=== PATIENT | female | born 1950 | race African-American/Black ===

== ENCOUNTER 2021-03-30 17:44 | Inpatient (IN) | payer MEDICARE, BC, SELFPAY ==
[2021-03-30] VITALS (7 sets, daily range): BP systolic 156–169; BP diastolic 84–106; PULSE 95–102; RESP 21–25; TEMP 36.1; O2SAT 88–98
--- NOTE | ~2021-03-30 | XR_ITS ---
XR chest 1V portable DATE: 04/06/2021 08:23 INDICATION: Pneumonia TECHNIQUE: Portable AP chest on 04/06/2021 at 0811 hours COMPARISON: 04/02/2021 portable AP chest at 0754 hours 03/30/2021 CTA chest FINDINGS: There is bilateral hyperinflation and relative flattening of the diaphragm. There is sparse lung markings in the upper lung zones. The findings are consistent with bullous emphysema. Middle lobe atelectasis is again noted. Bilateral foramen of Bochdalek hernias. Normal heart size. No hilar or mediastinal enlargement. Aortic calcification and mild unfolding. Diffuse osteopenia IMPRESSION: Persistent middle lobe atelectasis Bullous emphysema Reviewed, dictated and finalized at location A. GRADING MACHINE OPERATOR
--- NOTE | ~2021-03-30 | XR_ITS ---
EXAMINATION: XR abdomen/kub 1V EXAM DATE: 04/03/2021 10:36 INDICATION: Abdominal pain, nausea. TECHNIQUE: Frontal projection(s) of the abdomen for interpretation. Comparison is made to prior exami nation from 02/20/2016. FINDINGS: There is mild lumbar levoscoliosis. Mild to moderate bilateral hip osteoarthritis. Nonobst ructive bowel gas pattern, expected amount of colonic stool and gas. Several metallic densities proje cting over right mid abdomen. Bibasilar nodular density probably infectious or postinfectious, region was recently scanned by CT. IMPRESSION: Unremarkable bowel gas pattern. Reviewed, dictated and finalized at location B. AND DIE MAKER/DESIGNER
--- NOTE | ~2021-03-30 | CT_ITS ---
EXAMINATION: CTA chest PE protocol DATE: 03/30/2021 20:03 INDICATION: Possible right lung mass on chest radiograph TECHNIQUE: Computed tomography angiography (CTA) of the chest was performed with 100 mL Omnipaque-350 intravenous contrast timed to evaluate the pulmonary arteries. Coronal maximum intensity projection 3D-reconstructions were created by the technologist. The dose-length product (DLP) was 227.44 mGy-cm. Automated exposure control and iterative reconstruction technique were employed. COMPARISON: 02/24/2016 and chest radiograph from today FINDINGS: The pulmonary arteries are well-opacified. No pulmonary embolism is identified. There is se dameon emphysema. There is near complete atelectasis of the right middle lobe which accounts for the ch est radiographic finding in question. There is soft tissue density of the right hilum exerting mass e ffect on the right middle lobe bronchus. The heart size is normal. There is mild thoracic spondylosis . IMPRESSION: 1. Near complete atelectasis of the right middle lobe accounting for the chest radiographic finding i n question. Soft tissue density at the right hilum exerting mass effect on the right middle lobe bron chus may reflect lymphadenopathy versus malignancy. Follow-up with bronchoscopy is recommended. 2. Severe emphysema. Reviewed, dictated and finalized at location F. UNTING MANAGER ASSISTANT CONTROLLER IMPRESSION: 1. Near complete atelectasis of the right middle lobe accounting for the chest radiographic finding in question. Soft tissue density at the right hilum exerti ng mass effect on the right middle lobe bronchus may reflect lymphadenopathy ve rsus malignancy. Follow-up with bronchoscopy is recommended. 2. Severe emphysema.
--- NOTE | ~2021-03-30 | XR_ITS ---
EXAMINATION: XR chest 1V portable EXAM DATE: 04/02/2021 08:00 INDICATION: COPD, lung mass . Right middle lobe postobstructive atelectasis from hilar scarring, mass or lymphadenopathy. TECHNIQUE: Portable AP frontal chest x-ray was obtained. Comparison is made to prior examination from 03/30/2021. FINDINGS: The lungs are hyperinflated which can be seen with chronic obstructive pulmonary disease (a clinical diagnosis of functional impairment), but is not diagnostic of it. The main, central pulmona ry arteries are dilated which can indicate elevated pulmonary arterial pressure, pulmonary arterial h ypertension. There may be interval improvement in the right middle lobe post obstructive atelectasis. Some other r egions of linear scarring seen bilaterally. Narrow cardiac silhouette from hyperinflated lungs. No pn eumothorax or pleural effusion. There are bony degenerative changes. Mild lower thoracic levoscoliosi s. IMPRESSION: 1. Right middle lobe obstructive atelectasis, possibly with mild improvement. 2. Hyperinflation. Reviewed, dictated and finalized at location G. STANT PROFESSOR OF DRAMA
--- NOTE | ~2021-03-30 | XR_ITS ---
EXAMINATION: XR chest 1V portable INDICATION: Shortness of breath TECHNIQUE: Portable AP chest at 1835 hours COMPARISON: 02/29/2016 FINDINGS: There is severe emphysema. There is an ill-defined opacity of the right lung base. No pleur al effusion or pneumothorax is identified. The heart size is normal. Calcified pulmonary nodules and calcified mediastinal there is moderate osteoarthritis of the shoulders. lymph nodes are consistent w ith old granulomatous disease. IMPRESSION: 1. Ill-defined opacity of the right lung base which could reflect infection/inflammation or possible mass. Follow-up with CT of the chest is recommended. 2. Severe emphysema. Reviewed, dictated and finalized at location F. F HOSPITAL ADMINISTRATOR IMPRESSION: 1. Ill-defined opacity of the right lung base which could reflect infection/inf lammation or possible mass. Follow-up with CT of the chest is recommended. 2. Severe emphysema.
--- NOTE | 2021-03-30 17:52 | ECG_ITS ---
Measurements Intervals [place] Rate: 94 P: 94 DC: 141 QRS: 71 QRSD: 79 T: 62 QT: 278 QTc: 349 Interpretive Statements SINUS RHYTHM DELAYED PRECORDIAL R/S TRANSITION BORDERLINE ST-T WAVE ABNORMALITY- INF/LAT LEADS BASELINE ARTIFACT- I, II, III, AVR, AVL, AVF, V1-V6 BORDERLINE ECG Electronically Signed On 03-30-2021 20:24:15 TAKE DOWN SORTER by Amadeo Decker D.O.
[2021-03-30 18:47] LABS: Basophils Percent Auto 0.3 % (0.2-1.2); Eosinophils Percent Auto 0.1 % (0-4.4); Hematocrit 35.8 % (37.0-47.0); Hemoglobin 11.7 g/dL (12.0-15.0); Immature Granulocyte Absolute 0.04 K/mm3 (0.00-0.031); Immature Granulocyte Percent A 0.3 % (0-0.5); Lymphocytes Absolute Auto 1.35 K/mm3 (0.9-3.2); Lymphocytes Percent Auto 11.6 % (18.3-44.2); Mean Corpuscular HGB Conc 32.7 g/dl (32-36); Mean Corpuscular Hemoglobin 31.3 pg (26-34); Mean Corpuscular Volume 95.7 fl (80-100); Mean Platelet Volume 9.8 fl (7.4-10.4); Monocytes Absolute Auto 0.6 K/mm3 (0.1-0.6); Neutrophils Absolute Auto 9.7 K/mm3 (1.3-6.7); Neutrophils Percent Auto 82.7 % (45.5-73.1); Platelet Count Result 262 k/mm3 (150-375); Red Blood Count 3.74 M/mm3 (4.2-5.4); Red Cell Distribution Width 13.2 % (11.5-14.5); White Blood Count 11.7 K/mm3 (4.5-10.0)
[2021-03-30 19:10] LABS: Alanine Aminotransferase 18 U/L (4-35); Albumin Level 4.6 g/dL (3.5-5.1); Alkaline Phosphatase 98 U/L (38-126); Anion Gap 8 mmol/L (8-16); Aspartate Amino Transferase 35 U/L (14-36); Bilirubin,Total 0.5 mg/dL (0.2-1.3); Blood Urea Nitrogen 13 mg/dL (7-17); Calcium 9.6 mg/dL (8.4-10.2); Carbon Dioxide 38 mmol/L (22-30); Chloride 85 mmol/L (98-107); Estimated CRCL calculation 58 ml/min; Estimated Glomerular Filt Rate > 60; Glucose 139 mg/dL (65-110); Potassium 3.3 mmol/L (3.4-5.0); Sodium 131 mmol/L (137-145)
[2021-03-30 19:12] LABS: INR 0.9; Prothrombin Time 12.2 Seconds (11.1-14.7)
[2021-03-30 19:13] LABS: Partial Thromboplastin Time 27.6 SECONDS (22.3-36.8)
[2021-03-30 19:21] LABS: NT Pro B Type Natriuretic Pept 156 pg/mL (5-100); Troponin I < 0.012 ng/mL (0.000-0.034)
[2021-03-30] MEDS: ALBUTEROL SULFATE NEB 2.5 MG/0.5 ML INH 5 MG INHALATION (20:07)
[2021-03-30] MEDS: IPRATROPIUM BR 0.02% INH SOLN 0.5 MG/2.5 ML VIAL INHALATION (20:07)
--- NOTE | 2021-03-30 20:07 | ED.GENADULT ---
HPI - General Adult General Chief complaint: Shortness of Breath/Dyspnea Stated complaint: shortness of breath Time Seen by Provider: 03/30/21 19:11 History of Present Illness HPI narrative: Patient is 70-year-old female presents the emergency department chief complaint of shortness of breath. Patient reports that she has history of COPD is on 2 L of nasal cannula oxygen but reports that she has had a burning sensation in her lungs and reports that she had a little bit of a cough has been nonproductive. Patient reports that she is required additional oxygen needs up to 3 L right now. The patient denies fever states that this feels different than her usual exacerbation. Related Data Home Medications Medication Instructions Recorded Confirmed Saccharomyces boulardii [Daily PO 03/06/21 03/06/21 Probiotic (S. boulardii)] albuterol sulfate 90 mcg/actuation 1 puff INHALATION Q6H PRN g 03/06/21 03/06/21 aerosol inhaler aspirin 81 mg tablet,delayed 81 mg PO DAILY 03/06/21 03/06/21 release calcium carbonate [Tums] PO PRN 03/06/21 03/06/21 diltiazem HCl 30 mg tablet 30 mg PO TID 03/06/21 03/06/21 docusate sodium 100 mg capsule 100 mg PO BID PRN 03/06/21 03/06/21 fluticasone fur. 100 mcg-umeclid 1 inh INHALATION Q24H 03/06/21 03/06/21 62.5 mcg-vilant 25 mcg inhalat.powder fluticasone propionate 50 2 spray INTRANASAL DAILY 03/06/21 03/06/21 mcg/actuation nasal spray,suspension ipratropium 0.5 mg-albuterol 3 mg 3 ml INHALATION Q8H PRN ml 03/06/21 03/06/21 (2.5 mg base)/3 mL nebulization soln losartan 100 1 tablet PO DAILY 03/06/21 03/06/21 mg-hydrochlorothiazide 25 mg tablet montelukast 10 mg tablet 10 mg PO DAILY 03/06/21 03/06/21 multivitamin PO 03/06/21 03/06/21 omega-3 fatty acids 1,000 mg 1,000 mg PO DAILY 03/06/21 03/06/21 capsule omeprazole 40 mg capsule,delayed 40 mg PO DAILY 03/06/21 03/06/21 release Allergies Allergy/AdvReac Type Severity Reaction Status Date / Time shellfish derived Allergy Unknown Unknown Verified 03/06/21 09:34 strawberry Allergy Unknown Unknown Verified 03/06/21 09:34 Review of Systems Review of Systems: A 10 system review of systems was completed on the patient and is negative except for what is stated in the HPI. Nursing and ancillary documentation was reviewed. [facility] Past Medical History Medical History Anxiety Asthma Constipation Dry skin End stage chronic obstructive pulmonary disease GERD (gastroesophageal reflux disease) Heart disease HTN (hypertension) Hx of intestinal obstruction Insomnia Mixed hyperlipidemia Oxygen dependent Seasonal allergic rhinitis Vitamin D deficiency Weakness Surgical History Surgical History H/O: hysterectomy (~2016) History of appendectomy History of cholecystectomy (~2019) Family History Family History Mother Lymphoma Hypertension Heart disease Sibling Lung cancer Diabetes mellitus Hypertension Other Spinal cord cancer Social History Social History Smoking status: Former smoker Alcohol intake: never Substance use: never Substance use type: does not use Exam Narrative: GENERAL: Well-appearing, well-nourished, and in no acute distress. HEAD: Normocephalic, atraumatic. EYES: PERRLA and EOMI. ENT: Nares clear, no rhinorrhea or epistaxis. Mucous membranes moist. NECK: Supple. CHEST: Clear to auscultation. No respiratory distress. HEART: Regular rate and rhythm. No murmur heard. Normal peripheral pulses. ABDOMEN: Soft, nontender, nondistended, normal active bowel sounds. EXTREMITIES: Normal range of motion. No edema. SKIN: Warm, dry, no rash. NEURO: No focal deficits. Alert and oriented x3. PSYCH: Normal mood and affect. Cou
[2021-03-30] MEDS: methylPREDNISolone SOD SUCC 125 MG VIAL IV PUSH (20:48)
[2021-03-30 21:40] LABS: SARS-CoV-2 RNA PCR Negative
[2021-03-31] VITALS (25 sets, daily range): BP systolic 134–164; BP diastolic 61–83; PULSE 84–109; RESP 17–36; TEMP 35.7–36.4; O2SAT 92–99; BMI 15.3
--- NOTE | 2021-03-31 00:37 | ADMGEN ---
This patient, Kyle Love, was admitted to 2 Medical Room 259-01 @ . Patient/family oriented to hospital policies and general routines including ID bracelet, bed and alarms, visiting hours, pain management, procedures, bathroom and other care routines, personal items, smoking policy, room service/diet, and visiting hours. Information on how to activate the Rapid Response Team has been discussed. Patient/Family are encouraged to report perceived risks to care and to ask questions if they do not understand what they are told or what they should do. [id number]
[2021-03-31] MEDS: SODIUM CHLORIDE 0.9% IV 1,000 ML 100 ML IV CONT (00:57)
[2021-03-31] MEDS: ACETAMINOPHEN 325 MG TABLET 650 MG PO ×2 (05:14→09:20)
[2021-03-31] MEDS: methylPREDNISolone SOD SUCC 125 MG VIAL 60 MG IV PUSH (06:04)
[2021-03-31] MEDS: ALBUTEROL SULFATE NEB 2.5 MG/0.5 ML INH 5 MG INHALATION ×2 (06:29→08:43)
[2021-03-31] MEDS: IPRATROPIUM BR 0.02% INH SOLN 0.5 MG/2.5 ML VIAL INHALATION ×5 (06:29→20:23)
--- NOTE | 2021-03-31 09:11 | PM.IMHP ---
H&P: HPI History of Present Illness Date/Time: 03/31/21 09:11 Chief Complaint: Shortness of breath Narrative: 70 years old female with history of COPD, hypertension and oxygen dependent was admitted through the emergency room with complaints of having shortness of breath and cough going on for the last few days. Patient was requiring more oxygen. Patient also has generalized weakness. Patient denies any fever chills. No abdominal pain, no nausea, no vomiting. Mood stable. Review of Systems Review of Systems: All systems reviewed & are unremarkable except as noted in HPI and below (the history and physical examination.) [facility] Past Medical History Medical History Anxiety Asthma Constipation Dry skin End stage chronic obstructive pulmonary disease GERD (gastroesophageal reflux disease) Heart disease HTN (hypertension) Hx of intestinal obstruction Insomnia Mixed hyperlipidemia Oxygen dependent Seasonal allergic rhinitis Vitamin D deficiency Weakness Surgical History Surgical History H/O: hysterectomy (~2015) History of appendectomy History of cholecystectomy (~2019) Family History Family History Mother Lymphoma Hypertension Heart disease Sibling Lung cancer Diabetes mellitus Hypertension Other Spinal cord cancer Social History Social History Smoking status: Former smoker Additional smoking assessment comments: 10 years stopped smoking Alcohol intake: never Substance use: never Substance use type: does not use Spiritual care concerns: No Meds Home Medications and Allergies Home Medications Medication Instructions Recorded Confirmed Type Saccharomyces boulardii [Daily 1 cap PO DAILY 03/06/21 03/31/21 History Probiotic (S. boulardii)] albuterol sulfate 90 mcg/actuation 1 puff INHALATION Q6H PRN g 03/06/21 03/31/21 History aerosol inhaler aspirin 81 mg tablet,delayed 81 mg PO DAILY 03/06/21 03/31/21 History release cholecalciferol (vitamin D3) 1,250 1,250 mcg PO .[id number] #6 cap 03/06/21 03/31/21 Rx mcg (50,000 unit) capsule codeine 10 mg-guaifenesin 100 mg/5 5 ml PO Q6H PRN #473 ml 03/06/21 03/31/21 Rx mL oral liquid diltiazem HCl 30 mg tablet 30 mg PO TID 03/06/21 03/31/21 History docusate sodium 100 mg capsule 100 mg PO BID PRN 03/06/21 03/31/21 History fluticasone fur. 100 mcg-umeclid 1 inh INHALATION Q24H 03/06/21 03/31/21 History 62.5 mcg-vilant 25 mcg inhalat.powder fluticasone propionate 50 2 spray INTRANASAL DAILY 03/06/21 03/31/21 History mcg/actuation nasal spray,suspension ipratropium 0.5 mg-albuterol 3 mg 3 ml INHALATION Q8H PRN ml 03/06/21 03/31/21 History (2.5 mg base)/3 mL nebulization soln losartan 100 1 tablet PO DAILY 03/06/21 03/31/21 History mg-hydrochlorothiazide 25 mg tablet montelukast 10 mg tablet 10 mg PO DAILY 03/06/21 03/31/21 History omega-3 fatty acids 1,000 mg 1,000 mg PO DAILY 03/06/21 03/31/21 History capsule omeprazole 40 mg capsule,delayed 40 mg PO DAILY 03/06/21 03/31/21 History release morphine concentrate 100 mg/5 mL 10 mg PO Q4H PRN #90 ml 03/26/21 03/31/21 Rx (20 mg/mL) oral solution pravastatin 20 mg tablet 20 mg PO DAILY #90 tablet 03/26/21 03/31/21 Rx famotidine 20 mg tablet 20 mg PO DAILY #30 tablet 03/27/21 03/31/21 Rx sertraline 50 mg tablet 50 mg PO Q24H #30 tablet 03/27/21 03/31/21 Rx Allergies Allergy/AdvReac Type Severity Reaction Status Date / Time shellfish derived Allergy Unknown Unknown Verified 03/31/21 00:38 strawberry Allergy Unknown Unknown Verified 03/31/21 00:38 Vital Signs Vital Signs - 24 hr 03/30/21 17:48 03/30/21 18:28 03/30/21 18:29 Temperature 36.1 C L Pulse Rate 99 95 Respiratory Rate 22 H 25 H Blood Pressure 169/106 H 156/84 H
[2021-03-31] MEDS: SODIUM CHLORIDE 0.9% IV 1,000 ML 75 ML IV CONT ×2 (09:16→23:46)
--- NOTE | 2021-03-31 10:15 | PC.NURSE ---
AWAITING PHARMACY TO SEND ALL MORNING MEDS
[2021-03-31] MEDS: SACCHAROMYCES BOULARDII 250 MG CAPSULE PO (11:18)
[2021-03-31] MEDS: SERTRALINE HCL 50 MG TABLET PO (11:18)
[2021-03-31] MEDS: LOSARTAN POTASSIUM 100 MG TABLET PO (11:19)
[2021-03-31] MEDS: hydroCHLOROthiazide 25 MG TABLET PO (11:19)
[2021-03-31] MEDS: ASPIRIN 81 MG ENTERIC TABLET PO (11:19)
[2021-03-31] MEDS: ERGOCALCIFEROL 50,000 UNIT CAPSULE 50000 UNITS PO (11:19)
--- NOTE | 2021-03-31 12:10 | PM.PNPUL ---
Subjective Date/time seen: 03/31/21 12:10 Interval history: 03/31/2021: This is a new pulmonary consult for COPD exacerbation with right hilar mass. 70-year-old woman with a history of COPD, hypertension, hyperlipidemia, GERD and pneumonia in January of 2021. Regarding her COPD she is on 2 L nasal cannula 24-7. after her pneumonia in January of 2021 she recovered and went to rehabilitation. Over the last 3 days she has developed new cough, increasing shortness of breath, increasing oxygen demands without any fever, chills, rigors or aspiration events. The patient notes 10-12 lb weight loss in the last 6 weeks. Patient presented to the emergency room with a white blood cell count of 11.7, creatinine is 0.5, BNP of 156, negative troponin and her CT angiogram of the chest showed no PE, severe emphysema and a right hilar mass with compression of the right middle lobe bronchi and atelectasis of the right middle lobe. patient was started on ceftriaxone and azithromycin for postobstructive pneumonia. Patient was started on albuterol, ipratropium nebulizers and Solu-Medrol for COPD exacerbation. Objective Data Vital Signs Vital Signs: Vital Signs - 24 hr 03/30/21 17:48 03/30/21 18:28 03/30/21 18:29 Temperature 36.1 C L Pulse Rate 99 95 Respiratory Rate 22 H 25 H Blood Pressure 169/106 H 156/84 H Pulse Oximetry 97 88 L 98 03/30/21 20:08 03/30/21 20:09 03/30/21 20:14 Temperature Pulse Rate 100 100 102 H Respiratory Rate 21 H 21 H 21 H Blood Pressure Pulse Oximetry 03/30/21 21:03 03/31/21 00:16 03/31/21 00:50 Temperature 36.1 C L Pulse Rate 98 94 96 Respiratory Rate 23 H 17 22 H Blood Pressure 156/87 H 134/68 155/74 H Pulse Oximetry 97 97 96 03/31/21 04:14 03/31/21 06:30 03/31/21 06:37 Temperature 35.7 C L Pulse Rate 96 87 92 Respiratory Rate 18 19 21 H Blood Pressure 141/66 H Pulse Oximetry 95 03/31/21 08:45 03/31/21 08:52 03/31/21 09:20 Temperature Pulse Rate 86 91 Respiratory Rate 24 H 20 Blood Pressure Pulse Oximetry 93 95 03/31/21 11:22 Temperature Pulse Rate 94 Respiratory Rate 20 Blood Pressure 148/69 H Pulse Oximetry 99 Intake/Output Intake/Output: Intake & Output 03/28/21 03/29/21 03/30/21 03/31/21 23:59 23:59 23:59 23:59 Intake Total 250 1300 Balance 250 1300 Meds/Results Medications: Active Medications Generic Name Dose Route Start Last Admin Trade Name Freq PRN Reason Stop Dose Admin Acetaminophen 650 mg 03/30/21 21:03 03/31/21 09:20 Acetaminophen 325 Mg Tablet PO 650 mg Q4H PRN Administration Mild Pain (1-3) or Fever Albuterol 5 mg 03/31/21 02:00 03/31/21 08:43 Albuterol Sulfate Neb 2.5 Mg/0.5 Ml Inh INHALATION 5 mg Q6HRT KIERRA Administration Albuterol 2.5 mg 03/31/21 09:33 Albuterol Sulfate Neb 2.5 Mg/0.5 Ml Inh INHALATION Q8H PRN shortness of breath or wheezin Albuterol 1 puff 03/31/21 09:08 Albuterol Sulfate (*Sp) Aerosol 1 Puff INHALATION Q6H PRN shortness of breath or wheezing Aspirin 81 mg 03/31/21 09:00 03/31/21 11:19 Aspirin 81 Mg Enteric Tablet PO 81 mg DAILY KIERRA Administration Diltiazem HCl 30 mg 03/31/21 13:00 Diltiazem Hcl 30 Mg Tablet PO TID KIERRA Docusate Sodium 100 mg 03/31/21 09:08 Docusate Sodium 100 Mg Capsule PO BID PRN Constipation Ergocalciferol 50,000 unit 03/31/21 09:00 03/31/21 11:19 Ergocalciferol 50,000 Unit Capsule PO 50,000 unit Q14D KIERRA Administration Fluticasone Propionate 2 spray 04/01/21 09:00 Fluticasone Propionate 0.05% Na Spr 16 Gm Btl (*Bkc) NASAL DAILY KIERRA Fluticasone/Umeclidinium/Vilanterol 1 puff 03/31/21 09:00 Fluticasone/Umeclidin/Vilanter 100-62.5-25 Mcg Ellipta INHALATION Q24H [facility] Guaifenesin/Codeine Phosphate 5 ml 03/31/21 09:08 Guaifenesin/Codeine (*Crx) 200/20 Mg 10 Ml Syrup PO Q6H PRN cough Heparin Sodium (Porcine) 5,000
--- NOTE | 2021-03-31 12:22 | PM.CNPUL ---
Assessment and Plan Assessment and plan (1) COPD exacerbation: Code(s): J44.1 - Chronic obstructive pulmonary disease with (acute) exacerbation Status: Acute Assessment and Plan: Patient with COPD with hypoxemic respiratory failure requiring 2 L nasal cannula oxygen 24/7 and maintained on trelegy inhaler. I have no PFTs. Patient does have severe emphysema on her CT on 03/30/2021. Patient has baseline dyspnea on exertion is 15 ft. Currently the patient has increased cough, shortness of breath, change in phlegm production with a CT scan demonstrating a right hilar mass with atelectasis of the right middle lobe. I will treat her for COPD exacerbation and postobstructive pneumonia. Her COVID RT PCR study is negative. I will send influenza swab. I will check an arterial blood gas now to assess for hypercarbic respiratory failure. For the COPD exacerbation I will change her methylprednisolone to 20 mg IV q.6, I will change her albuterol nebulizers to 2.5 mg q.4 hours, I will change her ipratropium to 0.5 mg nebulized q.4 hours. Since this represents maximal beta agonist and muscarinic antagonist dose I will discontinue her trelegy. She is already using a Cornet valve to help her expectorate. Regarding the postobstructive pneumonia I will change her antibiotics from ceftriaxone and azithromycin to vancomycin, Zosyn and Levaquin to treat her aggressively With broad-spectrum antibiotics for community-acquired pneumonia as well as the possibility of resistant organisms such as MRSA and Pseudomonas. Blood cultures are negative and I have ordered a sputum culture. (2) Lung mass: Code(s): R91.8 - Other nonspecific abnormal finding of lung field Status: Acute Assessment and Plan: Patient with a right hilar mass with compression of the right middle lobe bronchus and atelectasis of the right middle lobe. In addition she has a 10-12 lb weight loss over the last 6 weeks and she may have cancer. At this time She is in mild respiratory distress with increased oxygen requirements and I will aggressively treat COPD exacerbation and postobstructive pneumonia prior to additional workup of this mass. History of Present Illness History of Present Illness Consult date: 03/31/21 Requesting physician: Dayron Loja MD Reason for consult: COPD and lung mass Chief complaint: copd exacerbation, lung mass, pneumonia Narrative: 03/31/2021: This is a new pulmonary consult for COPD exacerbation with right hilar mass. 70-year-old woman with a history of COPD With hypoxemic respiratory failure requiring 2 L nasal cannula oxygen 247 and maintained on trelegy inhaler, hypertension, hyperlipidemia, GERD and pneumonia in January of 2021. Regarding her COPD she is on 2 L nasal cannula 24-7. after her pneumonia in January of 2021 she recovered and went to rehabilitation. Over the last 3 days she has developed new cough, increasing shortness of breath, increasing oxygen demands without any fever, chills, rigors or aspiration events. The patient notes 10-12 lb weight loss in the last 6 weeks. Patient presented to the emergency room with a white blood cell count of 11.7, serum bicarb 38, creatinine is 0.5, BNP of 156, negative troponin and her CT angiogram of the chest showed no PE, severe emphysema and a right hilar mass with compression of the right middle lobe bronchi and atelectasis of the right middle lobe. patient was started on ceftriaxone and azithromycin for postobstructive pneumonia. Patient was started on albuterol, ipratropium nebulizers and Solu-Medrol for COPD exacerbation. patient smoked 1/2 a pack a cigarettes from [id number] 428 pack year history. Both parents smoked. She is not exposed to any secondhand smoke at this time. Patient denies vaping, illicit drug use, sandblasting, welding, asbestos were, professional painting or steel grain mill worker. patient has received 2 COVID vaccinations and tells me david
[2021-03-31] MEDS: dilTIAZem HCL 30 MG TABLET PO ×2 (12:27→17:36)
[2021-03-31] MEDS: MAG HYDROX/AL HYDROX/SIMETH 30 ML UDC PO (14:35)
[2021-03-31] MEDS: ALBUTEROL SULFATE NEB 2.5 MG/0.5 ML INH INHALATION ×3 (14:48→20:23)
[2021-03-31 14:54] LABS: Alveolar/Arterial O2 Gradient 75.6 mmHg; Base Excess ABG 6.7 mEq/l (+/-2.0); Fractional Inspired Oxygen 30 %; HCO3 ABG 34.7 mEq/l (22.0-26.0); Oxygen Content ABG 15.5 %vol (16.0-22.0); Oxygen Saturation ABG 88.4 % (95.0-100.0); PO2 ABG 59.8 mmHg (80.0-100.0); PO2 FiO2 Ratio Arterial Blood 1.99 %; Total Hemoglobin 12.5 g/dL (12.0-18.0); pH ABG 7.333 (7.350-7.450)
[2021-03-31 14:58] LABS: PCO2 ABG 66.8 mmHg (35.0-45.0)
[2021-03-31 15:00] LABS: Device NASAL CANNULA; Liters per Minute 2.5 LPM; Modified Allen's Test Pass; Oxyhemoglobin 87.9 % THb (90.0-100.0); Site Drawn RIGHT RADIAL
[2021-03-31] MEDS: PANTOPRAZOLE 40 MG TABLET PO (17:36)
[2021-03-31] MEDS: methylPREDNISolone SOD SUCC 40 MG VIAL 20 MG IV PUSH ×2 (17:37→23:45)
[2021-03-31 18:09] LABS: Influenza Control Positive
[2021-03-31] MEDS: ALPRAZolam (*CRX) 0.5 MG TABLET PO (18:56)
[2021-03-31] MEDS: HEPARIN SODIUM 5,000 UNITS/ML VIAL 5000 UNITS SUB-Q (21:18)
[2021-04-01] VITALS (13 sets, daily range): BP systolic 140–164; BP diastolic 74–89; PULSE 68–106; RESP 18–24; TEMP 35.6–36.7; O2SAT 94–100
[2021-04-01] MEDS: IPRATROPIUM BR 0.02% INH SOLN 0.5 MG/2.5 ML VIAL INHALATION ×4 (01:00→19:58)
[2021-04-01] MEDS: ALBUTEROL SULFATE NEB 2.5 MG/0.5 ML INH INHALATION ×4 (01:00→19:57)
[2021-04-01] MEDS: ALPRAZolam (*CRX) 0.25 MG TABLET PO ×2 (02:48→17:31)
[2021-04-01 05:28] LABS: Hematocrit 33.1 % (37.0-47.0); Hemoglobin 10.9 g/dL (12.0-15.0); Mean Corpuscular HGB Conc 32.9 g/dl (32-36); Mean Corpuscular Hemoglobin 31.1 pg (26-34); Mean Corpuscular Volume 94.6 fl (80-100); Mean Platelet Volume 10.1 fl (7.4-10.4); Platelet Count Result 262 k/mm3 (150-375); White Blood Count 10.8 K/mm3 (4.5-10.0)
[2021-04-01] MEDS: methylPREDNISolone SOD SUCC 40 MG VIAL 20 MG IV PUSH ×4 (05:28→23:12)
[2021-04-01 05:44] LABS: Alanine Aminotransferase 22 U/L (4-35); Albumin Level 4.3 g/dL (3.5-5.1); Alkaline Phosphatase 78 U/L (38-126); Anion Gap 8 mmol/L (8-16); Aspartate Amino Transferase 41 U/L (14-36); Bilirubin,Total 0.4 mg/dL (0.2-1.3); Blood Urea Nitrogen 15 mg/dL (7-17); Calcium 8.6 mg/dL (8.4-10.2); Carbon Dioxide 37 mmol/L (22-30); Chloride 81 mmol/L (98-107); Estimated CRCL calculation 63 ml/min; Estimated Glomerular Filt Rate > 60; Glucose 128 mg/dL (65-110); Potassium 3.7 mmol/L (3.4-5.0); Sodium 126 mmol/L (137-145)
[2021-04-01 06:11] LABS: Alveolar/Arterial O2 Gradient 98.2 mmHg; Base Excess ABG 9.7 mEq/l (+/-2.0); Fractional Inspired Oxygen 35 %; HCO3 ABG 35.6 mEq/l (22.0-26.0); Oxygen Content ABG 15.2 %vol (16.0-22.0); Oxygen Saturation ABG 96.8 % (95.0-100.0); Oxyhemoglobin 95.8 % THb (90.0-100.0); PCO2 ABG 54.6 mmHg (35.0-45.0); PO2 ABG 87.9 mmHg (80.0-100.0); PO2 FiO2 Ratio Arterial Blood 2.51 %; Total Hemoglobin 11.2 g/dL (12.0-18.0); pH ABG 7.432 (7.350-7.450)
[2021-04-01 06:25] LABS: Modified Allen's Test Pass; Site Drawn RIGHT RADIAL
[2021-04-01] MEDS: HEPARIN SODIUM 5,000 UNITS/ML VIAL 5000 UNITS SUB-Q ×2 (09:30→20:37)
[2021-04-01] MEDS: ASPIRIN 81 MG ENTERIC TABLET PO (09:31)
[2021-04-01] MEDS: hydroCHLOROthiazide 25 MG TABLET PO (09:31)
[2021-04-01] MEDS: PRAVASTATIN SODIUM 20 MG TABLET PO (09:31)
[2021-04-01] MEDS: FLUTICASONE PROPIONATE 0.05% NA SPR 16 GM BTL (*BKC) 2 SPRAY NASAL (09:31)
[2021-04-01] MEDS: LOSARTAN POTASSIUM 100 MG TABLET PO (09:31)
[2021-04-01] MEDS: MONTELUKAST SODIUM 10 MG TABLET PO (09:31)
[2021-04-01] MEDS: SERTRALINE HCL 50 MG TABLET PO (09:31)
[2021-04-01] MEDS: SACCHAROMYCES BOULARDII 250 MG CAPSULE PO (09:31)
[2021-04-01] MEDS: PANTOPRAZOLE 40 MG TABLET PO ×2 (09:31→17:31)
[2021-04-01] MEDS: ACETAMINOPHEN 325 MG TABLET 650 MG PO (09:33)
--- NOTE | 2021-04-01 12:29 | PM.IMPN ---
Progress Note: A&P Assessment and Plan (1) COPD exacerbation: Code(s): J44.1 - Chronic obstructive pulmonary disease with (acute) exacerbation Status: Acute Assessment and Plan: Will continue with IV steroids and nebulizer treatment Q4. Continue with oxygen. Change from BIPAP to NC in day BIPAP at night Pulmonology rounding (2) Pneumonia: Qualifiers: Laterality: unspecified laterality Lung location: unspecified part of lung Pneumonia type: due to unspecified organism Qualified Code(s): J18.9 - Pneumonia, unspecified organism Code(s): J18.9 - Pneumonia, unspecified organism Status: Acute Assessment and Plan: Follow BC, continue IV Levaquin, vancomycin and Zosyn (3) Lung mass: Code(s): R91.8 - Other nonspecific abnormal finding of lung field Status: Acute Assessment and Plan: Consult Pulmonary for possible bronchoscopy (4) Anxiety: Code(s): F41.9 - Anxiety disorder, unspecified Status: Acute Assessment and Plan: Stable current medication. (5) GERD (gastroesophageal reflux disease): Code(s): K21.9 - Gastro-esophageal reflux disease without esophagitis Status: Acute Assessment and Plan: Stable on current meds. (6) Mixed hyperlipidemia: Code(s): E78.2 - Mixed hyperlipidemia Status: Acute Assessment and Plan: Stable on current meds. (7) Essential hypertension: Code(s): I10 - Essential (primary) hypertension Status: Acute Assessment and Plan: Stable on meds. Subjective Date/time seen: 04/01/21 12:29 Interval history: 70 years old female with history of COPD, hypertension and oxygen dependent was admitted through the emergency room with complaints of having shortness of breath and cough going on for the last few days. Pt treated for COPD and pneumonia. Pt found to have a Lung mass. Pt is found to be COVID negative in the hospital. Pulmology rounding on the patient. CTA shows - 1. Near complete atelectasis of the right middle lobe accounting for the chest radiographic finding in question. Soft tissue density at the right hilum exerting mass effect on the right middle lobe bronchus may reflect lymphadenopathy versus malignancy. Follow-up with bronchoscopy is recommended. 2. Severe emphysema. Review of Systems Review of Systems: All systems reviewed & are unremarkable except as noted in HPI and below (the history and physical examination.) Exam Narrative: GENERAL: Pt is on BIPAP Thin frail appearing lady ENT: Nares clear, no rhinorrhea or epistaxis. Mucous membranes moist. NECK: Supple. CHEST: BL wheezy lungs HEART: Regular rate and rhythm. No murmur heard. Normal peripheral pulses. ABDOMEN: Soft, nontender, nondistended, normal active bowel sounds. EXTREMITIES: Normal range of motion. No edema. SKIN: Warm, dry, no rash. NEURO: No focal deficits. Alert and oriented x3. PSYCH: Normal mood and affect. Objective Data Vital Signs Vital Signs: Vital Signs - 24 hr 03/31/21 12:32 03/31/21 14:00 03/31/21 14:49 Temperature 36.4 C Pulse Rate 96 86 Respiratory Rate 20 36 H Blood Pressure 160/70 H 164/83 H Pulse Oximetry 98 03/31/21 15:00 03/31/21 16:29 03/31/21 16:35 Temperature Pulse Rate 95 109 H 109 H Respiratory Rate 36 H 28 H 24 H Blood Pressure Pulse Oximetry 98 03/31/21 17:09 03/31/21 18:22 03/31/21 20:00 Temperature Pulse Rate 101 H Respiratory Rate 24 H 26 H Blood Pressure Pulse Oximetry 98 92 94 03/31/21 20:23 03/31/21 20:24 03/31/21 20:33 Temperature Pulse Rate 90 99 97 Respiratory Rate 21 H 24 H 21 H Blood Pressure Pulse Oximetry 98 03/31/21 22:00 03/31/21 23:43 03/31/21 23:44 Temperature 36.2 C L Pulse Rate 86 84 86 Respiratory Rate 18 19 20 Blood Pressure 135/61 Pulse Oximetry 97 97 03/31/21 23:51 04/01/21 06:00 04/01/21 06:57 Temperature 36.7 C Pulse Rate 86 88 Respir
--- NOTE | 2021-04-01 12:37 | PM.PNPUL ---
Progress Note: A&P Assessment and Plan (1) COPD exacerbation: Code(s): J44.1 - Chronic obstructive pulmonary disease with (acute) exacerbation Status: Acute Assessment and Plan: 03/31 Patient with COPD with hypoxemic respiratory failure requiring 2 L nasal cannula oxygen 24/7 and maintained on trelegy inhaler. I have no PFTs. Patient does have severe emphysema on her CT on 03/30/2021. Patient has baseline dyspnea on exertion is 15 ft. Currently the patient has increased cough, shortness of breath, change in phlegm production with a CT scan demonstrating a right hilar mass with atelectasis of the right middle lobe. I will treat her for COPD exacerbation and postobstructive pneumonia. Her COVID RT PCR study is negative. I will send influenza swab. I will check an arterial blood gas now to assess for hypercarbic respiratory failure. For the COPD exacerbation I will change her methylprednisolone to 20 mg IV q.6, I will change her albuterol nebulizers to 2.5 mg q.4 hours, I will change her ipratropium to 0.5 mg nebulized q.4 hours. Since this represents maximal beta agonist and muscarinic antagonist dose I will discontinue her trelegy. She is already using a Cornet valve to help her expectorate. Regarding the postobstructive pneumonia I will change her antibiotics from ceftriaxone and azithromycin to vancomycin, Zosyn and Levaquin to treat her aggressively With broad-spectrum antibiotics for community-acquired pneumonia as well as the possibility of resistant organisms such as MRSA and Pseudomonas. Blood cultures are negative and I have ordered a sputum culture. ABG later in the day on tube of 2.5 L nasal cannula 7.33/69/60. Patient has hypercarbic respiratory failure and I initiated BiPAP later in the day But she did not tolerate BiPAP and I placed her on a noninvasive ventilation with AVAPS mode with a rate of 16, tidal volume 400, EPAP 5, minimal inspiratory pressure 6, maximal inspiratory pressure 25 and 35% FiO2. Patient wore this overnight.. 04/01 Patient wore the noninvasive ventilator with the a VATS mode overnight and said that she was able to sleep. She says it does help her breathe. Currently the patient is on 3 L nasal cannula saturations 94%. She has decreased breath sounds but no wheezes. Overall she says that she is a little bit better. Patient had a blood gas prior to removal of the noninvasive ventilator with the AVAPS mode of 7.43/55/88. Patient had an overnight oximetry on 35% FiO2 with an average saturation of 94% and time with saturation less than or equal to 88% was 10 minutes. Patient is a little bit better and at this time I will continue Solu-Medrol 20 mg IV q.6, albuterol and ipratropium nebulizers Q 4 standing, vancomycin, Zosyn and Levaquin for postobstructive pneumonia. Her blood gas on the above noninvasive ventilator settings are adequate. I will increase her FiO2 to 40% tonight. (2) Lung mass: Code(s): R91.8 - Other nonspecific abnormal finding of lung field Status: Acute Assessment and Plan: 03/31 Patient with severe COPD a right hilar mass with compression of the right middle lobe bronchus and atelectasis of the right middle lobe. In addition she has a 10-12 lb weight loss over the last 6 weeks and she may have cancer. At this time She is in mild respiratory distress with increased oxygen requirements and I will aggressively treat COPD exacerbation and postobstructive pneumonia prior to additional workup of this mass. 04/01 Patient with severe COPD and chronic hypoxemic and hypercarbic respiratory failure and now with a right hilar mass. Continue aggressive treatment for COPD exacerbation and postobstructive pneumonia prior to additional workup. Will obtain a portable chest x-ray in the morning. Will follow with you. Subjective Date/time seen: 04/01/21 12:37 Interval history: 03/31/2021: This is a new pulmonary consult for COPD
[2021-04-01] MEDS: SODIUM CHLORIDE 0.9% IV 1,000 ML 75 ML IV CONT (20:37)
[2021-04-02] VITALS (16 sets, daily range): BP systolic 153–184; BP diastolic 76–91; PULSE 80–113; RESP 16–28; TEMP 35.7–36.2; O2SAT 95–99; BMI 15.3
[2021-04-02] MEDS: ALBUTEROL SULFATE NEB 2.5 MG/0.5 ML INH INHALATION ×5 (00:05→19:56)
[2021-04-02] MEDS: IPRATROPIUM BR 0.02% INH SOLN 0.5 MG/2.5 ML VIAL INHALATION ×5 (00:05→19:56)
[2021-04-02] MEDS: ALPRAZolam (*CRX) 0.25 MG TABLET PO ×3 (03:20→22:23)
[2021-04-02] MEDS: methylPREDNISolone SOD SUCC 40 MG VIAL 20 MG IV PUSH ×3 (05:15→17:05)
[2021-04-02 07:49] LABS: Alanine Aminotransferase 22 U/L (4-35); Albumin Level 3.9 g/dL (3.5-5.1); Alkaline Phosphatase 62 U/L (38-126); Anion Gap 6 mmol/L (8-16); Aspartate Amino Transferase 38 U/L (14-36); Bilirubin,Total 0.5 mg/dL (0.2-1.3); Blood Urea Nitrogen 11 mg/dL (7-17); Calcium 8.4 mg/dL (8.4-10.2); Carbon Dioxide 39 mmol/L (22-30); Chloride 82 mmol/L (98-107); Estimated CRCL calculation 54 ml/min; Estimated Glomerular Filt Rate > 60; Glucose 102 mg/dL (65-110); Potassium 2.8 mmol/L (3.4-5.0); Sodium 127 mmol/L (137-145)
[2021-04-02] MEDS: ASPIRIN 81 MG ENTERIC TABLET PO (08:05)
[2021-04-02] MEDS: LOSARTAN POTASSIUM 100 MG TABLET PO (08:05)
[2021-04-02] MEDS: FLUTICASONE PROPIONATE 0.05% NA SPR 16 GM BTL (*BKC) 2 SPRAY NASAL (08:05)
[2021-04-02] MEDS: PRAVASTATIN SODIUM 20 MG TABLET PO (08:05)
[2021-04-02] MEDS: SACCHAROMYCES BOULARDII 250 MG CAPSULE PO (08:06)
[2021-04-02] MEDS: HEPARIN SODIUM 5,000 UNITS/ML VIAL 5000 UNITS SUB-Q ×2 (08:06→21:14)
[2021-04-02] MEDS: SERTRALINE HCL 50 MG TABLET PO (08:06)
[2021-04-02] MEDS: PANTOPRAZOLE 40 MG TABLET PO ×2 (08:08→17:05)
[2021-04-02] MEDS: POTASSIUM CHLORIDE 20 MEQ TABLET 40 MEQ PO (09:01)
[2021-04-02] MEDS: POTASSIUM CHLORIDE INJ 40 MEQ in SODIUM CHLORIDE 0.9% IV 500 ML 130 MEQ IVPB (09:03)
[2021-04-02 09:57] LABS: Device NON-INVASIVE VENT
[2021-04-02] MEDS: hydroCHLOROthiazide 25 MG TABLET PO (10:35)
[2021-04-02] MEDS: SODIUM CHLORIDE 0.9% IV 1,000 ML 75 ML IV CONT (11:58)
--- NOTE | 2021-04-02 14:29 | P.PNPL_ITS ---
Progress Note: A&P Assessment and Plan (1) COPD exacerbation: Code(s): J44.1 - Chronic obstructive pulmonary disease with (acute) exacerbation Status: Acute Assessment and Plan: 03/31 Patient with COPD with hypoxemic respiratory failure requiring 2 L nasal cannula oxygen 24/7 and maintained on Trelegy inhaler. I have no PFTs. Patient does have severe emphysema on her CT on 03/30/2021. Patient has baseline dyspnea on exertion with walking 15 ft. She was admitted with increased cough, shortness of breath, change in phlegm production with a CT scan demonstrating a right hilar mass with atelectasis of the right middle lobe. We will continue to treat her for COPD exacerbation and postobstructive pneumonia. Her COVID RT PCR study is negative, as well as the influenza swab from 03/31. Her ABG has improved; Mar 31 - 7.33 / 66.8 / 59.8 /34.7 on 35% Apr 01 - 7.43/ 54.6 / 87.9 / 35.6 on 2.5 L/min O2 She remains on methylprednisolone to 20 mg IV q.6 for COPD exacerbation, and albuterol nebulized 2.5 mg q.4 hours, and ipratropium 0.5 mg nebulized q.4 hours. Trelegy was stopped as she is on maximal beta agonist and muscarinic antagonist dose. She continues to use a Cornet valve to help her expectorate. Regarding the postobstructive pneumonia I will change her antibiotics from ceftriaxone and azithromycin to vancomycin, Zosyn and Levaquin to treat her ag gressively With broad-spectrum antibiotics for community-acquired pneumonia as well as the possibility of resistant organisms such as MRSA and Pseudomonas. Blood cultures are negative and I have ordered a sputum culture. ABG later in the day on tube of 2.5 L nasal cannula 7.33/69/60. Patient has hypercarbic respiratory failure and I initiated BiPAP later in the day But she did not tolerate BiPAP and I placed her on a noninvasive ventilation with AVAPS mode with a rate of 16, tidal volume 400, EPAP 5, minimal inspiratory pressure 6, maximal inspiratory pressure 25 and 35% FiO2. Patient wore this overnight.. 04/01 Patient wore the noninvasive ventilator with the AVAPS mode overnight and said that she was able to sleep. She says it does help her breathe. Currently the patient is on 3 L nasal cannula saturations 94%. She has decreased breath sounds but no wheezes. Overall she says that she is a little bit better. Patient had a blood gas prior to removal of the noninvasive ventilator with the AVAPS mode of 7.43/55/88. Patient had an overnight oximetry on 35% FiO2 with an average saturation of 94% and time with saturation less than or equal to 88% was 10 minutes. Patient is a little bit better and at this time I will continue Solu-Medrol 20 mg IV q.6, albuterol and ipratropium nebulizers Q 4 standing, vancomycin, Zosyn and Levaquin for postobstructive pneumonia. Her blood gas on the above noninvasive ventilator settings are adequate. Overnight she was on 40% 04/01. 04/02 She will need NPPV at discharge, and we will arrange this for her. (2) Lung mass: Onset Date: ~03/30/21 Code(s): R91.8 - Other nonspecific abnormal finding of lung field Status: Acute Assessment and Plan: 03/31 Patient with severe COPD a right hilar mass with compression of the right middle lobe bronchus and atelectasis of the right middle lobe. In addition she has a 10-12 lb weight loss over the last 6 weeks and she may have cancer. At this time She is in mild respiratory distress with increased oxygen requirements and I will aggressively treat COPD exacerbation and postobstructive pneumonia prior to additional workup of this mass. 04/01 P
--- NOTE | 2021-04-02 16:32 | PM.IMPN ---
Progress Note: A&P Assessment and Plan (1) COPD exacerbation: Code(s): J44.1 - Chronic obstructive pulmonary disease with (acute) exacerbation Status: Acute Assessment and Plan: Will continue with IV steroids and nebulizer treatment Q4. Continue with oxygen. Change from BIPAP to NC in day BIPAP at night Pulmonology rounding (2) Pneumonia: Qualifiers: Laterality: unspecified laterality Lung location: unspecified part of lung Pneumonia type: due to unspecified organism Qualified Code(s): J18.9 - Pneumonia, unspecified organism Code(s): J18.9 - Pneumonia, unspecified organism Status: Acute Assessment and Plan: Follow BC, continue IV Levaquin, vancomycin and Zosyn (3) Lung mass: Onset Date: ~03/30/21 Code(s): R91.8 - Other nonspecific abnormal finding of lung field Status: Acute Assessment and Plan: Consult Pulmonary for possible bronchoscopy (4) Anxiety: Code(s): F41.9 - Anxiety disorder, unspecified Status: Acute Assessment and Plan: Stable current medication. (5) GERD (gastroesophageal reflux disease): Code(s): K21.9 - Gastro-esophageal reflux disease without esophagitis Status: Acute Assessment and Plan: Stable on current meds. (6) Mixed hyperlipidemia: Code(s): E78.2 - Mixed hyperlipidemia Status: Acute Assessment and Plan: Stable on current meds. (7) Essential hypertension: Code(s): I10 - Essential (primary) hypertension Status: Acute Assessment and Plan: Stable on meds. Additional Plan Patient is full code. Patient will stay for more than 2 days in the hospital. Will the evaluation treatment the patient will be done according to the lab data available and recommendation by the specialist. 04/02/21 pt working hard to breath advanced COPD knows about mass states it was biopsied 7yrs ago pulm following, recs appreciated cont current care RT called for STAT breathing treatment Subjective Date/time seen: 04/02/21 16:32 pt is doing ok but with increased work of breathing RT called for breathing tx may need to go back on BiPAP knows about mass states it was biopsied 7yrs ago Exam Narrative: GENERAL: Pt is on BIPAP Thin frail appearing lady ENT: Nares clear, no rhinorrhea or epistaxis. Mucous membranes moist. NECK: Supple. CHEST: BL wheezy lungs HEART: Regular rate and rhythm. No murmur heard. Normal peripheral pulses. ABDOMEN: Soft, nontender, nondistended, normal active bowel sounds. EXTREMITIES: Normal range of motion. No edema. SKIN: Warm, dry, no rash. NEURO: No focal deficits. Alert and oriented x3. PSYCH: Normal mood and affect. Objective Data Vital Signs Vital Signs: Vital Signs - 24 hr 04/01/21 19:58 04/01/21 20:00 04/01/21 20:08 Temperature Pulse Rate 80 80 Respiratory Rate 18 18 Blood Pressure Pulse Oximetry 96 04/01/21 21:23 04/02/21 00:01 04/02/21 00:05 Temperature 96.1 F L Pulse Rate 106 H 80 Respiratory Rate 18 18 16 Blood Pressure 160/74 H Pulse Oximetry 96 95 04/02/21 00:11 04/02/21 03:07 04/02/21 03:17 Temperature Pulse Rate 80 82 82 Respiratory Rate 18 20 20 Blood Pressure Pulse Oximetry 95 04/02/21 04:19 04/02/21 08:00 04/02/21 10:05 Temperature 96.9 F L Pulse Rate 112 H 90 Respiratory Rate 18 26 H Blood Pressure 180/76 H Pulse Oximetry 96 96 04/02/21 10:22 04/02/21 14:10 Temperature 97.2 F L Pulse Rate 92 94 Respiratory Rate 22 H 18 Blood Pressure 153/91 H Pulse Oximetry 99 Intake/Output Intake/Output: Intake & Output 03/30/21 03/31/21 04/01/21 04/02/21 23:59 23:59 23:59 23:59 Intake Total 250 3050 2620 2510 Output Total 0 100 Balance 250 3050 2520 2510 Meds/Results Medications: Active Medications Generic Name Dose Route Start Last Admin Trade Name Freq PRN Reason Stop Dose Admin Acetaminophen 650 mg 03/30/21 21:03 03/17
[2021-04-02] MEDS: PIPERACILLIN/TAZOBACTAM SOD 4.5 GM in SODIUM CHLORIDE 0.9% IV 100 ML IVPB (17:05)
[2021-04-02 18:48] LABS: Vancomycin Trough 5.5 ug/mL (10.0-20.0)
[2021-04-02] MEDS: MONTELUKAST SODIUM 10 MG TABLET PO (21:15)
[2021-04-03] VITALS (17 sets, daily range): BP systolic 154–180; BP diastolic 69–92; PULSE 98–114; RESP 20–24; TEMP 36.2–36.3; O2SAT 92–97
[2021-04-03] MEDS: methylPREDNISolone SOD SUCC 40 MG VIAL 20 MG IV PUSH ×4 (00:14→17:18)
[2021-04-03] MEDS: PIPERACILLIN/TAZOBACTAM SOD 4.5 GM in SODIUM CHLORIDE 0.9% IV 100 ML IVPB ×4 (00:17→17:17)
[2021-04-03] MEDS: IPRATROPIUM BR 0.02% INH SOLN 0.5 MG/2.5 ML VIAL INHALATION ×6 (00:52→20:57)
[2021-04-03] MEDS: ALBUTEROL SULFATE NEB 2.5 MG/0.5 ML INH INHALATION ×6 (00:52→20:57)
[2021-04-03 05:41] LABS: Basophils Percent Auto 0.1 % (0.2-1.2); Hematocrit 36.8 % (37.0-47.0); Hemoglobin 12.4 g/dL (12.0-15.0); Immature Granulocyte Absolute 0.05 K/mm3 (0.00-0.031); Immature Granulocyte Percent A 0.3 % (0-0.5); Lymphocytes Absolute Auto 0.82 K/mm3 (0.9-3.2); Lymphocytes Percent Auto 5.7 % (18.3-44.2); Mean Corpuscular HGB Conc 33.7 g/dl (32-36); Mean Corpuscular Hemoglobin 31.5 pg (26-34); Mean Corpuscular Volume 93.4 fl (80-100); Mean Platelet Volume 9.4 fl (7.4-10.4); Monocytes Absolute Auto 0.7 K/mm3 (0.1-0.6); Monocytes Percent Auto 4.8 % (2.6-8.5); Neutrophils Absolute Auto 12.9 K/mm3 (1.3-6.7); Neutrophils Percent Auto 89.1 % (45.5-73.1); Platelet Count Result 261 k/mm3 (150-375); Red Blood Count 3.94 M/mm3 (4.2-5.4); Red Cell Distribution Width 12.7 % (11.5-14.5); White Blood Count 14.5 K/mm3 (4.5-10.0)
[2021-04-03 06:10] LABS: Magnesium 1.8 mg/dL (1.6-2.3)
[2021-04-03 06:14] LABS: Anion Gap 6 mmol/L (8-16); Blood Urea Nitrogen 9 mg/dL (7-17); Calcium 8.3 mg/dL (8.4-10.2); Carbon Dioxide 36 mmol/L (22-30); Chloride 82 mmol/L (98-107); Estimated CRCL calculation 77 ml/min; Estimated Glomerular Filt Rate > 60; Glucose 107 mg/dL (65-110); Potassium 3.8 mmol/L (3.4-5.0); Sodium 124 mmol/L (137-145)
[2021-04-03] MEDS: SODIUM CHLORIDE 0.9% IV 1,000 ML 75 ML IV CONT (06:17)
[2021-04-03] MEDS: HEPARIN SODIUM 5,000 UNITS/ML VIAL 5000 UNITS SUB-Q ×2 (07:43→21:55)
[2021-04-03] MEDS: ASPIRIN 81 MG ENTERIC TABLET PO (07:43)
[2021-04-03] MEDS: hydroCHLOROthiazide 25 MG TABLET PO (07:44)
[2021-04-03] MEDS: PRAVASTATIN SODIUM 20 MG TABLET PO (07:44)
[2021-04-03] MEDS: LOSARTAN POTASSIUM 100 MG TABLET PO (07:44)
[2021-04-03] MEDS: SERTRALINE HCL 50 MG TABLET PO (07:44)
[2021-04-03] MEDS: PANTOPRAZOLE 40 MG TABLET PO ×2 (07:44→17:18)
[2021-04-03] MEDS: SACCHAROMYCES BOULARDII 250 MG CAPSULE PO (07:44)
[2021-04-03] MEDS: ALPRAZolam (*CRX) 0.25 MG TABLET PO ×2 (07:47→21:54)
[2021-04-03] MEDS: MAG HYDROX/AL HYDROX/SIMETH 30 ML UDC PO ×3 (07:47→21:54)
[2021-04-03] MEDS: ACETAMINOPHEN 325 MG TABLET 650 MG PO ×2 (07:48→13:47)
--- NOTE | 2021-04-03 08:01 | PC.NURSE ---
Pt c/o abd pain and has has loose stools through the night. Bp elevated at 180/83. Dr Garcia notified
--- NOTE | 2021-04-03 11:42 | PM.IMPN ---
Progress Note: A&P Assessment and Plan (1) COPD exacerbation: Code(s): J44.1 - Chronic obstructive pulmonary disease with (acute) exacerbation Status: Acute Assessment and Plan: Currently being managed for acute COPD exacerbation; we will continue with IV steroids and nebulizer treatment Q4. Continue with oxygen.Change from BIPAP to NC in day BIPAP at night Pulmonology rounding (2) Pneumonia: Qualifiers: Laterality: unspecified laterality Lung location: unspecified part of lung Pneumonia type: due to unspecified organism Qualified Code(s): J18.9 - Pneumonia, unspecified organism Code(s): J18.9 - Pneumonia, unspecified organism Status: Acute Assessment and Plan: Blood culture remained negative at the time of this dictation. Continue IV Levaquin, vancomycin and Zosyn (3) Lung mass: Onset Date: ~03/30/21 Code(s): R91.8 - Other nonspecific abnormal finding of lung field Status: Acute Assessment and Plan: Consult Pulmonary for possible bronchoscopy (4) Anxiety: Code(s): F41.9 - Anxiety disorder, unspecified Status: Acute Assessment and Plan: Continue home medication. (5) GERD (gastroesophageal reflux disease): Code(s): K21.9 - Gastro-esophageal reflux disease without esophagitis Status: Acute Assessment and Plan: Acute exacerbation of epigastric pain, despite being on pantoprazole b.i.d.. Patient improved with GI cocktail p.r.n.. If this persists we may consult GI. (6) Mixed hyperlipidemia: Code(s): E78.2 - Mixed hyperlipidemia Status: Acute Assessment and Plan: Stable on current meds. (7) Essential hypertension: Code(s): I10 - Essential (primary) hypertension Status: Acute Assessment and Plan: [place]controlled [place] [address] [place]. The patient was in pain at the time of the encounter. Recheck blood pressure when pain is controlled. Additional Plan Patient is full code. Patient will stay for more than 2 days in the hospital. Will the evaluation treatment the patient will be done according to the lab data available and recommendation by the specialist. 04/02/21 pt working hard to breath advanced COPD knows about mass states it was biopsied 7yrs ago pulm following, recs appreciated cont current care RT called for STAT breathing treatment 04/02/21 Patient's breathing is improving. advanced COPD knows about mass states it was biopsied 7yrs ago pulm following, recs appreciated cont current care Patient given GI cocktail for severe epigastric pain and improving. 04/03/21 Patient breathing is continue to improve. advanced COPD knows about mass states it was biopsied 7yrs ago pulm following, recs appreciated cont current care Again she presents severe epigastric pain, despite pantoprazole. GI cocktail prescribed. She also all Mylanta p.r.n.. Subjective Date/time seen: 04/03/21 11:42 S: Patient was seen and examined at the bedside today. She is complaining of epigastric pain. Review of Systems Review of Systems: All systems reviewed & are unremarkable except as noted in HPI and below (the history and physical examination.) Exam Narrative: GENERAL: Pt is in mild distress due to epigastric pain. Thin frail appearing lady ENT: Nares clear, no rhinorrhea or epistaxis. Mucous membranes moist. NECK: Supple. CHEST: BL wheezy lungs HEART: Regular rate and rhythm. No murmur heard. Normal peripheral pulses. ABDOMEN: Soft, nontender, nondistended, normal active bowel sounds. EXTREMITIES: Normal range of motion. No edema. SKIN: Warm, dry, no rash. NEURO: No focal deficits. Alert and oriented x3. PSYCH: Normal mood and affect. Objective Data Vital Signs Vital Signs: Vital Signs - 24 hr 04/02/21 14:10 04/02/21 16:44 04/02/21 16:58 Temperature 97.2 F L Pulse Rate 94 98 92 Respiratory Rate 18 28 H 24 H Blood Pressure 153/91
--- NOTE | 2021-04-03 12:23 | PCRCNOTE ---
[facility]
[2021-04-03] MEDS: BELLADONNA ALK/PHENOB ELIX 10 ML, MAG HYDROX/ALUMINUM HYD/SIMETH 30 ML, LIDOCAINE HCL 2... PO (16:16)
--- NOTE | 2021-04-03 16:56 | PC.NURSE ---
On 04/03/21, the student Jeannine Gotti provided care and completed [employer] documentation on the patient. I have reviewed the student's documentation and agree with the findings.
--- NOTE | 2021-04-03 20:37 | PM.PNPUL ---
Progress Note: A&P Assessment and Plan (1) COPD exacerbation: Code(s): J44.1 - Chronic obstructive pulmonary disease with (acute) exacerbation Status: Acute Assessment and Plan: 03/31 Patient with COPD with hypoxemic respiratory failure requiring 2 L nasal cannula oxygen 24/7 and maintained on Trelegy inhaler. I have no PFTs. Patient does have severe emphysema on her CT on 03/30/2021. Patient has baseline dyspnea on exertion with walking 15 ft. She was admitted with increased cough, shortness of breath, change in phlegm production with a CT scan demonstrating a right hilar mass with atelectasis of the right middle lobe. We will continue to treat her for COPD exacerbation and postobstructive pneumonia. Her COVID RT PCR study is negative, as well as the influenza swab from 03/31. Her ABG has improved; Mar 31 - 7.33 / 66.8 / 59.8 /34.7 on 35% Apr 01 - 7.43/ 54.6 / 87.9 / 35.6 on 2.5 L/min O2 She remains on methylprednisolone to 20 mg IV q.6 for COPD exacerbation, and albuterol nebulized 2.5 mg q.4 hours, and ipratropium 0.5 mg nebulized q.4 hours. Trelegy was stopped as she is on maximal beta agonist and muscarinic antagonist dose. She continues to use a Cornet valve to help her expectorate. Regarding the postobstructive pneumonia I will change her antibiotics from ceftriaxone and azithromycin to vancomycin, Zosyn and Levaquin to treat her aggressively With broad-spectrum antibiotics for community-acquired pneumonia as well as the possibility of resistant organisms such as MRSA and Pseudomonas. Blood cultures are negative and I have ordered a sputum culture. ABG later in the day on tube of 2.5 L nasal cannula 7.33/69/60. Patient has hypercarbic respiratory failure and I initiated BiPAP later in the day But she did not tolerate BiPAP and I placed her on a noninvasive ventilation with AVAPS mode with a rate of 16, tidal volume 400, EPAP 5, minimal inspiratory pressure 6, maximal inspiratory pressure 25 and 35% FiO2. Patient wore this overnight.. 04/01 Patient wore the noninvasive ventilator with the AVAPS mode overnight and said that she was able to sleep. She says it does help her breathe. Currently the patient is on 3 L nasal cannula saturations 94%. She has decreased breath sounds but no wheezes. Overall she says that she is a little bit better. Patient had a blood gas prior to removal of the noninvasive ventilator with the AVAPS mode of 7.43/55/88. Patient had an overnight oximetry on 35% FiO2 with an average saturation of 94% and time with saturation less than or equal to 88% was 10 minutes. Patient is a little bit better and at this time I will continue Solu-Medrol 20 mg IV q.6, albuterol and ipratropium nebulizers Q 4 standing, vancomycin, Zosyn and Levaquin for postobstructive pneumonia. Her blood gas on the above noninvasive ventilator settings are adequate. Overnight she was on 40% 04/01. 04/02 She will need NPPV at discharge, and we will arrange this for her. 04/03 [facility] forms completed. (2) Lung mass: Onset Date: ~03/30/21 Code(s): R91.8 - Other nonspecific abnormal finding of lung field Status: Acute Assessment and Plan: 03/31 Patient with severe COPD a right hilar mass with compression of the right middle lobe bronchus and atelectasis of the right middle lobe. In addition she has a 10-12 lb weight loss over the last 6 weeks and she may have cancer. At this time She is in mild respiratory distress with increased oxygen requirements and I will aggressively treat COPD exacerbation and postobstructive pneumonia prior to additional workup of this mass. 04/01 Patient with severe COPD and chronic hypoxemic and hypercarbic respiratory failure and now with a right hilar mass. Continue aggressive treatment for COPD exacerbation and postobstructive pneumonia prior to addit
[2021-04-03] MEDS: MONTELUKAST SODIUM 10 MG TABLET PO (21:55)
[2021-04-04] VITALS (20 sets, daily range): BP systolic 154–180; BP diastolic 76–83; PULSE 89–108; RESP 16–27; TEMP 36.1–36.4; O2SAT 94–100
[2021-04-04] MEDS: methylPREDNISolone SOD SUCC 40 MG VIAL 20 MG IV PUSH ×4 (00:05→17:17)
[2021-04-04] MEDS: PIPERACILLIN/TAZOBACTAM SOD 4.5 GM in SODIUM CHLORIDE 0.9% IV 100 ML IVPB ×4 (00:07→17:15)
[2021-04-04] MEDS: ALBUTEROL SULFATE NEB 2.5 MG/0.5 ML INH INHALATION ×6 (00:25→20:30)
[2021-04-04] MEDS: IPRATROPIUM BR 0.02% INH SOLN 0.5 MG/2.5 ML VIAL INHALATION ×6 (00:25→20:30)
[2021-04-04] MEDS: SODIUM CHLORIDE 0.9% IV 1,000 ML 75 ML IV CONT (05:08)
[2021-04-04 07:59] LABS: Vancomycin Trough 10.3 ug/mL (10.0-20.0)
[2021-04-04] MEDS: MAG HYDROX/AL HYDROX/SIMETH 30 ML UDC PO (08:38)
[2021-04-04] MEDS: PANTOPRAZOLE 40 MG TABLET PO ×2 (08:40→16:50)
[2021-04-04] MEDS: HEPARIN SODIUM 5,000 UNITS/ML VIAL 5000 UNITS SUB-Q ×2 (08:40→20:58)
[2021-04-04] MEDS: ASPIRIN 81 MG ENTERIC TABLET PO (08:40)
[2021-04-04] MEDS: SERTRALINE HCL 50 MG TABLET PO (08:40)
[2021-04-04] MEDS: SACCHAROMYCES BOULARDII 250 MG CAPSULE PO (08:40)
[2021-04-04] MEDS: LOSARTAN POTASSIUM 100 MG TABLET PO (08:40)
[2021-04-04] MEDS: FLUTICASONE PROPIONATE 0.05% NA SPR 16 GM BTL (*BKC) 2 SPRAY NASAL (08:40)
[2021-04-04] MEDS: PRAVASTATIN SODIUM 20 MG TABLET PO (08:40)
[2021-04-04] MEDS: hydroCHLOROthiazide 25 MG TABLET PO (08:40)
--- NOTE | 2021-04-04 09:06 | PM.IMPN ---
Progress Note: A&P Assessment and Plan (1) COPD exacerbation: Code(s): J44.1 - Chronic obstructive pulmonary disease with (acute) exacerbation Status: Acute Assessment and Plan: Currently being managed for acute COPD exacerbation; we will continue with IV steroids and nebulizer treatment Q4. Continue with oxygen.Change from BIPAP to NC in day BIPAP at night Pulmonology rounding (2) Pneumonia: Qualifiers: Laterality: unspecified laterality Lung location: unspecified part of lung Pneumonia type: due to unspecified organism Qualified Code(s): J18.9 - Pneumonia, unspecified organism Code(s): J18.9 - Pneumonia, unspecified organism Status: Acute Assessment and Plan: Blood culture remained negative at the time of this dictation. Continue IV Levaquin, vancomycin and Zosyn (3) Lung mass: Onset Date: ~03/30/21 Code(s): R91.8 - Other nonspecific abnormal finding of lung field Status: Acute Assessment and Plan: Consult Pulmonary for possible bronchoscopy (4) Anxiety: Code(s): F41.9 - Anxiety disorder, unspecified Status: Acute Assessment and Plan: Continue home medication. (5) GERD (gastroesophageal reflux disease): Code(s): K21.9 - Gastro-esophageal reflux disease without esophagitis Status: Acute Assessment and Plan: Acute exacerbation of epigastric pain, despite being on pantoprazole b.i.d.. Patient improved with GI cocktail p.r.n.. If this persists we may consult GI. (6) Mixed hyperlipidemia: Code(s): E78.2 - Mixed hyperlipidemia Status: Acute Assessment and Plan: Stable on current meds. (7) Essential hypertension: Code(s): I10 - Essential (primary) hypertension Status: Acute Assessment and Plan: [place]controlled [place] [address] range. The patient was in pain at the time of the encounter. Recheck blood pressure when pain is controlled. Additional Plan Patient is full code. Patient will stay for more than 2 days in the hospital. Will the evaluation treatment the patient will be done according to the lab data available and recommendation by the specialist. 04/02/21 pt working hard to breath advanced COPD knows about mass states it was biopsied 7yrs ago pulm following, recs appreciated cont current care RT called for STAT breathing treatment 04/02/21 Patient's breathing is improving. advanced COPD knows about mass states it was biopsied 7yrs ago pulm following, recs appreciated cont current care Patient given GI cocktail for severe epigastric pain and improving. 04/03/21 Patient breathing is continue to improve. advanced COPD knows about mass states it was biopsied 7yrs ago pulm following, recs appreciated cont current care Again she presents severe epigastric pain, despite pantoprazole. GI cocktail prescribed. She also all Mylanta p.r.n.. Subjective Date/time seen: 04/04/21 08:50 S: Patient was seen examined at the bedside. She is in severe distress due to epigastric pain. Breathing is improving. Review of Systems Review of Systems: All systems reviewed & are unremarkable except as noted in HPI and below (the history and physical examination.) Exam Narrative: GENERAL: Pt is in mild distress due to epigastric pain. Thin frail appearing lady ENT: Nares clear, no rhinorrhea or epistaxis. Mucous membranes moist. NECK: Supple. CHEST: BL wheezy lungs HEART: Regular rate and rhythm. No murmur heard. Normal peripheral pulses. ABDOMEN: Soft, nontender, nondistended, normal active bowel sounds. EXTREMITIES: Normal range of motion. No edema. SKIN: Warm, dry, no rash. NEURO: No focal deficits. Alert and oriented x3. PSYCH: Normal mood and affect. Objective Data Vital Signs Vital Signs: Vital Signs - 24 hr 04/03/21 11:14 04/03/21 13:10 04/03/21 14:38 Temperature 97.3 F L Pulse Rate 110 H 110 H Respiratory Rate 20 2
[2021-04-04] MEDS: ALPRAZolam (*CRX) 0.25 MG TABLET PO ×2 (10:13→16:50)
[2021-04-04] MEDS: BELLADONNA ALK/PHENOB ELIX 10 ML, MAG HYDROX/ALUMINUM HYD/SIMETH 30 ML, LIDOCAINE HCL 2... PO (10:28)
--- NOTE | 2021-04-04 15:18 | P.PNPL_ITS ---
Progress Note: A&P Assessment and Plan (1) COPD exacerbation: Code(s): J44.1 - Chronic obstructive pulmonary disease with (acute) exacerbation Status: Acute Assessment and Plan: 03/31 Patient with COPD with hypoxemic respiratory failure requiring 2 L nasal cannula oxygen 24/7 and maintained on Trelegy inhaler. I have no PFTs. Patient does have severe emphysema on her CT on 03/30/2021. Patient has baseline dyspnea on exertion with walking 15 ft. She was admitted with increased cough, shortness of breath, change in phlegm production with a CT scan demonstrating a right hilar mass with atelectasis of the right middle lobe. We will continue to treat her for COPD exacerbation and postobstructive pneumonia. Her COVID RT PCR study is negative, as well as the influenza swab from 03/31. Her ABG has improved; Mar 31 - 7.33 / 66.8 / 59.8 /34.7 on 35% Apr 01 - 7.43/ 54.6 / 87.9 / 35.6 on 2.5 L/min O2 She remains on methylprednisolone to 20 mg IV q.6 for COPD exacerbation, and albuterol nebulized 2.5 mg q.4 hours, and ipratropium 0.5 mg nebulized q.4 hours. Trelegy was stopped as she is on maximal beta agonist and muscarinic antagonist dose. She continues to use a Cornet valve to help her expectorate. Regarding the postobstructive pneumonia I will change her antibiotics from ceftriaxone and azithromycin to vancomycin, Zosyn and Levaquin to treat her ag gressively With broad-spectrum antibiotics for community-acquired pneumonia as well as the possibility of resistant organisms such as MRSA and Pseudomonas. Blood cultures are negative and I have ordered a sputum culture. ABG later in the day on tube of 2.5 L nasal cannula 7.33/69/60. Patient has hypercarbic respiratory failure and I initiated BiPAP later in the day But she did not tolerate BiPAP and I placed her on a noninvasive ventilation with AVAPS mode with a rate of 16, tidal volume 400, EPAP 5, minimal inspiratory pressure 6, maximal inspiratory pressure 25 and 35% FiO2. Patient wore this overnight.. 04/01 Patient wore the noninvasive ventilator with the AVAPS mode overnight and said that she was able to sleep. She says it does help her breathe. Currently the patient is on 3 L nasal cannula saturations 94%. She has decreased breath sounds but no wheezes. Overall she says that she is a little bit better. Patient had a blood gas prior to removal of the noninvasive ventilator with the AVAPS mode of 7.43/55/88. Patient had an overnight oximetry on 35% FiO2 with an average saturation of 94% and time with saturation less than or equal to 88% was 10 minutes. Patient is a little bit better and at this time I will continue Solu-Medrol 20 mg IV q.6, albuterol and ipratropium nebulizers Q 4 standing, vancomycin, Zosyn and Levaquin for postobstructive pneumonia. Her blood gas on the above noninvasive ventilator settings are adequate. Overnight she was on 40% 04/01. 04/02 She will need NPPV at discharge, and we will arrange this for her. 04/03 Trilogy forms completed. 04/04 Trilogy arrived and she will use this while she is here, take it hoime with her. (2) Lung mass: Onset Date: ~03/30/21 Code(s): R91.8 - Other nonspecific abnormal finding of lung field Status: Acute Assessment and Plan: 03/31 Patient with severe COPD a right hilar mass with compression of the right middle lobe bronchus and atelectasis of the right middle lobe. In addition she has a 10-12 lb weight loss over the last 6 weeks and she may have cancer. At this time She is in mild respiratory distress with increased oxygen requirements and I w
[2021-04-04] MEDS: MONTELUKAST SODIUM 10 MG TABLET PO (20:56)
[2021-04-05] VITALS (14 sets, daily range): BP systolic 150–180; BP diastolic 66–82; PULSE 95–109; RESP 20–22; TEMP 36.2–36.7; O2SAT 95–100
[2021-04-05] MEDS: PIPERACILLIN/TAZOBACTAM SOD 4.5 GM in SODIUM CHLORIDE 0.9% IV 100 ML IVPB ×4 (00:35→17:10)
[2021-04-05] MEDS: methylPREDNISolone SOD SUCC 40 MG VIAL 20 MG IV PUSH ×4 (00:38→17:03)
[2021-04-05] MEDS: SODIUM CHLORIDE 0.9% IV 1,000 ML 75 ML IV CONT (01:28)
[2021-04-05] MEDS: ALBUTEROL SULFATE NEB 2.5 MG/0.5 ML INH INHALATION ×5 (05:56→20:13)
[2021-04-05] MEDS: IPRATROPIUM BR 0.02% INH SOLN 0.5 MG/2.5 ML VIAL INHALATION ×5 (05:56→20:13)
[2021-04-05 06:53] LABS: Estimated CRCL calculation 63 ml/min; Estimated Glomerular Filt Rate > 60
[2021-04-05] MEDS: FLUTICASONE PROPIONATE 0.05% NA SPR 16 GM BTL (*BKC) 2 SPRAY NASAL (08:27)
[2021-04-05] MEDS: SACCHAROMYCES BOULARDII 250 MG CAPSULE PO (08:28)
[2021-04-05] MEDS: hydroCHLOROthiazide 25 MG TABLET PO (08:28)
[2021-04-05] MEDS: LOSARTAN POTASSIUM 100 MG TABLET PO (08:28)
[2021-04-05] MEDS: HEPARIN SODIUM 5,000 UNITS/ML VIAL 5000 UNITS SUB-Q ×2 (08:28→22:11)
[2021-04-05] MEDS: ASPIRIN 81 MG ENTERIC TABLET PO (08:28)
[2021-04-05] MEDS: PRAVASTATIN SODIUM 20 MG TABLET PO (08:28)
[2021-04-05] MEDS: PANTOPRAZOLE 40 MG TABLET PO ×2 (08:28→17:03)
[2021-04-05] MEDS: SERTRALINE HCL 50 MG TABLET PO (08:29)
[2021-04-05] MEDS: ALPRAZolam (*CRX) 0.25 MG TABLET PO (11:02)
--- NOTE | 2021-04-05 15:53 | PC.NURSE ---
On 04/05/21, the student, [Ramirez Mirza], provided care and completed [facility] documentation on this patient. I have reviewed the student's documentation and agree with the findings.
--- NOTE | 2021-04-05 16:46 | PCRCNOTE ---
Pt is on their home trilogy unit at their home settings: Vt 400, Max 30. E min/max 5/12, PS min/max 6/25, I time 1.5, Rate 14, Rise time 2, Avaps speed5.
--- NOTE | 2021-04-05 19:20 | PM.IMPN ---
Progress Note: A&P Assessment and Plan (1) COPD exacerbation: Code(s): J44.1 - Chronic obstructive pulmonary disease with (acute) exacerbation Status: Acute Assessment and Plan: Currently being managed for acute COPD exacerbation; we will continue with IV steroids and nebulizer treatment Q4. Continue with oxygen.Change from BIPAP to NC in day BIPAP at night . Pulmonary was consulted. Appreciate recommendations. Patient will be discharged home on trilogy. (2) Pneumonia: Qualifiers: Laterality: unspecified laterality Lung location: unspecified part of lung Pneumonia type: due to unspecified organism Qualified Code(s): J18.9 - Pneumonia, unspecified organism Code(s): J18.9 - Pneumonia, unspecified organism Status: Acute Assessment and Plan: Blood culture remained negative at the time of this dictation. Continue IV Levaquin, vancomycin and Zosyn Per Pulmonary recommendation. Blood culture unrevealing at the time of this dictation. Follow up CO2 cultures. Follow-up Mycoplasma, Streptococcus and Legionella urine antigens. Follow-up mycoplasma antibody. (3) Lung mass: Onset Date: ~03/30/21 Code(s): R91.8 - Other nonspecific abnormal finding of lung field Status: Acute Assessment and Plan: Consult Pulmonary for possible bronchoscopy . Further evaluation will be pursued (4) Anxiety: Code(s): F41.9 - Anxiety disorder, unspecified Status: Acute Assessment and Plan: Continue home medication. (5) GERD (gastroesophageal reflux disease): Code(s): K21.9 - Gastro-esophageal reflux disease without esophagitis Status: Acute Assessment and Plan: Acute exacerbation of epigastric pain, despite being on pantoprazole b.i.d.. Patient improved with GI cocktail p.r.n.. Patient carries a diagnosis of hiatal hernia. She is on pantoprazole b.i.d.. (6) Mixed hyperlipidemia: Code(s): E78.2 - Mixed hyperlipidemia Status: Acute Assessment and Plan: Stable on current meds. (7) Essential hypertension: Code(s): I10 - Essential (primary) hypertension Status: Acute Assessment and Plan: Uncontrolled blood pressure with systolic in the 150/82-164/66 range. Continue hydrochlorothiazide 25 mg p.o. daily and losartan 100 mg p.o. daily. Stop IV fluids. Monitor blood pressure closely. Additional Plan Patient is full code. 04/02/21 pt working hard to breath advanced COPD knows about mass states it was biopsied 7yrs ago pulm following, recs appreciated cont current care RT called for STAT breathing treatment 04/02/21 Patient's breathing is improving. advanced COPD knows about mass states it was biopsied 7yrs ago pulm following, recs appreciated cont current care Patient given GI cocktail for severe epigastric pain and improving. 04/03/21 Patient breathing is continue to improve. advanced COPD knows about mass states it was biopsied 7yrs ago pulm following, recs appreciated cont current care Again she presents severe epigastric pain, despite pantoprazole. GI cocktail prescribed. She also all Mylanta p.r.n.. Subjective Date/time seen: 04/05/21 19:20 S: patient was seen and examined at the bedside; she has a purse lips respiration. Stomach pain as improved. Review of Systems Review of Systems: All systems reviewed & are unremarkable except as noted in HPI and below (the history and physical examination.) Constitutional: Constitutional: Reports as per HPI and Reports no additional constitutional complaints Eyes: Eyes: Reports as per HPI, Reports no additional eye complaints and Denies blurry vision ENT: Reports system reviewed and no additional complaints, except as documented, Reports as per HPI and Denies epistaxis Cardiovascular: Cardiovascular: Reports as per HPI, Reports no additional cardiovascular complaints and Denies chest pain Respiratory: Respiratory: Reports as per H
[2021-04-05 20:43] LABS: Potassium 2.6 mmol/L (3.4-5.0)
[2021-04-05] MEDS: POTASSIUM CHLORIDE INJ 40 MEQ in SODIUM CHLORIDE 0.9% IV 500 ML 125 MEQ IVPB (21:34)
[2021-04-05] MEDS: MONTELUKAST SODIUM 10 MG TABLET PO (22:11)
[2021-04-06] VITALS (18 sets, daily range): BP systolic 150–163; BP diastolic 73–90; PULSE 86–125; RESP 18–34; TEMP 36.4–37; O2SAT 96–100
[2021-04-06] MEDS: methylPREDNISolone SOD SUCC 40 MG VIAL 20 MG IV PUSH ×4 (00:29→17:56)
[2021-04-06] MEDS: PIPERACILLIN/TAZOBACTAM SOD 4.5 GM in SODIUM CHLORIDE 0.9% IV 100 ML IVPB ×4 (00:29→17:56)
[2021-04-06] MEDS: IPRATROPIUM BR 0.02% INH SOLN 0.5 MG/2.5 ML VIAL INHALATION ×6 (00:30→21:10)
[2021-04-06] MEDS: ALBUTEROL SULFATE NEB 2.5 MG/0.5 ML INH INHALATION ×6 (00:30→21:10)
[2021-04-06 05:29] LABS: Hematocrit 33.7 % (37.0-47.0); Hemoglobin 11.1 g/dL (12.0-15.0); Mean Corpuscular HGB Conc 32.9 g/dl (32-36); Mean Corpuscular Volume 94.1 fl (80-100); Mean Platelet Volume 9.2 fl (7.4-10.4); Platelet Count Result 231 k/mm3 (150-375); Red Blood Count 3.58 M/mm3 (4.2-5.4); White Blood Count 9.1 K/mm3 (4.5-10.0)
[2021-04-06 06:04] LABS: Blood Urea Nitrogen 4 mg/dL (7-17); Calcium 8.6 mg/dL (8.4-10.2); Carbon Dioxide > 40 mmol/L (22-30); Chloride 85 mmol/L (98-107); Estimated CRCL calculation 63 ml/min; Estimated Glomerular Filt Rate > 60; Glucose 105 mg/dL (65-110); Potassium 2.8 mmol/L (3.4-5.0); Sodium 130 mmol/L (137-145)
--- NOTE | 2021-04-06 08:01 | PCOTNOTE ---
Pt. treatment on 04/04/2021 is to be considered further assessment for initial evaluation (04/03/2021) to develop plan of care, as pt. unable to participate in full initial evaluation due to development of increasing, intolerable pain. Pt. will still be seen for frequency of 2-3x per week, without including 04/04/2021 treatment in that count.
[2021-04-06] MEDS: POTASSIUM CHLORIDE INJ 40 MEQ in SODIUM CHLORIDE 0.9% IV 500 ML 130 MEQ IVPB (08:30)
[2021-04-06] MEDS: FLUTICASONE PROPIONATE 0.05% NA SPR 16 GM BTL (*BKC) 2 SPRAY NASAL (08:32)
[2021-04-06] MEDS: ASPIRIN 81 MG ENTERIC TABLET PO (08:32)
[2021-04-06] MEDS: HEPARIN SODIUM 5,000 UNITS/ML VIAL 5000 UNITS SUB-Q ×2 (08:33→20:56)
[2021-04-06] MEDS: hydroCHLOROthiazide 25 MG TABLET PO (08:33)
[2021-04-06] MEDS: SERTRALINE HCL 50 MG TABLET PO (08:34)
[2021-04-06] MEDS: PRAVASTATIN SODIUM 20 MG TABLET PO (08:34)
[2021-04-06] MEDS: SACCHAROMYCES BOULARDII 250 MG CAPSULE PO (08:34)
[2021-04-06] MEDS: LOSARTAN POTASSIUM 100 MG TABLET PO (08:34)
[2021-04-06] MEDS: PANTOPRAZOLE 40 MG TABLET PO ×2 (08:34→17:56)
--- NOTE | 2021-04-06 09:02 | PCPTNOTE ---
Patient refused treatment this session due to being short of breath and doing a breathing treatment. She requested therapy to come back later. Will attempt therapy session again.
--- NOTE | 2021-04-06 11:00 | PM.IMPN ---
Progress Note: A&P Assessment and Plan (1) COPD exacerbation: Code(s): J44.1 - Chronic obstructive pulmonary disease with (acute) exacerbation Status: Acute Assessment and Plan: Acute respiratory distress. Patient just received a nebulization treatment. Obtain stat ABG, chest x-ray and follow-up pulmonary recommendations. Currently being managed for acute COPD exacerbation; we will continue with IV steroids and nebulizer treatment Q4. Continue with oxygen.Change from BIPAP to NC in day BIPAP at night . P (2) Pneumonia: Qualifiers: Laterality: unspecified laterality Lung location: unspecified part of lung Pneumonia type: due to unspecified organism Qualified Code(s): J18.9 - Pneumonia, unspecified organism Code(s): J18.9 - Pneumonia, unspecified organism Status: Acute Assessment and Plan: Blood culture remained negative at the time of this dictation. Continue IV Levaquin, vancomycin and Zosyn Per Pulmonary recommendation. Blood culture unrevealing at the time of this dictation. Follow up CO2 cultures. Follow-up Mycoplasma, Streptococcus and Legionella urine antigens. Follow-up mycoplasma antibody. (3) Lung mass: Onset Date: ~03/30/21 Code(s): R91.8 - Other nonspecific abnormal finding of lung field Status: Acute Assessment and Plan: Consult Pulmonary for possible bronchoscopy . Further evaluation will be pursued (4) Anxiety: Code(s): F41.9 - Anxiety disorder, unspecified Status: Acute Assessment and Plan: Continue home medication. (5) GERD (gastroesophageal reflux disease): Code(s): K21.9 - Gastro-esophageal reflux disease without esophagitis Status: Acute Assessment and Plan: Acute exacerbation of epigastric pain, despite being on pantoprazole b.i.d.. Patient improved with GI cocktail p.r.n.. Patient carries a diagnosis of hiatal hernia. She is on pantoprazole b.i.d.. (6) Mixed hyperlipidemia: Code(s): E78.2 - Mixed hyperlipidemia Status: Acute Assessment and Plan: Stable on current meds. (7) Essential hypertension: Code(s): I10 - Essential (primary) hypertension Status: Acute Assessment and Plan: Uncontrolled blood pressure with systolic in the 150/82-164/66 range. Continue hydrochlorothiazide 25 mg p.o. daily and losartan 100 mg p.o. daily. Stop IV fluids. Monitor blood pressure closely. Additional Plan Patient is full code. 04/02/21 pt working hard to breath advanced COPD knows about mass states it was biopsied 7yrs ago pulm following, recs appreciated cont current care RT called for STAT breathing treatment 04/02/21 Patient's breathing is improving. advanced COPD knows about mass states it was biopsied 7yrs ago pulm following, recs appreciated cont current care Patient given GI cocktail for severe epigastric pain and improving. 04/03/21 Patient breathing is continue to improve. advanced COPD knows about mass states it was biopsied 7yrs ago pulm following, recs appreciated cont current care Again she presents severe epigastric pain, despite pantoprazole. GI cocktail prescribed. She also all Mylanta p.r.n.. Subjective Date/time seen: 04/06/21 11:00 S:Patient was seen examined at the bedside. There is increased work of breathing. Patient was complaining of cough. Interval history: 70 years old female with history of COPD, hypertension and oxygen dependent was admitted through the emergency room with complaints of having shortness of breath and cough going on for the last few days. Pt treated for COPD and pneumonia. Pt found to have a Lung mass. Pt is found to be COVID negative in the hospital. Pulmology rounding on the patient. CTA shows - 1. Near complete atelectasis of the right middle lobe accounting for the chest radiographic finding in question. Soft tissue density at the right hilum exerting mass effect on the right middle lobe bronch
--- NOTE | 2021-04-06 11:26 | PCNFU ---
Nutrition Follow-Up Complete: Increased energy needs related to COPD as evidenced by BMI of 15.4. Goal: Pt. to meet estimated nutritional needs. We will continue current goal. Pt current nutrition is Clear liquids with ensure clear TID. Last recorded weight is 47.2 kg, stable Bowel Motility:+BM reported 04/06 Labs Reviewed:Cr 0.5,BUN 4, Na 130 Meds Noted:Zoloft, Albuterol, Mylanta, Protonix, Florastor, Atrovent, Cozaar, Solu Medrol. Skin: WNL Additional Notes: Patient currently on clear liquid diet. Oral Intake has been 50-80% of meals. She has been drinking diet supplements of Ensure Clear TID providing an additional 240 kcals and 8 gms protein. Bipap at night, 4 LO2 NC today. If able to tolerating recommend: advancing diet to full liquids and ensure Enlive TID. Monitor pt. labs, medications, weight and oral intake every 5 days.
[2021-04-06 15:32] LABS: Alveolar/Arterial O2 Gradient 90.7 mmHg; Fractional Inspired Oxygen 35 %; HCO3 ABG 39.7 mEq/l (22.0-26.0); Oxygen Content ABG 15.4 %vol (16.0-22.0); Oxygen Saturation ABG 94.9 % (95.0-100.0); Oxyhemoglobin 93.9 % THb (90.0-100.0); PO2 ABG 78.8 mmHg (80.0-100.0); PO2 FiO2 Ratio Arterial Blood 2.25 %; Total Hemoglobin 11.6 g/dL (12.0-18.0); pH ABG 7.378 (7.350-7.450)
[2021-04-06 15:34] LABS: PCO2 ABG 68.9 mmHg (35.0-45.0)
[2021-04-06 15:35] LABS: Device NASAL CANNULA; Modified Allen's Test Pass; Site Drawn RIGHT RADIAL
[2021-04-06 19:25] LABS: Potassium 3.2 mmol/L (3.4-5.0)
[2021-04-06] MEDS: MONTELUKAST SODIUM 10 MG TABLET PO (20:56)
[2021-04-06 23:00] LABS: Glucose Point of Care 139 mg/dl (65-105)
[2021-04-07] VITALS (15 sets, daily range): BP systolic 125–165; BP diastolic 65–81; PULSE 90–108; RESP 14–28; TEMP 36.3–37.2; O2SAT 98–100
[2021-04-07] MEDS: IPRATROPIUM BR 0.02% INH SOLN 0.5 MG/2.5 ML VIAL INHALATION ×6 (00:29→20:20)
[2021-04-07] MEDS: ALBUTEROL SULFATE NEB 2.5 MG/0.5 ML INH INHALATION ×6 (00:29→20:20)
[2021-04-07] MEDS: PIPERACILLIN/TAZOBACTAM SOD 4.5 GM in SODIUM CHLORIDE 0.9% IV 100 ML IVPB ×5 (00:31→23:36)
[2021-04-07] MEDS: methylPREDNISolone SOD SUCC 40 MG VIAL 20 MG IV PUSH ×5 (00:31→23:36)
[2021-04-07 07:49] LABS: Hematocrit 32.4 % (37.0-47.0); Hemoglobin 10.8 g/dL (12.0-15.0); Mean Corpuscular HGB Conc 33.3 g/dl (32-36); Mean Corpuscular Hemoglobin 31.8 pg (26-34); Mean Corpuscular Volume 95.3 fl (80-100); Mean Platelet Volume 9.7 fl (7.4-10.4); Platelet Count Result 230 k/mm3 (150-375); Red Cell Distribution Width 13.2 % (11.5-14.5); White Blood Count 9.8 K/mm3 (4.5-10.0)
[2021-04-07 07:59] LABS: Anion Gap 8 mmol/L (8-16); Blood Urea Nitrogen 5 mg/dL (7-17); Calcium 8.8 mg/dL (8.4-10.2); Carbon Dioxide 38 mmol/L (22-30); Chloride 82 mmol/L (98-107); Estimated CRCL calculation 63 ml/min; Estimated Glomerular Filt Rate > 60; Glucose 108 mg/dL (65-110); Sodium 128 mmol/L (137-145)
[2021-04-07 08:25] LABS: Vancomycin Trough 12.2 ug/mL (10.0-20.0)
[2021-04-07] MEDS: ASPIRIN 81 MG ENTERIC TABLET PO (08:39)
[2021-04-07] MEDS: SACCHAROMYCES BOULARDII 250 MG CAPSULE PO (08:39)
[2021-04-07] MEDS: hydroCHLOROthiazide 25 MG TABLET PO (08:39)
[2021-04-07] MEDS: SERTRALINE HCL 50 MG TABLET PO (08:39)
[2021-04-07] MEDS: PRAVASTATIN SODIUM 20 MG TABLET PO (08:39)
[2021-04-07] MEDS: PANTOPRAZOLE 40 MG TABLET PO ×2 (08:39→17:02)
[2021-04-07] MEDS: HEPARIN SODIUM 5,000 UNITS/ML VIAL 5000 UNITS SUB-Q ×2 (08:39→20:46)
[2021-04-07] MEDS: LOSARTAN POTASSIUM 100 MG TABLET PO (08:39)
--- NOTE | 2021-04-07 10:07 | PCPTNOTE ---
patient refused to participate in physical therapy treatment this morning. Will attempt again later.
[2021-04-07 10:19] LABS: Magnesium 1.6 mg/dL (1.6-2.3)
[2021-04-07] MEDS: POTASSIUM CHLORIDE INJ 40 MEQ in SODIUM CHLORIDE 0.9% IV 500 ML 125 MEQ IVPB (11:08)
[2021-04-07] MEDS: POTASSIUM CHLORIDE 20 MEQ PACKET (FOR LIQUID) 40 MEQ PO (11:11)
--- NOTE | 2021-04-07 11:15 | PM.IMPN ---
Progress Note: A&P Assessment and Plan (1) COPD exacerbation: Code(s): J44.1 - Chronic obstructive pulmonary disease with (acute) exacerbation Status: Acute Assessment and Plan: Acute COPD exacerbation, improving slowly. Patient tolerated trilogy overnight. Obtain stat ABG, chest x-ray and follow-up pulmonary recommendations. Currently being managed for acute COPD exacerbation; we will continue with IV steroids and nebulizer treatment Q4. Continue with oxygen.Change from BIPAP to NC in day BIPAP at night . P (2) Pneumonia: Qualifiers: Laterality: unspecified laterality Lung location: unspecified part of lung Pneumonia type: due to unspecified organism Qualified Code(s): J18.9 - Pneumonia, unspecified organism Code(s): J18.9 - Pneumonia, unspecified organism Status: Acute Assessment and Plan: Blood culture remained negative at the time of this dictation. Continue IV Levaquin, and Zosyn. Stop vancomycin. Per Pulmonary recommendation. Blood culture unrevealing at the time of this dictation. Follow up CO2 cultures. Follow-up Streptococcus and Legionella urine antigens. Mycoplasma serology was negative. (3) Lung mass: Onset Date: ~03/30/21 Code(s): R91.8 - Other nonspecific abnormal finding of lung field Status: Acute Assessment and Plan: Pulmonary as been consulted for possible bronchoscopy. Appreciate recommendations. Further evaluation will be pursued (4) Anxiety: Code(s): F41.9 - Anxiety disorder, unspecified Status: Acute Assessment and Plan: Continue home medication. (5) GERD (gastroesophageal reflux disease): Code(s): K21.9 - Gastro-esophageal reflux disease without esophagitis Status: Acute Assessment and Plan: Acute exacerbation of epigastric pain, despite being on pantoprazole b.i.d.. Patient improved with GI cocktail p.r.n.. Patient carries a diagnosis of hiatal hernia. She is on pantoprazole b.i.d.. (6) Mixed hyperlipidemia: Code(s): E78.2 - Mixed hyperlipidemia Status: Acute Assessment and Plan: Stable on current meds. (7) Essential hypertension: Code(s): I10 - Essential (primary) hypertension Status: Acute Assessment and Plan: Improving blood pressure measurement. BP today 165/81. Additional Plan Patient is full code. 04/02/21 pt working hard to breath advanced COPD knows about mass states it was biopsied 7yrs ago pulm following, recs appreciated cont current care RT called for STAT breathing treatment 04/02/21 Patient's breathing is improving. advanced COPD knows about mass states it was biopsied 7yrs ago pulm following, recs appreciated cont current care Patient given GI cocktail for severe epigastric pain and improving. 04/03/21 Patient breathing is continue to improve. advanced COPD knows about mass states it was biopsied 7yrs ago pulm following, recs appreciated cont current care Again she presents severe epigastric pain, despite pantoprazole. GI cocktail prescribed. She also all Mylanta p.r.n.. Subjective Date/time seen: 04/07/21 11:15 S: Patient was seen examined at the bedside. She is tolerating trilogy. She is asking for solid food. Review of Systems Review of Systems: All systems reviewed & are unremarkable except as noted in HPI and below (the history and physical examination.) Constitutional: Constitutional: Reports as per HPI and Reports no additional constitutional complaints Eyes: Eyes: Reports as per HPI, Reports no additional eye complaints and Denies blurry vision ENT: Reports system reviewed and no additional complaints, except as documented, Reports as per HPI and Denies epistaxis Cardiovascular: Cardiovascular: Reports as per HPI, Reports no additional cardiovascular complaints, Denies chest pain and Reports dyspnea Respiratory: Respiratory: Reports as per HPI, Denies cough, Reports dyspnea and Report
--- NOTE | 2021-04-07 12:07 | PCOTNOTE ---
The patient treatment was not able to be completed a this time d/t patient's lunch tray arriving. LAUGHLIN assisted patient in adjusting bedside table and meeting needs, requiring approx. 10 minutes before LAUGHLIN's exit. Will plan to continue treatment per plan of care and trial second attempt later.
[2021-04-07] MEDS: MONTELUKAST SODIUM 10 MG TABLET PO (20:47)
[2021-04-07] MEDS: ALPRAZolam (*CRX) 0.25 MG TABLET PO (21:15)
[2021-04-08] VITALS (18 sets, daily range): BP systolic 128–167; BP diastolic 57–80; PULSE 88–111; RESP 16–28; TEMP 35.8–36.7; O2SAT 96–100
[2021-04-08] MEDS: IPRATROPIUM BR 0.02% INH SOLN 0.5 MG/2.5 ML VIAL INHALATION ×6 (00:10→20:22)
[2021-04-08] MEDS: ALBUTEROL SULFATE NEB 2.5 MG/0.5 ML INH INHALATION ×6 (00:10→20:22)
[2021-04-08] MEDS: PIPERACILLIN/TAZOBACTAM SOD 4.5 GM in SODIUM CHLORIDE 0.9% IV 100 ML IVPB ×4 (05:22→23:26)
[2021-04-08] MEDS: methylPREDNISolone SOD SUCC 40 MG VIAL 20 MG IV PUSH ×4 (05:23→23:26)
[2021-04-08 06:14] LABS: Hematocrit 30.3 % (37.0-47.0); Hemoglobin 9.9 g/dL (12.0-15.0); Mean Corpuscular HGB Conc 32.7 g/dl (32-36); Mean Corpuscular Hemoglobin 30.6 pg (26-34); Mean Corpuscular Volume 93.5 fl (80-100); Mean Platelet Volume 9.7 fl (7.4-10.4); Platelet Count Result 223 k/mm3 (150-375); Red Blood Count 3.24 M/mm3 (4.2-5.4); Red Cell Distribution Width 13.2 % (11.5-14.5); White Blood Count 9.1 K/mm3 (4.5-10.0)
[2021-04-08 06:26] LABS: Blood Urea Nitrogen 7 mg/dL (7-17); Calcium 8.9 mg/dL (8.4-10.2); Carbon Dioxide > 40 mmol/L (22-30); Chloride 84 mmol/L (98-107); Estimated CRCL calculation 63 ml/min; Estimated Glomerular Filt Rate > 60; Glucose 109 mg/dL (65-110); Potassium 3.4 mmol/L (3.4-5.0); Sodium 127 mmol/L (137-145)
[2021-04-08] MEDS: PANTOPRAZOLE 40 MG TABLET PO ×2 (09:14→16:37)
[2021-04-08] MEDS: SACCHAROMYCES BOULARDII 250 MG CAPSULE PO (09:14)
[2021-04-08] MEDS: HEPARIN SODIUM 5,000 UNITS/ML VIAL 5000 UNITS SUB-Q ×2 (09:15→20:17)
[2021-04-08] MEDS: ASPIRIN 81 MG ENTERIC TABLET PO (09:15)
[2021-04-08] MEDS: SERTRALINE HCL 50 MG TABLET PO (09:15)
[2021-04-08] MEDS: LOSARTAN POTASSIUM 100 MG TABLET PO (09:15)
[2021-04-08] MEDS: PRAVASTATIN SODIUM 20 MG TABLET PO (09:15)
[2021-04-08] MEDS: hydroCHLOROthiazide 25 MG TABLET PO (09:15)
[2021-04-08] MEDS: POTASSIUM CHLORIDE 20 MEQ PACKET (FOR LIQUID) 40 MEQ PO (09:19)
--- NOTE | 2021-04-08 09:29 | PM.IMPN ---
Progress Note: A&P Assessment and Plan (1) COPD exacerbation: Code(s): J44.1 - Chronic obstructive pulmonary disease with (acute) exacerbation Status: Acute Assessment and Plan: Acute COPD exacerbation, improving slowly. Patient tolerated trilogy overnight. Patient has experienced intermittent episodes of acute respiratory distress. Pulmonary was consulted. We appreciate Pulmonary recommendations. Currently being managed for acute COPD exacerbation; we will continue with IV steroids and nebulizer treatment Q4. Continue with oxygen.Change from BIPAP to NC in day BIPAP at night and PRN with naps. (2) Pneumonia: Qualifiers: Laterality: unspecified laterality Lung location: unspecified part of lung Pneumonia type: due to unspecified organism Qualified Code(s): J18.9 - Pneumonia, unspecified organism Code(s): J18.9 - Pneumonia, unspecified organism Status: Acute Assessment and Plan: Blood culture remained negative at the time of this dictation. Continue IV Levaquin, and Zosyn. Stop vancomycin. Per Pulmonary recommendation. Blood culture unrevealing at the time of this dictation. Follow up CO2 cultures. Follow-up Streptococcus and Legionella urine antigens. Mycoplasma serology was negative. (3) Lung mass: Onset Date: ~03/30/21 Code(s): R91.8 - Other nonspecific abnormal finding of lung field Status: Acute Assessment and Plan: Pulmonary as been consulted for possible bronchoscopy. Appreciate recommendations. Further evaluation will be pursued likely as an outpatient. (4) Anxiety: Code(s): F41.9 - Anxiety disorder, unspecified Status: Acute Assessment and Plan: Continue home medication. (5) GERD (gastroesophageal reflux disease): Code(s): K21.9 - Gastro-esophageal reflux disease without esophagitis Status: Acute Assessment and Plan: Acute exacerbation of epigastric pain, despite being on pantoprazole b.i.d.. Patient improved with GI cocktail p.r.n.. Patient carries a diagnosis of hiatal hernia. She is on pantoprazole b.i.d.. (6) Mixed hyperlipidemia: Code(s): E78.2 - Mixed hyperlipidemia Status: Acute Assessment and Plan: Stable on current meds. (7) Essential hypertension: Code(s): I10 - Essential (primary) hypertension Status: Acute Assessment and Plan: Pulmonary recommendations. Additional Plan Patient is full code. 04/02/21 pt working hard to breath advanced COPD knows about mass states it was biopsied 7yrs ago pulm following, recs appreciated cont current care RT called for STAT breathing treatment 04/02/21 Patient's breathing is improving. advanced COPD knows about mass states it was biopsied 7yrs ago pulm following, recs appreciated cont current care Patient given GI cocktail for severe epigastric pain and improving. 04/03/21 Patient breathing is continue to improve. advanced COPD knows about mass states it was biopsied 7yrs ago pulm following, recs appreciated cont current care Again she presents severe epigastric pain, despite pantoprazole. GI cocktail prescribed. She also all Mylanta p.r.n.. Subjective Date/time seen: 04/08/21 09:29 S: Patient was seen examined at the bedside. She presents conscious today. Improved work of breathing. She is eating solid food; apart diet is poor but is improving slowly. We will engage the patient physical therapy today. Review of Systems Review of Systems: All systems reviewed & are unremarkable except as noted in HPI and below (the history and physical examination.) Constitutional: Constitutional: Reports as per HPI and Reports no additional constitutional complaints Eyes: Eyes: Reports as per HPI, Reports no additional eye complaints and Denies blurry vision ENT: Reports system reviewed and no additional complaints, except as documented, Reports as per HPI and Denies epistaxis Cardiovascular: Car
--- NOTE | 2021-04-08 09:57 | PCPTNOTE ---
PT evaluation was ordered this morning; however, she is already in care of physical therapy and was evaluated on 04/04/21. There is no apparent status change; therefore, we will continue with current treatment plan.
[2021-04-08] MEDS: MONTELUKAST SODIUM 10 MG TABLET PO (20:16)
[2021-04-09] VITALS (10 sets, daily range): BP systolic 139–150; BP diastolic 67–77; PULSE 87–113; RESP 18–28; TEMP 36.2–36.8; O2SAT 97–100
[2021-04-09] MEDS: ALBUTEROL SULFATE NEB 2.5 MG/0.5 ML INH INHALATION ×3 (00:15→11:14)
[2021-04-09] MEDS: IPRATROPIUM BR 0.02% INH SOLN 0.5 MG/2.5 ML VIAL INHALATION ×3 (00:15→11:14)
[2021-04-09] MEDS: PIPERACILLIN/TAZOBACTAM SOD 4.5 GM in SODIUM CHLORIDE 0.9% IV 100 ML IVPB ×2 (05:29→11:46)
[2021-04-09] MEDS: methylPREDNISolone SOD SUCC 40 MG VIAL 20 MG IV PUSH ×2 (05:29→11:47)
[2021-04-09 06:20] LABS: Hematocrit 30.8 % (37.0-47.0); Hemoglobin 10.2 g/dL (12.0-15.0); Mean Corpuscular HGB Conc 33.1 g/dl (32-36); Mean Corpuscular Hemoglobin 31.6 pg (26-34); Mean Corpuscular Volume 95.4 fl (80-100); Mean Platelet Volume 9.1 fl (7.4-10.4); Platelet Count Result 233 k/mm3 (150-375); Red Blood Count 3.23 M/mm3 (4.2-5.4); Red Cell Distribution Width 13.4 % (11.5-14.5)
[2021-04-09 06:48] LABS: Blood Urea Nitrogen 9 mg/dL (7-17); Carbon Dioxide > 40 mmol/L (22-30); Chloride 83 mmol/L (98-107); Estimated CRCL calculation 54 ml/min; Estimated Glomerular Filt Rate > 60; Glucose 115 mg/dL (65-110); Potassium 3.5 mmol/L (3.4-5.0); Sodium 127 mmol/L (137-145)
[2021-04-09] MEDS: FLUTICASONE PROPIONATE 0.05% NA SPR 16 GM BTL (*BKC) 2 SPRAY NASAL (08:28)
[2021-04-09] MEDS: ASPIRIN 81 MG ENTERIC TABLET PO (08:28)
[2021-04-09] MEDS: SERTRALINE HCL 50 MG TABLET PO (08:29)
[2021-04-09] MEDS: PANTOPRAZOLE 40 MG TABLET PO (08:29)
[2021-04-09] MEDS: LOSARTAN POTASSIUM 100 MG TABLET PO (08:29)
[2021-04-09] MEDS: hydroCHLOROthiazide 25 MG TABLET PO (08:29)
[2021-04-09] MEDS: HEPARIN SODIUM 5,000 UNITS/ML VIAL 5000 UNITS SUB-Q (08:30)
[2021-04-09] MEDS: SACCHAROMYCES BOULARDII 250 MG CAPSULE PO (08:30)
[2021-04-09] MEDS: PRAVASTATIN SODIUM 20 MG TABLET PO (08:31)
--- NOTE | 2021-04-09 10:52 | PM.DS ---
DS: Admitting Diagnosis Discharge Date 04/09/2021 Admitting Diagnosis Shortness of breath DS: Discharge Diagnosis Discharge Diagnosis (1) COPD exacerbation: Code(s): J44.1 - Chronic obstructive pulmonary disease with (acute) exacerbation Status: Acute Assessment and Plan: Acute COPD exacerbation, improving slowly. Patient tolerated trilogy overnight. Patient has experienced intermittent episodes of acute respiratory distress. Pulmonary was consulted. We appreciate Pulmonary recommendations. Currently being managed for acute COPD exacerbation; we will continue with IV steroids and nebulizer treatment Q4. Continue with oxygen.Change from BIPAP to NC in day BIPAP at night and PRN with naps. (2) Pneumonia: Qualifiers: Laterality: unspecified laterality Lung location: unspecified part of lung Pneumonia type: due to unspecified organism Qualified Code(s): J18.9 - Pneumonia, unspecified organism Code(s): J18.9 - Pneumonia, unspecified organism Status: Acute Assessment and Plan: Blood culture remained negative at the time of this dictation. Continue IV Levaquin, and Zosyn. Stop vancomycin. Per Pulmonary recommendation. Blood culture unrevealing at the time of this dictation. Follow up CO2 cultures. Follow-up Streptococcus and Legionella urine antigens. Mycoplasma serology was negative. (3) Lung mass: Onset Date: ~03/30/21 Code(s): R91.8 - Other nonspecific abnormal finding of lung field Status: Acute Assessment and Plan: Pulmonary as been consulted for possible bronchoscopy. Appreciate recommendations. Further evaluation will be pursued likely as an outpatient. (4) Anxiety: Code(s): F41.9 - Anxiety disorder, unspecified Status: Acute Assessment and Plan: Continue home medication. (5) GERD (gastroesophageal reflux disease): Code(s): K21.9 - Gastro-esophageal reflux disease without esophagitis Status: Acute Assessment and Plan: Acute exacerbation of epigastric pain, despite being on pantoprazole b.i.d.. Patient improved with GI cocktail p.r.n.. Patient carries a diagnosis of hiatal hernia. She is on pantoprazole b.i.d.. (6) Mixed hyperlipidemia: Code(s): E78.2 - Mixed hyperlipidemia Status: Acute Assessment and Plan: Stable on current meds. (7) Essential hypertension: Code(s): I10 - Essential (primary) hypertension Status: Acute Assessment and Plan: Pulmonary recommendations. DS: Summary Hospital Course Reason for hospitalization: Shortness of breath Hospital Course: Please refer to admission H&P. Briefly, this is a 70 years old female with history of COPD, hypertension and oxygen dependent was admitted through the emergency room with complaints of having shortness of breath and cough going on for the last few days. Patient was requiring more oxygen. Patient also has generalized weakness. Patient denies any fever chills. No abdominal pain, no nausea, no vomiting. Mood stable. (1) COPD exacerbation: 03/31 Patient with COPD with hypoxemic respiratory failure requiring 2 L nasal cannula oxygen / and maintained on Trelegy inhaler. I have no PFTs. Patient does have severe emphysema on her CT on 03/30/2021. Patient has baseline dyspnea on exertion with walking 15 ft. She was admitted with increased cough, shortness of breath, change in phlegm production with a CT scan demonstrating a right hilar mass with atelectasis of the right middle lobe. We will continue to treat her for COPD exacerbation and postobstructive pneumonia. Her COVID RT PCR study is negative, as well as the influenza swab from 03/31. Her ABG has improved; Mar 31 - 7.33 / 66.8 / 59.8 /34.7 on 35%. Apr 01 - 7.43/ 54.6 / 87.9 / 35.6 on 2.5 L/min O2. She was treated with methylprednisolone to 20 mg IV q.6 for COPD exacerbation, and albuterol nebulized 2.5 mg q.4 hours, and ipratropium 0.5 mg nebulized q.4 hour
--- NOTE | 2021-04-09 13:43 | PCRCNOTE ---
Pt planned for discharge home today. Welfare Visitor has expressed concerns about safety of patient with home d/c due to recent progression in debility. Pt has been in bed without any ambulation for the last few days using bedpan for the bathroom and receiving bed baths. Pt has told therapy services she is too sob to sit at edge of bed. Welfare Visitor has noticed that pt becomes very sob with increased work of breathing with any activity at this point. Welfare Visitor has spoken with physician, med care manager, RN and PT about concerns for home discharge and they are aware. Pt currently planning to d/c home with her niece as caregiver.
--- NOTE | 2021-04-09 13:57 | PM.PNPUL ---
Progress Note: A&P Assessment and Plan (1) COPD exacerbation: Code(s): J44.1 - Chronic obstructive pulmonary disease with (acute) exacerbation Status: Acute Assessment and Plan: 03/31 Patient with COPD with hypoxemic respiratory failure requiring 2 L nasal cannula oxygen 24/7 and maintained on Trelegy inhaler. I have no PFTs. Patient does have severe emphysema on her CT on 03/30/2021. Patient has baseline dyspnea on exertion with walking 15 ft. She was admitted with increased cough, shortness of breath, change in phlegm production with a CT scan demonstrating a right hilar mass with atelectasis of the right middle lobe. We will continue to treat her for COPD exacerbation and postobstructive pneumonia. Her COVID RT PCR study is negative, as well as the influenza swab from 03/31. Her ABG has improved; Mar 31 - 7.33 / 66.8 / 59.8 /34.7 on 35% Apr 01 - 7.43/ 54.6 / 87.9 / 35.6 on 2.5 L/min O2 She remains on methylprednisolone to 20 mg IV q.6 for COPD exacerbation, and albuterol nebulized 2.5 mg q.4 hours, and ipratropium 0.5 mg nebulized q.4 hours. Trelegy was stopped as she is on maximal beta agonist and muscarinic antagonist dose. She continues to use a Cornet valve to help her expectorate. Regarding the postobstructive pneumonia I will change her antibiotics from ceftriaxone and azithromycin to vancomycin, Zosyn and Levaquin to treat her aggressively With broad-spectrum antibiotics for community-acquired pneumonia as well as the possibility of resistant organisms such as MRSA and Pseudomonas. Blood cultures are negative and I have ordered a sputum culture. ABG later in the day on tube of 2.5 L nasal cannula 7.33/69/60. Patient has hypercarbic respiratory failure and I initiated BiPAP later in the day But she did not tolerate BiPAP and I placed her on a noninvasive ventilation with AVAPS mode with a rate of 16, tidal volume 400, EPAP 5, minimal inspiratory pressure 6, maximal inspiratory pressure 25 and 35% FiO2. Patient wore this overnight.. 04/01 Patient wore the noninvasive ventilator with the AVAPS mode overnight and said that she was able to sleep. She says it does help her breathe. Currently the patient is on 3 L nasal cannula saturations 94%. She has decreased breath sounds but no wheezes. Overall she says that she is a little bit better. Patient had a blood gas prior to removal of the noninvasive ventilator with the AVAPS mode of 7.43/55/88. Patient had an overnight oximetry on 35% FiO2 with an average saturation of 94% and time with saturation less than or equal to 88% was 10 minutes. Patient is a little bit better and at this time I will continue Solu-Medrol 20 mg IV q.6, albuterol and ipratropium nebulizers Q 4 standing, vancomycin, Zosyn and Levaquin for postobstructive pneumonia. Her blood gas on the above noninvasive ventilator settings are adequate. Overnight she was on 40% 04/01. 04/02 She will need NPPV at discharge, and we will arrange this for her. 04/03 Trilogy forms completed. 04/04 Trilogy arrived and she will use this while she is here, take it home with her. 04/09 She is on 2 L, tolerating Trilogy, last ABG was compensated; she can switch from IV solumedrol to oral taper which I discussed with Dr Garcia. She can follow up with us in 1-2 weeks, and the office was notified. Needs f/u of the Right hilar mass and RML atelectasis. May benefit from PET scan. Has a history of lung mass worked up at [facility]. She has a Cornet valve and should continue to use at home for the RML atelectasis. (2) Lung mass: Onset Date: ~03/30/21 Code(s): R91.8 - Other nonspecific abnormal finding of lung field Status: Acute Assessment and Plan: 03/31 Patient with severe COPD a right hilar mass with compression of the right middle lobe bronchus and atelectasis of the right middle lobe.
[2021-04-11 15:04] LABS: Legionella pneumophila Ag Ur Not Detected (Not Detected)
== END 2021-04-09 16:35 | disposition home health service (06) | DRG 194 ==
LOC: ANHED 21:07 → ANH2MED 23:30
PROVIDERS: Emergency Medicine; Family Medicine; Hospitalist; Internal Medicine; Internal Medicine Pulmonary Disease; Admitting Provider Internal Medicine; Emergency Provider Emergency Medicine; PCP Nurse Practitioner Family; Visit Provider Internal Medicine
DX: J18.9 Pneumonia, unspecified organism (principal); Z68.1 Body mass index [BMI] 19.9 or less, adult; J96.12 Chronic respiratory failure with hypercapnia; J96.11 Chronic respiratory failure with hypoxia; R91.8 Other nonspecific abnormal finding of lung field; Z99.81 Dependence on supplemental oxygen; F41.9 Anxiety disorder, unspecified; K21.9 Gastro-esophageal reflux disease without esophagitis; I51.9 Heart disease, unspecified; I10 Essential (primary) hypertension; G47.00 Insomnia, unspecified; E78.2 Mixed hyperlipidemia; E55.9 Vitamin D deficiency, unspecified; Z87.891 Personal history of nicotine dependence; Z20.822 Contact with and (suspected) exposure to COVID-19; K44.9 Diaphragmatic hernia without obstruction or gangrene; J43.9 Emphysema, unspecified; R63.4 Abnormal weight loss
CPT/HCPCS: 36415; 36600; 71045; 71275; 74018; 80048; 80053; 80202; 82565; 82805; 82948; 83735; 83880; 84132; 84484; 85025; 85027; 85610; 85730; 86738; 87040; 87449; 87804; 93005; 94002; 94640; 94762; 96365; 96366; 96367; 96375; 96376; 97110; 97161; 97166; 97530; 97535; 99285; A9270; C9803; G0378; J0456; J0696; J1644; J1956; J2543; J2920; J2930; J3370; J3480; J7030; J7040; Q9967; U0003; U0005

== ENCOUNTER 2021-06-09 14:56 | Inpatient (IN) | payer MEDICARE, BC, SELFPAY ==
[2021-06-09] VITALS (13 sets, daily range): BP systolic 126–184; BP diastolic 67–82; PULSE 89–112; RESP 16–28; TEMP 36.2; O2SAT 90–99; BMI 17.5
--- NOTE | ~2021-06-09 | XR_ITS ---
EXAMINATION: XR chest 1V portable DATE: 06/12/2021 05:56 INDICATION: Congestion TECHNIQUE: frontal view of the chest was obtained. COMPARISON: Chest radiograph dated 06/09/2021 FINDINGS: Hyperexpansion lungs with increased lucency and architectural distortion in the upper lung zones cons istent with emphysema. A few small scattered calcified pulmonary nodules and calcified mediastinal ly mph nodes consistent with old granulomatous disease. Unchanged streaky and linear opacities in bilate ral mid and lower lung zones most likely atelectasis/scarring. No pleural effusion or pneumothorax. N ipple shadows projects over the lateral lower lung zones. The cardiomediastinal silhouette is normal. IMPRESSION: 1. Severe emphysema. 2. Streaky and linear opacities in the bilateral mid and lower lung zones and favor atelectasis/scarr ing over pneumonia. Reviewed, dictated and finalized at location A. IMPRESSION: 1. Severe emphysema. 2. Streaky and linear opacities in the bilateral mid and lower lung zones and f avor atelectasis/scarring over pneumonia.
--- NOTE | ~2021-06-09 | XR_ITS ---
EXAMINATION: XR chest 2V EXAM DATE: 06/09/2021 15:41 INDICATION: SOB Today Hx Asthma, Heart Disease,COPD,HTN. TECHNIQUE: Frontal and lateral projections of the chest obtained and reviewed. Comparison is made to prior examination from 04/06/2021. FINDINGS: The lungs are hyperinflated which can be seen with chronic obstructive pulmonary disease ( a clinical diagnosis of functional impairment), but is not diagnostic of it. Probably severe upper lo be predominant emphysema. There is narrow cardiac silhouette from hyperinflated lungs. Scattered [place] ons of post infectious residua. There are bony degenerative changes. Accounting for differences in te chn[place], there is no significant interval change. IMPRESSION: 1. Chronic hyperinflation. 2. Scattered postinfectious residua unchanged. Reviewed, dictated and finalized at location G.
--- NOTE | 2021-06-09 15:11 | ECG_ITS ---
Measurements Intervals [place] Rate: 94 P: 80 [place]: 158 QRS: 74 QRSD: 82 T: 64 QT: 288 QTc: 361 Interpretive Statements SINUS RHYTHM POOR R-WAVE PROGRESSION COMPARED TO ECG 03/30/2021 17:55:55 NO SIGNIFICANT DIFFERENCE Electronically Signed On 06-10-2021 8:31:41 CDT by Tejinder Vela M.D.
--- NOTE | 2021-06-09 15:31 | ED.GENADULT ---
HPI - General Adult General Chief complaint: Shortness of Breath/Dyspnea Stated complaint: ACUTE SOB Time Seen by Provider: 06/09/21 15:05 Source: patient History of Present Illness HPI narrative: 70-year-old female with history of COPD normally on 2 L of oxygen by nasal cannula presents to the emergency department for evaluation of worsening shortness of breath. Patient states that she woke up this morning feeling fine but over the course of the day and into the afternoon she began having worsening shortness of breath. Patient states she did check her pulse ox at home and it was found to be running low. When patient called EMS they stated that her pulse ox was not functioning correctly and patient was saturating 95% on her 2 L but did have significantly increased work of breathing. Patient did receive albuterol breathing treatment in route to the emergency department,she states this did help. Upon arrival to the ED patient is saturating at 96% on her 2 L but does have pursed lip breathing and tachypnea. Patient denies any associated chest pain. Patient denies any associated illness. States that she is vaccinated against COVID but has not yet received her booster. Related Data Home Medications Medication Instructions Recorded Confirmed Saccharomyces boulardii [Daily 1 cap PO DAILY 03/06/21 06/09/21 Probiotic (S. boulardii)] albuterol sulfate 90 mcg/actuation 1 puff INHALATION Q6H PRN g 03/06/21 06/09/21 aerosol inhaler docusate sodium 100 mg capsule 100 mg PO BID PRN 03/06/21 06/09/21 fluticasone fur. 100 mcg-umeclid 1 inh INHALATION Q24H 03/06/21 06/09/21 62.5 mcg-vilant 25 mcg inhalat.powder fluticasone propionate 50 2 spray INTRANASAL DAILY 03/06/21 06/09/21 mcg/actuation nasal spray,suspension losartan 100 1 tablet PO DAILY 03/06/21 06/09/21 mg-hydrochlorothiazide 25 mg tablet omega-3 fatty acids 1,000 mg 1,000 mg PO DAILY 03/06/21 06/09/21 capsule omeprazole 40 mg capsule,delayed 40 mg PO DAILY 03/06/21 06/09/21 release pravastatin 20 mg PO HS 06/09/21 06/09/21 sertraline 50 mg PO HS 06/09/21 06/09/21 Allergies Allergy/AdvReac Type Severity Reaction Status Date / Time shellfish derived Allergy Unknown Unknown Verified 06/09/21 15:40 strawberry Allergy Unknown Unknown Verified 06/09/21 15:40 Review of Systems Review of Systems: CONSTITUTIONAL: Denies fever, chills, or sweats. EYES: Denies visual changes, redness, or discharge. ENT: Denies rhinorrhea, congestion, sore throat, or otalgia. CARDIOVASCULAR: Denies chest pain, palpitations, or edema. RESPIRATORY: Increased shortness of breath today GASTROINTESTINAL: Denies abdominal pain, nausea, vomiting, or diarrhea. GENITOURINARY: Denies dysuria or hematuria. SKIN: Denies rash or itching. MUSCULOSKELETAL: Denies back pain, joint pain, or myalgia. NEUROLOGIC: Denies headache, numbness, or weakness. [facility] Past Medical History Medical History (Updated 06/09/21 @ 18:05 by Bowen Hair MD) Anxiety Asthma BMI less than 19,adult (~05/14/21) BMI 17.4 Constipation Dry skin End stage chronic obstructive pulmonary disease GERD (gastroesophageal reflux disease) Heart disease HTN (hypertension) Hx of intestinal obstruction Insomnia Mixed hyperlipidemia Oxygen dependent Seasonal allergic rhinitis Vitamin D deficiency Weakness Surgical History Surgical History H/O: hysterectomy (~2015) History of appendectomy History of cholecystectomy (~2018) Family History Family History Mother Lymphoma Hypertension Heart disease Sibling Lung cancer Diabetes mellitus Hypertension Other Spinal cord cancer Social History Social History (Updated 06/09/21 @ 17:34 by Celina Pinedo NP) Social History: retired [employer] service. 3 children. Smoking status: Former smoker Additional smoking assessment comments:
[2021-06-09 15:33] LABS: Basophils Absolute Auto 0.1 K/mm3 (0.0-0.1); Basophils Percent Auto 0.5 % (0.2-1.2); Eosinophils Absolute Auto 0.1 K/mm3 (0-0.3); Eosinophils Percent Auto 1.2 % (0-4.4); Hematocrit 37.7 % (37.0-47.0); Hemoglobin 11.9 g/dL (12.0-15.0); Immature Granulocyte Absolute 0.02 K/mm3 (0.00-0.031); Immature Granulocyte Percent A 0.2 % (0-0.5); Lymphocytes Absolute Auto 1.33 K/mm3 (0.9-3.2); Lymphocytes Percent Auto 13.9 % (18.3-44.2); Mean Corpuscular HGB Conc 31.6 g/dl (32-36); Mean Corpuscular Hemoglobin 30.6 pg (26-34); Mean Corpuscular Volume 96.9 fl (80-100); Mean Platelet Volume 9.8 fl (7.4-10.4); Monocytes Absolute Auto 0.9 K/mm3 (0.1-0.6); Monocytes Percent Auto 9.7 % (2.6-8.5); Neutrophils Absolute Auto 7.1 K/mm3 (1.3-6.7); Neutrophils Percent Auto 74.5 % (45.5-73.1); Platelet Count Result 266 k/mm3 (150-375); Red Blood Count 3.89 M/mm3 (4.2-5.4); Red Cell Distribution Width 12.8 % (11.5-14.5); White Blood Count 9.6 K/mm3 (4.5-10.0)
[2021-06-09] MEDS: ALBUTEROL SULFATE NEB 2.5 MG/0.5 ML INH 5 MG INHALATION ×2 (15:44→21:03)
[2021-06-09 15:45] LABS: Alanine Aminotransferase 16 U/L (4-35); Albumin Level 4.4 g/dL (3.5-5.1); Alkaline Phosphatase 105 U/L (38-126); Aspartate Amino Transferase 39 U/L (14-36); Bilirubin,Total 0.5 mg/dL (0.2-1.3); Blood Urea Nitrogen 13 mg/dL (7-17); Calcium 9.3 mg/dL (8.4-10.2); Carbon Dioxide > 40 mmol/L (22-30); Chloride 88 mmol/L (98-107); Estimated CRCL calculation 57 ml/min; Estimated Glomerular Filt Rate > 60; Glucose 130 mg/dL (65-110); Potassium 3.6 mmol/L (3.4-5.0); Sodium 136 mmol/L (137-145)
[2021-06-09] MEDS: methylPREDNISolone SOD SUCC 125 MG VIAL IV PUSH (15:48)
[2021-06-09 16:12] LABS: Influenza A QL RT-PCR Negative (Negative); Influenza B QL RT-PCR Negative (Negative); SARS-CoV-2 RNA PCR Negative
[2021-06-09 16:32] LABS: Alveolar/Arterial O2 Gradient 60.6 mmHg; Base Excess ABG 10.7 mEq/l (+/-2.0); Fractional Inspired Oxygen 28 %; Oxygen Content ABG 14.9 %vol (16.0-22.0); Oxygen Saturation ABG 90.8 % (95.0-100.0); Oxyhemoglobin 89.8 % THb (90.0-100.0); PO2 ABG 62.3 mmHg (80.0-100.0); PO2 FiO2 Ratio Arterial Blood 2.22 %; Total Hemoglobin 11.8 g/dL (12.0-18.0); pH ABG 7.385 (7.350-7.450)
[2021-06-09 16:35] LABS: Device NASAL CANNULA; Site Drawn LEFT BRACHIAL
--- NOTE | 2021-06-09 17:33 | PM.IMHP ---
H&P: HPI History of Present Illness Date/Time: 06/09/21 17:33 this is a 70 year old female patient has a history of COPD with chronic hypoxia on oxygen at 2 L per nasal cannula. The patient woke up and felt fine this morning but throughout the day she became increasingly more short of breath. The patient attempted to check her pulse ox at home but it was ranging anywhere from 30-60%. This caused the patient to be very anxious and was hyperventilating. The patient activated EMS and when they arrived her oxygen level was in the 90s with the 2 L per nasal cannula. However the patient was pursed breathing in the emergency room. The patient was given a nebulizer treatment on the way to the emergency room and she stated some relief. The patient has been vaccinated against COVID-19 but has not had her booster. She tested negative for COVID-19 today. She also tested negative for influenza. Patient's ABGs pH 7.3 a 5 CO2 is 65.0 PO2 62.3. Sodium 136. Carbon dioxide greater than 40. The patient was given a nebulizer treatment in the emergency room as well as Solu-Medrol. The patient was sitting up eating her dinner when I arrived. Patient is being admitted to observation status on the date of service of 06/09/2021. Chief Complaint: Shortness of breath Review of Systems Review of Systems: All systems reviewed & are unremarkable except as noted in HPI and below Constitutional: Constitutional: Reports as per HPI and Reports no additional constitutional complaints Eyes: Eyes: Reports as per HPI and Reports no additional eye complaints ENT: Reports system reviewed and no additional complaints, except as documented and Reports Normal hearing present Cardiovascular: Cardiovascular: Reports no additional cardiovascular complaints Respiratory: Respiratory: Reports no additional respiratory complaints and Reports no additional respiratory complaints Gastrointestinal: Gastrointestinal: Reports as per HPI and Reports no additional gastrointestinal complaints Musculoskeletal: Musculoskeletal: Reports no additional musculoskeletal complaints Integumentary/Breasts: Skin/Breast: Reports system reviewed and no additional complaints, except as docu and Reports as per HPI Neurologic: Reports system reviewed and no additional complaints, except as documented, Reports as per HPI and Reports Normal hearing present Psychiatric: Psychiatric: Reports no additional psychiatric complaints and Reports as per HPI Endocrine: Endocrine: Reports no additional endocrine complaints Hematologic/Lymphatic: Hematologic/Lymphatic: Reports no additional hematologic/lymphatic complaints Allergic/Immunologic: Allergic/Immunologic: Reports no additional allergic/immunologic complaints PMFSH Past Medical History Medical History Anxiety Asthma BMI less than 19,adult (~05/14/21) BMI 17.4 Constipation Dry skin End stage chronic obstructive pulmonary disease GERD (gastroesophageal reflux disease) Heart disease HTN (hypertension) Hx of intestinal obstruction Insomnia Mixed hyperlipidemia Oxygen dependent Seasonal allergic rhinitis Vitamin D deficiency Weakness Surgical History Surgical History H/O: hysterectomy (~2015) History of appendectomy History of cholecystectomy (~2019) Family History Family History Mother Lymphoma Hypertension Heart disease Sibling Lung cancer Diabetes mellitus Hypertension Other Spinal cord cancer Social History Social History (Updated 06/09/21 @ 18:21 by Celina Pinedo NP) Social History: She is retired from the postal service. She has 3 children. She is . She is a former smoker and quit many years ago. She denies any alcohol marijuana illicit drugs. She is . She does not have a durable power state attorney for healthcare. [place]
--- NOTE | 2021-06-09 18:01 | PC.NURSE ---
Report received by DAKOTAH Smith at 1333. All questions answered and plan of care reviewed. Patient to go to IMU room 201.
--- NOTE | 2021-06-09 18:20 | ADMGEN ---
This patient, Kyle Love, was admitted to IMU Room 201-01 at 1819. Patient/family oriented to hospital policies and general routines including ID bracelet, bed and alarms, visiting hours, pain management, procedures, bathroom and other care routines, personal items, smoking policy, room service/diet, and visiting hours. Information on how to activate the Rapid Response Team has been discussed. Patient/Family are encouraged to report perceived risks to care and to ask questions if they do not understand what they are told or what they should do.
[2021-06-09] MEDS: PRAVASTATIN SODIUM 20 MG TABLET PO (20:08)
[2021-06-09] MEDS: ERGOCALCIFEROL 50,000 UNIT CAPSULE 50000 UNITS PO (20:08)
[2021-06-09] MEDS: SERTRALINE HCL 50 MG TABLET PO (20:08)
[2021-06-09] MEDS: IPRATROPIUM BR 0.02% INH SOLN 0.5 MG/2.5 ML VIAL INHALATION (21:03)
[2021-06-10] VITALS (20 sets, daily range): BP systolic 128–167; BP diastolic 50–79; PULSE 70–107; RESP 16–19; TEMP 35.9–36.8; O2SAT 92–99
[2021-06-10] MEDS: TEMAZEPAM (*CRX) 15 MG CAPSULE PO ×2 (00:50→20:52)
[2021-06-10] MEDS: ACETAMINOPHEN 325 MG TABLET 650 MG PO ×3 (00:50→20:48)
[2021-06-10] MEDS: methylPREDNISolone SOD SUCC 125 MG VIAL 60 MG IV PUSH ×3 (00:51→11:09)
[2021-06-10] MEDS: IPRATROPIUM BR 0.02% INH SOLN 0.5 MG/2.5 ML VIAL INHALATION ×4 (01:25→20:20)
[2021-06-10] MEDS: ALBUTEROL SULFATE NEB 2.5 MG/0.5 ML INH 5 MG INHALATION ×4 (01:25→20:20)
--- NOTE | 2021-06-10 01:38 | PCRCNOTE ---
pt stated that she used her trelegy ellipta dpi at home at 1000; This does was omitted
[2021-06-10 05:13] LABS: Basophils Percent Auto 0.2 % (0.2-1.2); Hematocrit 33.8 % (37.0-47.0); Hemoglobin 10.8 g/dL (12.0-15.0); Immature Granulocyte Absolute 0.01 K/mm3 (0.00-0.031); Immature Granulocyte Percent A 0.2 % (0-0.5); Lymphocytes Absolute Auto 0.61 K/mm3 (0.9-3.2); Lymphocytes Percent Auto 9.6 % (18.3-44.2); Mean Corpuscular Hemoglobin 30.4 pg (26-34); Mean Corpuscular Volume 95.2 fl (80-100); Mean Platelet Volume 9.7 fl (7.4-10.4); Monocytes Absolute Auto 0.2 K/mm3 (0.1-0.6); Neutrophils Absolute Auto 5.6 K/mm3 (1.3-6.7); Platelet Count Result 251 k/mm3 (150-375); Red Blood Count 3.55 M/mm3 (4.2-5.4); Red Cell Distribution Width 12.5 % (11.5-14.5); White Blood Count 6.4 K/mm3 (4.5-10.0)
[2021-06-10 05:28] LABS: Lactic Acid Reflex 0.8 mmol/L (0.7-2.1)
[2021-06-10 05:30] LABS: Alanine Aminotransferase 15 U/L (4-35); Alkaline Phosphatase 95 U/L (38-126); Aspartate Amino Transferase 31 U/L (14-36); Bilirubin,Total 0.4 mg/dL (0.2-1.3); Blood Urea Nitrogen 16 mg/dL (7-17); Carbon Dioxide > 40 mmol/L (22-30); Chloride 88 mmol/L (98-107); Estimated CRCL calculation 62 ml/min; Estimated Glomerular Filt Rate > 60; Glucose 129 mg/dL (65-110); Magnesium 1.7 mg/dL (1.6-2.3); Potassium 3.3 mmol/L (3.4-5.0); Sodium 134 mmol/L (137-145)
[2021-06-10 06:22] LABS: Thyroid Stimulating Hormone Reflex 0.034 uIU/mL (0.465-4.68)
[2021-06-10 06:59] LABS: Free T4 Free Thyroxine Reflex 1.22 ng/dL (0.78-2.19)
[2021-06-10 08:07] LABS: Total Triiodothyronine (T3) 1.21 NG/ML (0.97-1.69)
[2021-06-10] MEDS: FLUTICASONE/UMECLIDIN/VILANTER 100-62.5-25 MCG ELLIPTA 1 PUFF INHALATION (08:18)
[2021-06-10] MEDS: LOSARTAN POTASSIUM 100 MG TABLET PO (08:51)
[2021-06-10] MEDS: OMEGA 3 POLYUNSAT FATTY ACIDS 1 GM CAP PO (08:51)
[2021-06-10] MEDS: PANTOPRAZOLE 40 MG TABLET PO ×2 (08:51→16:22)
[2021-06-10] MEDS: SACCHAROMYCES BOULARDII 250 MG CAPSULE PO (08:51)
[2021-06-10] MEDS: ENOXAPARIN 40 MG/0.4 ML SYRINGE SUB-Q (08:52)
[2021-06-10] MEDS: hydroCHLOROthiazide 25 MG TABLET PO (08:52)
[2021-06-10] MEDS: FLUTICASONE PROPIONATE 0.05% NA SPR 16 GM BTL (*BKC) 2 SPRAY NASAL (08:52)
--- NOTE | 2021-06-10 15:12 | PM.IMPN ---
Progress Note: A&P Assessment and Plan (1) COPD exacerbation: Code(s): J44.1 - Chronic obstructive pulmonary disease with (acute) exacerbation Status: Acute Assessment and Plan: Albuterol treatments every 6 hours with Atrovent. IV steroids Continue with Singulair. Continue the trilogy. Hopeful Dc tomorrow pt is doing better (2) Essential hypertension: Code(s): I10 - Essential (primary) hypertension Status: Acute Assessment and Plan: Continue with patient's home medication of losartan (3) Anxiety: Code(s): F41.9 - Anxiety disorder, unspecified Status: Acute Assessment and Plan: Anxiety continue with sertraline. (4) GERD (gastroesophageal reflux disease): Qualifiers: Esophagitis presence: without esophagitis Qualified Code(s): K21.9 - Gastro-esophageal reflux disease without esophagitis Code(s): K21.9 - Gastro-esophageal reflux disease without esophagitis Status: Acute Assessment and Plan: Continue with home medication. Omeprazole (5) Mixed hyperlipidemia: Code(s): E78.2 - Mixed hyperlipidemia Status: Acute Assessment and Plan: Continue with pravastatin and monitor liver functions. (6) Malnutrition: Code(s): E46 - Unspecified protein-calorie malnutrition Status: Acute Assessment and Plan: pt does not eat much encouraged to eat ensures ordered states she had part of her stomach removed and never has eaten much since. Subjective Date/time seen: 06/10/21 15:12 Review of Systems Review of Systems: All systems reviewed & are unremarkable except as noted in HPI and below Exam Const: General: cooperative and other (ill appearing ) Orientation/consciousness: oriented to person HENMT: Head: normal to inspection Resp: Auscultation: wheezes (scattered few wheezes ) Cardio: Rate: regular rate Rhythm: regular rhythm GI: Inspection: normal to inspection GI Palp: No abdominal tenderness, No Guarding due to palpation present (GI) and No Hepatomegaly present Auscultation: normal bowel sounds Neuro: General: oriented to person Objective Data Vital Signs Vital Signs: Vital Signs - 24 hr 06/09/21 15:35 06/09/21 15:37 06/09/21 15:44 Temperature Pulse Rate 102 H 92 Respiratory Rate 16 Blood Pressure Pulse Oximetry 95 06/09/21 16:06 06/09/21 17:00 06/09/21 18:02 Temperature Pulse Rate 90 112 H 102 H Respiratory Rate 16 28 H 24 H Blood Pressure 126/67 140/82 149/75 H Pulse Oximetry 99 90 94 06/09/21 18:26 06/09/21 20:00 06/09/21 21:06 Temperature 36.2 C L Pulse Rate 108 H 91 89 Respiratory Rate 20 16 Blood Pressure 159/78 H Pulse Oximetry 98 06/09/21 21:07 06/09/21 21:16 06/09/21 22:00 Temperature Pulse Rate 91 91 Respiratory Rate 16 Blood Pressure Pulse Oximetry 95 06/10/21 00:00 06/10/21 01:28 06/10/21 01:38 Temperature 35.9 C L Pulse Rate 104 H 96 97 Respiratory Rate 18 16 16 Blood Pressure 167/73 H Pulse Oximetry 97 06/10/21 02:00 06/10/21 04:00 06/10/21 06:00 Temperature 36.6 C Pulse Rate 90 85 80 Respiratory Rate 18 Blood Pressure 142/69 H Pulse Oximetry 97 06/10/21 08:00 06/10/21 08:14 06/10/21 08:18 Temperature 36.6 C Pulse Rate 82 89 Respiratory Rate 16 16 Blood Pressure 159/67 H Pulse Oximetry 92 92 06/10/21 08:24 06/10/21 10:00 06/10/21 12:00 Temperature 36.7 C Pulse Rate 95 107 H 92 Respiratory Rate 16 16 Blood Pressure 128/50 L Pulse Oximetry 97 06/10/21 14:00 06/10/21 14:19 06/10/21 14:26 Temperature Pulse Rate 96 98 94 Respiratory Rate 16 16 Blood Pressure Pulse Oximetry Intake/Output Intake/Output: Intake & Output 06/07/21 06/08/21 06/09/21 06/10/21 23:59 23:59 23:59 23:59 Intake Total 1045 Output Total 75 Balance 970 Meds/Results Medications: Active Medications Generic Name Dose Route Start Last Admin Tra
--- NOTE | 2021-06-10 15:40 | PC.NURSE ---
Report given to Sera RN with [facility] at 1535. All questions answered and plan of care reviewed. Patient to go to room 240.
[2021-06-10] MEDS: CALCIUM CARBONATE (TUMS) 500 MG (200 MG ELEMENTAL) PO (16:22)
[2021-06-10] MEDS: methylPREDNISolone SOD SUCC 40 MG VIAL IV PUSH (20:45)
[2021-06-10] MEDS: SERTRALINE HCL 50 MG TABLET PO (20:45)
[2021-06-10] MEDS: PRAVASTATIN SODIUM 20 MG TABLET PO (20:46)
[2021-06-10] MEDS: MONTELUKAST SODIUM 10 MG TABLET PO (20:46)
--- NOTE | 2021-06-10 22:19 | PCRCNOTE ---
Pt uses Trilogy at home but doesn't know settings. When pt was here in March, an overnight study was done on AVAPS to get her set up with her Trilogy. Dr. Booker's 04/09/21 note indicated that the study was done on AVAPS settings of rate 16, VT 400, PEEP 5, pressures 6-25, FiO2 0.35. Those settings were used for this admission.
[2021-06-11] VITALS (16 sets, daily range): BP systolic 148–162; BP diastolic 69–77; PULSE 82–105; RESP 16–19; TEMP 36.1–36.9; O2SAT 90–98
[2021-06-11] MEDS: ALBUTEROL SULFATE NEB 2.5 MG/0.5 ML INH 5 MG INHALATION ×4 (02:35→19:50)
[2021-06-11] MEDS: IPRATROPIUM BR 0.02% INH SOLN 0.5 MG/2.5 ML VIAL INHALATION ×4 (02:36→19:50)
[2021-06-11 07:41] LABS: Basophils Percent Auto 0.1 % (0.2-1.2); Hematocrit 33.7 % (37.0-47.0); Immature Granulocyte Absolute 0.03 K/mm3 (0.00-0.031); Immature Granulocyte Percent A 0.2 % (0-0.5); Lymphocytes Absolute Auto 1.16 K/mm3 (0.9-3.2); Mean Corpuscular HGB Conc 32.6 g/dl (32-36); Mean Corpuscular Hemoglobin 30.6 pg (26-34); Mean Corpuscular Volume 93.9 fl (80-100); Mean Platelet Volume 10.3 fl (7.4-10.4); Monocytes Absolute Auto 0.8 K/mm3 (0.1-0.6); Monocytes Percent Auto 6.2 % (2.6-8.5); Neutrophils Absolute Auto 10.9 K/mm3 (1.3-6.7); Neutrophils Percent Auto 84.5 % (45.5-73.1); Platelet Count Result 270 k/mm3 (150-375); Red Blood Count 3.59 M/mm3 (4.2-5.4); Red Cell Distribution Width 12.4 % (11.5-14.5); White Blood Count 12.9 K/mm3 (4.5-10.0)
[2021-06-11 07:54] LABS: Alanine Aminotransferase 17 U/L (4-35); Albumin Level 3.8 g/dL (3.5-5.1); Alkaline Phosphatase 67 U/L (38-126); Aspartate Amino Transferase 40 U/L (14-36); Bilirubin,Total 0.6 mg/dL (0.2-1.3); Blood Urea Nitrogen 18 mg/dL (7-17); Calcium 8.8 mg/dL (8.4-10.2); Carbon Dioxide > 40 mmol/L (22-30); Chloride 82 mmol/L (98-107); Estimated CRCL calculation 76 ml/min; Estimated Glomerular Filt Rate > 60; Glucose 99 mg/dL (65-110); Magnesium 1.9 mg/dL (1.6-2.3); Potassium 3.9 mmol/L (3.4-5.0); Sodium 127 mmol/L (137-145)
[2021-06-11] MEDS: MAGNESIUM SULF 2 GM/WATER 50ML 2 GM/50 ML BAG IVPB (08:03)
[2021-06-11] MEDS: guaiFENesin/CODEINE (*CRX) 200/20 MG 10 ML SYRUP 5 ML PO ×2 (08:09→14:18)
[2021-06-11] MEDS: FLUTICASONE/UMECLIDIN/VILANTER 100-62.5-25 MCG ELLIPTA 1 PUFF INHALATION (08:21)
[2021-06-11] MEDS: CALCIUM CARBONATE (TUMS) 500 MG (200 MG ELEMENTAL) PO (08:55)
[2021-06-11] MEDS: PANTOPRAZOLE 40 MG TABLET PO ×2 (08:55→16:01)
[2021-06-11] MEDS: OMEGA 3 POLYUNSAT FATTY ACIDS 1 GM CAP PO (08:55)
[2021-06-11] MEDS: hydroCHLOROthiazide 25 MG TABLET PO (08:55)
[2021-06-11] MEDS: LOSARTAN POTASSIUM 100 MG TABLET PO (08:55)
[2021-06-11] MEDS: predniSONE 20 MG TABLET 40 MG PO (08:56)
[2021-06-11] MEDS: ENOXAPARIN 40 MG/0.4 ML SYRINGE SUB-Q (08:56)
[2021-06-11] MEDS: FLUTICASONE PROPIONATE 0.05% NA SPR 16 GM BTL (*BKC) 2 SPRAY NASAL (08:56)
[2021-06-11] MEDS: SACCHAROMYCES BOULARDII 250 MG CAPSULE PO (08:57)
--- NOTE | 2021-06-11 09:54 | PCRCNOTE ---
PT. REQUESTED HER HOME O2 BE CHANGED TO [facility] (WHO PROVIDES HER TRILOGY). SPOKE WITH JOSEFA AND SHE SAID THAT THEY WOULD BE ABLE TO PROVIDE HER WITH THAT. STATES SHE JUST NEEDS A NEW ORDER. FAXED TO [facility].
--- NOTE | 2021-06-11 10:00 | PM.IMPN ---
Progress Note: A&P Assessment and Plan (1) COPD exacerbation: Code(s): J44.1 - Chronic obstructive pulmonary disease with (acute) exacerbation Status: Acute Assessment and Plan: Seems to be getting better She does report some wheezes and sputum changes Chest xray shows chronic hyperinflation Albuterol treatments every 6 hours with Atrovent. Steroids changed to PO 40mg Daily Continue home trilogmayra and Darnell Still has a severe work of breathing (2) Acute respiratory failure with hypercapnia: Code(s): J96.02 - Acute respiratory failure with hypercapnia Status: Acute Assessment and Plan: Short of breath upon admission with increase of oxygen needs ABG shows pH 7.385, CO2 65.0, O2 62.3 Chest xray shows hyperinflation Tripod positioning, unable to complete full sentences, tachypnea of respiration in the 20-30s, and really working to breath with accessory muscle use Continue with supplemental oxygen Get chest xray in the am (3) Essential hypertension: Code(s): I10 - Essential (primary) hypertension Status: Acute Assessment and Plan: Current BP is 148/77 Continue home medication of losartan and HCTZ Trend BP Adjust therapy as indicated (4) Anxiety: Code(s): F41.9 - Anxiety disorder, unspecified Status: Acute Assessment and Plan: Anxiety continue with sertraline and Temazepam (5) GERD (gastroesophageal reflux disease): Qualifiers: Esophagitis presence: without esophagitis Qualified Code(s): K21.9 - Gastro-esophageal reflux disease without esophagitis Code(s): K21.9 - Gastro-esophageal reflux disease without esophagitis Status: Acute Assessment and Plan: home medication of Omeprazole Change to Protonix for hospital stay No complaints at this time (6) Mixed hyperlipidemia: Code(s): E78.2 - Mixed hyperlipidemia Status: Acute Assessment and Plan: Continue with pravastatin and monitor liver functions (7) Malnutrition: Code(s): E46 - Unspecified protein-calorie malnutrition Status: Acute Assessment and Plan: Weight seems to be consistent Breathing probably makes this hard Could probably benefit from more frequent meals Encourage intake She does have an appetite (8) Leukocytosis: Code(s): D72.829 - Elevated white blood cell count, unspecified Status: Acute Assessment and Plan: WBC elevated at 12.9 Could be related to steroids No signs of infection right now Continue to trend WBCs Chest xray in the am (9) Hyponatremia: Code(s): E87.1 - Hypo-osmolality and hyponatremia Status: Acute Assessment and Plan: Na is 127 Will get urine studies Consider fluids Will get FENa score when urine studies come back Trend labs Time Spent With Patient Time with patient: Greater than 35 minutes Subjective Date/time seen: 06/11/21 1000 Interval history: Date/Time: 06/09/21 17:33 This is a 70 year old female patient has a history of COPD with chronic hypoxia on oxygen at 2 L per nasal cannula. The patient woke up and felt fine this morning but throughout the day she became increasingly more short of breath. The patient attempted to check her pulse ox at home but it was ranging anywhere from 30-60%. This caused the patient to be very anxious and was hyperventilating. The patient activated EMS and when they arrived her oxygen level was in the 90s with the 2 L per nasal cannula. However the patient was pursed breathing in the emergency room. The patient was given a nebulizer treatment on the way to the emergency room and she stated some relief. The patient has been vaccinated against COVID-19 but has not had her booster. She tested negative for COVID-19 today. She also tested negative for influenza. Patient's ABGs pH 7.3 a 5
--- NOTE | 2021-06-11 10:00 | P.PNIM_ITS ---
Progress Note: A&P Assessment and Plan (1) COPD exacerbation: Code(s): J44.1 - Chronic obstructive pulmonary disease with (acute) exacerbation Status: Acute Assessment and Plan: * Seems to be getting better * She does report some wheezes and sputum changes * Chest xray shows chronic hyperinflation * Albuterol treatments every 6 hours with Atrovent. * Steroids changed to PO 40mg Daily * Continue home trilogy and Singulair * Still has a severe work of breathing (2) Acute respiratory failure with hypercapnia: Code(s): J96.02 - Acute respiratory failure with hypercapnia Status: Acute Assessment and Plan: * Short of breath upon admission with increase of oxygen needs * ABG shows pH 7.385, CO2 65.0, O2 62.3 * Chest xray shows hyperinflation * Tripod positioning, unable to complete full sentences, tachypnea of respiration in the 20-30s, and really working to breath with accessory muscle use * Continue with supplemental oxygen * Get chest xray in the am (3) Essential hypertension: Code(s): I10 - Essential (primary) hypertension Status: Acute Assessment and Plan: * Current BP is 148/77 * Continue home medication of losartan and HCTZ * Trend BP * Adjust therapy as indicated (4) Anxiety: Code(s): F41.9 - Anxiety disorder, unspecified Status: Acute Assessment and Plan: * Anxiety continue with sertraline and Temazepam (5) GERD (gastroesophageal reflux disease): Qualifiers: Esophagitis presence: without esophagitis Qualified Code(s): K21.9 - Gastro-esophageal reflux disease without esophagitis Code(s): K21.9 - Gastro-esophageal reflux disease without esophagitis Status: Acute Assessment and Plan: * home medication of Omeprazole * Change to Protonix for hospital stay * No complaints at this time (6) Mixed hyperlipidemia: Code(s): E78.2 - Mixed hyperlipidemia Status: Acute Assessment and Plan: * Continue with pravastatin and monitor liver functions (7) Malnutrition: Code(s): E46 - Unspecified protein-calorie malnutrition Status: Acute Assessment and Plan: * Weight seems to be consistent * Breathing probably makes this hard * Could probably benefit from more frequent meals * Encourage intake * She does have an appetite (8) Leukocytosis: Code(s): D72.829 - Elevated white blood cell count, unspecified Status: Acute Assessment and Plan: * WBC elevated at 12.9 * Could be related to steroids * No signs of infection right now * Continue to trend WBCs * Chest xray in the am (9) Hyponatremia: Code(s): E87.1 - Hypo-osmolality and hyponatremia Status: Acute Assessment and Plan: * Na is 127 * Will get urine studies * Consider fluids * Will get FENa score when urine studies come back * Trend labs Time Spent With Patient Time with patient: Greater than 35 minutes Subjective Date/time seen: 06/11/21 1000 Interval history: Date/Time: 06/09/21 17:33 This is a 70 year old female patient has a history of COPD with chronic hypoxia on oxygen at 2 L per nasal cannula. The patient woke up and felt fine this morning but throughout the day she became increasingly more short of breath. The patient attempted to
--- NOTE | 2021-06-11 11:29 | PCDIET ---
Dietitian screen for BMI: 18.2. Spoke with CARMINA Odell today regarding patient. Weight has been stable since 2020. Heart Healthy diet, intake 25-100% of meals with Ensure Compact BID providing an additional 220 kcals and 9 gms protein. Agree with diet orders. No further nutritional needs at this time.
[2021-06-11 13:04] LABS: Creatinine Urine 18.2 mg/dL; Urea Random Urine 231 MG/DL
[2021-06-11 13:08] LABS: Sodium Urine Random 48 meq/L
[2021-06-11] MEDS: PRAVASTATIN SODIUM 20 MG TABLET PO (20:11)
[2021-06-11] MEDS: SERTRALINE HCL 50 MG TABLET PO (20:11)
[2021-06-11] MEDS: MONTELUKAST SODIUM 10 MG TABLET PO (20:12)
[2021-06-12] VITALS (12 sets, daily range): BP systolic 146–150; BP diastolic 66–75; PULSE 77–98; RESP 16–27; TEMP 36.2; O2SAT 92–95
[2021-06-12] MEDS: IPRATROPIUM BR 0.02% INH SOLN 0.5 MG/2.5 ML VIAL INHALATION ×2 (01:53→08:36)
[2021-06-12] MEDS: ALBUTEROL SULFATE NEB 2.5 MG/0.5 ML INH 5 MG INHALATION ×2 (01:53→08:35)
[2021-06-12] MEDS: guaiFENesin/CODEINE (*CRX) 200/20 MG 10 ML SYRUP 5 ML PO (05:52)
[2021-06-12 06:00] LABS: Basophils Percent Auto 0.2 % (0.2-1.2); Hematocrit 34.4 % (37.0-47.0); Immature Granulocyte Absolute 0.03 K/mm3 (0.00-0.031); Immature Granulocyte Percent A 0.3 % (0-0.5); Lymphocytes Absolute Auto 1.61 K/mm3 (0.9-3.2); Lymphocytes Percent Auto 14.9 % (18.3-44.2); Mean Corpuscular Hemoglobin 30.6 pg (26-34); Mean Corpuscular Volume 95.8 fl (80-100); Monocytes Absolute Auto 1.1 K/mm3 (0.1-0.6); Monocytes Percent Auto 10.2 % (2.6-8.5); Neutrophils Percent Auto 74.4 % (45.5-73.1); Platelet Count Result 273 k/mm3 (150-375); Red Blood Count 3.59 M/mm3 (4.2-5.4); Red Cell Distribution Width 12.7 % (11.5-14.5); White Blood Count 10.8 K/mm3 (4.5-10.0)
[2021-06-12 06:35] LABS: Alanine Aminotransferase 17 U/L (4-35); Albumin Level 3.9 g/dL (3.5-5.1); Alkaline Phosphatase 71 U/L (38-126); Aspartate Amino Transferase 32 U/L (14-36); Bilirubin,Total 0.4 mg/dL (0.2-1.3); Blood Urea Nitrogen 20 mg/dL (7-17); Calcium 8.6 mg/dL (8.4-10.2); Carbon Dioxide > 40 mmol/L (22-30); Chloride 84 mmol/L (98-107); Estimated CRCL calculation 45 ml/min; Estimated Glomerular Filt Rate > 60; Glucose 107 mg/dL (65-110); Magnesium 2.1 mg/dL (1.6-2.3); Potassium 3.2 mmol/L (3.4-5.0); Sodium 131 mmol/L (137-145)
[2021-06-12] MEDS: FLUTICASONE/UMECLIDIN/VILANTER 100-62.5-25 MCG ELLIPTA 1 PUFF INHALATION (08:35)
[2021-06-12] MEDS: PANTOPRAZOLE 40 MG TABLET PO (08:36)
[2021-06-12] MEDS: LOSARTAN POTASSIUM 100 MG TABLET PO (08:36)
[2021-06-12] MEDS: hydroCHLOROthiazide 25 MG TABLET PO (08:37)
[2021-06-12] MEDS: FLUTICASONE PROPIONATE 0.05% NA SPR 16 GM BTL (*BKC) 2 SPRAY NASAL (08:37)
[2021-06-12] MEDS: predniSONE 20 MG TABLET 40 MG PO (08:37)
[2021-06-12] MEDS: OMEGA 3 POLYUNSAT FATTY ACIDS 1 GM CAP PO (08:37)
[2021-06-12] MEDS: SACCHAROMYCES BOULARDII 250 MG CAPSULE PO (08:38)
[2021-06-12] MEDS: ENOXAPARIN 40 MG/0.4 ML SYRINGE SUB-Q (08:38)
[2021-06-12] MEDS: DOCUSATE SODIUM 100 MG CAPSULE PO (09:01)
--- NOTE | 2021-06-12 10:36 | P.DS_ITS ---
DS: Admitting Diagnosis Discharge Date 06/12/21 1030 Admitting Diagnosis COPD exacerbation/Acute respiratory failure DS: Discharge Diagnosis Discharge Diagnosis (1) COPD exacerbation: Code(s): J44.1 - Chronic obstructive pulmonary disease with (acute) exacerbation Status: Acute Assessment and Plan: * Seems to be getting better * She does report some wheezes and sputum changes * Chest xray shows chronic hyperinflation * Albuterol treatments every 6 hours with Atrovent. * Steroids changed to PO 40mg Daily * Continue home trilogy and Singulair * Still has a severe work of breathing (2) Acute respiratory failure with hypercapnia: Code(s): J96.02 - Acute respiratory failure with hypercapnia Status: Acute Assessment and Plan: * Short of breath upon admission with increase of oxygen needs * ABG shows pH 7.385, CO2 65.0, O2 62.3 * Chest xray shows hyperinflation * Tripod positioning, unable to complete full sentences, tachypnea of r espiration in the 20-30s, and really working to breath with accessory muscle use * Continue with supplemental oxygen * Get chest xray in the am (3) Essential hypertension: Code(s): I10 - Essential (primary) hypertension Status: Acute Assessment and Plan: * Current BP is 148/77 * Continue home medication of losartan and HCTZ * Trend BP * Adjust therapy as indicated (4) Anxiety: Code(s): F41.9 - Anxiety disorder, unspecified Status: Acute Assessment and Plan: * Anxiety continue with sertraline and Temazepam (5) GERD (gastroesophageal reflux disease): Qualifiers: Esophagitis presence: without esophagitis Qualified Code(s): K21.9 - Gastro-esophageal reflux disease without esophagitis Code(s): K21.9 - Gastro-esophageal reflux disease without esophagitis Status: Acute Assessment and Plan: * home medication of Omeprazole * Change to Protonix for hospital stay * No complaints at this time (6) Mixed hyperlipidemia: Code(s): E78.2 - Mixed hyperlipidemia Status: Acute Assessment and Plan: * Continue with pravastatin and monitor liver functions (7) Malnutrition: Code(s): E46 - Unspecified protein-calorie malnutrition Status: Acute Assessment and Plan: * Weight seems to be consistent * Breathing probably makes this hard * Could probably benefit from more frequent meals * Encourage intake * She does have an appetite (8) Leukocytosis: Code(s): D72.829 - Elevated white blood cell count, unspecified Status: Acute Assessment and Plan: * WBC elevated at 12.9 * Could be related to steroids * No signs of infection right now * Continue to trend WBCs * Chest xray in the am (9) Hyponatremia: Code(s): E87.1 - Hypo-osmolality and hyponatremia Status: Acute Assessment and Plan: * Na is 127 * Will get urine studies * Consider fluids * Will get FENa score when urine studies come back * Trend labs DS: Summary Hospital Course Hospital Course: Patient is a 70-year-old female with a past medical history of anxiety, COPD, asthma, GERD, hypertension, hyperlipidemia who presented to the ED with increased shortness of breath with increased oxygen demand. Upon arrival patient patient was
--- NOTE | 2021-06-12 10:36 | PM.DS ---
DS: Admitting Diagnosis Discharge Date 06/12/21 1030 Admitting Diagnosis COPD exacerbation/Acute respiratory failure DS: Discharge Diagnosis Discharge Diagnosis (1) COPD exacerbation: Code(s): J44.1 - Chronic obstructive pulmonary disease with (acute) exacerbation Status: Acute Assessment and Plan: Seems to be getting better She does report some wheezes and sputum changes Chest xray shows chronic hyperinflation Albuterol treatments every 6 hours with Atrovent. Steroids changed to PO 40mg Daily Continue home trilogy and Darnell Still has a severe work of breathing (2) Acute respiratory failure with hypercapnia: Code(s): J96.02 - Acute respiratory failure with hypercapnia Status: Acute Assessment and Plan: Short of breath upon admission with increase of oxygen needs ABG shows pH 7.385, CO2 65.0, O2 62.3 Chest xray shows hyperinflation Tripod positioning, unable to complete full sentences, tachypnea of respiration in the 20-30s, and really working to breath with accessory muscle use Continue with supplemental oxygen Get chest xray in the am (3) Essential hypertension: Code(s): I10 - Essential (primary) hypertension Status: Acute Assessment and Plan: Current BP is 148/77 Continue home medication of losartan and HCTZ Trend BP Adjust therapy as indicated (4) Anxiety: Code(s): F41.9 - Anxiety disorder, unspecified Status: Acute Assessment and Plan: Anxiety continue with sertraline and Temazepam (5) GERD (gastroesophageal reflux disease): Qualifiers: Esophagitis presence: without esophagitis Qualified Code(s): K21.9 - Gastro-esophageal reflux disease without esophagitis Code(s): K21.9 - Gastro-esophageal reflux disease without esophagitis Status: Acute Assessment and Plan: home medication of Omeprazole Change to Protonix for hospital stay No complaints at this time (6) Mixed hyperlipidemia: Code(s): E78.2 - Mixed hyperlipidemia Status: Acute Assessment and Plan: Continue with pravastatin and monitor liver functions (7) Malnutrition: Code(s): E46 - Unspecified protein-calorie malnutrition Status: Acute Assessment and Plan: Weight seems to be consistent Breathing probably makes this hard Could probably benefit from more frequent meals Encourage intake She does have an appetite (8) Leukocytosis: Code(s): D72.829 - Elevated white blood cell count, unspecified Status: Acute Assessment and Plan: WBC elevated at 12.9 Could be related to steroids No signs of infection right now Continue to trend WBCs Chest xray in the am (9) Hyponatremia: Code(s): E87.1 - Hypo-osmolality and hyponatremia Status: Acute Assessment and Plan: Na is 127 Will get urine studies Consider fluids Will get FENa score when urine studies come back Trend labs DS: Summary Hospital Course Hospital Course: Patient is a 70-year-old female with a past medical history of anxiety, COPD, asthma, GERD, hypertension, hyperlipidemia who presented to the ED with increased shortness of breath with increased oxygen demand. Upon arrival patient patient was noted to have a low pulse ox reading at home ranging anywhere from 30% to 60%. She became very anxious and hyperventilating. upon arrival to the ED patient was noted to have increased sputum with wheezing. ABG showed patient was in respiratory acidosis. Patient was exhibiting acute respiratory failure with inability to complete full sentences, tachypnea, increased work of breathing with accessory muscle use. Patient did receive a breathing treatment which seemed to help improve her a little bit. Steroids were also started. Patient's white blood cell count was noted to be a slightly elevated which co
[2021-06-12] MEDS: POTASSIUM CHLORIDE 20 MEQ TABLET 40 MEQ PO (11:09)
[2021-06-13 07:20] LABS: Osmolality, Urine 215 mOsm/kg (50-1200)
== END 2021-06-12 12:48 | disposition home or self-care (01) | DRG 190 ==
LOC: ANHED 15:09 → ANHIMU 17:35 → ANH2MED 06-10 15:38
PROVIDERS: Nurse Practitioner; Admitting Provider Internal Medicine; Emergency Provider Emergency Medicine; PCP Nurse Practitioner Family; Visit Provider Nurse Practitioner
DX: J44.1 Chronic obstructive pulmonary disease with (acute) exacerbation (principal); J96.02 Acute respiratory failure with hypercapnia; E46 Unspecified protein-calorie malnutrition; Z68.1 Body mass index [BMI] 19.9 or less, adult; E87.1 Hypo-osmolality and hyponatremia; Z20.822 Contact with and (suspected) exposure to COVID-19; F41.9 Anxiety disorder, unspecified; I10 Essential (primary) hypertension; K21.9 Gastro-esophageal reflux disease without esophagitis; E78.2 Mixed hyperlipidemia; D72.829 Elevated white blood cell count, unspecified; E55.9 Vitamin D deficiency, unspecified; Z99.81 Dependence on supplemental oxygen; Z90.49 Acquired absence of other specified parts of digestive tract; Z90.710 Acquired absence of both cervix and uterus; Z87.891 Personal history of nicotine dependence
CPT/HCPCS: 36415; 36600; 71045; 71046; 80053; 82570; 82728; 82805; 83605; 83735; 83935; 84300; 84439; 84443; 84480; 84540; 85025; 87070; 87077; 87186; 87205; 87502; 93005; 94002; 94640; 96365; 96372; 96374; 96375; 96376; 99285; A9270; C9803; G0378; J1650; J2920; J2930; J3475; J7512; U0003; U0005

== ENCOUNTER 2021-06-19 15:32 | Outpatient (CLI) | payer MEDICARE, BC, SELFPAY ==
--- NOTE | ~2021-06-19 | CT_ITS ---
EXAMINATION: CT diagnostic chest wo con EXAM DATE: 06/19/2021 15:45 INDICATION: J98.11 - Atelectasis. TECHNIQUE: Spiral CT of the chest without contrast. Axial, coronal and sagittal images of the chest were reviewed. Coronal maximum intensity pixel images of chest reviewed. The dose-length product (D LP) for this examination was 131.13 mGy-cm. The exposure was tailored according to patient size (aut o mA exposure control), and iterative reconstruction (ASIR) was used as additional dose reduction radha hnique. Comparison is made to prior examination from 03/30/2021. FINDINGS: Previous exam had nearly complete atelectasis of the right middle lobe. This has almost en tirely 3 aerated. There is severe emphysema no lung opacities suspicious for cancer. There are no pl eural or pericardial effusions. Tracheobronchial tree is patent. There is no mediastinal, hilar o r axillary lymphadenopathy. There is no pneumothorax. Hyperinflated lungs with narrow cardiac lias houette. There is mild coronary arterial calcification, arterial sclerosis. Upper abdomen is unrema rkable. There is thoracic spondylosis without osteoblastic or osteolytic lesions identified. IMPRESSION: 1. Small regions of atelectasis with nearly resolved right middle lobe collapse. 2. Severe emphysema, hyperinflation unchanged. Reviewed, dictated and finalized at location A. IMPRESSION: 1. Small regions of atelectasis with nearly resolved right middle lobe collaps e. 2. Severe emphysema, hyperinflation unchanged.
== END 2021-06-19 15:33 | disposition home or self-care (01) ==
LOC: ANHIMG 15:33
PROVIDERS: PCP Family Medicine; Visit Provider Internal Medicine Critical Care Medicine
DX: J98.11 Atelectasis (principal); J43.9 Emphysema, unspecified; R91.8 Other nonspecific abnormal finding of lung field
CPT/HCPCS: 71250

== ENCOUNTER 2021-06-29 20:02 | Inpatient (IN) | payer MEDICARE, BC, SELFPAY ==
[2021-06-29] VITALS (14 sets, daily range): BP systolic 108–188; BP diastolic 51–96; PULSE 100–118; RESP 22–45; TEMP 36.5–37.3; O2SAT 95–97; BMI 17.4
--- NOTE | ~2021-06-29 | XR_ITS ---
EXAMINATION: XR abdomen/kub 1V DATE: 07/09/2021 12:47 INDICATION: Constipation TECHNIQUE: A supine view of the abdomen was obtained. COMPARISON: 06/29/2021 FINDINGS: Again seen is prominent gaseous distention of the stomach. Additional moderate amount of gas and stoo l scattered throughout the colon. No dilated loops of gas-filled small bowel to suggest obstruction. Cholecystectomy clips in right upper quadrant. Linear discoid atelectasis/scarring in the right lower lung zone. Heart size is normal. A few tiny splenic calcific lesions consistent with old granulomato us disease. Thoracolumbar levoscoliosis with mild spondylosis. IMPRESSION: 1. Persistent prominent gaseous distention of the stomach. No dilated bowel to suggest obstruction. Reviewed, dictated and finalized at location B.
--- NOTE | ~2021-06-29 | XR_ITS ---
XR abdomen obstructive series DATE: 06/29/2021 21:48 INDICATION: Question of pneumoperitoneum raised on chest radiographic examination TECHNIQUE: Portable supine and upright AP views of the abdomen COMPARISON: portable AP chest 04/03/2021 KUB FINDINGS: There is very prominent gaseous distention of the stomach. No intraperitoneal free air is e vident. Surgical clips, right upper quadrant, likely due to cholecystectomy. Diffuse osteopenia. IMPRESSION: Prominent gaseous distention of the stomach; no evidence of intraperitoneal free air Focal atelectasis and/or consolidation, right lateral lower lung Bullous emphysema Reviewed, dictated and finalized at Location A. Reviewed, dictated and finalized at location A. IMPRESSION: Prominent gaseous distention of the stomach; no evidence of intrape ritoneal free air Focal atelectasis and/or consolidation, right lateral lower lung Bullous emphysema
--- NOTE | ~2021-06-29 | XR_ITS ---
EXAMINATION: XR chest 1V portable INDICATION: Shortness of breath TECHNIQUE: Portable AP chest at 1752 hours COMPARISON: 07/04/2021 FINDINGS: The lungs are hyperinflated. There are unchanged airspace opacities of the right lower lung zone. No pleural effusion or pneumothorax is identified. The cardiomediastinal silhouette is stable. There is advanced osteoarthritis of the shoulders. There appears to be a partially imaged catheter t erminating with its tip in the area of the left axilla. IMPRESSION: 1. Stable right basilar airspace opacities, consistent with pneumonia. 2. Severe emphysema. Reviewed, dictated and finalized at location F.
--- NOTE | ~2021-06-29 | XR_ITS ---
EXAMINATION: XR chest 1V portable DATE: 07/04/2021 12:34 INDICATION: Shortness of breath. TECHNIQUE: A single frontal view of the chest was obtained. COMPARISON: Chest single view 06/29/2021, chest CT 06/19/2021 FINDINGS: There are lucencies in the lungs, consistent with emphysema. There is mild atelectasis vers us scarring in left lower lung zone. There are airspace opacities in right lower lung zone. There is mild scarring in left midlung zone. A calcified left lung nodule and calcified mediastinal lymph node s are consistent with old granulomatous disease. No pleural effusion or pneumothorax. The heart size is normal. IMPRESSION: 1. Improved airspace opacities in right lower lung zone, consistent with pneumonia. 2. Severe emphysema. Reviewed, dictated and finalized at location B. IMPRESSION: 1. Improved airspace opacities in right lower lung zone, consistent with pneumo siva. 2. Severe emphysema.
--- NOTE | ~2021-06-29 | XR_ITS ---
XR chest 1V portable DATE: 06/29/2021 20:34 INDICATION: Shortness of breath today. Obesity. Former smoker. TECHNIQUE: Portable upright AP chest on June 29, 2021 at 2031 hours COMPARISON: June 19, 2021 CTA chest June 12, 2021 portable AP chest FINDINGS: Prominent bilateral hyperinflation and sparse lung markings consistent with bullous emphyse ma. There is some rounded atelectasis and/or consolidation in the lateral right lower lung, new since 06/19. Mild infiltrate or atelectasis at both lung bases. Normal heart size. Aortic calcification and mild tortuosity. No pneumothorax is evident. No pleural effusion or pulmonary vascular congestion is noted. Gaseous distention of the stomach. Questionable air beneath the left diaphragm but not the right diaphragm; pneumoperitoneum is not defi nitively excluded. Consider obstructive series including at least an upright AP view on possible left lateral decubitus view of possible. Diffuse osteopenia. Osteophytic change of the clinical joints and probable rotator cuff atrophy. IMPRESSION: New rounded consolidation in the right lower lung and mild bibasilar infiltrate or atelec tasis Bullous emphysema Aortic atherosclerosis Pneumoperitoneum is unlikely but not entirely excluded. Consider obstructive series as clinically reina ropriate Diffuse osteopenia Reviewed, dictated and finalized at location A. IMPRESSION: New rounded consolidation in the right lower lung and mild bibasila r infiltrate or atelectasis Bullous emphysema Aortic atherosclerosis Pneumoperitoneum is unlikely but not entirely excluded. Consider obstructive se misael as clinically appropriate Diffuse osteopenia
--- NOTE | ~2021-06-29 | XR_ITS ---
EXAMINATION: XR chest 1V portable DATE: 07/09/2021 09:31 INDICATION: Pneumonia. TECHNIQUE: A single frontal view of the chest was obtained. COMPARISON: Chest single view 07/05/2021, chest CT 06/19/2021 FINDINGS: The lungs are hyperexpanded with lucencies, consistent with emphysema. Calcified left lung nodules and calcified mediastinal lymph nodes are consistent with old granulomatous disease. There is mild atelectasis in the lower lung zones. No pleural effusion or pneumothorax. The heart size is nor mal. IMPRESSION: 1. Severe emphysema. 2. Mild atelectasis in the lower lung zones. Reviewed, dictated and finalized at location A.
--- NOTE | 2021-06-29 20:04 | ECG_ITS ---
Measurements Intervals [place] Rate: 115 P: 88 PA: 178 QRS: 74 QRSD: 82 T: -11 QT: 302 QTc: 419 Interpretive Statements SINUS TACHYCARDIA MODERATE T-WAVE ABNORMALITY, CONSIDER INFERIOR ISCHEMIA [-0.1+ mV T-WAVE IN II/aVF] ABNORMAL ECG Electronically Signed On 06-30-2021 11:44:56 CDT by Warner Patel M.D.
--- NOTE | 2021-06-29 20:10 | ED.SOB ---
HPI - SOB/Dyspnea General Chief Complaint: Shortness of Breath/Dyspnea Stated Complaint: sob x days - tight/diminished/prod white sputum Time Seen by Provider: 06/29/21 20:04 Source: patient, EMS and RN notes reviewed Mode of arrival: EMS Limitations: clinical condition History of Present Illness HPI Narrative: Patient is 70 years old -[place] female came from home by ambulance because of shortness of breath in the last few days. Patient lives with family. Patient is DNR. Patient received Solu-Medrol and DuoNeb prior to arrival to the emergency room. Patient unable to talk because of difficulty breathing. Related Data Home Medications Medication Instructions Recorded Confirmed Saccharomyces boulardii [Daily 1 cap PO DAILY 03/06/21 06/18/21 Probiotic (S. boulardii)] docusate sodium 100 mg capsule 100 mg PO BID PRN 03/06/21 06/18/21 fluticasone fur. 100 mcg-umeclid 1 inh INHALATION Q24H 03/06/21 06/18/21 62.5 mcg-vilant 25 mcg inhalat.powder fluticasone propionate 50 2 spray INTRANASAL DAILY 03/06/21 06/18/21 mcg/actuation nasal spray,suspension losartan 100 1 tablet PO DAILY 03/06/21 06/18/21 mg-hydrochlorothiazide 25 mg tablet omega-3 fatty acids 1,000 mg 1,000 mg PO DAILY 03/06/21 06/18/21 capsule omeprazole 40 mg capsule,delayed 40 mg PO DAILY 03/06/21 06/18/21 release pravastatin 20 mg PO HS 06/09/21 06/18/21 sertraline 50 mg PO HS 06/09/21 06/18/21 albuterol sulfate INHALATION 06/29/21 06/29/21 cholecalciferol (vitamin D3) 06/29/21 famotidine 06/29/21 ipratropium-albuterol ml INHALATION 06/29/21 losartan-hydrochlorothiazide tablet 06/29/21 montelukast mg 06/29/21 morphine 06/29/21 omeprazole 06/29/21 pravastatin 06/29/21 sertraline mg 06/29/21 temazepam mg 06/29/21 Allergies Allergy/AdvReac Type Severity Reaction Status Date / Time shellfish derived Allergy Severe Anaphylaxis Verified 06/29/21 20:12 strawberry Allergy Severe Unknown Verified 06/29/21 20:12 Penicillins Allergy Unknown Unknown Verified 06/29/21 20:12 Molds and Smuts Allergy Unknown Unknown Uncoded 06/18/21 11:58 Review of Systems Review of Systems: ROS unobtainable: Yes unobtainable due to medical condition [facility] Past Medical History Medical History Anxiety Asthma BMI less than 19,adult (~05/14/21) BMI 17.4 Chronic respiratory failure with hypoxia and hypercapnia Constipation Dry skin End stage chronic obstructive pulmonary disease GERD (gastroesophageal reflux disease) Heart disease HTN (hypertension) Hx of intestinal obstruction Insomnia Mixed hyperlipidemia Oxygen dependent Seasonal allergic rhinitis Vitamin D deficiency Weakness Surgical History Surgical History H/O: hysterectomy (~1992) History of appendectomy (~1990) had bowel obstruction a week later requiring surgery History of cholecystectomy (~1989) Family History Family History Mother Heart disease Lymphoma Hypertension Breast cancer Sibling Diabetes mellitus Lung cancer Hypertension She had a sister with hypertension, renal transplant A brother had lung cancer Other Spinal cord cancer Father Hypertension Social History Social History Social History: She is retired from the postal service. She has 3 children. She is . She is a former smoker and quit many years ago. She denies any alcohol marijuana illicit drugs. She is . She does not have a durable power regulatory attorney for healthcare. Code status full code. Smoking packs per day: 0.25 Smoking cigarettes per day: 5.0 Years smoked: 20 Smoking pack-years: 5.00 Smoking status: Former smoker Tobacco type: cigarettes Second hand tobacco smoke exposure: Yes (Childhood and adulthood.) Omar
[2021-06-29] MEDS: ALBUTEROL SULFATE NEB 2.5 MG/0.5 ML INH 5 MG INHALATION (20:27)
[2021-06-29] MEDS: IPRATROPIUM BR 0.02% INH SOLN 0.5 MG/2.5 ML VIAL INHALATION (20:27)
[2021-06-29 20:41] LABS: Alveolar/Arterial O2 Gradient 154.4 mmHg; Base Excess ABG 5.8 mEq/l (+/-2.0); Fractional Inspired Oxygen 50 %; HCO3 ABG 33.6 mEq/l (22.0-26.0); Oxygen Content ABG 17.1 %vol (16.0-22.0); Oxygen Saturation ABG 98.3 % (95.0-100.0); Oxyhemoglobin 96.7 % THb (90.0-100.0); PO2 FiO2 Ratio Arterial Blood 2.58 %; Total Hemoglobin 12.4 g/dL (12.0-18.0); pH ABG 7.331 (7.350-7.450)
[2021-06-29 20:42] LABS: Device NON-INVASIVE VENT; Modified Allen's Test Pass; Site Drawn RIGHT RADIAL
[2021-06-29 20:43] LABS: Non-Invasive Expiratory Pressure 6 CMH2O; Non-Invasive Inspiratory Pressure 12 CMH2O; Non-Invasive Vent Rate 12 /MIN
[2021-06-29 20:44] LABS: Hematocrit 38.3 % (37.0-47.0); Hemoglobin 11.8 g/dL (12.0-15.0); Mean Corpuscular HGB Conc 30.8 g/dl (32-36); Mean Corpuscular Volume 97.5 fl (80-100); Mean Platelet Volume 10.2 fl (7.4-10.4); Platelet Count Result 247 k/mm3 (150-375); Red Blood Count 3.93 M/mm3 (4.2-5.4); Red Cell Distribution Width 12.9 % (11.5-14.5); White Blood Count 25.4 K/mm3 (4.5-10.0)
[2021-06-29 21:03] LABS: Alanine Aminotransferase 23 U/L (4-35); Albumin Level 4.5 g/dL (3.5-5.1); Alkaline Phosphatase 113 U/L (38-126); Aspartate Amino Transferase 48 U/L (14-36); Bilirubin,Total 0.7 mg/dL (0.2-1.3); Blood Urea Nitrogen 20 mg/dL (7-17); Carbon Dioxide > 40 mmol/L (22-30); Chloride 82 mmol/L (98-107); Estimated CRCL calculation 64 ml/min; Estimated Glomerular Filt Rate > 60; Glucose 168 mg/dL (65-110); Potassium 3.4 mmol/L (3.4-5.0); Sodium 129 mmol/L (137-145)
[2021-06-29 21:05] LABS: Magnesium 3.5 mg/dL (1.6-2.3)
[2021-06-29 21:06] LABS: NT Pro B Type Natriuretic Pept 103 pg/mL (5-100)
[2021-06-29 21:11] LABS: Band Neutrophils Percent 13 % (0-6); Hypochromasia 1+ (NORMAL); Lymphocytes Absolute Manual 1.01 K/mm3 (1.1-4.5); Monocytes Absolute Manual 0.25 K/mm3 (0.1-0.90); Monocytes Percent Manual 1 % (3-9); Neutrophils Absolute Manual 24.13 K/mm3 (1.7-7.2); Neutrophils Percent Manual 82 % (46-73); Platelet Estimate Adequate (Adequate); Prothrombin Time 13.1 Seconds (11.1-14.7); Total Cells Counted 100
[2021-06-29 21:12] LABS: Partial Thromboplastin Time 24.7 SECONDS (22.3-36.8)
[2021-06-29 21:20] LABS: Influenza A QL RT-PCR Negative (Negative); Influenza B QL RT-PCR Negative (Negative); SARS-CoV-2 RNA PCR Negative
--- NOTE | 2021-06-29 21:43 | PM.IMHP ---
H&P: HPI History of Present Illness Date/Time: 06/29/21 21:43 Chief Complaint: Shortness of breath. 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 Patient comes today to the emergency room due to shortness of breath at the time of my visit patient is on BiPAP unable to provide any history. Most of the history was obtained upon reviewing medical records and from emergency room doctor. Preliminary workup was significant for chest x-ray with infiltrate on a white cell count of 25,000. An ABG showed a pCO2 of 65. Patient is being admitted for further evaluation management and treatment. Review of Systems Review of Systems: ROS unobtainable: Yes unobtainable due to medical condition (On BiPAP) PMFSH Past Medical History Medical History Anxiety Asthma BMI less than 19,adult (~05/14/21) BMI 17.4 Chronic respiratory failure with hypoxia and hypercapnia Constipation Dry skin End stage chronic obstructive pulmonary disease GERD (gastroesophageal reflux disease) Heart disease HTN (hypertension) Hx of intestinal obstruction Insomnia Mixed hyperlipidemia Oxygen dependent Seasonal allergic rhinitis Vitamin D deficiency Weakness Surgical History Surgical History H/O: hysterectomy (~1992) History of appendectomy (~1990) had bowel obstruction a week later requiring surgery History of cholecystectomy (~1989) Family History Family History Mother Heart disease Lymphoma Hypertension Breast cancer Sibling Diabetes mellitus Lung cancer Hypertension She had a sister with hypertension, renal transplant A brother had lung cancer Other Spinal cord cancer Father Hypertension Social History Social History Social History: She is retired from the postal service. She has 3 children. She is . She is a former smoker and quit many years ago. She denies any alcohol marijuana illicit drugs. She is . She does not have a durable power regulatory attorney for healthcare. Code status full code. Smoking packs per day: 0.3 Smoking cigarettes per day: 6.0 Years smoked: 25 Smoking pack-years: 7.50 Smoking status: Former smoker Tobacco type: cigarettes Second hand tobacco smoke exposure: No Additional smoking assessment comments: 10 years stopped smoking Alcohol intake: never Substance use: never Substance use type: does not use Spiritual care concerns: No Meds Home Medications and Allergies Home Medications Medication Instructions Recorded Confirmed Type Saccharomyces boulardii [Daily 1 cap PO DAILY 03/06/21 06/29/21 History Probiotic (S. boulardii)] cholecalciferol (vitamin D3) 1,250 1,250 mcg PO .[id number] #6 cap 03/06/21 06/29/21 Rx mcg (50,000 unit) capsule codeine 10 mg-guaifenesin 100 mg/5 5 ml PO Q6H PRN #473 ml 03/06/21 06/29/21 Rx mL oral liquid docusate sodium 100 mg capsule 100 mg PO BID PRN 03/06/21 06/29/21 History fluticasone propionate 50 2 spray INTRANASAL DAILY 03/06/21 06/29/21 History mcg/actuation nasal spray,suspension losartan 100 1 tablet PO DAILY 03/06/21 06/29/21 History mg-hydrochlorothiazide 25 mg tablet omega-3 fatty acids 1,000 mg 1,000 mg PO DAILY 03/06/21 06/29/21 History capsule omeprazole 40 mg capsule,delayed 40 mg PO DAILY 03/06/21 06/29/21 History release alum-mag hydroxide-simeth [Mag-Al 30 ml PO TID PRN #180 ml 04/09/21 06/29/21 Rx Plus] temazepam 15 mg capsule 15 mg PO QHS PRN #30 cap 05/14/21 06/29/21 Rx pravastatin 20 mg PO HS 06/09/21 06/29/21 History sertraline 50 mg PO HS 06/09/21 06/29/21 History albuterol sulfate 1 puff INHALATION Q6H PRN
--- NOTE | 2021-06-29 22:00 | PC.NURSE ---
vrbo erp dr hitchcock. change blood cultures to just one set. Unable to obtain 2nd set, erp ok'd to start antibiotics and d/c the 2nd set of blood cultures.
[2021-06-30] VITALS (27 sets, daily range): BP systolic 125–160; BP diastolic 53–77; PULSE 80–118; RESP 24–33; TEMP 36.1–37.1; O2SAT 95–100; BMI 17.4
[2021-06-30] MEDS: methylPREDNISolone SOD SUCC 40 MG VIAL IV PUSH ×4 (00:19→17:37)
--- NOTE | 2021-06-30 00:25 | PC.NURSE ---
This patient, Kyle Love, was admitted to IMU Room 207-01 on 06/29/21 at 2315. Patient/family oriented to hospital policies and general routines including ID bracelet, bed and alarms, visiting hours, pain management, procedures, bathroom and other care routines, personal items, smoking policy, room service/diet, and visiting hours. Information on how to activate the Rapid Response Team has been discussed. Patient/Family are encouraged to report perceived risks to care and to ask questions if they do not understand what they are told or what they should do.
[2021-06-30] MEDS: IPRATROPIUM BR 0.02% INH SOLN 0.5 MG/2.5 ML VIAL INHALATION ×5 (02:00→20:54)
[2021-06-30] MEDS: ALBUTEROL SULFATE NEB 2.5 MG/0.5 ML INH 5 MG INHALATION ×5 (02:00→20:54)
[2021-06-30] MEDS: TEMAZEPAM (*CRX) 15 MG CAPSULE PO (02:28)
[2021-06-30] MEDS: FLUTICASONE/UMECLIDIN/VILANTER 100-62.5-25 MCG ELLIPTA 1 PUFF INHALATION (08:33)
--- NOTE | 2021-06-30 09:37 | PM.IMPN ---
Progress Note: A&P Assessment and Plan (1) Acute on chronic respiratory failure with hypoxia and hypercapnia: Code(s): J96.21 - Acute and chronic respiratory failure with hypoxia; J96.22 - Acute and chronic respiratory failure with hypercapnia Status: Acute Assessment and Plan: 06/30: F/u ABG, resume bipap based on results, f/u in 4-5 hours and reconsider bipap settings; stop HCTZ due to metabolic alkalosis Continue steroids, antibx, bronchodilators (2) Acute exacerbation of chronic obstructive pulmonary disease: Code(s): J44.1 - Chronic obstructive pulmonary disease with (acute) exacerbation Status: Acute Assessment and Plan: As above Continue steroids, antibx, bronchodilators (3) Pneumonia: Qualifiers: Laterality: bilateral Lung location: lower lobe of lung Pneumonia type: due to unspecified organism Qualified Code(s): J18.9 - Pneumonia, unspecified organism Code(s): J18.9 - Pneumonia, unspecified organism Status: Acute Assessment and Plan: Levofloxacin day 2 (750 mg IV q 48 hr) (4) Atelectasis: Code(s): J98.11 - Atelectasis Status: Acute Assessment and Plan: Cornet Reposition as needed (5) Malnutrition: Qualifiers: Malnutrition type: protein-calorie malnutrition Protein-calorie malnutrition severity: moderate Qualified Code(s): E44.0 - Moderate protein-calorie malnutrition Code(s): E46 - Unspecified protein-calorie malnutrition Status: Acute Assessment and Plan: Encouraged PO intake (6) Essential hypertension: Code(s): I10 - Essential (primary) hypertension Status: Acute Assessment and Plan: BP reviewed and control adequate 06/30 (7) Oxygen dependent: Code(s): Z99.81 - Dependence on supplemental oxygen Status: Acute Assessment and Plan: Wean as tolerated Subjective Date/time seen: 06/30/21 09:37 Interval history: 06/30 visit: Bipap overnight. Uses Trilogy at home. Dyspneic at rest. Moderate KOCH with eating or conversio. Severe KOCH with any exertion. Denied pain. Extreme. CXR with RLL infiltrate. Sputum from previous admission grew Pseudomonas sensitive to all antibx tested. Baseline functional status: Able to dress and groom, but requires assistance with bathing. Unable to perform light housework. Review of Systems Review of Systems: All systems reviewed & are unremarkable except as noted in HPI and below Exam Narrative: Alert. Ox3. HEENT sclerae nonicteric Neck w/o JVD Chest increased APD, tachypneic with use of accessory muscles, BS diminished throughout Heart RR, no audible murmur Extr no CCE Abdomen soft, nontender, BS present Objective Data Vital Signs Vital Signs: Vital Signs - 24 hr 06/29/21 20:02 06/29/21 20:05 06/29/21 20:16 Temperature 97.7 F Pulse Rate 113 H 118 H Respiratory Rate 32 H 24 H Blood Pressure 188/96 H 178/71 H Pulse Oximetry 95 95 06/29/21 20:28 06/29/21 20:30 06/29/21 20:48 Temperature Pulse Rate 112 H 112 H 116 H Respiratory Rate 24 H 24 H 27 H Blood Pressure Pulse Oximetry 96 06/29/21 21:02 06/29/21 21:11 06/29/21 21:31 Temperature Pulse Rate 115 H 112 H Respiratory Rate 25 H 24 H 23 H Blood Pressure 133/62 111/69 Pulse Oximetry 97 06/29/21 22:06 06/29/21 22:49 06/29/21 23:17 Temperature Pulse Rate 100 104 H 106 H Respiratory Rate 23 H 24 H Blood Pressure 108/51 L 108/51 L Pulse Oximetry 96 06/29/21 23:36 06/29/21 23:57 06/30/21 02:00 Temperature 99.1 F Pulse Rate 104 H 107 H Respiratory Rate 26 H 45 H 31 H Blood Pressure 137/60 Pulse Oximetry 96 97 06/30/21 02:02 06/30/21 02:12 06/30/21 04:00 Temperature 97 F L Pulse Rate 104 H 106 H 92 Respiratory Rate 31 H 31 H 30 H Blood Pressure 125/57 L Pulse Oximetry 96 99 06/30/21 05:46 06/30/21 08:00 06/30/21 08:33 Temperature 97.1 F L Pulse Rate 89 89 88 Respirator
[2021-06-30] MEDS: PANTOPRAZOLE 40 MG TABLET PO (09:39)
[2021-06-30] MEDS: OMEGA 3 POLYUNSAT FATTY ACIDS 1 GM CAP PO (09:39)
[2021-06-30] MEDS: SACCHAROMYCES BOULARDII 250 MG CAPSULE PO (09:39)
[2021-06-30] MEDS: FLUTICASONE PROPIONATE 0.05% NA SPR 16 GM BTL (*BKC) 2 SPRAY NASAL (09:40)
[2021-06-30] MEDS: LOSARTAN POTASSIUM 100 MG TABLET PO (09:40)
[2021-06-30] MEDS: MONTELUKAST SODIUM 10 MG TABLET PO (09:40)
[2021-06-30] MEDS: ERGOCALCIFEROL 50,000 UNIT CAPSULE 50000 UNITS PO (09:41)
[2021-06-30] MEDS: ENOXAPARIN 40 MG/0.4 ML SYRINGE SUB-Q (09:41)
[2021-06-30 10:15] LABS: Alveolar/Arterial O2 Gradient 124.9 mmHg; Base Excess ABG 5.9 mEq/l (+/-2.0); Fractional Inspired Oxygen 40 %; HCO3 ABG 34.3 mEq/l (22.0-26.0); Oxygen Saturation ABG 93.6 % (95.0-100.0); PO2 ABG 77.6 mmHg (80.0-100.0); PO2 FiO2 Ratio Arterial Blood 1.94 %; Total Hemoglobin 11.4 g/dL (12.0-18.0)
[2021-06-30 10:16] LABS: pH ABG 7.297 (7.350-7.450)
[2021-06-30 10:17] LABS: Device BIPAP; Expiratory Pressure 6 cmH2O; Inspiratory Pressure 12 cmH2O; Modified Allen's Test Pass; PCO2 ABG 71.9 mmHg (35.0-45.0); Site Drawn LEFT RADIAL
--- NOTE | 2021-06-30 12:53 | PM.CNPUL ---
Assessment and Plan Assessment and plan (1) Acute on chronic respiratory failure with hypoxia and hypercapnia: Code(s): J96.21 - Acute and chronic respiratory failure with hypoxia; J96.22 - Acute and chronic respiratory failure with hypercapnia Status: Acute Assessment and Plan: PLAN: Change her settings from BiPAP to AVAPS; ABG in an hour after this change Obtain her Trilogy from home, review the settings, and decide what changes might be needed before she returns home. Urine antigens for pneumonia pathogens Antibiotics for the new RLL infiltrate with coverage for Pseudomonas as this is what she grew last admission June 10. She was in our office June 14, had an order to start Daliresp (roflumilast) as add-on therapy for COPD with multiple admission. She has not received this. This medication requires a prior authorization from the insurance company. Follow her WBC, Na, ABG, and response to treatment. (2) Pneumonia: Qualifiers: Laterality: bilateral Lung location: lower lobe of lung Pneumonia type: due to unspecified organism Qualified Code(s): J18.9 - Pneumonia, unspecified organism Code(s): J18.9 - Pneumonia, unspecified organism Status: Acute Assessment and Plan: She has a new round pneumonia in the right base, and the RML infiltrate that was there for 2 months is gone.Consider chest CT without contrast if she is not improving. She just had a chest CT 06/20, new infiltrate developed since then. Consider bronchoscopy if needed. (3) COPD (chronic obstructive pulmonary disease): Code(s): J44.9 - Chronic obstructive pulmonary disease, unspecified Status: Acute Assessment and Plan: She has severe emphysema on CT scan, no PFTs to review. She has bullous changes throughout her lungs, kiley the apices. Continue triple therapy and short acting bronchodilators, steroids, Cornet valve to help with secretions. History of Present Illness History of Present Illness Consult date: 06/30/21 Requesting physician: Jeremías Salazar MD Chief complaint: COPD exacerbation, pneumonia Narrative: NEW CONSULT: Kyle Love is a 70 year old patient seen in out practice who has COPD, chronic respiratory failure on oxygen, Trilogy at home for hypercapnia, and several hospital admissions in the last 6 months. She came to the ED with increased shortness of breath, cough, increased amounts of clear sputum with dark areas. Her CXR shows a round infiltrate in the right base, different from her recent RML atelectasis. She has not had fever, sore throat, head congestion, pleuritic chest pain, N/V/D, difficulty swallowing of choking after eating. She was started on Levaquin for the infiltrate, steroids for COPD, bronchodilators, WBC is high, 25.4K, Na+ 129. I saw her in the office on June 14. She had a persistent right middle lobe mass with or atelectasis on several imaging studies since Mar 30, 2021 CTA. Due to her multiple admissions in the hospital in May, April, March of this year and January 2021 in [place], I ordered Daliresp to be added to her COPD regimen. She has not received this yet; this requires a prior authorization. I ordered chest CT which she had 06/20; this showed resolution of the RML atelectasis that was present since Mar 30 CTA. Her last admission June 09, she had heavy growth of Pseudomonas aeruginosa which was owens-sensitive. Recent admissions: Tee Jun [id number] [facility] Apr, 2021 Tee Mar [id number]; COPD exacerbation, pneumonia, hypercapnic hypoxemic respiratory failure on NPPV, Trilogy set up January, [facility], [facility]; went to rehab after this admission December, [place] admission for respiratory problems DATA * * 06/21/19
[2021-06-30 16:32] LABS: Alveolar/Arterial O2 Gradient 100.5 mmHg; Base Excess ABG 8.6 mEq/l (+/-2.0); Device BIPAP; Fractional Inspired Oxygen 35 %; HCO3 ABG 36.6 mEq/l (22.0-26.0); Modified Allen's Test Pass; Oxygen Content ABG 14.9 %vol (16.0-22.0); Oxygen Saturation ABG 91.5 % (95.0-100.0); Oxyhemoglobin 91.6 % THb (90.0-100.0); PCO2 ABG 70.2 mmHg (35.0-45.0); PO2 ABG 67.4 mmHg (80.0-100.0); PO2 FiO2 Ratio Arterial Blood 1.93 %; Site Drawn LEFT RADIAL; Total Hemoglobin 11.5 g/dL (12.0-18.0); pH ABG 7.335 (7.350-7.450)
[2021-06-30 16:34] LABS: Expiratory Pressure 5 cmH2O
[2021-06-30] MEDS: FAMOTIDINE 20 MG TABLET PO (17:37)
[2021-06-30] MEDS: SERTRALINE HCL 50 MG TABLET PO (20:39)
[2021-06-30] MEDS: PRAVASTATIN SODIUM 20 MG TABLET PO (20:39)
[2021-06-30 21:24] LABS: Alveolar/Arterial O2 Gradient 82.9 mmHg; Base Excess ABG 13.8 mEq/l (+/-2.0); Fractional Inspired Oxygen 28 %; Oxygen Content ABG 7.4 %vol (16.0-22.0); PO2 FiO2 Ratio Arterial Blood 0.98 %; Total Hemoglobin 11.2 g/dL (12.0-18.0); pH ABG 7.363 (7.350-7.450)
[2021-06-30 21:30] LABS: Oxygen Saturation ABG 46.1 % (95.0-100.0); PCO2 ABG 75.6 mmHg (35.0-45.0); PO2 ABG 27.5 mmHg (80.0-100.0)
[2021-06-30 21:31] LABS: Device NON-INVASIVE VENT; Modified Allen's Test Pass; Non-Invasive Vent Rate 16 /MIN; Oxyhemoglobin 46.8 % THb (90.0-100.0); Site Drawn LEFT RADIAL
[2021-06-30 21:32] LABS: Non-Invasive Expiratory Pressure 5 CMH2O
[2021-07-01] VITALS (27 sets, daily range): BP systolic 90–186; BP diastolic 52–75; PULSE 82–115; RESP 20–32; TEMP 36.2–37.1; O2SAT 95–100
[2021-07-01] MEDS: methylPREDNISolone SOD SUCC 40 MG VIAL IV PUSH ×4 (00:10→23:53)
[2021-07-01] MEDS: TEMAZEPAM (*CRX) 15 MG CAPSULE PO (00:10)
[2021-07-01] MEDS: ALBUTEROL SULFATE NEB 2.5 MG/0.5 ML INH 5 MG INHALATION ×6 (00:20→20:00)
[2021-07-01] MEDS: IPRATROPIUM BR 0.02% INH SOLN 0.5 MG/2.5 ML VIAL INHALATION ×6 (00:20→20:00)
[2021-07-01 04:27] LABS: Hematocrit 30.6 % (37.0-47.0); Hemoglobin 10.2 g/dL (12.0-15.0); Mean Corpuscular HGB Conc 33.3 g/dl (32-36); Mean Corpuscular Hemoglobin 30.4 pg (26-34); Mean Corpuscular Volume 91.3 fl (80-100); Mean Platelet Volume 9.9 fl (7.4-10.4); Platelet Count Result 196 k/mm3 (150-375); Red Blood Count 3.35 M/mm3 (4.2-5.4); Red Cell Distribution Width 12.7 % (11.5-14.5); White Blood Count 22.2 K/mm3 (4.5-10.0)
[2021-07-01 05:01] LABS: Blood Urea Nitrogen 17 mg/dL (7-17); Calcium 8.9 mg/dL (8.4-10.2); Carbon Dioxide > 40 mmol/L (22-30); Chloride 81 mmol/L (98-107); Estimated CRCL calculation 55 ml/min; Estimated Glomerular Filt Rate > 60; Glucose 108 mg/dL (65-110); Potassium 3.8 mmol/L (3.4-5.0); Sodium 127 mmol/L (137-145)
[2021-07-01 05:03] LABS: Alveolar/Arterial O2 Gradient 105.2 mmHg; Base Excess ABG 13.8 mEq/l (+/-2.0); Fractional Inspired Oxygen 40 %; HCO3 ABG 41.7 mEq/l (22.0-26.0); Oxygen Content ABG 14.8 %vol (16.0-22.0); Oxygen Saturation ABG 96.7 % (95.0-100.0); Oxyhemoglobin 96.4 % THb (90.0-100.0); PO2 ABG 95.1 mmHg (80.0-100.0); PO2 FiO2 Ratio Arterial Blood 2.38 %; Total Hemoglobin 10.8 g/dL (12.0-18.0)
[2021-07-01 05:05] LABS: PCO2 ABG 73.8 mmHg (35.0-45.0)
[2021-07-01 05:06] LABS: Device NON-INVASIVE VENT; Site Drawn RIGHT BRACHIAL
[2021-07-01 05:07] LABS: Non-Invasive Expiratory Pressure 5 CMH2O; Non-Invasive Vent Rate 20 /MIN
--- NOTE | 2021-07-01 08:59 | PM.IMPN ---
Progress Note: A&P Assessment and Plan (1) Acute on chronic respiratory failure with hypoxia and hypercapnia: Code(s): J96.21 - Acute and chronic respiratory failure with hypoxia; J96.22 - Acute and chronic respiratory failure with hypercapnia Status: Acute Assessment and Plan: 06/30: Bipap switched to AVAP; stopped HCTZ due to metabolic alkalosis 07/01: Pulmonary decreased FIO2 to improve hypoxic ventilatory drive Continue steroids, antibx, bronchodilators (2) Acute exacerbation of chronic obstructive pulmonary disease: Code(s): J44.1 - Chronic obstructive pulmonary disease with (acute) exacerbation Status: Acute Assessment and Plan: As above Continue steroids, antibx, bronchodilators (3) Pneumonia: Qualifiers: Laterality: bilateral Lung location: lower lobe of lung Pneumonia type: due to unspecified organism Qualified Code(s): J18.9 - Pneumonia, unspecified organism Code(s): J18.9 - Pneumonia, unspecified organism Status: Acute Assessment and Plan: Levofloxacin day 3 (750 mg IV q 48 hr) (4) Atelectasis: Code(s): J98.11 - Atelectasis Status: Acute Assessment and Plan: Cornet Reposition as needed (5) Malnutrition: Qualifiers: Malnutrition type: protein-calorie malnutrition Protein-calorie malnutrition severity: moderate Qualified Code(s): E44.0 - Moderate protein-calorie malnutrition Code(s): E46 - Unspecified protein-calorie malnutrition Status: Acute Assessment and Plan: Encouraged PO intake (6) Essential hypertension: Code(s): I10 - Essential (primary) hypertension Status: Acute Assessment and Plan: BP reviewed and control adequate 07/01 (7) Oxygen dependent: Code(s): Z99.81 - Dependence on supplemental oxygen Status: Acute Assessment and Plan: Wean as tolerated Subjective Date/time seen: 07/01/21 08:59 Interval history: 07/01 visit: Bipap dependent. Uses Trilogy at home during nighttime only. Dyspneic at rest. Moderate KOCH with eating or conversation. Severe KOCH with any exertion. Denied pain. CXR with RLL infiltrate. Sputum from previous admission grew Pseudomonas sensitive to all antibx tested. Baseline functional status: Able to dress and groom, but requires assistance with bathing. Unable to perform light housework. Review of Systems Review of Systems: All systems reviewed & are unremarkable except as noted in HPI and below Exam Narrative: Alert. Ox3. HEENT sclerae nonicteric Neck w/o JVD Chest increased APD, tachypneic with use of accessory muscles, BS diminished throughout Heart RR, no audible murmur Extr no CCE Abdomen soft, nontender, BS present Objective Data Vital Signs Vital Signs: Vital Signs - 24 hr 06/30/21 09:51 06/30/21 10:00 06/30/21 11:36 Temperature Pulse Rate 103 H Respiratory Rate Blood Pressure Pulse Oximetry 99 100 06/30/21 12:00 06/30/21 12:48 06/30/21 12:57 Temperature 97.7 F Pulse Rate 100 104 H 106 H Respiratory Rate 25 H 26 H 26 H Blood Pressure 155/56 H Pulse Oximetry 100 06/30/21 14:00 06/30/21 15:23 06/30/21 16:00 Temperature 97.4 F L Pulse Rate 109 H 100 98 Respiratory Rate 30 H 24 H Blood Pressure 155/76 H Pulse Oximetry 99 98 06/30/21 16:24 06/30/21 16:25 06/30/21 17:09 Temperature Pulse Rate 98 98 98 Respiratory Rate 28 H 25 H 26 H Blood Pressure Pulse Oximetry 96 95 06/30/21 18:21 06/30/21 20:00 06/30/21 20:55 Temperature 98.8 F Pulse Rate 88 96 98 Respiratory Rate 32 H 28 H Blood Pressure 160/77 H Pulse Oximetry 95 99 06/30/21 21:12 06/30/21 22:00 06/30/21 23:49 Temperature 98.8 F Pulse Rate 97 118 H 104 H Respiratory Rate 30 H 33 H Blood Pressure 140/67 Pulse Oximetry 99 07/01/21 00:00 07/01/21 00:20 07/01/21 00:31 Temperature Pulse Rate 100 98 88 Respiratory Rate 21 H 20 Blood Pressur
[2021-07-01] MEDS: SACCHAROMYCES BOULARDII 250 MG CAPSULE PO (09:02)
[2021-07-01] MEDS: FLUTICASONE PROPIONATE 0.05% NA SPR 16 GM BTL (*BKC) 2 SPRAY NASAL (09:03)
[2021-07-01] MEDS: LOSARTAN POTASSIUM 100 MG TABLET PO (09:03)
[2021-07-01] MEDS: MONTELUKAST SODIUM 10 MG TABLET PO (09:03)
[2021-07-01] MEDS: OMEGA 3 POLYUNSAT FATTY ACIDS 1 GM CAP PO (09:03)
[2021-07-01] MEDS: ENOXAPARIN 40 MG/0.4 ML SYRINGE SUB-Q (09:03)
[2021-07-01] MEDS: PANTOPRAZOLE 40 MG TABLET PO (09:03)
[2021-07-01] MEDS: FLUTICASONE/UMECLIDIN/VILANTER 100-62.5-25 MCG ELLIPTA 1 PUFF INHALATION (09:49)
--- NOTE | 2021-07-01 13:48 | PM.PNPUL ---
Progress Note: A&P Assessment and Plan (1) Acute on chronic respiratory failure with hypoxia and hypercapnia: Code(s): J96.21 - Acute and chronic respiratory failure with hypoxia; J96.22 - Acute and chronic respiratory failure with hypercapnia Status: Acute Assessment and Plan: PLAN: Continue AVAPS with increased TV 550, Increased Max PS to 28, and lower FiO2 0.35. ABG in am. Obtain her Trilogy from home, review the settings, and decide what changes might be needed before she returns home. Antibiotics for the new RLL infiltrate with coverage for Pseudomonas as this is what she grew last admission June 10. Follow her WBC, Na, ABG, and response to treatment. (2) Pneumonia: Qualifiers: Laterality: bilateral Lung location: lower lobe of lung Pneumonia type: due to unspecified organism Qualified Code(s): J18.9 - Pneumonia, unspecified organism Code(s): J18.9 - Pneumonia, unspecified organism Status: Acute Assessment and Plan: She has a new round pneumonia in the right base, and the RML infiltrate that was there for 2 months is gone.Consider chest CT without contrast if she is not improving. She just had a chest CT 06/20, new infiltrate developed since then. Consider bronchoscopy if needed. (3) COPD (chronic obstructive pulmonary disease): Code(s): J44.9 - Chronic obstructive pulmonary disease, unspecified Status: Acute Assessment and Plan: She has severe emphysema on CT scan, no PFTs to review. She has bullous changes throughout her lungs, kiley the apices. Continue triple therapy and short acting bronchodilators, steroids, Cornet valve to help with secretions. Subjective Date/time seen: 07/01/21 13:48 Hospital follow up visit : Kyle Love is a 70 year old patient seen in follow up for new RLL infiltrate with severe COPD, acute on chronic respiratory failure on oxygen. She has a Trilogy at home for hypercapnia. Her niece has not brought it on to the hospital. I left a message for her yesterday. Her minute ventilation is around 11 L/min. I adjusted the AVAPS settings with RT Mallika with an increase in the Max PS to 28 from 25 mmHg. This increased the TV to 12.5, and the target TV is 550. This should improve ventilation. We are also keeping her FiO2 at 35% to avoid over-oxygenation and loss of hypoxic respiratory drive. The patient says that this feels better, and we will get an ABG tomorrow am 5:00. WBC 22.2, Na+ 127 AB.27/73/95 on AVAPS and 40%; after this ABG, FiO2 decreased to 35%, TV increased to 550 06/30 : Changed BIPAP to AVAPS with her home settings on her Trilogy. She continued to have hypercapnia. 06/29 : presented to ED with increased shortness of breath, cough, increased amounts of clear sputum with dark areas. Her CXR shows a round infiltrate in the right base, different from her recent RML atelectasis. No fever, sore throat, head congestion, pleuritic chest pain, N/V/D, difficulty swallowing of choking after eating. Started on Levaquin, steroids for COPD, bronchodilators, WBC is high, 25.4K, Na+ 129. 06/14/2021: office visit; persistent right middle lobe mass with or atelectasis on several imaging studies since Mar 30, 2021 CTA. Due to her multiple admissions in the hospital in May, April, March of this year and January 2021 in [place], I ordered Daliresp to be added to her COPD regimen. She has not received this yet; this requires a prior authorization. I ordered chest CT which she had 06/20; this showed resolution of the RML atelectasis that was present since Mar 30 CTA. Her last admission June 09, she had heavy growth of Pseudomonas aeruginosa which was owens-sensitive. Recent admissions: Tee Jun [id number] [place] Apr, 2021 Tee Mar 30
--- NOTE | 2021-07-01 14:21 | PCRCNOTE ---
Window of time for administration has passed. See next scheduled administration.
--- NOTE | 2021-07-01 15:00 | PC.NURSE ---
2 RNs attempted to get IV access on patient, but unsuccessful. patient verbally consented to receiving a midline.
[2021-07-01 16:13] LABS: Creatinine Urine 63.5 mg/dL
[2021-07-01 16:19] LABS: Sodium Urine Random < 5 meq/L
[2021-07-01 16:26] LABS: Urea Random Urine 579 MG/DL
[2021-07-01] MEDS: LIDOCAINE HCL 1% LOCAL INJ 2 ML AMPUL 5 ML INFILTRATE (16:31)
[2021-07-01] MEDS: FAMOTIDINE 20 MG TABLET PO (17:43)
[2021-07-01] MEDS: SALINE LOCK FLUSH 10 ML IV PUSH (20:06)
[2021-07-01] MEDS: SERTRALINE HCL 50 MG TABLET PO (20:40)
[2021-07-01] MEDS: PRAVASTATIN SODIUM 20 MG TABLET PO (20:40)
[2021-07-01] MEDS: MAG HYDROX/AL HYDROX/SIMETH 30 ML UDC PO (22:21)
[2021-07-02] VITALS (36 sets, daily range): BP systolic 135–188; BP diastolic 60–89; PULSE 20–122; RESP 20–31; TEMP 36.3–37.2; O2SAT 91–100
[2021-07-02] MEDS: ALBUTEROL SULFATE NEB 2.5 MG/0.5 ML INH 5 MG INHALATION ×7 (00:05→23:50)
[2021-07-02] MEDS: IPRATROPIUM BR 0.02% INH SOLN 0.5 MG/2.5 ML VIAL INHALATION ×7 (00:06→23:50)
[2021-07-02] MEDS: hydrALAZINE HCL 20 MG/ML VIAL 10 MG IV PUSH ×3 (03:29→18:00)
[2021-07-02 05:00] LABS: Alveolar/Arterial O2 Gradient 91.8 mmHg; Base Excess ABG 11.3 mEq/l (+/-2.0); Fractional Inspired Oxygen 35 %; HCO3 ABG 37.8 mEq/l (22.0-26.0); Oxygen Content ABG 14.8 %vol (16.0-22.0); Oxygen Saturation ABG 96.6 % (95.0-100.0); Oxyhemoglobin 95.8 % THb (90.0-100.0); PO2 ABG 87.9 mmHg (80.0-100.0); PO2 FiO2 Ratio Arterial Blood 2.51 %; Total Hemoglobin 10.9 g/dL (12.0-18.0); pH ABG 7.416 (7.350-7.450)
[2021-07-02 05:06] LABS: Device NON-INVASIVE VENT; Modified Allen's Test Pass; PCO2 ABG 60.1 mmHg (35.0-45.0); Site Drawn RIGHT RADIAL
[2021-07-02 05:07] LABS: Non-Invasive Expiratory Pressure 5 CMH2O; Non-Invasive Vent Rate 22 /MIN
[2021-07-02] MEDS: methylPREDNISolone SOD SUCC 40 MG VIAL IV PUSH ×3 (05:58→18:00)
[2021-07-02] MEDS: SALINE LOCK FLUSH 10 ML IV PUSH ×3 (05:58→21:08)
[2021-07-02 06:12] LABS: Hemoglobin 9.9 g/dL (12.0-15.0); Mean Corpuscular Hemoglobin 30.3 pg (26-34); Mean Corpuscular Volume 91.7 fl (80-100); Mean Platelet Volume 9.7 fl (7.4-10.4); Platelet Count Result 188 k/mm3 (150-375); Red Blood Count 3.27 M/mm3 (4.2-5.4); Red Cell Distribution Width 12.7 % (11.5-14.5); White Blood Count 17.2 K/mm3 (4.5-10.0)
[2021-07-02 06:24] LABS: Blood Urea Nitrogen 21 mg/dL (7-17); Calcium 8.6 mg/dL (8.4-10.2); Carbon Dioxide > 40 mmol/L (22-30); Chloride 79 mmol/L (98-107); Estimated CRCL calculation 55 ml/min; Estimated Glomerular Filt Rate > 60; Glucose 177 mg/dL (65-110); Potassium 3.7 mmol/L (3.4-5.0); Sodium 124 mmol/L (137-145)
--- NOTE | 2021-07-02 08:25 | ECG_ITS ---
Measurements Intervals [place] Rate: 110 P: 84 TX: 143 QRS: 92 QRSD: 72 T: 57 QT: 291 QTc: 394 Interpretive Statements SINUS TACHYCARDIA BORDERLINE RIGHT AXIS DEVIATION [QRS AXIS > 90] NONSPECIFIC T-WAVE ABNORMALITY BASELINE ARTIFACT ABNORMAL ECG COMPARED TO ECG 06/29/2021 20:16:18 INFERIOR T-WAVE ABNORMALITIES LESS PROMINENT Electronically Signed On 07-02-2021 11:28:59 CDT by Manny Winters M.D.
[2021-07-02] MEDS: MORPHINE SULFATE (*CRX) 2 MG/ML INJ 1 MG IV PUSH ×2 (08:44→20:08)
[2021-07-02] MEDS: OMEGA 3 POLYUNSAT FATTY ACIDS 1 GM CAP PO (08:45)
[2021-07-02] MEDS: FLUTICASONE PROPIONATE 0.05% NA SPR 16 GM BTL (*BKC) 2 SPRAY NASAL (08:45)
[2021-07-02] MEDS: LOSARTAN POTASSIUM 100 MG TABLET PO (08:45)
[2021-07-02] MEDS: ENOXAPARIN 40 MG/0.4 ML SYRINGE SUB-Q (08:45)
[2021-07-02] MEDS: PANTOPRAZOLE 40 MG TABLET PO (08:45)
[2021-07-02] MEDS: MONTELUKAST SODIUM 10 MG TABLET PO (08:46)
[2021-07-02] MEDS: SACCHAROMYCES BOULARDII 250 MG CAPSULE PO (08:46)
--- NOTE | 2021-07-02 10:06 | PM.CNNEP ---
Assessment and Plan Additional Plan 1. Kyle has hyponatremia. The sodium level has gradually decreased while here. She has chronic hyponatremia going back for years. This is probably due to her COPD. She is also on sertraline, hydrochlorothiazide, and omeprazole all of which can reduce sodium levels as well. She also has acute worsening hyponatremia. For the 1st couple of hospital days she was getting some IV fluids and also was eating and drinking better. Now however he has not had much to drink because she is on a CPAP machine. Most likely her and sensible loss is going to be higher as well. At this point I would like to stop the sertraline and stop the pantoprazole. We can start famotidine which does not have that effect on the sodium level. We can watch the sodium closely. Consider salt tablets and Lasix or saline and Lasix if the sodium continues to drop. However since she is not drinking much I suspect that the sodium may stabilize and maybe even improve on its own. There other causes of hyponatremia as well. 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 No sign of a brain tumor or large stroke. Her chest x-ray and CT scans all show just the COPD. There is no history of cancer. Medicines were discussed above. The patient is on Solu-Medrol which rules out cortisol deficiency as a cause. I will check a TSH. 2. Patient has respiratory acidosis due to her COPD. She also has a superimposed metabolic alkalosis due to the hydrochlorothiazide. Her urine sodium is low which also suggests that pre renal azotemia may be at play. Will give Diamox to bring the serum bicarb down. The hydrochlorothiazide is already discontinued. 3. The patient has COPD. She is getting supportive care for this. 4. Considering the bit of issues plus her COPD which is severe and her poorly nurse date, the overall prognosis for this patient is fairly poor. History of Present Illness Reason for Consult Consult date: 07/02/21 Chief Complaint Chief complaint: COPD exacerbation, pneumonia History of Present Illness Narrative: Kyle is a very pleasant 70-year-old female who has multiple medical problems including severe COPD, chronic respiratory acidosis, asthma, anxiety, low weight status, constipation, dry skin, GERD, heart disease, hypertension, hyperlipidemia, vitamin-D deficiency. The patient came into the hospital because of shortness of breath. Her COPD is severe and she is on home oxygen. She came into the hospital because of worsening shortness of breath. She went to the ER and was placed on a BiPAP. Her white count was high and her pCO2 was high as well. On admission she was given antibiotics bronchodilators and steroids. The chlorothiazide was discontinued. She was continued on her antihypertensives. Her sodium on admission was 129. It has been low since 2016 for every draw. And before that it was intermittently low going back to 2013. While here the sodium has gradually dropped to a current level of 124 so renal consultation was requested. She cannot give a history. She just received some morphine and she is on the BiPAP and is breathing comfortably. She did open her eyes a little bit for me but was unable to give any history. She was on hydrochlorothiazide on admission and was on a PPI as well as sertraline. Review of Systems Review of Systems: ROS unobtainable: Yes unobtainable due to medical condition PMFSH Past Medical History Medical History Anxiety Asthma BMI less than 19,adult (~05/14/21) BMI 17.4 Chronic respiratory failure with hypoxia and hypercapnia Constipation Dry skin End stage chronic obstructive pulmonary disease GERD (gastroesophageal reflux disease) Heart disease HTN (hypertension) Hx of intestinal obstruction Insomnia Mixed hyperlipidemia Oxygen dependent Seasonal allergic rhinitis Vitamin D deficiency Weakness Surgical History Surgical History (Reviewed
--- NOTE | 2021-07-02 10:59 | WPDCDIQUERY2 ---
CDI Query Clarification Request 06/29 ER Physician documented: Differential diagnosis: Likely acute exacerbation of chronic obstructive airways disease, congestive heart failure and community acquired pneumonia CXR 06/29 IMPRESSION: New rounded consolidation in the right lower lung and mild bibasilar infiltrate or atelectasis Bullous emphysema Aortic atherosclerosis Pneumoperitoneum is unlikely but not entirely excluded. Consider obstructive series as clinically appropriate Diffuse osteopenia Please clarify if CHF has been ruled in, ruled out or undetermined If ruled in please clarify if CHF is Acute, Chronic, Acute on Chronic, other or unable to determine Is CHF: Systolic, Diastolic, combined or unable to determine <Lissy Obrien - Last Filed: 07/02/21 11:06> Clarified Diagnosis (1) Chronic respiratory failure with hypoxia and hypercapnia: Code(s): J96.11 - Chronic respiratory failure with hypoxia; J96.12 - Chronic respiratory failure with hypercapnia <Lissy Obrien - Last Filed: 07/02/21 11:06> Status: Acute <Lissy Obrien - Last Filed: 07/02/21 11:06> Assessment and Plan: CHF ruled out <Nisa Johnston MD - Last Filed: 07/02/21 16:27>
[2021-07-02 13:03] LABS: Thyroid Stimulating Hormone Reflex 0.097 uIU/mL (0.465-4.68)
[2021-07-02 13:31] LABS: Free T4 Free Thyroxine Reflex 1.68 ng/dL (0.78-2.19)
[2021-07-02] MEDS: ACETAMINOPHEN 325 MG TABLET 650 MG PO ×2 (13:44→22:08)
[2021-07-02 14:30] LABS: Total Triiodothyronine (T3) 0.87 NG/ML (0.97-1.69)
--- NOTE | 2021-07-02 15:26 | PM.PNPUL ---
Progress Note: A&P Assessment and Plan (1) Acute on chronic respiratory failure with hypoxia and hypercapnia: Code(s): J96.21 - Acute and chronic respiratory failure with hypoxia; J96.22 - Acute and chronic respiratory failure with hypercapnia Status: Acute Assessment and Plan: PLAN: Continue AVAPS with increased TV 550, Increased Max PS to 28, and lower FiO2 0.35. ABG in am. Change her Trilogy settings to those she is now using from home, and have this ready before she returns home. Antibiotics for the RLL infiltrate with coverage for Pseudomonas as this is what she grew last admission June 10. Follow her WBC, Na, ABG, and response to treatment. (2) Pneumonia: Qualifiers: Laterality: bilateral Lung location: lower lobe of lung Pneumonia type: due to unspecified organism Qualified Code(s): J18.9 - Pneumonia, unspecified organism Code(s): J18.9 - Pneumonia, unspecified organism Status: Acute Assessment and Plan: She has a new round pneumonia in the right base, and the RML infiltrate that was there for 2 months is gone.Consider chest CT without contrast if she is not improving. She just had a chest CT 06/20, new infiltrate developed since then. Consider bronchoscopy if needed. (3) COPD (chronic obstructive pulmonary disease): Code(s): J44.9 - Chronic obstructive pulmonary disease, unspecified Status: Acute Assessment and Plan: She has severe emphysema on CT scan, no PFTs to review. She has bullous changes throughout her lungs, kiley the apices. Continue triple therapy and short acting bronchodilators, steroids, Cornet valve to help with secretions. Subjective Date/time seen: 07/02/21 15:26 Kyle Love is a 70 year old patient seen in follow up for RLL infiltrate with severe COPD, acute on chronic respiratory failure on oxygen. She has a Trilogy at home for hypercapnia. Her niece brought it to the hospital yesterday. Her ABG is better today after changes in AVAPS settings. However, she has a terrible headache, her BP and pulse have been high today. She had her Losartan earlier. Her saturation is 99% on 4 L/min nasal cannula, decreased to 2 L/min. 07/02: ABG better, 7.41/60.1/87.9/37.8 ->35%; WBC down, 17.2, Na+ 124. Headache, high BP & pulse. Lower O2; 4L->2 L/min 07/01 : AB.27/73/95 on AVAPS and 40%; after this ABG, FiO2 decreased to 35%, TV increased to 550 She continued to have hypercapnia.Max PS to 28 from 25 mmHg; Incr TV to 12.5, target TV is 550. FiO2 lower 35%. 06/30 : Changed BIPAP to AVAPS with her home settings on her Trilogy. 06/29 : presented to ED with increased shortness of breath, cough, increased amounts of clear sputum with dark areas. Her CXR shows a round infiltrate in the right base, different from her recent RML atelectasis. No fever, sore throat, head congestion, pleuritic chest pain, N/V/D, difficulty swallowing of choking after eating. Started on Levaquin, steroids for COPD, bronchodilators, WBC is high, 25.4K, Na+ 129. 06/14/2021: office visit; persistent right middle lobe mass with or atelectasis on several imaging studies since Mar 30, 2021 CTA. Due to her multiple admissions in the hospital in May, April, March of this year and January 2021 in [place], I ordered Daliresp to be added to her COPD regimen. She has not received this yet; this requires a prior authorization. I ordered chest CT which she had 06/20; this showed resolution of the RML atelectasis that was present since Mar 30 CTA. Her last admission June 09, she had heavy growth of Pseudomonas aeruginosa which was owens-sensitive. Recent admissions: Tee Jun [id number] [place] Apr, 2021 [place] Mar [id number]; COPD exacerbation, pneumonia, hypercapnic hypoxemic respiratory
--- NOTE | 2021-07-02 16:15 | PM.IMPN ---
Progress Note: A&P Assessment and Plan (1) Acute on chronic respiratory failure with hypoxia and hypercapnia: Code(s): J96.21 - Acute and chronic respiratory failure with hypoxia; J96.22 - Acute and chronic respiratory failure with hypercapnia Status: Acute (2) Pneumonia: Qualifiers: Laterality: bilateral Lung location: lower lobe of lung Pneumonia type: due to unspecified organism Qualified Code(s): J18.9 - Pneumonia, unspecified organism Code(s): J18.9 - Pneumonia, unspecified organism Status: Acute (3) Hyponatremia: Code(s): E87.1 - Hypo-osmolality and hyponatremia Status: Acute (4) Malnutrition: Qualifiers: Malnutrition type: protein-calorie malnutrition Protein-calorie malnutrition severity: moderate Qualified Code(s): E44.0 - Moderate protein-calorie malnutrition Code(s): E46 - Unspecified protein-calorie malnutrition Status: Acute Additional Plan 70-year-old female with past medical history significant for severe COPD/emphysema on supplemental oxygen at home, recent admission and discharge for COPD exacerbation (1) Acute on chronic respiratory failure with hypoxia and hypercapnia: Appreciate Pulmonary Help c/w BIPAP Continue steroids, antibx, bronchodilators Continue steroids, antibx, bronchodilators (2) Malnutirition Encouraged PO intake (3) Essential hypertension: c/w PRN hydralazine and [place] (4)Hyponatremia: Worsening Renal Consult (5)DVT ppx: lovenox (6)Code:DNR (7)Dispo:pending improvement Time Spent With Patient Time with patient: 15 - 25 minutes Subjective Date/time seen: 07/02/21 16:15 on BIPAP c/o chest pain, headache, BP elevated Review of Systems Constitutional: Constitutional: Reports fatigue and Reports weakness Eyes: Eyes: Reports no additional eye complaints ENT: Reports system reviewed and no additional complaints, except as documented Cardiovascular: Cardiovascular: Reports chest pain Respiratory: Respiratory: Reports dyspnea Gastrointestinal: Gastrointestinal: Reports no additional gastrointestinal complaints Neurologic: Reports headache(s) Exam Narrative: on BIPAP Eyes: Pupils: Equal, round and reactive pupils present Neck: Neck: supple Resp: Other: decreased breath sounds B/L GI: GI Palp: Yes Soft to palpation Auscultation: normal bowel sounds Skin: General skin exam: normal color Psych: Mental Status: mental status grossly normal Objective Data Vital Signs Vital Signs: Vital Signs - 24 hr 07/01/21 18:00 07/01/21 19:40 07/01/21 20:00 Temperature 97.1 F L Pulse Rate 115 H 114 H 105 H Respiratory Rate 20 Blood Pressure 186/74 H Pulse Oximetry 95 100 07/01/21 20:01 07/01/21 20:11 07/01/21 22:00 Temperature Pulse Rate 108 H 108 H 106 H Respiratory Rate 22 H 22 H Blood Pressure Pulse Oximetry 95 07/01/21 23:47 07/02/21 00:00 07/02/21 00:08 Temperature 98.7 F Pulse Rate 101 H 102 H 108 H Respiratory Rate 27 H 22 H Blood Pressure 153/74 H Pulse Oximetry 98 95 97 07/02/21 00:18 07/02/21 02:00 07/02/21 03:00 Temperature 98.9 F Pulse Rate 108 H 96 115 H Respiratory Rate 22 H 30 H Blood Pressure 188/89 H Pulse Oximetry 95 07/02/21 03:15 07/02/21 03:58 07/02/21 04:00 Temperature Pulse Rate 20 L 119 H Respiratory Rate 30 H Blood Pressure Pulse Oximetry 98 97 07/02/21 04:08 07/02/21 04:45 07/02/21 06:00 Temperature Pulse Rate 20 L 107 H 107 H Respiratory Rate 30 H 27 H Blood Pressure Pulse Oximetry 100 07/02/21 08:00 07/02/21 08:07 07/02/21 08:10 Temperature 97.6 F Pulse Rate 110 H 100 104 H Respiratory Rate 22 H 23 H 22 H Blood Pressure 135/68 Pulse Oximetry 98 98 07/02/21 09:00 07/02/21 10:00 07/02/21 11:30 Temperature Pulse Rate 113 H 97 Respiratory Rate 22 H Blood Pressure 160/77 H Pulse Oximetry 07/02/21 11:39 07/02/21 11:41 07/02/21
[2021-07-02] MEDS: FAMOTIDINE 20 MG TABLET PO (18:00)
--- NOTE | 2021-07-02 20:09 | PCRCNOTE ---
Per respiratory care communication: change home trilogy settings to hospital settings. RT is not able to change home unit to hospital settings as it is outside of our scope of practice.
[2021-07-02] MEDS: PRAVASTATIN SODIUM 20 MG TABLET PO (20:15)
[2021-07-02] MEDS: SERTRALINE HCL 25 MG TABLET PO (20:15)
[2021-07-03] VITALS (29 sets, daily range): BP systolic 160–192; BP diastolic 74–106; PULSE 100–126; RESP 20–30; TEMP 36.1–36.6; O2SAT 97–100; BMI 18.1
[2021-07-03] MEDS: methylPREDNISolone SOD SUCC 40 MG VIAL IV PUSH ×4 (00:17→16:31)
[2021-07-03] MEDS: hydrALAZINE HCL 20 MG/ML VIAL 10 MG IV PUSH (00:23)
[2021-07-03] MEDS: SALINE LOCK FLUSH 10 ML IV PUSH ×3 (05:14→22:36)
[2021-07-03 05:16] LABS: Hematocrit 31.5 % (37.0-47.0); Mean Corpuscular HGB Conc 31.7 g/dl (32-36); Mean Corpuscular Hemoglobin 30.2 pg (26-34); Mean Corpuscular Volume 95.2 fl (80-100); Mean Platelet Volume 9.7 fl (7.4-10.4); Platelet Count Result 216 k/mm3 (150-375); Red Blood Count 3.31 M/mm3 (4.2-5.4); Red Cell Distribution Width 13.2 % (11.5-14.5)
[2021-07-03 05:25] LABS: Albumin Level 4.2 g/dL (3.5-5.1); Blood Urea Nitrogen 26 mg/dL (7-17); Calcium 8.7 mg/dL (8.4-10.2); Carbon Dioxide > 40 mmol/L (22-30); Chloride 80 mmol/L (98-107); Estimated CRCL calculation 53 ml/min; Estimated Glomerular Filt Rate > 60; Glucose 124 mg/dL (65-110); Phosphorus 2.7 mg/dL (2.5-4.5); Potassium 3.6 mmol/L (3.4-5.0); Sodium 123 mmol/L (137-145)
[2021-07-03] MEDS: ALBUTEROL SULFATE NEB 2.5 MG/0.5 ML INH 5 MG INHALATION ×3 (07:51→20:36)
[2021-07-03] MEDS: IPRATROPIUM BR 0.02% INH SOLN 0.5 MG/2.5 ML VIAL INHALATION ×3 (07:53→20:35)
--- NOTE | 2021-07-03 08:09 | PM.PNNEP ---
Progress Note: A&P Additional Plan 1. Kyle has hyponatremia. The sodium level has gradually decreased while here. She has chronic hyponatremia going back for years. This is probably due to her COPD. She is also on sertraline, hydrochlorothiazide, and omeprazole all of which can reduce sodium levels as well. She also has acute worsening hyponatremia. urine sodium is low. Free T4 is normal. Cortisol level, protein electrophoresis, and osmolality is pending. Urine osmolality was not low. 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 dose of sertraline was reduced yesterday. Hydrochlorothiazide and PPI are discontinued. sodium level dropped to 123. Will give saline plus furosemide. Because of the low urine sodium she will need the fluid and the furosemide will keep her sodium from dropping more. Will do low-dose of both. 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 No sign of a brain tumor or large stroke. Her chest x-ray and CT scans all show just the COPD. There is no history of cancer. Medicines were discussed above. The patient is on Solu-Medrol which rules out cortisol deficiency as a cause. I will check a TSH. 2. Patient has respiratory acidosis due to her COPD. She also has a superimposed metabolic alkalosis due to the hydrochlorothiazide. Her urine sodium is low which also suggests that pre renal azotemia may be at play. Will see how the bicarbonate does with the fluid. Consider Diamox to bring the serum bicarb down. The hydrochlorothiazide is already discontinued. 3. The patient has COPD. She is getting supportive care for this. 4. Considering the bit of issues plus her COPD which is severe and her poorly nurse date, the overall prognosis for this patient is fairly poor. 5. hypertension. Patient was on losartan HCT on admission. This was discontinued because of low blood pressure at that time. Will restart the losartan alone. Subjective Date/time seen: 07/03/21 08:09 Interval history: The patient feels okay. She is on the BiPAP machine. She is breathing okay. No belly problems. Review of Systems Cardiovascular: Cardiovascular: Reports no additional cardiovascular complaints Respiratory: Respiratory: Reports no additional respiratory complaints Gastrointestinal: Gastrointestinal: Reports no additional gastrointestinal complaints Genitourinary: Genitourinary: Reports no additional female genitourinary complaints Exam Narrative: WDWN in NAD skin no rash head ncat lungs clear bilaterally cor reg no rub abd BS+ nontender and soft ext no edema or cyanosis. Objective Data Vital Signs Vital Signs: Vital Signs - 24 hr 07/02/21 08:10 07/02/21 09:00 07/02/21 10:00 Temperature Pulse Rate 104 H 113 H Respiratory Rate 22 H Blood Pressure 160/77 H Pulse Oximetry 07/02/21 11:30 07/02/21 11:39 07/02/21 11:41 Temperature Pulse Rate 97 101 H 102 H Respiratory Rate 22 H 22 H 22 H Blood Pressure Pulse Oximetry 97 07/02/21 12:00 07/02/21 14:00 07/02/21 16:00 Temperature 36.4 C 36.3 C L Pulse Rate 111 H 107 H 104 H Respiratory Rate 22 H 28 H Blood Pressure 146/79 H 188/79 H Pulse Oximetry 97 99 07/02/21 16:50 07/02/21 16:58 07/02/21 18:00 Temperature Pulse Rate 112 H 110 H 119 H Respiratory Rate 20 22 H Blood Pressure Pulse Oximetry 07/02/21 18:15 07/02/21 19:46 07/02/21 20:00 Temperature 36.7 C Pulse Rate 122 H 120 H Respiratory Rate 20 Blood Pressure 180/60 H Pulse Oximetry 95 93 07/02/21 20:03 07/02/21 20:06 07/02/21 20:08 Temperature Pulse Rate 122 H 122 H Respiratory Rate 31 H 25 H Blood Pressure Pulse Oximetry 91 94 07/02/21 20:12 07/02/21 22:00 07/02/21 23:50 Temperature 36.6 C Pulse Rate 115 H 112 H 117 H Respiratory Rate 25 H 22 H Blood Pressure 176/64 H Pulse Oximetry 95 07/02/21 23:51 07/02/21 23:5
[2021-07-03 08:50] LABS: Alveolar/Arterial O2 Gradient 92.2 mmHg; Base Excess ABG 14.3 mEq/l (+/-2.0); Fractional Inspired Oxygen 35 %; HCO3 ABG 40.3 mEq/l (22.0-26.0); Oxygen Content ABG 15.2 %vol (16.0-22.0); Oxygen Saturation ABG 97.1 % (95.0-100.0); Oxyhemoglobin 96.4 % THb (90.0-100.0); PCO2 ABG 57.9 mmHg (35.0-45.0); PO2 FiO2 Ratio Arterial Blood 2.57 %; Total Hemoglobin 11.1 g/dL (12.0-18.0); pH ABG 7.461 (7.350-7.450)
[2021-07-03 08:51] LABS: Device BIPAP; Expiratory Pressure 5 cmH2O; Modified Allen's Test Pass; Site Drawn RIGHT RADIAL
[2021-07-03] MEDS: SODIUM CHLORIDE 0.9% IV 1,000 ML 50 ML IV CONT ×2 (09:25→22:33)
[2021-07-03] MEDS: FUROSEMIDE 20 MG TABLET PO ×2 (09:26→16:31)
[2021-07-03] MEDS: ENOXAPARIN 40 MG/0.4 ML SYRINGE SUB-Q (09:26)
[2021-07-03] MEDS: FAMOTIDINE 20 MG TABLET PO (09:26)
[2021-07-03] MEDS: FLUTICASONE PROPIONATE 0.05% NA SPR 16 GM BTL (*BKC) 2 SPRAY NASAL (09:26)
[2021-07-03] MEDS: LOSARTAN POTASSIUM 50 MG TABLET PO (09:26)
[2021-07-03] MEDS: SACCHAROMYCES BOULARDII 250 MG CAPSULE PO (09:26)
[2021-07-03] MEDS: OMEGA 3 POLYUNSAT FATTY ACIDS 1 GM CAP PO (09:27)
[2021-07-03] MEDS: MONTELUKAST SODIUM 10 MG TABLET PO (09:27)
--- NOTE | 2021-07-03 10:45 | PM.IMPN ---
Progress Note: A&P Assessment and Plan (1) Acute on chronic respiratory failure with hypoxia and hypercapnia: Code(s): J96.21 - Acute and chronic respiratory failure with hypoxia; J96.22 - Acute and chronic respiratory failure with hypercapnia Status: Acute Assessment and Plan: PLAN: Continue AVAPS. Continue IV antibiotics and continued IV prednisone and also her other respiratory medications. Overall patient is requiring significant support currently. Guarded prognosis (2) Pneumonia: Qualifiers: Laterality: bilateral Lung location: lower lobe of lung Pneumonia type: due to unspecified organism Qualified Code(s): J18.9 - Pneumonia, unspecified organism Code(s): J18.9 - Pneumonia, unspecified organism Status: Acute Assessment and Plan: For continued IV antibiotics. (3) COPD (chronic obstructive pulmonary disease): Code(s): J44.9 - Chronic obstructive pulmonary disease, unspecified Status: Acute Assessment and Plan: Continue nebulizers and also her IV prednisone. Guarded prognosis. (4) Hyponatremia: Code(s): E87.1 - Hypo-osmolality and hyponatremia Status: Acute Assessment and Plan: Management per Nephrology. 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 IV fluids and Lasix have been ordered. Monitor electrolyte status. No neurologic changes currently. Subjective Date/time seen: 07/03/21 10:45 Patient appears to be significantly short of breath and is on noninvasive ventilation. Review of Systems Review of Systems: All systems reviewed & are unremarkable except as noted in HPI and below ROS unobtainable: Yes unobtainable due to medical condition (On BiPAP) Constitutional: Constitutional: Reports fatigue, Reports headache(s) and Reports weakness Eyes: Eyes: Reports no additional eye complaints ENT: Reports system reviewed and no additional complaints, except as documented and Reports headache(s) Cardiovascular: Cardiovascular: Reports chest pain and Reports dyspnea Respiratory: Respiratory: Reports dyspnea Gastrointestinal: Gastrointestinal: Reports no additional gastrointestinal complaints Neurologic: Reports headache(s) and Reports weakness Endocrine: Endocrine: Reports fatigue Exam Narrative: on BIPAP Const: General: comfortable, no acute distress, well developed, alert, awake, in distress moderate and ill appearing acutely Nutritional Appearance: thin Orientation/consciousness: patient oriented x3 HENMT: Head: normal to inspection, normocephalic and atraumatic Ears: hearing grossly normal bilaterally General nose exam: Normal external nose present Face and sinus: normal facial exam Mouth: Yes Normal oral and palatal mucosa present Eyes: General: appearance normal, both eyes and all related structures Alignment and Position: alignment normal Sclera: sclerae normal Pupils: Equal, round and reactive pupils present EOM: EOMs intact bilaterally Neck: Neck: normal visual inspection, full ROM, no lymphadenopathy, supple and no JVD Thyroid: thyroid normal Lymphatic: no lymphadenopathy noted Resp: Effort & Inspection: normal respiratory effort and able to speak in complete sentences Auscultation: clear to auscultation bilaterally, no crackles, no rales, no rhonchi, no wheezes and diminished lung sounds Other: decreased breath sounds B/L Cardio: Jugular venous distension: no JVD Rate: regular rate Rhythm: regular rhythm Heart sounds: S1 normal heart sound present and S2 normal heart sound present GI: Inspection: normal to inspection Auscultation: normal bowel sounds : General: Yes deferred Skin: General skin exam: normal color Rashes: no rashes Wounds: no wounds Neuro: General: patient oriented
--- NOTE | 2021-07-03 11:34 | PCNSR ---
On 07/03/21, the student, Judy Pyle, provided care and completed [facility] documentation on this patient. I have reviewed the student's documentation and agree with the findings.
--- NOTE | 2021-07-03 13:44 | PM.PNPUL ---
Progress Note: A&P Assessment and Plan (1) Acute on chronic respiratory failure with hypoxia and hypercapnia: Code(s): J96.21 - Acute and chronic respiratory failure with hypoxia; J96.22 - Acute and chronic respiratory failure with hypercapnia Status: Acute Assessment and Plan: PLAN: Continue AVAPS with increased TV 550, Increased Max PS to 28, and lower FiO2 0.35. diamox 500 mg x 1 Cont these settings, and change her Trilogy settings to those she is now using from home, and have this ready before she returns home. Antibiotics for the RLL infiltrate with coverage for Pseudomonas as this is what she grew last admission June 10. Follow her WBC, Na, ABG, and response to treatment. Na is lower, appreciate Dr Dudley's analysis and management. (2) Pneumonia: Qualifiers: Laterality: bilateral Lung location: lower lobe of lung Pneumonia type: due to unspecified organism Qualified Code(s): J18.9 - Pneumonia, unspecified organism Code(s): J18.9 - Pneumonia, unspecified organism Status: Acute Assessment and Plan: She has a new round pneumonia in the right base, and the RML infiltrate that was there for 2 months is gone.Consider chest CT without contrast if she is not improving. She just had a chest CT 06/20, new infiltrate developed since then. repeat CXR (3) COPD (chronic obstructive pulmonary disease): Code(s): J44.9 - Chronic obstructive pulmonary disease, unspecified Status: Acute Assessment and Plan: She has severe emphysema on CT scan, no PFTs to review. She has bullous changes throughout her lungs, kiley the apices. Continue triple therapy and short acting bronchodilators, steroids, Cornet valve to help with secretions. Subjective Date/time seen: 07/03/21 13:44 Kyle Love is a 70 year old patient seen in follow up for RLL infiltrate with severe COPD, acute on chronic respiratory failure on oxygen. She has a Trilogy at home for hypercapnia. Her niece brought it to the hospital Friday. Her ABG is better but she feels terrible, cannot come off BiPAP without severe increase in work of breathing. She has post hypercapnic metabolic alkalosis and contraction alkalosis, and Dr Dudley recommended acetazolamide which makes sense. I ordered 500 mg IV one time dose 07/03: ABG 7.461/pCO2 57.9/ pO2 90.0 / HCO3 40.3/ Sat 97.1%. Diamox ordered 500 mg IV. She does not look good today. Tired. Short of breath. Dependent on AVAPS. 07/02: ABG better, 7.41/60.1/87.9/37.8 ->35%; WBC down, 17.2, Na+ 124. Headache, high BP & pulse. Lower O2; 4L->2 L/min 07/01 : AB.27/73/95 on AVAPS and 40%; after this ABG, FiO2 decreased to 35%, TV increased to 550 She continued to have hypercapnia.Max PS to 28 from 25 mmHg; Incr TV to 12.5, target TV is 550. FiO2 lower 35%. 06/30 : Changed BIPAP to AVAPS with her home settings on her Trilogy. 06/29 : presented to ED with increased shortness of breath, cough, increased amounts of clear sputum with dark areas. Her CXR shows a round infiltrate in the right base, different from her recent RML atelectasis. No fever, sore throat, head congestion, pleuritic chest pain, N/V/D, difficulty swallowing of choking after eating. Started on Levaquin, steroids for COPD, bronchodilators, WBC is high, 25.4K, Na+ 129. 06/14/2021: office visit; persistent right middle lobe mass with or atelectasis on several imaging studies since Mar 30, 2021 CTA. Due to her multiple admissions in the hospital in May, April, March of this year and January 2021 in [place], I ordered Daliresp to be added to her COPD regimen. She has not received this yet; this requires a prior authorization. I ordered chest CT which she had 06/20; this showed resolution of the RML atelectasis that was present since Mar 30 CTA
[2021-07-03] MEDS: acetaZOLAMIDE SODIUM FOR INJ 500 MG VIAL IV PUSH (16:30)
[2021-07-03 16:37] LABS: Sodium 128 mmol/L (137-145)
[2021-07-03] MEDS: SERTRALINE HCL 25 MG TABLET PO (20:17)
[2021-07-03] MEDS: PRAVASTATIN SODIUM 20 MG TABLET PO (20:17)
[2021-07-03 20:38] LABS: Sodium 126 mmol/L (137-145)
[2021-07-04] VITALS (30 sets, daily range): BP systolic 118–162; BP diastolic 64–89; PULSE 71–129; RESP 22–34; TEMP 36.1–37.4; O2SAT 98–100
[2021-07-04] MEDS: ALBUTEROL SULFATE NEB 2.5 MG/0.5 ML INH 5 MG INHALATION ×6 (00:09→20:57)
[2021-07-04] MEDS: IPRATROPIUM BR 0.02% INH SOLN 0.5 MG/2.5 ML VIAL INHALATION ×6 (00:10→20:57)
[2021-07-04] MEDS: methylPREDNISolone SOD SUCC 40 MG VIAL IV PUSH ×5 (00:57→23:58)
[2021-07-04] MEDS: FUROSEMIDE 20 MG TABLET PO ×4 (00:57→23:58)
[2021-07-04 05:29] LABS: Hematocrit 30.2 % (37.0-47.0); Hemoglobin 9.7 g/dL (12.0-15.0); Mean Corpuscular HGB Conc 32.1 g/dl (32-36); Mean Corpuscular Hemoglobin 29.9 pg (26-34); Mean Corpuscular Volume 93.2 fl (80-100); Mean Platelet Volume 9.3 fl (7.4-10.4); Platelet Count Result 203 k/mm3 (150-375); Red Blood Count 3.24 M/mm3 (4.2-5.4); Red Cell Distribution Width 13.2 % (11.5-14.5); White Blood Count 8.5 K/mm3 (4.5-10.0)
[2021-07-04 05:39] LABS: Albumin Level 3.7 g/dL (3.5-5.1); Anion Gap 7 mmol/L (8-16); Blood Urea Nitrogen 25 mg/dL (7-17); Calcium 8.1 mg/dL (8.4-10.2); Carbon Dioxide 35 mmol/L (22-30); Chloride 84 mmol/L (98-107); Estimated CRCL calculation 33 ml/min; Estimated Glomerular Filt Rate > 60; Glucose 102 mg/dL (65-110); Phosphorus 2.5 mg/dL (2.5-4.5); Potassium 3.1 mmol/L (3.4-5.0); Sodium 126 mmol/L (137-145)
[2021-07-04] MEDS: SALINE LOCK FLUSH 10 ML IV PUSH ×3 (05:51→21:42)
[2021-07-04] MEDS: HYDROcodone/acetaminophen (*CRX) 10-325 MG TABLET 1 TAB PO ×2 (09:30→13:23)
[2021-07-04] MEDS: FAMOTIDINE 20 MG TABLET PO (10:27)
[2021-07-04] MEDS: SACCHAROMYCES BOULARDII 250 MG CAPSULE PO (10:27)
[2021-07-04] MEDS: LOSARTAN POTASSIUM 50 MG TABLET PO (10:27)
[2021-07-04] MEDS: OMEGA 3 POLYUNSAT FATTY ACIDS 1 GM CAP PO (10:27)
[2021-07-04] MEDS: FLUTICASONE PROPIONATE 0.05% NA SPR 16 GM BTL (*BKC) 2 SPRAY NASAL (10:28)
[2021-07-04] MEDS: ENOXAPARIN 40 MG/0.4 ML SYRINGE SUB-Q (10:28)
[2021-07-04] MEDS: MONTELUKAST SODIUM 10 MG TABLET PO (10:28)
--- NOTE | 2021-07-04 10:32 | PM.PNNEP ---
Progress Note: A&P Additional Plan 1. Kyle has hyponatremia. The sodium level has gradually decreased while here. She has chronic hyponatremia going back for years. This is probably due to her COPD. She is also on sertraline, hydrochlorothiazide, and omeprazole all of which can reduce sodium levels as well. She also has acute worsening hyponatremia. urine sodium is low. Free T4 is normal. TSH and T3 are both low. Not sure what is going on here. Cortisol level, protein electrophoresis, and osmolality is pending. Urine osmolality was not low. 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 off PPI and hydrochlorothiazide. On lower dose of sertraline. Getting Lasix plus saline. sodium level audrey to 129 and has settled at 1:26 a.m. 2. Patient has respiratory acidosis due to her COPD. CO2 has come down. 2.5 Potassium is low. Will supplement. 3. The patient has COPD. She is getting supportive care for this. 4. Considering the bit of issues plus her COPD which is severe and her poorly nurse date, the overall prognosis for this patient is fairly poor. 5. hypertension. Now on losartan. Blood pressure seems to be a little better. Will follow for trend Subjective Date/time seen: 07/04/21 10:32 Interval history: More interactive today. She is on the BiPAP machine continuously. it is still early so I am not sure how I am feeling Exam Narrative: WDWN in NAD skin no rash head ncat lungs clear bilaterally cor reg no rub abd BS+ nontender and soft ext no edema or cyanosis. Objective Data Vital Signs Vital Signs: Vital Signs - 24 hr 07/03/21 11:00 07/03/21 11:07 07/03/21 11:30 Temperature Pulse Rate 126 H 124 H 102 H Respiratory Rate 24 H 24 H 22 H Blood Pressure Pulse Oximetry 98 07/03/21 12:00 07/03/21 14:00 07/03/21 16:00 Temperature 36.4 C L 36.1 C L Pulse Rate 116 H 114 H 120 H Respiratory Rate 22 H 24 H Blood Pressure 171/106 H 192/90 H Pulse Oximetry 100 98 07/03/21 16:46 07/03/21 18:00 07/03/21 19:31 Temperature 36.6 C Pulse Rate 100 103 H 120 H Respiratory Rate 20 25 H Blood Pressure 177/90 H Pulse Oximetry 98 100 07/03/21 20:00 07/03/21 20:36 07/03/21 20:37 Temperature Pulse Rate 103 H 116 H 113 H Respiratory Rate 24 H 25 H 23 H Blood Pressure Pulse Oximetry 100 100 07/03/21 20:48 07/03/21 22:00 07/04/21 00:00 Temperature 37.4 C Pulse Rate 103 H 115 H 99 Respiratory Rate 24 H 22 H Blood Pressure 118/64 Pulse Oximetry 99 07/04/21 00:13 07/04/21 00:14 07/04/21 02:00 Temperature Pulse Rate 99 99 71 Respiratory Rate 22 H 22 H Blood Pressure Pulse Oximetry 99 07/04/21 04:00 07/04/21 04:13 07/04/21 04:16 Temperature 36.9 C Pulse Rate 111 H 101 H 103 H Respiratory Rate 25 H 22 H 25 H Blood Pressure 130/71 Pulse Oximetry 100 100 07/04/21 04:20 07/04/21 05:51 07/04/21 08:00 Temperature 36.6 C Pulse Rate 109 H 107 H 104 H Respiratory Rate 22 H 24 H Blood Pressure 162/89 H Pulse Oximetry 100 07/04/21 08:08 07/04/21 08:09 Temperature Pulse Rate 116 H 116 H Respiratory Rate 22 H 34 H Blood Pressure Pulse Oximetry 100 Intake/Output Intake/Output: Intake & Output 07/01/21 07/02/21 07/03/21 07/04/21 23:59 23:59 23:59 23:59 Intake Total 1300 580 390 600 Output Total 1000 360 100 800 Balance 300 220 290 -200 Meds/Results Medications: Active Medications Generic Name Dose Route Start Last Admin Trade Name Freq PRN Reason Stop Dose Admin Acetaminophen 650 mg 07/02/21 13:07 07/02/21 22:08 Acetaminophen 325 Mg Tablet PO 650 mg Q6H PRN Administration Mild Pain (1-3) or Fever Hydrocodone Bitart/Acetaminophen 1 tab 07/02/21 19:46 Hydrocodone/Acetaminophen (*Crx) 10-325 Mg Tablet PO Q4H PRN Pain Rated 4-6 Al Hydrox/Mg Hydrox/Simethicone 30 ml
--- NOTE | 2021-07-04 10:53 | PM.PNPUL ---
Progress Note: A&P Assessment and Plan (1) Acute on chronic respiratory failure with hypoxia and hypercapnia: Code(s): J96.21 - Acute and chronic respiratory failure with hypoxia; J96.22 - Acute and chronic respiratory failure with hypercapnia Status: Acute Assessment and Plan: PLAN: Continue AVAPS with increased TV 550, Increased Max PS to 28, and lower FiO2 0.35. Try to let her come off and be on O2 with nasal cannula. Anxiety treatment. Cont these settings, and change her Trilogy settings to those she is now using from home, and have this ready before she returns home. Antibiotics for the RLL infiltrate with coverage for Pseudomonas as this is what she grew last admission June 10. Follow her WBC 8.5, normal, Na is better,and response to treatment. Na is lower, appreciate Dr Dudley's analysis and management. (2) Pneumonia: Qualifiers: Laterality: bilateral Lung location: lower lobe of lung Pneumonia type: due to unspecified organism Qualified Code(s): J18.9 - Pneumonia, unspecified organism Code(s): J18.9 - Pneumonia, unspecified organism Status: Acute Assessment and Plan: She has a new round pneumonia in the right base, and the RML infiltrate that was there for 2 months is gone.Consider chest CT without contrast if she is not improving. She just had a chest CT 06/20, new infiltrate developed since then. repeat CXR (3) COPD (chronic obstructive pulmonary disease): Code(s): J44.9 - Chronic obstructive pulmonary disease, unspecified Status: Acute Assessment and Plan: She has severe emphysema on CT scan, no PFTs to review. She has bullous changes throughout her lungs, kiley the apices. Continue triple therapy and short acting bronchodilators, steroids, Cornet valve to help with secretions. Subjective Date/time seen: 07/04/21 10:53 Kyle Love is a 70 year old patient seen in follow up for RLL infiltrate with severe COPD, acute on chronic respiratory failure on oxygen. She has a Trilogy at home for hypercapnia and her settings will be changes prior to discharge. She does not have an ABG today. Her chemistry shows lower CO2, so the diamox definitely let her lose some bicarbonate. She is not feeling great today, still has a headache and anxiety. She wants something for anxiety. She is spending more time on AVAPS than on cannula. Her post hypercapnic metabolic alkalosis and contraction alkalosis are better after diamox and Na+ is up to 126. 07/03: ABG 7.461/pCO2 57.9/ pO2 90.0 / HCO3 40.3/ Sat 97.1%. Diamox ordered 500 mg IV. She does not look good today. Tired. Short of breath. Dependent on AVAPS. 07/02: ABG better, 7.41/60.1/87.9/37.8 ->35%; WBC down, 17.2, Na+ 124. Headache, high BP & pulse. Lower O2; 4L->2 L/min 07/01 : AB.27/73/95 on AVAPS and 40%; after this ABG, FiO2 decreased to 35%, TV increased to 550 She continued to have hypercapnia.Max PS to 28 from 25 mmHg; Incr TV to 12.5, target TV is 550. FiO2 lower 35%. 06/30 : Changed BIPAP to AVAPS with her home settings on her Trilogy. 06/29 : presented to ED with increased shortness of breath, cough, increased amounts of clear sputum with dark areas. Her CXR shows a round infiltrate in the right base, different from her recent RML atelectasis. No fever, sore throat, head congestion, pleuritic chest pain, N/V/D, difficulty swallowing of choking after eating. Started on Levaquin, steroids for COPD, bronchodilators, WBC is high, 25.4K, Na+ 129. 06/14/2021: office visit; persistent right middle lobe mass with or atelectasis on several imaging studies since Mar 30, 2021 CTA. Due to her multiple admissions in the hospital in May, April, March of this year and January 2021 in [place], I ordered Daliresp to be added to her COPD reg
--- NOTE | 2021-07-04 11:22 | PM.IMPN ---
Progress Note: A&P Assessment and Plan (1) Acute on chronic respiratory failure with hypoxia and hypercapnia: Code(s): J96.21 - Acute and chronic respiratory failure with hypoxia; J96.22 - Acute and chronic respiratory failure with hypercapnia Status: Acute Assessment and Plan: Continue AVAPS. Secondary to COPD exacerbation and pneumonia continue IV steroid continue antibiotics to cover Pseudomonas Guarded prognosis (2) Pneumonia: Qualifiers: Laterality: bilateral Lung location: lower lobe of lung Pneumonia type: due to unspecified organism Qualified Code(s): J18.9 - Pneumonia, unspecified organism Code(s): J18.9 - Pneumonia, unspecified organism Status: Acute Assessment and Plan: On IV antibiotics pulmonology recommended probable repeat CT scan if no improvement Patient has history of Pseudomonas concern for recurrent infection from Pseudomonas pneumonia continue IV antibiotics (3) COPD (chronic obstructive pulmonary disease): Code(s): J44.9 - Chronic obstructive pulmonary disease, unspecified Status: Acute Assessment and Plan: Nebulizer treatment steroid antibiotics (4) Hyponatremia: Code(s): E87.1 - Hypo-osmolality and hyponatremia Status: Acute Assessment and Plan: Management per Nephrology. 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 Nephrology recommendation appreciated ly. Additional Plan Severe protein calorie malnutrition dietitian consult Fluid overload will give 1 dose of IV Lasix Subjective Date/time seen: 07/04/21 11:22 Interval history: 70-year-old female with past medical history significant for severe COPD/emphysema on supplemental oxygen at home, recent admission and discharge for COPD exacerbation presented to the hospital was found to have acute on top of chronic hypoxemic respiratory failure secondary to COPD exacerbation pneumonia pulmonology was consulted patient required BiPAP treated with IV antibiotic Inhaler treated nebulizer treatment Still on BiPAP short of breath Patient denies fever headache chest pain shortness of breath I am seeing the patient for shortness of breath Exam Narrative: Alert Chest decreased air entry bilateral positive bilateral crackles Abdomen nontender nondistended CVS S1 + S2 Positive Lower extremity edema Objective Data Vital Signs Vital Signs: Vital Signs - 24 hr 07/03/21 11:30 07/03/21 12:00 07/03/21 14:00 Temperature 97.5 F L Pulse Rate 102 H 116 H 114 H Respiratory Rate 22 H 22 H Blood Pressure 171/106 H Pulse Oximetry 98 100 07/03/21 16:00 07/03/21 16:46 07/03/21 18:00 Temperature 97 F L Pulse Rate 120 H 100 103 H Respiratory Rate 24 H 20 Blood Pressure 192/90 H Pulse Oximetry 98 98 07/03/21 19:31 07/03/21 20:00 07/03/21 20:36 Temperature 97.8 F Pulse Rate 120 H 103 H 116 H Respiratory Rate 25 H 24 H 25 H Blood Pressure 177/90 H Pulse Oximetry 100 100 07/03/21 20:37 07/03/21 20:48 07/03/21 22:00 Temperature Pulse Rate 113 H 103 H 115 H Respiratory Rate 23 H 24 H Blood Pressure Pulse Oximetry 100 07/04/21 00:00 07/04/21 00:13 07/04/21 00:14 Temperature 99.4 F Pulse Rate 99 99 99 Respiratory Rate 22 H 22 H 22 H Blood Pressure 118/64 Pulse Oximetry 99 99 07/04/21 02:00 07/04/21 04:00 07/04/21 04:13 Temperature 98.4 F Pulse Rate 71 111 H 101 H Respiratory Rate 25 H 22 H Blood Pressure 130/71 Pulse Oximetry 100 07/04/21 04:16 07/04/21 04:20 07/04/21 05:51 Temperature Pulse Rate 103 H 109 H 107 H Respiratory Rate 25 H 22 H Blood Pressure Pulse Oximetry 100 07/04/21 08:00 07/04/21 08:08 07/04/21 08:09 Temperature 97.8 F Pulse Rate 104 H 116 H 116 H Respiratory Rate 24 H 22 H 34 H Blood Pressure 162/89 H Pulse Oximetry 100 100 Intake/Output Intake/Output: Intake & Output 07/01/21 07/02/21 07/03/21 07/04/21 23:59 23:59 23:59 23:59 In
[2021-07-04] MEDS: FUROSEMIDE INJ 40 MG/4 ML VIAL IV PUSH (11:47)
[2021-07-04] MEDS: LORazepam INJ (*CRX) 2 MG/ML VIAL 0.5 MG IV PUSH (12:00)
[2021-07-04 16:22] LABS: Sodium 129 mmol/L (137-145)
[2021-07-04] MEDS: POTASSIUM CHLORIDE 20 MEQ TABLET PO (16:23)
[2021-07-04] MEDS: POTASSIUM CHLORIDE 20 MEQ TABLET 40 MEQ PO (16:23)
[2021-07-04 16:26] LABS: Magnesium 2.2 mg/dL (1.6-2.3)
[2021-07-04 19:50] LABS: Pneumococcal Antigen Urine Not Detected (Not Detected)
[2021-07-04] MEDS: PRAVASTATIN SODIUM 20 MG TABLET PO (21:32)
[2021-07-04] MEDS: SERTRALINE HCL 25 MG TABLET PO (21:32)
[2021-07-04] MEDS: SODIUM CHLORIDE 0.9% IV 1,000 ML 50 ML IV CONT (21:39)
[2021-07-05] VITALS (33 sets, daily range): BP systolic 117–170; BP diastolic 69–103; PULSE 85–138; RESP 20–27; TEMP 36.2–36.9; O2SAT 93–100
[2021-07-05] MEDS: IPRATROPIUM BR 0.02% INH SOLN 0.5 MG/2.5 ML VIAL INHALATION ×7 (01:17→23:43)
[2021-07-05] MEDS: ALBUTEROL SULFATE NEB 2.5 MG/0.5 ML INH 5 MG INHALATION ×5 (01:18→15:43)
[2021-07-05 04:46] LABS: Hematocrit 29.1 % (37.0-47.0); Hemoglobin 9.3 g/dL (12.0-15.0); Mean Corpuscular Hemoglobin 29.9 pg (26-34); Mean Corpuscular Volume 93.6 fl (80-100); Mean Platelet Volume 9.6 fl (7.4-10.4); Platelet Count Result 216 k/mm3 (150-375); Red Blood Count 3.11 M/mm3 (4.2-5.4); Red Cell Distribution Width 13.2 % (11.5-14.5); White Blood Count 7.6 K/mm3 (4.5-10.0)
[2021-07-05 04:54] LABS: Anion Gap 2 mmol/L (8-16); Blood Urea Nitrogen 26 mg/dL (7-17); Carbon Dioxide 37 mmol/L (22-30); Chloride 85 mmol/L (98-107); Estimated CRCL calculation 37 ml/min; Estimated Glomerular Filt Rate > 60; Glucose 107 mg/dL (65-110); Potassium 3.8 mmol/L (3.4-5.0); Sodium 124 mmol/L (137-145)
[2021-07-05 05:09] LABS: Phosphorus 2.2 mg/dL (2.5-4.5)
[2021-07-05] MEDS: methylPREDNISolone SOD SUCC 40 MG VIAL IV PUSH ×3 (06:08→17:16)
[2021-07-05] MEDS: SALINE LOCK FLUSH 10 ML IV PUSH ×3 (06:08→22:03)
[2021-07-05] MEDS: FLUTICASONE/UMECLIDIN/VILANTER 100-62.5-25 MCG ELLIPTA 1 PUFF INHALATION (08:12)
[2021-07-05 09:17] LABS: Sodium 126 mmol/L (137-145)
[2021-07-05] MEDS: OMEGA 3 POLYUNSAT FATTY ACIDS 1 GM CAP PO (09:50)
[2021-07-05] MEDS: SACCHAROMYCES BOULARDII 250 MG CAPSULE PO (09:50)
[2021-07-05] MEDS: ENOXAPARIN 40 MG/0.4 ML SYRINGE SUB-Q (09:50)
[2021-07-05] MEDS: FUROSEMIDE 20 MG TABLET PO ×2 (09:50→17:15)
[2021-07-05] MEDS: LOSARTAN POTASSIUM 50 MG TABLET PO (09:50)
[2021-07-05] MEDS: MONTELUKAST SODIUM 10 MG TABLET PO (09:50)
[2021-07-05] MEDS: FLUTICASONE PROPIONATE 0.05% NA SPR 16 GM BTL (*BKC) 2 SPRAY NASAL (09:54)
--- NOTE | 2021-07-05 10:23 | PM.PNNEP ---
Progress Note: A&P Additional Plan 1. Kyle has hyponatremia. The sodium level has gradually decreased while here. She has chronic hyponatremia going back for years. This is probably due to her COPD. She is also on sertraline, hydrochlorothiazide, and omeprazole all of which can reduce sodium levels as well. She also has acute worsening hyponatremia. urine sodium is low. Free T4 is normal. TSH and T3 are both low. Not sure what is going on here. Cortisol level, protein electrophoresis, and osmolality is pending. Urine osmolality was not low. 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 off PPI and hydrochlorothiazide. On lower dose of sertraline. Getting Lasix plus saline. sodium level audrey to 129 Then fell to 124 and I repeated this this morning and it is up to 126. She isn't taking much fluid in. Will add demeclocycline because this is probably going to be chronic. Will also change saline to salt tablets and continue the Lasix to bring the urine osmolality down so it increases free water clearance. 2. Patient has respiratory acidosis due to her COPD. CO2 has come down. 3. The patient has COPD. She is getting supportive care for this. 4. hypertension. Now on losartan. Blood pressure Still a bit high. Increase the dose [id number] per day Subjective Date/time seen: 07/05/21 10:23 Interval history: More interactive today. She is on the BiPAP machine continuously. some shortness of breath. Exam Narrative: WDWN in NAD skin no rash head ncat lungs Some increase in expiratory phase. A small amount of wheezing noted. cor reg no rub abd BS+ nontender and soft ext no edema or cyanosis. Objective Data Vital Signs Vital Signs: Vital Signs - 24 hr 07/04/21 11:25 07/04/21 11:39 07/04/21 11:40 Temperature Pulse Rate 118 H 123 H 120 H Respiratory Rate 24 H 24 H 24 H Blood Pressure Pulse Oximetry 99 07/04/21 12:00 07/04/21 14:00 07/04/21 16:00 Temperature 36.2 C L 36.1 C L Pulse Rate 128 H 118 H 109 H Respiratory Rate 24 H 26 H Blood Pressure 159/85 H 154/78 H Pulse Oximetry 99 100 07/04/21 16:45 07/04/21 16:48 07/04/21 16:52 Temperature Pulse Rate 109 H 109 H 107 H Respiratory Rate 26 H 26 H 26 H Blood Pressure Pulse Oximetry 99 07/04/21 18:00 07/04/21 19:34 07/04/21 20:00 Temperature 36.6 C Pulse Rate 129 H 126 H 120 H Respiratory Rate 22 H Blood Pressure 148/73 H Pulse Oximetry 100 07/04/21 21:00 07/04/21 21:10 07/04/21 21:15 Temperature Pulse Rate 117 H 120 H 112 H Respiratory Rate 24 H 24 H 23 H Blood Pressure Pulse Oximetry 98 07/04/21 22:00 07/04/21 23:29 07/05/21 00:00 Temperature 36.6 C Pulse Rate 102 H 113 H 113 H Respiratory Rate 25 H Blood Pressure 130/89 Pulse Oximetry 100 07/05/21 00:39 07/05/21 01:19 07/05/21 01:20 Temperature Pulse Rate 104 H 104 H Respiratory Rate 26 H 26 H Blood Pressure Pulse Oximetry 100 99 07/05/21 01:30 07/05/21 02:00 07/05/21 04:00 Temperature 36.6 C Pulse Rate 108 H 96 100 Respiratory Rate 26 H 22 H Blood Pressure 124/74 Pulse Oximetry 100 07/05/21 05:13 07/05/21 05:14 07/05/21 06:00 Temperature Pulse Rate 90 90 88 Respiratory Rate 22 H 22 H Blood Pressure Pulse Oximetry 100 07/05/21 08:00 07/05/21 08:13 07/05/21 08:31 Temperature 36.8 C Pulse Rate 98 86 Respiratory Rate 27 H 23 H Blood Pressure 151/103 H Pulse Oximetry 100 100 96 Intake/Output Intake/Output: Intake & Output 07/02/21 07/03/21 07/04/21 07/05/21 23:59 23:59 23:59 23:59 Intake Total 499 546 5195 150 Output Total 442 430 1328 600 Balance 220 290 -460 -450 Meds/Results Medications: Active Medications Generic Name Dose Route Start Last Admin Trade Name Freq PRN Reason Stop Dose Admin Acetaminophen 650 mg 07/02/21 13:07 07/02/21
--- NOTE | 2021-07-05 10:44 | PM.IMPN ---
Progress Note: A&P Assessment and Plan (1) Acute on chronic respiratory failure with hypoxia and hypercapnia: Code(s): J96.21 - Acute and chronic respiratory failure with hypoxia; J96.22 - Acute and chronic respiratory failure with hypercapnia Status: Acute Assessment and Plan: Continue AVAPS. 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, recent admission and discharge for COPD exacerbation presented to the hospital was found to have acute on top of chronic hypoxemic respiratory failure secondary to COPD exacerbation pneumonia pulmonology was consulted patient required BiPAP treated with IV antibiotic Inhaler treated nebulizer treatment Still on BiPAP short of breath Hyponatremia worsening nephrology recommendation appreciated Chest x-ray reviewed showed improved pneumonia and emphysema Patient denies fever headache chest pain shortness of breath I am seeing the patient for shortness of breath Exam Narrative: Alert Chest decreased air entry bilateral positive bilateral crackles Abdomen nontender nondistended CVS S1 + S2 Positive Lower extremity edema Objective Data Vital Signs Vital Signs: Vital Signs - 24 hr 07/04/21 11:25 07/04/21 11:39 07/04/21 11:40 Temperature Pulse Rate 118 H 123 H 120 H Respiratory Rate 24 H 24 H 24 H Blood Pressure Pulse Oximetry 99 07/04/21 12:00 07/04/21 14:00 07/04/21 16:00 Temperature 97.1 F L 96.9 F L Pulse Rate 128 H 118 H 109 H Respiratory Rate 24 H 26 H Blood Pressure 159/85 H 154/78 H Pulse Oximetry 99 100 07/04/21 16:45 07/04/21 16:48 07/04/21 16:52 Temperature Pulse Rate 109 H 109 H 107 H Respiratory Rate 26 H 26 H 26 H Blood Pressure Pulse Oximetry 99 07/04/21 18:00 07/04/21 19:34 07/04/21 20:00 Temperature 97.9 F Pulse Rate 129 H 126 H 120 H Respiratory Rate 22 H Blood Pressure 148/73 H Pulse Oximetry 100 07/04/21 21:00 07/04/21 21:10 07/04/21 21:15 Temperature Pulse Rate 117 H 120 H 112 H Respiratory Rate 24 H 24 H 23 H Blood Pressure Pulse Oximetry 98 07/04/21 22:00 07/04/21 23:29 07/05/21 00:00 Temperature 97.8 F Pulse Rate 102 H 113 H 113 H Respiratory Rate 25 H Blood Pressure 130/89 Pulse Oximetry 100 07/05/21 00:39 07/05/21 01:19 07/05/21 01:20 Temperature Pulse Rate 104 H 104 H Respiratory Rate 26 H 26 H Blood Pressure Pulse Oximetry 100 99 07/05/21 01:30 07/05/21 02:00 07/05/21 04:00 Temperature 97.9 F Pulse Rate 108 H
[2021-07-05] MEDS: DEMECLOCYCLINE HCL 150 MG TABLET PO ×3 (13:42→22:02)
[2021-07-05 16:24] LABS: Albumin 4.3 g/dL (3.8-4.8); Alpha 1 Globulin 0.4 g/dL (0.2-0.3); Alpha 2 Globulin 1.1 g/dL (0.5-0.9); Beta 1 Globulin 0.5 g/dL (0.4-0.6); Protein, Total 7.6 g/dL (6.1-8.1)
--- NOTE | 2021-07-05 16:38 | PM.PNPUL ---
Progress Note: A&P Assessment and Plan (1) Acute on chronic respiratory failure with hypoxia and hypercapnia: Code(s): J96.21 - Acute and chronic respiratory failure with hypoxia; J96.22 - Acute and chronic respiratory failure with hypercapnia Status: Acute Assessment and Plan: PLAN: STAT CXR and ABG obtained Start PT/OT. Has been in bed a week Echo tomorrow for continued shortness of breath. Look for pulmonary hypertension or valvular problem that may aggravate her dyspnea. Stop Levaquin. CXR is stable. AVAPS with same increased TV 550, Increased Max PS to 28, and lower FiO2 0.35. Try to let her come off and be on O2 with nasal cannula. Anxiety treatment. She is getting PRN IV lorazepam 0.5 mg Q 6 hours. Stop Trelegy; start nebulized budesonide 0.5 mg twice a day, change albuterol to levalbuterol 1.25 mg Q 4 hours, continue ipratropium Q 4 hours Cont these settings, and change her Trilogy settings to those she is now using from home, and have this ready before she returns home. She has had Levaquin for a week, so now I stopped it. Follow her WBC 7.6, normal, Na is now 126 so going lower, Appreciate Dr Dudley's analysis and management. (2) Pneumonia: Qualifiers: Laterality: bilateral Lung location: lower lobe of lung Pneumonia type: due to unspecified organism Qualified Code(s): J18.9 - Pneumonia, unspecified organism Code(s): J18.9 - Pneumonia, unspecified organism Status: Acute Assessment and Plan: This CXR is the same. She has a new round pneumonia in the right base, and the RML infiltrate that was there for 2 months is gone. Consider chest CT without contrast. She just had a chest CT 06/20, new infiltrate developed since then. (3) COPD (chronic obstructive pulmonary disease): Code(s): J44.9 - Chronic obstructive pulmonary disease, unspecified Status: Acute Assessment and Plan: She has severe emphysema on CT scan, no PFTs to review. She has bullous changes throughout her lungs, kiley the apices. Continue triple therapy and short acting bronchodilators, steroids, Cornet valve to help with secretions. Subjective Date/time seen: 07/05/21 16:38 Kyle Love is a 70 year old patient seen in follow up for RLL infiltrate with severe COPD, acute on chronic respiratory failure on oxygen. She is alert, not on AVAPS now, on nasal cannula. She is thirsty due to Na+ restriction, wanted vanilla Ensure however this was not included on her lunch tray. She is not feeling better and her Na+ is not going up and staying up.It dropped back to 126 today. She is extremely short of breath. She has a Trilogy at home for hypercapnia and her settings will be changes prior to discharge. She is not feeling great today. I started low dose lorazepam yesterday. She is spending more time on AVAPS than on cannula. 07/05: ABG pH 7.381 / pCO2 66.7 / pO2 61.6/ hco3 38.7 / sat 89.9 on 2 L/min. CXR Stable right basilar airspace opacities, consistent with pneumonia, Severe emphysema. 07/04:Lorazepam 0.5 mg IV Q 6 hours started. 07/03: ABG 7.461/pCO2 57.9/ pO2 90.0 / HCO3 40.3/ Sat 97.1%. Diamox ordered 500 mg IV. She does not look good today. Tired. Short of breath. Dependent on AVAPS. 07/02: ABG better, 7.41/60.1/87.9/37.8 ->35%; WBC down, 17.2, Na+ 124. Headache, high BP & pulse. Lower O2; 4L->2 L/min 07/01 : AB.27/73/95 on AVAPS and 40%; after this ABG, FiO2 decreased to 35%, TV increased to 550 She continued to have hypercapnia.Max PS to 28 from 25 mmHg; Incr TV to 12.5, target TV is 550. FiO2 lower 35%. 06/30 : Changed BIPAP to AVAPS with her home settings on her Trilogy. 06/29 : presented to ED with increased shortness of breath, cough, increased amounts of clear sputum with dark areas. Her CXR shows a roun
[2021-07-05] MEDS: SODIUM CHLORIDE 1 GM TABLET PO (17:16)
[2021-07-05 17:56] LABS: Alveolar/Arterial O2 Gradient 59.3 mmHg; Base Excess ABG 11.3 mEq/l (+/-2.0); Fractional Inspired Oxygen 28 %; HCO3 ABG 38.7 mEq/l (22.0-26.0); Oxygen Content ABG 14.4 %vol (16.0-22.0); Oxygen Saturation ABG 90.3 % (95.0-100.0); Oxyhemoglobin 89.9 % THb (90.0-100.0); PO2 ABG 61.6 mmHg (80.0-100.0); Total Hemoglobin 11.4 g/dL (12.0-18.0); pH ABG 7.381 (7.350-7.450)
[2021-07-05 17:57] LABS: Device NASAL CANNULA; Modified Allen's Test Pass; PCO2 ABG 66.7 mmHg (35.0-45.0); Site Drawn RIGHT RADIAL
[2021-07-05] MEDS: LORazepam INJ (*CRX) 2 MG/ML VIAL 0.5 MG IV PUSH (20:30)
[2021-07-05] MEDS: SERTRALINE HCL 25 MG TABLET PO (22:02)
[2021-07-05] MEDS: PRAVASTATIN SODIUM 20 MG TABLET PO (22:02)
[2021-07-06] VITALS (26 sets, daily range): BP systolic 129–175; BP diastolic 68–92; PULSE 84–140; RESP 20–27; TEMP 36.2–36.4; O2SAT 95–100
[2021-07-06] MEDS: methylPREDNISolone SOD SUCC 40 MG VIAL IV PUSH ×4 (00:47→18:19)
[2021-07-06] MEDS: FUROSEMIDE 20 MG TABLET PO ×3 (00:47→18:20)
[2021-07-06] MEDS: SODIUM CHLORIDE 1 GM TABLET PO ×3 (00:47→18:20)
[2021-07-06] MEDS: IPRATROPIUM BR 0.02% INH SOLN 0.5 MG/2.5 ML VIAL INHALATION ×6 (04:10→23:33)
[2021-07-06] MEDS: SALINE LOCK FLUSH 10 ML IV PUSH ×3 (05:56→20:56)
[2021-07-06 06:10] LABS: Albumin Level 3.1 g/dL (3.5-5.1); Anion Gap 1 mmol/L (8-16); Blood Urea Nitrogen 25 mg/dL (7-17); Calcium 8.2 mg/dL (8.4-10.2); Carbon Dioxide 39 mmol/L (22-30); Chloride 89 mmol/L (98-107); Estimated CRCL calculation 50 ml/min; Estimated Glomerular Filt Rate > 60; Glucose 116 mg/dL (65-110); Phosphorus 2.3 mg/dL (2.5-4.5); Potassium 3.6 mmol/L (3.4-5.0); Sodium 129 mmol/L (137-145)
[2021-07-06] MEDS: BUDESONIDE RESPULE NEB 0.5 MG/2 ML AMP INHALATION ×2 (07:44→19:57)
--- NOTE | 2021-07-06 08:00 | ECHO_ITS ---
Patient Info Name: Kyle Love Age: 70 years : 1950 Gender: Female Ht: 63 in Wt: 102 lbs BSA: 1.43 m2 HR: 102 bpm BP: 151 / 82 mmHg Heart Rhythm: Tachycardia Technical Quality: Fair Exam Date: 07/06/2021 9:45 AM Exam Location: [facility] Patient Status: Inpatient Admit Date: 06/29/2021 Staff Ordering Physician: Marely Booker MD Manufacturing Specialist: Irene Camarena RDCS Attending Provider: Bernadine Sullivan MD Referring Physician: Jhony OVERTON; Exam Type: CA echo doppler color flow Study Info Indications - shortness of breath Complete two-dimensional, color flow and Doppler transthoracic echocardiogram is performed. Summary 1. Complete two-dimensional, color flow and Doppler transthoracic echocardiogram is performed. 2. Left ventricular chamber dimension is normal. 3. Left ventricular systolic function is hyperdynamic, estimated at >70%. 4. Grade I diastolic dysfunction. 5. E/e' 12 is mildly elevated. 6. There is mild to moderate tricuspid valve regurgitation. 7. Severe pulmonary hypertension, estimated pulmonary arterial systolic pressure is 80 mmHg. Left Ventricle E/e' 12 is mildly elevated. Grade I diastolic dysfunction. Left ventricular chamber dimension is normal. Left ventricular systolic function is hyperdynamic, estimated at >70%. Right Ventricle Right ventricular systolic function is normal and with normal TAPSE 2.0 cm. Right ventricular chamber dimension is normal. Left Atria Left atrial chamber dimension is normal. Right Atria Right atrial chamber dimension is normal. Aortic Valve The aortic valve is trileaflet. There is no aortic valve stenosis. There is no aortic valve regurgitation. Pulmonic Valve There is no pulmonic regurgitation. Mitral Valve There is no mitral valve stenosis. There is no mitral valve regurgitation. Tricuspid Valve There is mild to moderate tricuspid valve regurgitation. Severe pulmonary hypertension, estimated pulmonary arterial systolic pressure is 80 mmHg. Pericardium/Pleural There is no pericardial effusion. Inferior Vena Cava Normal inferior vena cava with >50% collapse upon inspiration consistent with normal right atrial pressure, 5 mmHg. Aorta The aortic root size at the sinus of Valsalva is normal. Left Ventricular Outflow Tract Name Value Normal LVOT 2D LVOT Diameter 2.0 cm LVOT Doppler LVOT Peak Gradient 3 mmHg LVOT Mean Gradient 2 mmHg LVOT VTI 12 cm LVOT VTI/AV VTI Ratio 0.7 LVOT Stroke Volume 37 ml LVOT CO 3.9 l/min LVOT CI 2.7 l/min/m2 Pulmonic Valve Name Value Normal RVOT Doppler RVOT Peak Gradient 3 mmHg
[2021-07-06] MEDS: FLUTICASONE PROPIONATE 0.05% NA SPR 16 GM BTL (*BKC) 2 SPRAY NASAL (09:39)
[2021-07-06] MEDS: DEMECLOCYCLINE HCL 150 MG TABLET PO ×4 (09:39→20:56)
[2021-07-06] MEDS: FAMOTIDINE 20 MG TABLET PO (09:39)
[2021-07-06] MEDS: ENOXAPARIN 40 MG/0.4 ML SYRINGE SUB-Q (09:39)
[2021-07-06] MEDS: LOSARTAN POTASSIUM 100 MG TABLET PO (09:40)
[2021-07-06] MEDS: MONTELUKAST SODIUM 10 MG TABLET PO (09:40)
[2021-07-06] MEDS: OMEGA 3 POLYUNSAT FATTY ACIDS 1 GM CAP PO (09:40)
[2021-07-06] MEDS: SACCHAROMYCES BOULARDII 250 MG CAPSULE PO (11:56)
--- NOTE | 2021-07-06 13:52 | PM.PNNEP ---
Progress Note: A&P Assessment and Plan (1) Hyponatremia: Code(s): E87.1 - Hypo-osmolality and hyponatremia Status: Chronic Assessment and Plan: acute on chronic multifactorial etiology: chronic lung disease COPD pneumonia medications - SSRI + HCTZ + omeprazole evaluation to date: TSH and T3 low but free T4 is normal SPEP okay serum and urine osmolality noted cortisol pending but since on steroids interpretation may be difficult suspect SIADH for lung disease with contributions from medications off HCTZ and PPI and on reduced dose of sertraline currently on fluid restriction, salt tabs, lasix, and demeclocycline sodium appears to be improving (2) Acute on chronic respiratory failure with hypoxia and hypercapnia: Code(s): J96.21 - Acute and chronic respiratory failure with hypoxia; J96.22 - Acute and chronic respiratory failure with hypercapnia Status: Acute Assessment and Plan: due to COPD exacerbation and pneumonia on antibiotics, nebulizer treatments, steroids, inhalers, and BiPAP Pulmonary following as well (3) Pneumonia: Qualifiers: Laterality: unspecified laterality Lung location: unspecified part of lung Pneumonia type: due to unspecified organism Qualified Code(s): J18.9 - Pneumonia, unspecified organism Code(s): J18.9 - Pneumonia, unspecified organism Status: Acute Assessment and Plan: continue antibiotic therapy imaging noted (4) COPD (chronic obstructive pulmonary disease): Code(s): J44.9 - Chronic obstructive pulmonary disease, unspecified Status: Chronic Assessment and Plan: continue supportive therapy see #2 (5) Essential hypertension: Code(s): I10 - Essential (primary) hypertension Status: Chronic Assessment and Plan: running on the high side on losartan and PRN hydralazine given tachycardia, could consider beta alberto but her respiratory issues would not likely tolerated consider diltiazem or nifedipine to help reduce heart rate and help with BP follow trend of hemodynamics Will continue to follow. Subjective Date/time seen: 07/06/21 13:52 Chart reviewed - assuming care from Dr. Dudley; patient appears somewhat BiPAP dependent at this time; with BiPAP in place, she is able answer yes/no questions with nodding; no acute distress noted other than her tenuous respiratory status. Exam Narrative: General: WD/WN female in NAD Heart: normal S1 and S2; no rub Lungs: coarse with some wheezing; BiPAP in place Abdomen: soft, nontender, nondistended, positive bowel sounds Extremities: no cyanosis or clubbing; no edema Skin: warm and dry Objective Data Vital Signs Vital Signs: Vital Signs Temp Pulse Resp BP Pulse Ox 07/06/21 12:08 113 H 22 H 07/06/21 12:00 36.2 C L 121 H 24 H 175/78 H 96 07/06/21 11:56 110 H 20 07/06/21 10:00 140 H 07/06/21 08:00 36.2 C L 113 H 22 H 164/92 H 95 07/06/21 07:45 97 07/06/21 07:44 92 20 07/06/21 07:42 23 H 99 07/06/21 06:00 84 07/06/21 04:13 22 H 97 07/06/21 04:12 102 H 22 H 07/06/21 04:05 100 20 07/06/21 04:00 36.2 C L 91 25 H 151/82 H 99 07/06/21 02:00 95 07/06/21 00:00 103 H 07/05/21 23:48 112 H 22 H 07/05/21 23:44 22 H 98 07/05/21 23:42 36.2 C L 117 H 25 H 117/72 98 07/05/21 23:41 104 H 21 H 07/05/21 22:00 133 H 07/05/21 20:46 100 23 H 97 07/05/21 20:37 123 H 22 H 07/05/21 20:30 95 07/05/21 20:27 104 H 21 H 07/05/21 20:00 119 H 07/05/21 19:35 36.7 C 123 H 22 H 157/69 H 96 07/05/21 18:00 138 H 07/05/21 16:00 36.9 C 115 H 26 H 162/71 H 93 07/05/21 15:51 109 H 21 H 07/05/21 15:43 100 21 H Intake/Output Intake/Output: Intake & Output 07/03/21 07/04/21 07/05/21 07/06/21 23:59 23:59 23:59 23:59 Intake Tota
--- NOTE | 2021-07-06 13:52 | P.PNNP_ITS ---
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 with contributions from medications * off HCTZ and PPI and on reduced dose of sertraline * currently on fluid restriction, salt tabs, lasix, and demeclocycline * sodium appears to be improving (2) Acute on chronic respiratory failure with hypoxia and hypercapnia: Code(s): J96.21 - Acute and chronic respiratory failure with hypoxia; J96.22 - Acute and chronic respiratory failure with hypercapnia Status: Acute Assessment and Plan: * due to COPD exacerbation and pneumonia * on antibiotics, nebulizer treatments, steroids, inhalers, and BiPAP * Pulmonary following as well (3) Pneumonia: Qualifiers: Laterality: unspecified laterality Lung location: unspecified part of lung Pneumonia type: due to unspecified organism Qualified Code(s): J18.9 - Pneumonia, unspecified organism Code(s): J18.9 - Pneumonia, unspecified organism Status: Acute Assessment and Plan: * continue antibiotic therapy * imaging noted (4) COPD (chronic obstructive pulmonary disease): Code(s): J44.9 - Chronic obstructive pulmonary disease, unspecified Status: Chronic Assessment and Plan: * continue supportive therapy * see #2 (5) Essential hypertension: Code(s): I10 - Essential (primary) hypertension Status: Chronic Assessment and Plan: * running on the high side * on losartan and PRN hydralazine * given tachycardia, could consider beta alberto but her respiratory issues would not likely tolerated * consider diltiazem or nifedipine to help reduce heart rate and help with BP * follow trend of hemodynamics Will continue to follow. Subjective Date/time seen: 07/06/21 13:52 Chart reviewed - assuming care from Dr. Dudley; patient appears somewhat BiPAP dependent at this time; with BiPAP in place, she is able answer yes/no questions with nodding; no acute distress noted other than her tenuous respiratory status. Exam Narrative: General: WD/WN female in NAD Heart: normal S1 and S2; no rub Lungs: coarse with some wheezing; BiPAP in place Abdomen: soft, nontender, nondistended, positive bowel sounds Extremities: no cyanosis or clubbing; no edema Skin: warm and dry Objective Data Vital Signs Vital Signs: Vital Signs Temp Pulse Resp BP Pulse Ox 07/06/21 12:08 113 H 22 H 07/06/21 12:00 36.2 C L 121 H 24 H 175/78 H 96 07/06/21 11:56 110 H 20 07/06/21 10:00 140 H 07/06/21 08:00 36.2 C L 113 H 22 H 164/92 H 95 07/06/21 07:45 97 07/06/21 07:44 92 20 07/06/21 07:42 23 H 99 07/06/21 06:00 84 07/06/21 04:13 22 H 97 07/06/21 04:12 102 H 22 H 07/06/21 04:05 100 20 07/06/21 04:00 36.2 C L 91 25 H 151/82 H 99 07/06/21 02:00 95 07/06/21 00:00 10
--- NOTE | 2021-07-06 18:46 | PM.IMPN ---
Progress Note: A&P Assessment and Plan (1) Acute on chronic respiratory failure with hypoxia and hypercapnia: Code(s): J96.21 - Acute and chronic respiratory failure with hypoxia; J96.22 - Acute and chronic respiratory failure with hypercapnia Status: Acute Assessment and Plan: Continue AVAPS. 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 Nephrology recommendation appreciated DemOxycycline and salt tablet was added by Nephrology Also continue diuresis Additional Plan Severe protein calorie malnutrition dietitian consult Fluid overload continue diuresis 07/06/2021 interval history 70-year-old female with acute on chronic respiratory failure 2/2 hypercarbia, patient with history of end-stage COPD, now with exacerbation of COPD being treated with methylprednisone updraft and currently on BiPAP unable to provide detailed review of symptoms, patient is struggling to breathe, patient was just given nebulized treatment, did discuss with the patient regarding hospice, patient is not interested at the present time, patient will be seen by management department chair and further recommendation to follow. Subjective Date/time seen: 07/06/21 18:46 07/06/2021 interval history 70-year-old female with acute on chronic respiratory failure 2/2 hypercarbia, patient with history of end-stage COPD, now with exacerbation of COPD being treated with methylprednisone updraft and currently on BiPAP unable to provide detailed review of symptoms, patient is struggling to breathe, patient was just given nebulized treatment, did discuss with the patient regarding hospice, patient is not interested at the present time, patient will be seen by management department chair and further recommendation to follow. Review of Systems Review of Systems: All systems reviewed & are unremarkable except as noted in HPI and below ROS unobtainable: Yes unobtainable due to medical condition (On BiPAP) Exam Narrative: Patient is comfortable, NAD HEENT: eyes are clear and none icteric , neck retraction, BiPAP in place LUNGS: bilateral poor air entry with rhonchi and wheezing HEART: RR S1S2 ABD: not distended Lower extremities: no edema SKIN: nonjaundiced Neuro: grossly intact. Objective Data Vital Signs Vital Signs: Vital Signs - 24 hr 07/05/21 19:35 07/05/21 20:00 07/05/21 20:27 Temperature 98.1 F Pulse Rate 123 H 119 H 104 H Respiratory Rate 22 H 21 H Blood Pressure 157/69 H Pulse Oximetry 96 07/05/21 20:30 07/05/21 20:37 07/05/21 20:46 Temperature Pulse Rate 123 H 100 Respiratory Rate 22 H 23 H Blood Pressure Pulse Oximetry 95 97 07/05/21 22:00 07/05/21 23:41 07/05/21 23:42 Temperature 97.1 F L Pulse Rate 133 H 104 H 117 H Respiratory Rate 21 H 25 H Blood Pressure 117/72 Pulse Oximetry 98 07/05/21 23:44 07/05/21 23:48 07/06/21 00:00 Temperature Pulse Rate 112 H 103 H Respira
--- NOTE | 2021-07-06 19:17 | PM.PNPUL ---
Progress Note: A&P Assessment and Plan (1) Acute on chronic respiratory failure with hypoxia and hypercapnia: Code(s): J96.21 - Acute and chronic respiratory failure with hypoxia; J96.22 - Acute and chronic respiratory failure with hypercapnia Status: Acute Assessment and Plan: PLAN: 1. Continue PT/OT. 2. Echo shows hyperdynamic LV and diastolic dysfunction, severe pulmonary hypertension. Her BP is out of control at times and her pulse is rapid, often over 100. She is on losartan only. Will add short acting diltiazem 30 mg Q 6 hours. This could help pulmonary hypertension as well. 3. She does not want to go on hospice. 4. Use her home mask on our device with AVAPS AE settings, and have her DME change her Trilogy to these settings. AVAPS with same increased TV 550, Increased Max PS to 28, and lower FiO2 0.35. 5. Anxiety treatment. She is getting PRN IV lorazepam 0.5 mg Q 6 hours. Will add small amount buspar. 6. I stopped Trelegy yesterday, started start nebulized budesonide 0.5 mg twice a day, and changed albuterol to levalbuterol 1.25 mg Q 4 hours, continue ipratropium Q 4 hours Follow her labs; Na is now 129, better. Appreciate Nephrologists' analysis and management. (2) Pneumonia: Qualifiers: Laterality: bilateral Lung location: lower lobe of lung Pneumonia type: due to unspecified organism Qualified Code(s): J18.9 - Pneumonia, unspecified organism Code(s): J18.9 - Pneumonia, unspecified organism Status: Acute Assessment and Plan: This CXR is the same. She has a new round pneumonia in the right base, and the RML infiltrate that was there for 2 months is gone. Consider chest CT without contrast. She just had a chest CT 06/20, new infiltrate developed since then. (3) COPD (chronic obstructive pulmonary disease): Code(s): J44.9 - Chronic obstructive pulmonary disease, unspecified Status: Acute Assessment and Plan: She has severe emphysema on CT scan, no PFTs to review. She has bullous changes throughout her lungs, kiley the apices. Continue triple therapy and short acting bronchodilators, steroids, Cornet valve to help with secretions. Subjective Date/time seen: 07/06/21 19:17 Kyle Love is a 70 year old patient seen in follow up for RLL infiltrate with severe COPD, acute on chronic respiratory failure on oxygen. She is alert, was not able to tolerate using her home Trilogy settings. She is back on our AVAPS AE settings, and she is more comfortable although she prefers her home mask. She is eating more, and she was up in a chair for 3 hours today, and had PT as well as OT. She is getting vanilla Ensure. Na+ is up to 129 today. She says that hospice was discussed today. She tells me that she does not want to go home on hospice. She says that she wants to live longer. Discussed with Dr Hernandez. She has a Trilogy at home for hypercapnia and her settings will be changes prior to discharge. She is not feeling great today. I started low dose lorazepam yesterday. She is spending more time on AVAPS than on cannula. 07/06: Echo = EF >70%, severe pulmonary hypertension. Will add low dose diltiazem for BP control, rate control as she is frequently > 100 heart rate sinus tach, and may help pulmonary hypertension. 07/05: ABG pH 7.381 / pCO2 66.7 / pO2 61.6/ hco3 38.7 / sat 89.9 on 2 L/min. CXR Stable right basilar airspace opacities, consistent with pneumonia, Severe emphysema. 07/04:Lorazepam 0.5 mg IV Q 6 hours started. 07/03: ABG 7.461/pCO2 57.9/ pO2 90.0 / HCO3 40.3/ Sat 97.1%. Diamox ordered 500 mg IV. She does not look good today. Tired. Short of breath. Dependent on AVAPS. 07/02: ABG better, 7.41/60.1/87.9/37.8 ->35%; WBC down, 17.2, Na+ 124. Headache, high BP & pulse. Lower O2; 4L->2 L/min
[2021-07-06] MEDS: PRAVASTATIN SODIUM 20 MG TABLET PO (20:56)
[2021-07-06] MEDS: SERTRALINE HCL 25 MG TABLET PO (20:56)
[2021-07-07] VITALS (29 sets, daily range): BP systolic 113–149; BP diastolic 66–82; PULSE 81–112; RESP 22–29; TEMP 36.1–36.7; O2SAT 94–100
[2021-07-07] MEDS: methylPREDNISolone SOD SUCC 40 MG VIAL IV PUSH ×4 (00:52→17:40)
[2021-07-07] MEDS: dilTIAZem HCL 30 MG TABLET PO ×4 (00:52→17:40)
[2021-07-07] MEDS: SODIUM CHLORIDE 1 GM TABLET PO ×3 (00:52→17:41)
[2021-07-07] MEDS: FUROSEMIDE 20 MG TABLET PO ×3 (00:52→17:39)
[2021-07-07] MEDS: IPRATROPIUM BR 0.02% INH SOLN 0.5 MG/2.5 ML VIAL INHALATION ×5 (04:43→20:20)
[2021-07-07] MEDS: SALINE LOCK FLUSH 10 ML IV PUSH ×3 (05:10→20:39)
[2021-07-07] MEDS: SALINE LOCK FLUSH 20 ML IV PUSH (05:10)
[2021-07-07 05:21] LABS: Hematocrit 28.4 % (37.0-47.0); Hemoglobin 9.2 g/dL (12.0-15.0); Mean Corpuscular HGB Conc 32.4 g/dl (32-36); Mean Corpuscular Hemoglobin 30.2 pg (26-34); Mean Corpuscular Volume 93.1 fl (80-100); Platelet Count Result 238 k/mm3 (150-375); Red Blood Count 3.05 M/mm3 (4.2-5.4); Red Cell Distribution Width 13.6 % (11.5-14.5); White Blood Count 9.1 K/mm3 (4.5-10.0)
[2021-07-07 05:39] LABS: Blood Urea Nitrogen 31 mg/dL (7-17); Calcium 8.5 mg/dL (8.4-10.2); Carbon Dioxide > 40 mmol/L (22-30); Chloride 87 mmol/L (98-107); Estimated CRCL calculation 57 ml/min; Estimated Glomerular Filt Rate > 60; Glucose 124 mg/dL (65-110); Potassium 3.4 mmol/L (3.4-5.0); Sodium 130 mmol/L (137-145)
[2021-07-07] MEDS: SACCHAROMYCES BOULARDII 250 MG CAPSULE PO (08:16)
[2021-07-07] MEDS: MONTELUKAST SODIUM 10 MG TABLET PO (08:16)
[2021-07-07] MEDS: OMEGA 3 POLYUNSAT FATTY ACIDS 1 GM CAP PO (08:16)
[2021-07-07] MEDS: DEMECLOCYCLINE HCL 150 MG TABLET PO ×4 (08:16→20:39)
[2021-07-07] MEDS: ENOXAPARIN 40 MG/0.4 ML SYRINGE SUB-Q (08:17)
[2021-07-07] MEDS: BUDESONIDE RESPULE NEB 0.5 MG/2 ML AMP INHALATION ×2 (08:17→20:20)
[2021-07-07] MEDS: FLUTICASONE PROPIONATE 0.05% NA SPR 16 GM BTL (*BKC) 2 SPRAY NASAL (08:17)
[2021-07-07] MEDS: LOSARTAN POTASSIUM 100 MG TABLET PO (08:17)
--- NOTE | 2021-07-07 11:02 | PCOTNOTE ---
Attempted to see patient for OT. Patient wearing bipap and declined treatment today. Will continue plan of care tomorrow.
[2021-07-07] MEDS: polyethylene glycoL 3350 17 GM POWD.PACK PO (12:19)
--- NOTE | 2021-07-07 12:36 | PM.IMPN ---
Progress Note: A&P Assessment and Plan (1) Acute on chronic respiratory failure with hypoxia and hypercapnia: Code(s): J96.21 - Acute and chronic respiratory failure with hypoxia; J96.22 - Acute and chronic respiratory failure with hypercapnia Status: Acute Assessment and Plan: Continue AVAPS. 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 Nephrology recommendation appreciated DemOxycycline and salt tablet was added by Nephrology Also continue diuresis Additional Plan Severe protein calorie malnutrition dietitian consult Fluid overload continue diuresis 07/06/2021 interval history 70-year-old female with acute on chronic respiratory failure 2/2 hypercarbia, patient with history of end-stage COPD, now with exacerbation of COPD being treated with methylprednisone updraft and currently on BiPAP unable to provide detailed review of symptoms, patient is struggling to breathe, patient was just given nebulized treatment, did discuss with the patient regarding hospice, patient is not interested at the present time, patient will be seen by adhesive sprayer and further recommendation to follow. 07/07/2021 interval history 70-year-old female with acute on chronic respiratory failure 2/2 hypercarbia, patient with history of end-stage COPD, now with exacerbation of COPD being treated with methylprednisone updraft and currently on BiPAP unable to provide detailed review of symptoms, patient is struggling to breathe, I myself spoke with patient and Dr. Booker as well regarding hospice, patient is not interested at the present time, 07/06 patient was seen by Dr. Booker patient was tachy and diltiazem 30mg was added, however patient's heart rate remains above 100, will continue to monitor, patient will be seen by adhesive sprayer and further recommendation to follow. Subjective Date/time seen: 07/07/21 12:36 07/06/2021 interval history 70-year-old female with acute on chronic respiratory failure 2/2 hypercarbia, patient with history of end-stage COPD, now with exacerbation of COPD being treated with methylprednisone updraft and currently on BiPAP unable to provide detailed review of symptoms, patient is struggling to breathe, patient was just given nebulized treatment, did discuss with the patient regarding hospice, patient is not interested at the present time, patient will be seen by adhesive sprayer and further recommendation to follow. 07/07/2021 interval history 70-year-old female with acute on chronic respiratory failure 2/2 hypercarbia, patient with history of end-stage COPD, now with exacerbation of COPD being treated with methylprednisone updraft and currently on BiPAP unable to provide detailed review of symptoms, patient is struggling to breathe, I myself spoke with patient and Dr. Booker as well regarding hospice, patient is not interested at the present time, 07/06 patient was seen by Dr. Jhony rudolph
--- NOTE | 2021-07-07 13:36 | PM.PNNEP ---
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 with contributions from medications off HCTZ and PPI and on reduced dose of sertraline currently on fluid restriction, salt tabs, lasix, and demeclocycline sodium appears to be improving (2) Acute on chronic respiratory failure with hypoxia and hypercapnia: Code(s): J96.21 - Acute and chronic respiratory failure with hypoxia; J96.22 - Acute and chronic respiratory failure with hypercapnia Status: Acute Assessment and Plan: due to COPD exacerbation and pneumonia on antibiotics, nebulizer treatments, steroids, inhalers, and BiPAP Pulmonary following as well (3) Pneumonia: Qualifiers: Laterality: unspecified laterality Lung location: unspecified part of lung Pneumonia type: due to unspecified organism Qualified Code(s): J18.9 - Pneumonia, unspecified organism Code(s): J18.9 - Pneumonia, unspecified organism Status: Acute Assessment and Plan: continue antibiotic therapy imaging noted (4) COPD (chronic obstructive pulmonary disease): Code(s): J44.9 - Chronic obstructive pulmonary disease, unspecified Status: Chronic Assessment and Plan: continue supportive therapy see #2 (5) Essential hypertension: Code(s): I10 - Essential (primary) hypertension Status: Chronic Assessment and Plan: running on the high side on losartan and PRN hydralazine diltiazem added -- BP and tachycardia better follow trend of hemodynamics Will continue to follow. Subjective Date/time seen: 07/07/21 13:36 Respiratory status still remains quite tenuous at this time; continues with use of BiPAP therapy; low dose diltiazem added to treat tachycardia and as well as blood pressure with some improvement noted; sodium appears to be slowly improving. Exam Narrative: General: WD/WN female in NAD Heart: normal S1 and S2; no rub Lungs: coarse throughout; BiPAP in place Abdomen: soft, nontender, nondistended, positive bowel sounds Extremities: no cyanosis or clubbing; no edema Skin: warm and intact Objective Data Vital Signs Vital Signs: Vital Signs Temp Pulse Resp BP Pulse Ox 07/07/21 13:00 94 07/07/21 12:00 36.5 C 112 H 23 H 113/67 97 07/07/21 11:05 107 H 22 H 07/07/21 11:04 106 H 22 H 97 07/07/21 10:00 95 07/07/21 09:12 102 H 97 07/07/21 08:30 94 07/07/21 08:22 94 29 H 07/07/21 08:13 94 26 H 97 07/07/21 08:00 36.1 C L 94 23 H 127/69 95 07/07/21 05:29 85 07/07/21 04:49 89 22 H 07/07/21 04:44 93 22 H 95 07/07/21 04:00 36.7 C 91 23 H 114/71 98 07/07/21 02:00 87 07/07/21 01:29 96 22 H 95 07/07/21 00:00 36.6 C 104 H 25 H 149/69 H 94 07/06/21 23:43 97 23 H 07/06/21 23:35 98 23 H 97 07/06/21 23:34 98 23 H 07/06/21 22:00 106 H 07/06/21 20:22 98 22 H 07/06/21 20:00 36.4 C 102 H 23 H 129/68 98 07/06/21 19:58 102 H 24 H 98 07/06/21 18:00 112 H Intake/Output Intake/Output: Intake & Output 07/04/21 07/05/21 07/06/21 07/07/21 23:59 23:59 23:59 23:59 Intake Total 2515 440 1873 498 Output Total 1665 4490 1275 450 Balance -460 1110 598 48 Meds/Results Medications: Active Medications Generic Name Dose Route Start Last Admin Trade Name Adinq PRN Reason Stop Dose Admin Acetaminophen 650 mg 07/02/21 13:07 07/02/21 22:08 Acetaminophen 325 Mg Tablet PO 650 mg
--- NOTE | 2021-07-07 13:36 | P.PNNP_ITS ---
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 with contributions from medications * off HCTZ and PPI and on reduced dose of sertraline * currently on fluid restriction, salt tabs, lasix, and demeclocycline * sodium appears to be improving (2) Acute on chronic respiratory failure with hypoxia and hypercapnia: Code(s): J96.21 - Acute and chronic respiratory failure with hypoxia; J96.22 - Acute and chronic respiratory failure with hypercapnia Status: Acute Assessment and Plan: * due to COPD exacerbation and pneumonia * on antibiotics, nebulizer treatments, steroids, inhalers, and BiPAP * Pulmonary following as well (3) Pneumonia: Qualifiers: Laterality: unspecified laterality Lung location: unspecified part of lung Pneumonia type: due to unspecified organism Qualified Code(s): J18.9 - Pneumonia, unspecified organism Code(s): J18.9 - Pneumonia, unspecified organism Status: Acute Assessment and Plan: * continue antibiotic therapy * imaging noted (4) COPD (chronic obstructive pulmonary disease): Code(s): J44.9 - Chronic obstructive pulmonary disease, unspecified Status: Chronic Assessment and Plan: * continue supportive therapy * see #2 (5) Essential hypertension: Code(s): I10 - Essential (primary) hypertension Status: Chronic Assessment and Plan: * running on the high side * on losartan and PRN hydralazine * diltiazem added -- BP and tachycardia better * follow trend of hemodynamics Will continue to follow. Subjective Date/time seen: 07/07/21 13:36 Respiratory status still remains quite tenuous at this time; continues with use of BiPAP therapy; low dose diltiazem added to treat tachycardia and as well as blood pressure with some improvement noted; sodium appears to be slowly improving. Exam Narrative: General: WD/WN female in NAD Heart: normal S1 and S2; no rub Lungs: coarse throughout; BiPAP in place Abdomen: soft, nontender, nondistended, positive bowel sounds Extremities: no cyanosis or clubbing; no edema Skin: warm and intact Objective Data Vital Signs Vital Signs: Vital Signs Temp Pulse Resp BP Pulse Ox 07/07/21 13:00 94 07/07/21 12:00 36.5 C 112 H 23 H 113/67 97 07/07/21 11:05 107 H 22 H 07/07/21 11:04 106 H 22 H 97 07/07/21 10:00 95 07/07/21 09:12 102 H 97 07/07/21 08:30 94 07/07/21 08:22 94 29 H 07/07/21 08:13 94 26 H 97 07/07/21 08:00 36.1 C L 94 23 H 127/69 95 07/07/21 05:29 85 07/07/21 04:49 89 22 H 07/07/21 04:44 93 22 H 95 07/07/21 04:00 36.7 C 91 23 H 114/71 98 07/07/21 02:00 87 07/07/21 01:29 96 22 H 95 07/07/21 00:00 36.6 C 104 H 25 H 149/69 H 94 07/06/21 23:43 97 23 H
[2021-07-07] MEDS: DOCUSATE SODIUM 100 MG CAPSULE PO (17:41)
[2021-07-07] MEDS: HYDROcodone/acetaminophen (*CRX) 10-325 MG TABLET 1 TAB PO (19:48)
[2021-07-07] MEDS: LORazepam INJ (*CRX) 2 MG/ML VIAL 0.5 MG IV PUSH (19:48)
[2021-07-07] MEDS: PRAVASTATIN SODIUM 20 MG TABLET PO (20:39)
[2021-07-07] MEDS: SERTRALINE HCL 25 MG TABLET PO (20:39)
[2021-07-08] VITALS (32 sets, daily range): BP systolic 125–157; BP diastolic 61–77; PULSE 71–120; RESP 14–24; TEMP 36.1–36.6; O2SAT 95–100
[2021-07-08] MEDS: IPRATROPIUM BR 0.02% INH SOLN 0.5 MG/2.5 ML VIAL INHALATION ×6 (00:05→21:10)
[2021-07-08] MEDS: FUROSEMIDE 20 MG TABLET PO ×3 (00:50→17:09)
[2021-07-08] MEDS: SODIUM CHLORIDE 1 GM TABLET PO ×3 (00:50→17:10)
[2021-07-08] MEDS: dilTIAZem HCL 30 MG TABLET PO ×4 (00:50→17:09)
[2021-07-08] MEDS: methylPREDNISolone SOD SUCC 40 MG VIAL IV PUSH ×4 (00:50→17:09)
[2021-07-08 05:07] LABS: Hematocrit 29.9 % (37.0-47.0); Hemoglobin 9.8 g/dL (12.0-15.0); Mean Corpuscular HGB Conc 32.8 g/dl (32-36); Mean Corpuscular Volume 91.4 fl (80-100); Mean Platelet Volume 9.2 fl (7.4-10.4); Platelet Count Result 276 k/mm3 (150-375); Red Blood Count 3.27 M/mm3 (4.2-5.4); Red Cell Distribution Width 13.8 % (11.5-14.5)
[2021-07-08 05:30] LABS: Blood Urea Nitrogen 34 mg/dL (7-17); Calcium 8.9 mg/dL (8.4-10.2); Carbon Dioxide > 40 mmol/L (22-30); Chloride 88 mmol/L (98-107); Estimated CRCL calculation 49 ml/min; Estimated Glomerular Filt Rate > 60; Glucose 141 mg/dL (65-110); Potassium 3.8 mmol/L (3.4-5.0); Sodium 132 mmol/L (137-145)
[2021-07-08] MEDS: SALINE LOCK FLUSH 10 ML IV PUSH ×3 (06:17→20:47)
[2021-07-08] MEDS: BUDESONIDE RESPULE NEB 0.5 MG/2 ML AMP INHALATION ×2 (08:06→21:10)
[2021-07-08] MEDS: FLUTICASONE PROPIONATE 0.05% NA SPR 16 GM BTL (*BKC) 2 SPRAY NASAL (09:04)
[2021-07-08] MEDS: SACCHAROMYCES BOULARDII 250 MG CAPSULE PO (09:05)
[2021-07-08] MEDS: LOSARTAN POTASSIUM 100 MG TABLET PO (09:05)
[2021-07-08] MEDS: ENOXAPARIN 40 MG/0.4 ML SYRINGE SUB-Q (09:05)
[2021-07-08] MEDS: DEMECLOCYCLINE HCL 150 MG TABLET PO ×4 (09:05→20:47)
[2021-07-08] MEDS: OMEGA 3 POLYUNSAT FATTY ACIDS 1 GM CAP PO (09:06)
[2021-07-08] MEDS: MONTELUKAST SODIUM 10 MG TABLET PO (09:06)
[2021-07-08] MEDS: DOCUSATE SODIUM 100 MG CAPSULE PO ×2 (09:08→17:08)
[2021-07-08] MEDS: polyethylene glycoL 3350 17 GM POWD.PACK PO (09:08)
[2021-07-08] MEDS: HYDROcodone/acetaminophen (*CRX) 10-325 MG TABLET 1 TAB PO (10:42)
--- NOTE | 2021-07-08 13:22 | P.PNNP_ITS ---
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 with contributions from medications * off HCTZ and PPI and on reduced dose of sertraline * currently on fluid restriction, salt tabs, lasix, and demeclocycline * sodium appears to be improving (2) Acute on chronic respiratory failure with hypoxia and hypercapnia: Code(s): J96.21 - Acute and chronic respiratory failure with hypoxia; J96.22 - Acute and chronic respiratory failure with hypercapnia Status: Acute Assessment and Plan: * due to COPD exacerbation and pneumonia * on antibiotics, nebulizer treatments, steroids, inhalers, and BiPAP * Pulmonary following as well (3) Pneumonia: Qualifiers: Laterality: unspecified laterality Lung location: unspecified part of lung Pneumonia type: due to unspecified organism Qualified Code(s): J18.9 - Pneumonia, unspecified organism Code(s): J18.9 - Pneumonia, unspecified organism Status: Acute Assessment and Plan: * continue antibiotic therapy * imaging noted (4) COPD (chronic obstructive pulmonary disease): Code(s): J44.9 - Chronic obstructive pulmonary disease, unspecified Status: Chronic Assessment and Plan: * continue supportive therapy * see #2 (5) Essential hypertension: Code(s): I10 - Essential (primary) hypertension Status: Chronic Assessment and Plan: * doing better * on losartan and diltiazem with PRN hydralazine * tachycardia better along with BP * follow trend of hemodynamics Will continue to follow. Subjective Date/time seen: 07/08/21 13:22 Sodium continues to slowly improve with current interventions/strategy; r espiratory status/breathing seems relatively stable (difficult to say if really better or if any improvement); no other acute issues/events overnight or earlier this AM. Exam Narrative: General: WD/WN female in NAD Heart: normal S1 and S2; no rub Lungs: coarse and diminished throughout; BiPAP in place Abdomen: soft, nontender, nondistended, positive bowel sounds Extremities: no cyanosis or clubbing; no edema Skin: no rash Objective Data Vital Signs Vital Signs: Vital Signs Temp Pulse Resp BP Pulse Ox 07/08/21 12:00 36.2 C L 96 22 H 133/71 97 07/08/21 11:22 97 22 H 97 07/08/21 10:45 108 H 22 H 95 07/08/21 10:00 102 H 07/08/21 09:00 102 H 24 H 100 07/08/21 08:24 96 22 H 07/08/21 08:11 79 22 H 07/08/21 08:09 79 22 H 97 07/08/21 08:00 36.3 C L 77 22 H 142/77 H 98 07/08/21 06:00 79 07/08/21 05:25 78 22 H 98 07/08/21 04:23 78 22 H 07/08/21 04:17 71 24 H 07/08/21 04:00 36.6 C 72 22 H 142/75 H 99 07/08/21 02:12 76 22 H 96 07/08/21 01:46 77 07/08/21 00:15 76 22 H 07/08/21 00:08 75 22 H 1
--- NOTE | 2021-07-08 13:22 | PM.PNNEP ---
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 with contributions from medications off HCTZ and PPI and on reduced dose of sertraline currently on fluid restriction, salt tabs, lasix, and demeclocycline sodium appears to be improving (2) Acute on chronic respiratory failure with hypoxia and hypercapnia: Code(s): J96.21 - Acute and chronic respiratory failure with hypoxia; J96.22 - Acute and chronic respiratory failure with hypercapnia Status: Acute Assessment and Plan: due to COPD exacerbation and pneumonia on antibiotics, nebulizer treatments, steroids, inhalers, and BiPAP Pulmonary following as well (3) Pneumonia: Qualifiers: Laterality: unspecified laterality Lung location: unspecified part of lung Pneumonia type: due to unspecified organism Qualified Code(s): J18.9 - Pneumonia, unspecified organism Code(s): J18.9 - Pneumonia, unspecified organism Status: Acute Assessment and Plan: continue antibiotic therapy imaging noted (4) COPD (chronic obstructive pulmonary disease): Code(s): J44.9 - Chronic obstructive pulmonary disease, unspecified Status: Chronic Assessment and Plan: continue supportive therapy see #2 (5) Essential hypertension: Code(s): I10 - Essential (primary) hypertension Status: Chronic Assessment and Plan: doing better on losartan and diltiazem with PRN hydralazine tachycardia better along with BP follow trend of hemodynamics Will continue to follow. Subjective Date/time seen: 07/08/21 13:22 Sodium continues to slowly improve with current interventions/strategy; respiratory status/breathing seems relatively stable (difficult to say if really better or if any improvement); no other acute issues/events overnight or earlier this AM. Exam Narrative: General: WD/WN female in NAD Heart: normal S1 and S2; no rub Lungs: coarse and diminished throughout; BiPAP in place Abdomen: soft, nontender, nondistended, positive bowel sounds Extremities: no cyanosis or clubbing; no edema Skin: no rash Objective Data Vital Signs Vital Signs: Vital Signs Temp Pulse Resp BP Pulse Ox 07/08/21 12:00 36.2 C L 96 22 H 133/71 97 07/08/21 11:22 97 22 H 97 07/08/21 10:45 108 H 22 H 95 07/08/21 10:00 102 H 07/08/21 09:00 102 H 24 H 100 07/08/21 08:24 96 22 H 07/08/21 08:11 79 22 H 07/08/21 08:09 79 22 H 97 07/08/21 08:00 36.3 C L 77 22 H 142/77 H 98 07/08/21 06:00 79 07/08/21 05:25 78 22 H 98 07/08/21 04:23 78 22 H 07/08/21 04:17 71 24 H 07/08/21 04:00 36.6 C 72 22 H 142/75 H 99 07/08/21 02:12 76 22 H 96 07/08/21 01:46 77 07/08/21 00:15 76 22 H 07/08/21 00:08 75 22 H 100 07/08/21 00:07 80 22 H 07/08/21 00:00 36.4 C 78 22 H 125/61 100 07/07/21 21:30 88 07/07/21 20:31 106 H 22 H 07/07/21 20:24 99 22 H 95 07/07/21 20:23 95 07/07/21 20:22 99 22 H 07/07/21 20:00 36.6 C 103 H 23 H 124/66 98 07/07/21 18:00 111 H 07/07/21 16:45 89 22 H 98 07/07/21 16:00 36.3 C L 104 H 23 H 138/82 96 07/07/21 14:30 105 H 22 H Intake/Output Intake/Output: Intake & Output 07/05/21 07/06/21 07/07/21 07/08/21 23:59 23:59 23:59 23:59 Intake Total 440 1873 866 620 Output Total 1550 1275 950 200 Balance -1110 598 -84 420 Meds/Results Medications: Active Medications
--- NOTE | 2021-07-08 16:12 | PM.IMPN ---
Progress Note: A&P Assessment and Plan (1) Acute on chronic respiratory failure with hypoxia and hypercapnia: Code(s): J96.21 - Acute and chronic respiratory failure with hypoxia; J96.22 - Acute and chronic respiratory failure with hypercapnia Status: Acute Assessment and Plan: Continue AVAPS. 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 Nephrology recommendation appreciated DemOxycycline and salt tablet was added by Nephrology Also continue diuresis Additional Plan Severe protein calorie malnutrition dietitian consult Fluid overload continue diuresis 07/06/2021 interval history 70-year-old female with acute on chronic respiratory failure 2/2 hypercarbia, patient with history of end-stage COPD, now with exacerbation of COPD being treated with methylprednisone updraft and currently on BiPAP unable to provide detailed review of symptoms, patient is struggling to breathe, patient was just given nebulized treatment, did discuss with the patient regarding hospice, patient is not interested at the present time, patient will be seen by director insurance and further recommendation to follow. 07/07/2021 interval history 70-year-old female with acute on chronic respiratory failure 2/2 hypercarbia, patient with history of end-stage COPD, now with exacerbation of COPD being treated with methylprednisone updraft and currently on BiPAP unable to provide detailed review of symptoms, patient is struggling to breathe, I myself spoke with patient and Dr. Booker as well regarding hospice, patient is not interested at the present time, 07/06 patient was seen by Dr. Booker patient was tachy and diltiazem 30mg was added, however patient's heart rate remains above 100, will continue to monitor, patient will be seen by director insurance and further recommendation to follow. 07/08/2021 interval history 70-year-old female with acute on chronic respiratory failure 2/2 hypercarbia, patient with history of end-stage COPD, now with exacerbation of COPD being treated with methylprednisone updraft and currently on BiPAP unable to provide detailed review of symptoms, patient is struggling to breathe, I myself spoke with patient and Dr. Booker as well regarding hospice, patient is not interested at the present time, 07/06 patient was seen by Dr. Booker patient was tachy and diltiazem 30mg was added, however patient's heart rate remains above 100, patient with hyponatremia upon arrival her sodium was 124, seen by Nephrology sodium is trending and today is 134, will continue to monitor, patient will be seen by director insurance and further recommendation to follow. Subjective Date/time seen: 07/08/21 16:12 07/06/2021 interval history 70-year-old female with acute on chronic respiratory failure 2/2 hypercarbia, patient with history of end-stage COPD, now with exacerbation of COPD being treated with methylprednisone updraft and c
[2021-07-08] MEDS: PRAVASTATIN SODIUM 20 MG TABLET PO (20:47)
[2021-07-08] MEDS: SERTRALINE HCL 25 MG TABLET PO (20:47)
[2021-07-09] VITALS (26 sets, daily range): BP systolic 117–185; BP diastolic 65–80; PULSE 71–106; RESP 20–24; TEMP 36.1–36.6; O2SAT 20–100
[2021-07-09] MEDS: FUROSEMIDE 20 MG TABLET PO ×3 (00:46→17:39)
[2021-07-09] MEDS: HYDROcodone/acetaminophen (*CRX) 10-325 MG TABLET 1 TAB PO ×2 (00:46→11:27)
[2021-07-09] MEDS: SODIUM CHLORIDE 1 GM TABLET PO ×3 (00:46→17:38)
[2021-07-09] MEDS: methylPREDNISolone SOD SUCC 40 MG VIAL IV PUSH ×3 (00:47→11:28)
[2021-07-09] MEDS: IPRATROPIUM BR 0.02% INH SOLN 0.5 MG/2.5 ML VIAL INHALATION ×3 (01:00→09:11)
[2021-07-09] MEDS: dilTIAZem HCL 30 MG TABLET PO ×3 (02:25→11:28)
[2021-07-09] MEDS: SALINE LOCK FLUSH 10 ML IV PUSH ×3 (06:24→22:54)
[2021-07-09 06:44] LABS: Hematocrit 30.1 % (37.0-47.0); Hemoglobin 10.1 g/dL (12.0-15.0); Mean Corpuscular HGB Conc 33.6 g/dl (32-36); Mean Corpuscular Hemoglobin 30.7 pg (26-34); Mean Corpuscular Volume 91.5 fl (80-100); Mean Platelet Volume 9.2 fl (7.4-10.4); Platelet Count Result 281 k/mm3 (150-375); Red Blood Count 3.29 M/mm3 (4.2-5.4); Red Cell Distribution Width 14.1 % (11.5-14.5); White Blood Count 15.9 K/mm3 (4.5-10.0)
[2021-07-09 07:21] LABS: Blood Urea Nitrogen 39 mg/dL (7-17); Carbon Dioxide > 40 mmol/L (22-30); Chloride 86 mmol/L (98-107); Estimated CRCL calculation 56 ml/min; Estimated Glomerular Filt Rate > 60; Glucose 129 mg/dL (65-110); Potassium 3.9 mmol/L (3.4-5.0); Sodium 132 mmol/L (137-145)
[2021-07-09] MEDS: BUDESONIDE RESPULE NEB 0.5 MG/2 ML AMP INHALATION (09:11)
[2021-07-09] MEDS: SACCHAROMYCES BOULARDII 250 MG CAPSULE PO (09:47)
[2021-07-09] MEDS: ENOXAPARIN 40 MG/0.4 ML SYRINGE SUB-Q (09:47)
[2021-07-09] MEDS: DOCUSATE SODIUM 100 MG CAPSULE PO ×2 (09:47→17:38)
[2021-07-09] MEDS: polyethylene glycoL 3350 17 GM POWD.PACK PO (09:47)
[2021-07-09] MEDS: FLUTICASONE PROPIONATE 0.05% NA SPR 16 GM BTL (*BKC) 2 SPRAY NASAL (09:47)
[2021-07-09] MEDS: OMEGA 3 POLYUNSAT FATTY ACIDS 1 GM CAP PO (09:47)
[2021-07-09] MEDS: LOSARTAN POTASSIUM 100 MG TABLET PO (09:47)
[2021-07-09] MEDS: DEMECLOCYCLINE HCL 150 MG TABLET PO ×4 (09:47→19:54)
[2021-07-09] MEDS: MONTELUKAST SODIUM 10 MG TABLET PO (09:48)
--- NOTE | 2021-07-09 11:24 | PM.PNPUL ---
Progress Note: A&P Assessment and Plan (1) Acute exacerbation of chronic obstructive pulmonary disease: Code(s): J44.1 - Chronic obstructive pulmonary disease with (acute) exacerbation Status: Acute Assessment and Plan: Patient with severe COPD with chronic hypoxemic and hypercarbic respiratory failure requiring 2 L nasal cannula 24-7 and a home noninvasive ventilator with AVAPS-AE mode at night. Patient also has severe pulmonary hypertension with an estimated PASP of 80 on 07/06/2021. She has COVID RT PCR negative, influenza swab negative, urine pneumococcal antigen not detected and negative urine histo antigen. One blood culture from 06/29/2021 was negative. She has had multiple recent hospitalizations and this is her 6th hospitalization since December 2020. Patient has no wheezing today and states that she has 75-85% back to her baseline. She finished 7 days of Levaquin during this hospitalization. Will discontinue her Solu-Medrol and place her on prednisone 40 mg p.o. q.day. Will discontinue her levalbuterol, ipratropium and budesonide nebulizers and place her on trilogy 100-60 2.5-25. Overall the patient has end-stage COPD with 6 hospitalizations in the last 6 months. I will attempt to optimize her medical therapy with triple inhalers, Daliresp and azithromycin 500 mg p.o. t.i.w.. She was already in the process of getting Daliresp arranged through the outpatient clinic and we will continue to do this. I will add azithromycin 500 mg p.o. 3 times a week. (2) Pneumonia: Qualifiers: Laterality: bilateral Lung location: lower lobe of lung Pneumonia type: due to unspecified organism Qualified Code(s): J18.9 - Pneumonia, unspecified organism Code(s): J18.9 - Pneumonia, unspecified organism Status: Acute Assessment and Plan: patient's right lower lobe infiltrate has improved on today's chest x-ray. She has completed treatment with Levaquin. She is afebrile the white count of 15.9. I will discontinue her steroids today. (3) Acute on chronic respiratory failure with hypoxia and hypercapnia: Code(s): J96.21 - Acute and chronic respiratory failure with hypoxia; J96.22 - Acute and chronic respiratory failure with hypercapnia Status: Acute Assessment and Plan: Patient with severe panlobular embolus emphysema on her CT scan with chronic hypoxemic respiratory failure requiring 2 L nasal cannula 07/10 and noninvasive ventilator with AVAPS-AE mode. Last night she wear the hospital AVAPS mode ( Rate of 22, tidal volume 550, EPAP 5, minimal inspiratory pressure 6, maximal inspiratory pressure 28, inspiratory time 1.0, rise of 3 and 25% FiO2) and tolerated it well. will obtain a download from her her outpatient machine settings. Her tidal volume has been increased during this hospitalization and I will check to see if we can reprogrammed her home machine with these new settings tonight. If we are unable to this I will continue her hospital machine with these settings and obtain a blood gas in the morning prior to removal and an overnight oximetry on 28% which would correspond to her home 2 L nasal cannula. Subjective Date/time seen: 07/09/21 11:24 Interval history: 07/09 Overall patient states she has improved since admission. States she is 75-85% back to normal. She still has shortness of breath, and a dry cough. She is afebrile with a white blood cell count of 15.9. She wore the hospital noninvasive ventilator with an AVAPS mode last night ( Rate of 22, tidal volume 550, EPAP 5, minimal inspiratory pressure 6, maximal inspiratory pressure 28, inspiratory time 1.0, rise of 3 and 25% FiO2) and tolerated it well. Currently she is on 3 L nasal cannula saturations 97%. Chest x-ray today demonstrated mild atelectasis in the lower lung zones and hyperexpansion. 07/06: Kyle Love is a 70 year old patient seen in follow up for RLL infiltrate with severe COPD, acut
[2021-07-09] MEDS: predniSONE 20 MG TABLET 40 MG PO (12:40)
[2021-07-09] MEDS: AZITHROMYCIN 250 MG TABLET 500 MG PO (12:40)
[2021-07-09] MEDS: BISACODYL 10 MG SUPPOSITORY RECTAL (12:49)
--- NOTE | 2021-07-09 12:50 | P.PNNP_ITS ---
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 with contributions from medications * off HCTZ and PPI and on reduced dose of sertraline * currently on fluid restriction, salt tabs, lasix, and demeclocycline * sodium appears to be improving if not stable (2) Acute on chronic respiratory failure with hypoxia and hypercapnia: Code(s): J96.21 - Acute and chronic respiratory failure with hypoxia; J96.22 - Acute and chronic respiratory failure with hypercapnia Status: Acute Assessment and Plan: * due to COPD exacerbation and pneumonia * on nebulizer treatments, steroids, inhalers, and BiPAP * completed course of antibiotics * Pulmonary following as well (3) Pneumonia: Qualifiers: Laterality: unspecified laterality Lung location: unspecified part of lung Pneumonia type: due to unspecified organism Qualified Code(s): J18.9 - Pneumonia, unspecified organism Code(s): J18.9 - Pneumonia, unspecified organism Status: Acute Assessment and Plan: * continue antibiotic therapy * imaging noted (4) COPD (chronic obstructive pulmonary disease): Code(s): J44.9 - Chronic obstructive pulmonary disease, unspecified Status: Chronic Assessment and Plan: * continue supportive therapy * see #2 (5) Essential hypertension: Code(s): I10 - Essential (primary) hypertension Status: Chronic Assessment and Plan: * doing better * on losartan and diltiazem with PRN hydralazine * tachycardia better along with BP * follow trend of hemodynamics Will continue to follow. Subjective Date/time seen: 07/09/21 12:50 Respiratory status seems to be doing better today at the time of my visit; off BiPAP and on 3L supplemental oxygen and in no apparent distress; still has some issues with shortness of breath and dry cough; no issues/events overnight or ear lier this AM. Exam Narrative: General: WD/WN female in NAD Heart: normal S1 and S2; no rub Lungs: coarse and diminished throughout Abdomen: soft, nontender, nondistended, positive bowel sounds Extremities: no cyanosis or clubbing; no edema Skin: no rash Objective Data Vital Signs Vital Signs: Vital Signs Temp Pulse Resp BP Pulse Ox 07/09/21 10:00 100 07/09/21 09:22 104 H 22 H 07/09/21 09:14 97 07/09/21 09:11 105 H 22 H 07/09/21 08:00 36.3 C L 73 22 H 149/78 H 95 07/09/21 06:00 75 07/09/21 04:00 36.4 C L 71 22 H 148/78 H 98 07/09/21 03:51 73 22 H 07/09/21 03:49 71 22 H 97 07/09/21 03:45 72 22 H 07/09/21 02:00 80 07/09/21 01:08 95 23 H 07/09/21 01:01 94 22 H 07/09/21 00:30 84 22 H 98 07/09/21 00:00 94 99 07/08/21 23:34 36.4 C 93 22 H 132/77 99 07/08/21 22:11 98 22 H 98 07/08/21 22:0
--- NOTE | 2021-07-09 12:50 | PM.PNNEP ---
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 with contributions from medications off HCTZ and PPI and on reduced dose of sertraline currently on fluid restriction, salt tabs, lasix, and demeclocycline sodium appears to be improving if not stable (2) Acute on chronic respiratory failure with hypoxia and hypercapnia: Code(s): J96.21 - Acute and chronic respiratory failure with hypoxia; J96.22 - Acute and chronic respiratory failure with hypercapnia Status: Acute Assessment and Plan: due to COPD exacerbation and pneumonia on nebulizer treatments, steroids, inhalers, and BiPAP completed course of antibiotics Pulmonary following as well (3) Pneumonia: Qualifiers: Laterality: unspecified laterality Lung location: unspecified part of lung Pneumonia type: due to unspecified organism Qualified Code(s): J18.9 - Pneumonia, unspecified organism Code(s): J18.9 - Pneumonia, unspecified organism Status: Acute Assessment and Plan: continue antibiotic therapy imaging noted (4) COPD (chronic obstructive pulmonary disease): Code(s): J44.9 - Chronic obstructive pulmonary disease, unspecified Status: Chronic Assessment and Plan: continue supportive therapy see #2 (5) Essential hypertension: Code(s): I10 - Essential (primary) hypertension Status: Chronic Assessment and Plan: doing better on losartan and diltiazem with PRN hydralazine tachycardia better along with BP follow trend of hemodynamics Will continue to follow. Subjective Date/time seen: 07/09/21 12:50 Respiratory status seems to be doing better today at the time of my visit; off BiPAP and on 3L supplemental oxygen and in no apparent distress; still has some issues with shortness of breath and dry cough; no issues/events overnight or earlier this AM. Exam Narrative: General: WD/WN female in NAD Heart: normal S1 and S2; no rub Lungs: coarse and diminished throughout Abdomen: soft, nontender, nondistended, positive bowel sounds Extremities: no cyanosis or clubbing; no edema Skin: no rash Objective Data Vital Signs Vital Signs: Vital Signs Temp Pulse Resp BP Pulse Ox 07/09/21 10:00 100 07/09/21 09:22 104 H 22 H 07/09/21 09:14 97 07/09/21 09:11 105 H 22 H 07/09/21 08:00 36.3 C L 73 22 H 149/78 H 95 07/09/21 06:00 75 07/09/21 04:00 36.4 C L 71 22 H 148/78 H 98 07/09/21 03:51 73 22 H 07/09/21 03:49 71 22 H 97 07/09/21 03:45 72 22 H 07/09/21 02:00 80 07/09/21 01:08 95 23 H 07/09/21 01:01 94 22 H 07/09/21 00:30 84 22 H 98 07/09/21 00:00 94 99 07/08/21 23:34 36.4 C 93 22 H 132/77 99 07/08/21 22:11 98 22 H 98 07/08/21 22:00 99 07/08/21 21:25 97 22 H 07/08/21 21:10 99 22 H 07/08/21 20:00 36.6 C 94 20 157/70 H 98 07/08/21 18:00 112 H 07/08/21 16:23 103 H 16 07/08/21 16:16 97 07/08/21 16:15 104 H 16 07/08/21 16:00 36.1 C L 120 H 22 H 141/61 H 97 07/08/21 14:00 101 H Intake/Output Intake/Output: Intake & Output 07/06/21 07/07/21 07/08/21 07/09/21 23:59 23:59 23:59 23:59 Intake Total 1873 866 860 240 Output Total 1275 950 500 200 Balance 598 -84 360 40 Meds/Results Medications: Active Medications Generic Name Dose Route Start Last Admin Trade Name Freq PRN Reason Stop Dose Admin Acetaminophen 650 mg 07/02
--- NOTE | 2021-07-09 15:52 | PM.IMPN ---
Progress Note: A&P Assessment and Plan (1) Acute on chronic respiratory failure with hypoxia and hypercapnia: Code(s): J96.21 - Acute and chronic respiratory failure with hypoxia; J96.22 - Acute and chronic respiratory failure with hypercapnia Status: Acute Assessment and Plan: Continue AVAPS. Secondary to COPD exacerbation and pneumonia continue IV steroid continue antibiotics to cover Pseudomonas Guarded prognosis (2) Pneumonia: Qualifiers: Laterality: bilateral Lung location: lower lobe of lung Pneumonia type: due to unspecified organism Qualified Code(s): J18.9 - Pneumonia, unspecified organism Code(s): J18.9 - Pneumonia, unspecified organism Status: Acute Assessment and Plan: On IV antibiotics pulmonology recommended probable repeat CT scan if no improvement Patient has history of Pseudomonas concern for recurrent infection from Pseudomonas pneumonia continue IV antibiotics Chest x-ray showed improved pneumonia (3) COPD (chronic obstructive pulmonary disease): Code(s): J44.9 - Chronic obstructive pulmonary disease, unspecified Status: Chronic Assessment and Plan: Nebulizer treatment steroid antibiotics (4) Hyponatremia: Code(s): E87.1 - Hypo-osmolality and hyponatremia Status: Chronic Assessment and Plan: Management per Nephrology. 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 Nephrology recommendation appreciated DemOxycycline and salt tablet was added by Nephrology Also continue diuresis Additional Plan Severe protein calorie malnutrition dietitian consult Fluid overload continue diuresis 07/06/2021 interval history 70-year-old female with acute on chronic respiratory failure 2/2 hypercarbia, patient with history of end-stage COPD, now with exacerbation of COPD being treated with methylprednisone updraft and currently on BiPAP unable to provide detailed review of symptoms, patient is struggling to breathe, patient was just given nebulized treatment, did discuss with the patient regarding hospice, patient is not interested at the present time, patient will be seen by hard metals hand engraver and further recommendation to follow. 07/07/2021 interval history 70-year-old female with acute on chronic respiratory failure 2/2 hypercarbia, patient with history of end-stage COPD, now with exacerbation of COPD being treated with methylprednisone updraft and currently on BiPAP unable to provide detailed review of symptoms, patient is struggling to breathe, I myself spoke with patient and Dr. Booker as well regarding hospice, patient is not interested at the present time, 07/06 patient was seen by Dr. Booker patient was tachy and diltiazem 30mg was added, however patient's heart rate remains above 100, will continue to monitor, patient will be seen by hard metals hand engraver and further recommendation to follow. 07/08/2021 interval history 70-year-old female with acute on chronic respiratory failure 2/2 hypercarbia, patient with history of end-stage COPD, now with exacerbation of COPD being treated with methylprednisone updraft and currently on BiPAP unable to provide detailed review of symptoms, patient is struggling to breathe, I myself spoke with patient and Dr. Booker as well regarding hospice, patient is not interested at the present time, 07/06 patient was seen by Dr. Booker patient was tachy and diltiazem 30mg was added, however patient's heart rate remains above 100, patient with hyponatremia upon arrival her sodium was 124, seen by Nephrology sodium is trending and today is 134, will continue to monitor, patient will be seen by hard metals hand engraver and further recommendation to follow. 07/09/2021 interval history 70-year-old female with acute on chronic respiratory failure 2/2 hypercarbia, patient with history of end-stage COPD, now with exacerbation of COPD being treated with methylprednisone updraft and had been on BiPAP unable to provide detailed rev
[2021-07-09] MEDS: dilTIAZem HCL 60 MG TABLET PO (17:39)
[2021-07-09] MEDS: ALBUTEROL SULFATE (*SP) AEROSOL 1 PUFF INHALATION (17:48)
[2021-07-09] MEDS: SERTRALINE HCL 25 MG TABLET PO (19:54)
[2021-07-09] MEDS: PRAVASTATIN SODIUM 20 MG TABLET PO (19:54)
[2021-07-10] VITALS (14 sets, daily range): BP systolic 141–153; BP diastolic 60–73; PULSE 69–113; RESP 20–26; TEMP 36.2–36.6; O2SAT 90–100
[2021-07-10] MEDS: dilTIAZem HCL 60 MG TABLET PO ×4 (00:15→16:17)
[2021-07-10] MEDS: SODIUM CHLORIDE 1 GM TABLET PO ×3 (00:15→16:17)
[2021-07-10] MEDS: FUROSEMIDE 20 MG TABLET PO ×3 (00:15→17:06)
[2021-07-10 04:52] LABS: Alveolar/Arterial O2 Gradient 61.8 mmHg; Base Excess ABG 14.1 mEq/l (+/-2.0); Fractional Inspired Oxygen 28 %; HCO3 ABG 38.1 mEq/l (22.0-26.0); Oxygen Content ABG 14.3 %vol (16.0-22.0); Oxygen Saturation ABG 97.2 % (95.0-100.0); Oxyhemoglobin 95.5 % THb (90.0-100.0); PCO2 ABG 45.3 mmHg (35.0-45.0); PO2 ABG 84.4 mmHg (80.0-100.0); PO2 FiO2 Ratio Arterial Blood 3.01 %; Total Hemoglobin 10.6 g/dL (12.0-18.0)
[2021-07-10 04:54] LABS: Modified Allen's Test Pass; Site Drawn RIGHT RADIAL; pH ABG 7.543 (7.350-7.450)
[2021-07-10 04:55] LABS: Device NON-INVASIVE VENT; Non-Invasive Expiratory Pressure 5 CMH2O; Non-Invasive Vent Rate 22 /MIN
[2021-07-10 05:13] LABS: Hematocrit 31.9 % (37.0-47.0); Hemoglobin 10.2 g/dL (12.0-15.0); Mean Corpuscular Hemoglobin 29.9 pg (26-34); Mean Corpuscular Volume 93.5 fl (80-100); Mean Platelet Volume 9.2 fl (7.4-10.4); Platelet Count Result 293 k/mm3 (150-375); Red Blood Count 3.41 M/mm3 (4.2-5.4); Red Cell Distribution Width 14.2 % (11.5-14.5); White Blood Count 20.3 K/mm3 (4.5-10.0)
[2021-07-10 05:20] LABS: Blood Urea Nitrogen 37 mg/dL (7-17); Calcium 8.9 mg/dL (8.4-10.2); Carbon Dioxide > 40 mmol/L (22-30); Chloride 86 mmol/L (98-107); Estimated CRCL calculation 49 ml/min; Estimated Glomerular Filt Rate > 60; Glucose 115 mg/dL (65-110); Potassium 3.8 mmol/L (3.4-5.0); Sodium 133 mmol/L (137-145)
[2021-07-10] MEDS: SALINE LOCK FLUSH 10 ML IV PUSH (06:26)
[2021-07-10] MEDS: DOCUSATE SODIUM 100 MG CAPSULE PO ×2 (08:04→16:17)
[2021-07-10] MEDS: polyethylene glycoL 3350 17 GM POWD.PACK PO (08:04)
[2021-07-10] MEDS: DEMECLOCYCLINE HCL 150 MG TABLET PO ×3 (08:04→17:05)
[2021-07-10] MEDS: ENOXAPARIN 40 MG/0.4 ML SYRINGE SUB-Q (08:05)
[2021-07-10] MEDS: FLUTICASONE PROPIONATE 0.05% NA SPR 16 GM BTL (*BKC) 2 SPRAY NASAL (08:05)
[2021-07-10] MEDS: predniSONE 20 MG TABLET 40 MG PO (08:05)
[2021-07-10] MEDS: SACCHAROMYCES BOULARDII 250 MG CAPSULE PO (08:05)
[2021-07-10] MEDS: MONTELUKAST SODIUM 10 MG TABLET PO (08:05)
[2021-07-10] MEDS: LOSARTAN POTASSIUM 100 MG TABLET PO (08:05)
[2021-07-10] MEDS: OMEGA 3 POLYUNSAT FATTY ACIDS 1 GM CAP PO (08:06)
[2021-07-10] MEDS: ALBUTEROL SULFATE (*SP) AEROSOL 1 PUFF INHALATION ×2 (08:08→13:54)
[2021-07-10] MEDS: FLUTICASONE/UMECLIDIN/VILANTER 100-62.5-25 MCG ELLIPTA 1 PUFF INHALATION (08:08)
--- NOTE | 2021-07-10 09:23 | PM.PNPUL ---
Progress Note: A&P Assessment and Plan (1) Acute exacerbation of chronic obstructive pulmonary disease: Code(s): J44.1 - Chronic obstructive pulmonary disease with (acute) exacerbation Status: Acute Assessment and Plan: 07/09 Patient with severe COPD with chronic hypoxemic and hypercarbic respiratory failure requiring 2 L nasal cannula 24-7 and a home noninvasive ventilator with AVAPS-AE mode at night. Patient also has severe pulmonary hypertension with an estimated PASP of 80 on 07/06/2021. She has COVID RT PCR negative, influenza swab negative, urine pneumococcal antigen not detected and negative urine histo antigen. One blood culture from 06/29/2021 was negative. She has had multiple recent hospitalizations and this is her 6th hospitalization since December 2020. Patient has no wheezing today and states that she has 75-85% back to her baseline. She finished 7 days of Levaquin during this hospitalization. Will discontinue her Solu-Medrol and place her on prednisone 40 mg p.o. q.day. Will discontinue her levalbuterol, ipratropium and budesonide nebulizers and place her on trilogy 100-60 2.5-25. Overall the patient has end-stage COPD with 6 hospitalizations in the last 6 months. I will attempt to optimize her medical therapy with triple inhalers, Daliresp and azithromycin 500 mg p.o. t.i.w.. She was already in the process of getting Daliresp arranged through the outpatient clinic and we will continue to do this. I will add azithromycin 500 mg p.o. 3 times a week. 07/10 patient states she is feeling 85% back to her normal. She has a little bit more shortness of breath than usual. Her saturations are 96% on 3 L. She has no wheezing. From a pulmonary perspective she is ready for discharge on these Pulmonary medications: Prednisone 40 mg PO X 2 days Trelelgy 100/62.5/25 At 1 puff q.day Rescue albuterol 2 puffs q.4 hours p.r.n. shortness of breath or wheezing. Rescue DuoNebs q.6 hours p.r.n. shortness of breath or wheezing Montelukast 10 mg p.o. q.day. Cornet flutter valve Q 4 hours while awake When she sleeps AVAPS-AE Rate of 22, tidal volume 550, EPAP min 5, EPAP max 15, minimal inspiratory pressure 6, maximal inspiratory pressure 28, inspiratory time 1.0, rise of 3 and 2 L bleed in. oxygen per formal home O2 assessment which I have ordered. Follow-up in the Pulmonary Clinic in 3-4 weeks. I have informed or schedule lower to move up her previous appointment from 09/20/2021. (2) Pneumonia: Qualifiers: Laterality: bilateral Lung location: lower lobe of lung Pneumonia type: due to unspecified organism Qualified Code(s): J18.9 - Pneumonia, unspecified organism Code(s): J18.9 - Pneumonia, unspecified organism Status: Acute Assessment and Plan: patient's right lower lobe infiltrate has improved on today's chest x-ray. She has completed treatment with Levaquin. She is afebrile the white count of 15.9. (3) Acute on chronic respiratory failure with hypoxia and hypercapnia: Code(s): J96.21 - Acute and chronic respiratory failure with hypoxia; J96.22 - Acute and chronic respiratory failure with hypercapnia Status: Acute Assessment and Plan: 07/09 Patient with severe panlobular embolus emphysema on her CT scan with chronic hypoxemic respiratory failure requiring 2 L nasal cannula 07/10 and noninvasive ventilator with AVAPS-AE mode. Last night she wear the hospital AVAPS mode , rate of 22, tidal volume 550, EPAP 5, minimal inspiratory pressure 6, maximal inspiratory pressure 28, inspiratory time 1.0, rise of 3 and 25% FiO2) and tolerated it well. Will obtain a download from her her outpatient machine settings. Her tidal volume has been increased during this hospitalization and I will check to see if we can reprogrammed her home machine with these new settings tonight. If we are unable to this I will continue her hospital machine with these settings and obtain a blo
--- NOTE | 2021-07-10 10:03 | P.PNNP_ITS ---
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 with contributions from medications * off HCTZ and PPI and on reduced dose of sertraline * currently on fluid restriction, salt tabs, lasix, and demeclocycline * will change fluid restriction to 1200cc/day * sodium appears to be improving if not stable (2) Acute on chronic respiratory failure with hypoxia and hypercapnia: Code(s): J96.21 - Acute and chronic respiratory failure with hypoxia; J96.22 - Acute and chronic respiratory failure with hypercapnia Status: Acute Assessment and Plan: * due to COPD exacerbation and pneumonia * on nebulizer treatments, steroids, inhalers, and BiPAP * completed course of antibiotics * Pulmonary following as well (3) Pneumonia: Qualifiers: Laterality: unspecified laterality Lung location: unspecified part of [place] Pneumonia type: due to unspecified organism Qualified Code(s): J18.9 - Pneumonia, unspecified organism Code(s): J18.9 - Pneumonia, unspecified organism Status: Acute Assessment and Plan: * continue antibiotic therapy * imaging noted (4) COPD (chronic obstructive pulmonary disease): Code(s): J44.9 - Chronic obstructive pulmonary disease, unspecified Status: Chronic Assessment and Plan: * continue supportive therapy * see #2 (5) Essential hypertension: Code(s): I10 - Essential (primary) hypertension Status: Chronic Assessment and Plan: * doing better * on losartan and diltiazem with PRN hydralazine * titrate diltiazem versus switch to extended release formulation * tachycardia better * follow trend of hemodynamics Will continue to follow. Subjective Date/time seen: 07/10/21 10:03 Ongoing improvement in respiratory status at this time; states she feels close to baseline with regard to her breathing; sodium level stable if not better at this time as well; asking me if it is okay to d/c lemon and if her fluid restriction can be eased up on. Exam Narrative: General: WD/WN female in NAD Heart: normal S1 and S2; no rub Lungs: coarse and diminished throughout Abdomen: soft, nontender, nondistended, positive bowel sounds Extremities: no cyanosis or clubbing; no edema Skin: no nodules Objective Data Vital Signs Vital Signs: Vital Signs Temp Pulse Resp BP Pulse Ox 07/10/21 10:00 92 07/10/21 08:10 97 07/10/21 08:00 36.6 C 106 H 22 H 153/66 H 93 07/10/21 06:00 75 07/10/21 04:57 24 H 98 07/10/21 04:00 36.6 C 104 H 20 141/60 H 99 07/10/21 02:30 22 H 97 07/10/21 02:00 74 07/10/21 00:00 78 100 07/09/21 23:21 36.4 C L 82 22 H 117/65 100 07/09/21 22:41 24 H 98 07/09/21 22:00 83 07/09/21 20:34 98 07/09/21 20:32 23 H 98 07/09/21 20:00 36.6 C 104 H
--- NOTE | 2021-07-10 10:03 | PM.PNNEP ---
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 with contributions from medications off HCTZ and PPI and on reduced dose of sertraline currently on fluid restriction, salt tabs, lasix, and demeclocycline will change fluid restriction to 1200cc/day sodium appears to be improving if not stable (2) Acute on chronic respiratory failure with hypoxia and hypercapnia: Code(s): J96.21 - Acute and chronic respiratory failure with hypoxia; J96.22 - Acute and chronic respiratory failure with hypercapnia Status: Acute Assessment and Plan: due to COPD exacerbation and pneumonia on nebulizer treatments, steroids, inhalers, and BiPAP completed course of antibiotics Pulmonary following as well (3) Pneumonia: Qualifiers: Laterality: unspecified laterality Lung location: unspecified part of lung Pneumonia type: due to unspecified organism Qualified Code(s): J18.9 - Pneumonia, unspecified organism Code(s): J18.9 - Pneumonia, unspecified organism Status: Acute Assessment and Plan: continue antibiotic therapy imaging noted (4) COPD (chronic obstructive pulmonary disease): Code(s): J44.9 - Chronic obstructive pulmonary disease, unspecified Status: Chronic Assessment and Plan: continue supportive therapy see #2 (5) Essential hypertension: Code(s): I10 - Essential (primary) hypertension Status: Chronic Assessment and Plan: doing better on losartan and diltiazem with PRN hydralazine titrate diltiazem versus switch to extended release formulation tachycardia better follow trend of hemodynamics Will continue to follow. Subjective Date/time seen: 07/10/21 10:03 Ongoing improvement in respiratory status at this time; states she feels close to baseline with regard to her breathing; sodium level stable if not better at this time as well; asking me if it is okay to d/c lemon and if her fluid restriction can be eased up on. Exam Narrative: General: WD/WN female in NAD Heart: normal S1 and S2; no rub Lungs: coarse and diminished throughout Abdomen: soft, nontender, nondistended, positive bowel sounds Extremities: no cyanosis or clubbing; no edema Skin: no nodules Objective Data Vital Signs Vital Signs: Vital Signs Temp Pulse Resp BP Pulse Ox 07/10/21 10:00 92 07/10/21 08:10 97 07/10/21 08:00 36.6 C 106 H 22 H 153/66 H 93 07/10/21 06:00 75 07/10/21 04:57 24 H 98 07/10/21 04:00 36.6 C 104 H 20 141/60 H 99 07/10/21 02:30 22 H 97 07/10/21 02:00 74 07/10/21 00:00 78 100 07/09/21 23:21 36.4 C L 82 22 H 117/65 100 07/09/21 22:41 24 H 98 07/09/21 22:00 83 07/09/21 20:34 98 07/09/21 20:32 23 H 98 07/09/21 20:00 36.6 C 104 H 20 170/80 H 100 07/09/21 18:00 106 H 07/09/21 16:00 36.1 C L 72 20 185/67 H 20 L 07/09/21 14:09 101 H 24 H 98 07/09/21 14:00 102 H 07/09/21 12:00 36.4 C L 102 H 20 178/70 H 97 Intake/Output Intake/Output: Intake & Output 07/07/21 07/08/21 07/09/21 07/10/21 23:59 23:59 23:59 23:59 Intake Total 866 860 580 100 Output Total 950 500 850 500 Balance -84 011 -305 -400 Meds/Results Medications: Active Medications Generic Name Dose Route Start Last Admin Trade Name Freq PRN Reason Stop Dose Admin Acetaminophen 650 mg 07/02/21 13:07 07/02/21 22:08 Acetaminophen 325 Mg Tablet PO 650 mg Q6H PRN
--- NOTE | 2021-07-10 11:23 | PCRCNOTE ---
Pt went up to use commode, this was the extent of activity. Pt very SOB, heart rate elevated. Requested to be put back on bipap unit. Keep O2 settings as they were. 2 L rest, 3 L activity. 2 L bleed into trilogy unit. RN and RT notified.
--- NOTE | 2021-07-10 11:26 | PCOTNOTE ---
All documentation completed by Mariely Sim on 07/09/21 was completed as a certified therapist occupational versus student [employer]. All coursework and certification testing was completed and passed prior to this date.
--- NOTE | 2021-07-10 12:22 | PM.DS ---
DS: Admitting Diagnosis Discharge Date 07/10/2021 Admitting Diagnosis shortness of breath DS: Discharge Diagnosis Discharge Diagnosis (1) Hyponatremia: Code(s): E87.1 - Hypo-osmolality and hyponatremia Status: Chronic Assessment and Plan: Management per Nephrology. 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 Nephrology recommendation appreciated DemOxycycline and salt tablet was added by Nephrology Also continue diuresis (2) Acute on chronic respiratory failure with hypoxia and hypercapnia: Code(s): J96.21 - Acute and chronic respiratory failure with hypoxia; J96.22 - Acute and chronic respiratory failure with hypercapnia Status: Acute Assessment and Plan: Continue AVAPS. Secondary to COPD exacerbation and pneumonia continue IV steroid continue antibiotics to cover Pseudomonas Guarded prognosis (3) Pneumonia: Qualifiers: Laterality: bilateral Lung location: lower lobe of lung Pneumonia type: due to unspecified organism Qualified Code(s): J18.9 - Pneumonia, unspecified organism Code(s): J18.9 - Pneumonia, unspecified organism Status: Acute Assessment and Plan: On IV antibiotics pulmonology recommended probable repeat CT scan if no improvement Patient has history of Pseudomonas concern for recurrent infection from Pseudomonas pneumonia continue IV antibiotics Chest x-ray showed improved pneumonia (4) COPD (chronic obstructive pulmonary disease): Code(s): J44.9 - Chronic obstructive pulmonary disease, unspecified Status: Inactive Assessment and Plan: Nebulizer treatment steroid antibiotics DS: Summary Hospital Course Reason for hospitalization: Chief Complaint: Shortness of breath. 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 Patient comes today to the emergency room due to shortness of breath at the time of my visit patient is on BiPAP unable to provide any history. Most of the history was obtained upon reviewing medical records and from emergency room doctor. Preliminary workup was significant for chest x-ray with infiltrate on a white cell count of 25,000. An ABG showed a pCO2 of 65. Patient is being admitted for further evaluation management and treatment. Hospital Course: 07/06/2021 interval history 70-year-old female with acute on chronic respiratory failure 2/2 hypercarbia, patient with history of end-stage COPD, now with exacerbation of COPD being treated with methylprednisone updraft and currently on BiPAP unable to provide detailed review of symptoms, patient is struggling to breathe, patient was just given nebulized treatment, did discuss with the patient regarding hospice, patient is not interested at the present time, patient will be seen by hazmat tanker driver and further recommendation to follow. 07/07/2021 interval history 70-year-old female with acute on chronic respiratory failure 2/2 hypercarbia, patient with history of end-stage COPD, now with exacerbation of COPD being treated with methylprednisone updraft and currently on BiPAP unable to provide detailed review of symptoms, patient is struggling to breathe, I myself spoke with patient and Dr. Booker as well regarding hospice, patient is not interested at the present time, 07/06 patient was seen by Dr. Booker patient was tachy and diltiazem 30mg was added, however patient's heart rate remains above 100, will continue to monitor, patient will be seen by hazmat tanker driver and further recommendation to follow. 07/08/2021 interval history 70-year-old female with acute on chronic respiratory failure 2/2 hypercarbia, patient with history of end-stage COPD, now with exacerbation of COPD being treated with methylprednisone updraft and currently on BiPAP unable to provide detailed review of symptoms, patient is struggling to breathe, I
--- NOTE | 2021-07-10 12:54 | PCNFU ---
Nutrition Follow-Up Complete: Inadequate oral intake related to poor appetite as evidenced by pt consuming less than 25% of meals, pt reporting poor appetite, & low BMI. Goal:Increase consumption to greater than or equal to 50% of meals. Pt is meeting goal. Pt current nutrition is heart healthy. Nutrition recommendation: Continue with current plan of care. Last recorded weight is 50 kg - increase in 4kg. Bowel Motility:+BM 07/10 Labs Reviewed: Na:133, BUN:37, GLU:115 Meds Noted: Skin:WNL Additional Notes: Pt reports much improved intake. Charted intake 50,100,75,50. Drinking the Ensures as ordered. Monitor intake, weight, and labs and follow up in 7 days.
--- NOTE | 2021-07-10 14:12 | PCRCNOTE ---
CHANGE OF PLAN RT FROM [facility] EMERGENCY DEPARTMENT WILL BE IN WITHIN THE HOUR TO ADJUST THE HOME TRILOGY UNIT PRIOR TO D/C, RN NOTIFIED.
[2021-07-10] MEDS: PANTOPRAZOLE 40 MG TABLET PO (16:03)
== END 2021-07-10 18:23 | disposition home health service (06) | DRG 190 ==
LOC: ANHED 21:51 → ANHIMU 23:11
PROVIDERS: Chiropractor; Internal Medicine; Internal Medicine Critical Care Medicine; Internal Medicine Nephrology; Internal Medicine Pulmonary Disease; Admitting Provider Internal Medicine; Emergency Provider Emergency Medicine; PCP Family Medicine; Visit Provider Family Medicine
DX: J44.1 Chronic obstructive pulmonary disease with (acute) exacerbation (principal); J18.9 Pneumonia, unspecified organism; J96.21 Acute and chronic respiratory failure with hypoxia; J96.22 Acute and chronic respiratory failure with hypercapnia; J98.11 Atelectasis; Z68.1 Body mass index [BMI] 19.9 or less, adult; E44.0 Moderate protein-calorie malnutrition; E22.2 Syndrome of inappropriate secretion of antidiuretic hormone; J44.0 Chronic obstructive pulmonary disease with (acute) lower respiratory infection; Z20.822 Contact with and (suspected) exposure to COVID-19; K21.9 Gastro-esophageal reflux disease without esophagitis; Z87.891 Personal history of nicotine dependence; F41.9 Anxiety disorder, unspecified; Z79.899 Other long term (current) drug therapy; E78.2 Mixed hyperlipidemia; Z99.81 Dependence on supplemental oxygen; Z83.3 Family history of diabetes mellitus; Z80.3 Family history of malignant neoplasm of breast; Z80.8 Family history of malignant neoplasm of other organs or systems; Z80.1 Family history of malignant neoplasm of trachea, bronchus and lung; R00.0 Tachycardia, unspecified
CPT/HCPCS: 36415; 36569; 36600; 71045; 74018; 74019; 80048; 80053; 80069; 82570; 82805; 83735; 83880; 83930; 84100; 84155; 84165; 84295; 84300; 84439; 84443; 84480; 84540; 85025; 85027; 85610; 85730; 87040; 87385; 87502; 87899; 93005; 93306; 94002; 94003; 94618; 94640; 94762; 97110; 97161; 97166; 97530; 97535; 99285; A9270; C1751; C9803; J0131; J0360; J1120; J1650; J1940; J1956; J2060; J2270; J2920; J7030; J7512; U0003; U0005

== ENCOUNTER 2021-07-25 14:10 | Inpatient (IN) | payer MEDICARE, BC, SELFPAY ==
[2021-07-25] VITALS (47 sets, daily range): BP systolic 109–245; BP diastolic 58–114; PULSE 52–130; RESP 12–27; TEMP 36.4–36.6; O2SAT 88–100; BMI 18.5
--- NOTE | ~2021-07-25 | XR_ITS ---
XR chest 1V portable DATE: 07/29/2021 05:55 INDICATION: Respiratory distress TECHNIQUE: Portable AP chest on 07/29/2021 at 0521 hours COMPARISON: 07/28/2021 portable AP chest at 0509 hours FINDINGS: Bilateral hyperinflation and flattening the diaphragm, consistent with severe COPD. There is scarring in the right lower lung. Normal heart size. Is aortic calcification and unfolding. Central pulmonary arteries are prominent, s uggesting pulmonary hypertension No pulmonary consolidation, pleural effusion, pulmonary vascular congestion or pneumothorax. Diffuse osteopenia. Bilateral glenohumeral osteoarthritis. Rotator cuff atrophy is noted on the left. IMPRESSION: COPD, pulmonary hypertension Right lower lung scarring Reviewed, dictated and finalized at location A.
--- NOTE | ~2021-07-25 | XR_ITS ---
XR chest 1V portable DATE: 07/28/2021 05:26 INDICATION: Respiratory distress TECHNIQUE: Portable AP chest on 07/28/2021 at 0509 hours COMPARISON: 07/27/2021 portable AP chest at 0513 hours /07/2021 CTA chest FINDINGS: There is prominent bilateral hyperinflation and flattening the diaphragm, consistent with s evere COPD. Mild infiltrate or atelectasis in the lower lung zones, right greater than left, improved since 2021. No pneumothorax or pleural effusion or pulmonary vascular congestion is evident. There is aortic calcification and mild tortuosity. Heart size is normal. Diffuse osteopenia. There is osteoarthritis at the glenohumeral joints. Left rotator cuff atrophy. IMPRESSION: Improvement of bibasilar infiltrate or atelectasis since 07/27/2021 Severe emphysema Reviewed, dictated and finalized at location A.
--- NOTE | ~2021-07-25 | XR_ITS ---
EXAMINATION: XR chest ET placement INDICATION: Endotracheal tube placement TECHNIQUE: Portable AP chest at 1441 hours COMPARISON: 07/09/2021 FINDINGS: The endotracheal tube ends approximately 3.5 cm above the vipin. The nasogastric tube is f ollowed as far as the stomach. Its tip is beyond the inferior margin of the radiograph. The lungs are hyperinflated but free of acute opacities. There is no pleural effusion or pneumothorax. Calcified p ulmonary nodules and calcified left hilar lymph nodes are consistent with old granulomatous disease. The cardiomediastinal silhouette is normal. IMPRESSION: 1. Endotracheal tube approximately 3.5 cm above the vipin. 2. Severe emphysema. Reviewed, dictated and finalized at location A.
--- NOTE | ~2021-07-25 | XR_ITS ---
EXAMINATION: XR chest 1V portable INDICATION: ARDS TECHNIQUE: Portable AP chest at 0513 hours COMPARISON: 07/26/2021 FINDINGS: The endotracheal tube ends approximately 2.5 cm above the vipin. The nasogastric tube is f ollowed as far as the stomach. Its tip is beyond the inferior margin of the radiograph. The lungs are hyperinflated. There are airspace opacities of the lung bases. No pleural effusion or pneumothorax i s identified. The cardiomediastinal silhouette is stable. IMPRESSION: 1. Bibasilar airspace opacities, consistent with atelectasis versus pneumonia. 2. Severe emphysema. Reviewed, dictated and finalized at location A.
--- NOTE | ~2021-07-25 | US_ITS ---
EXAMINATION: US venous doppler UE DATE: 07/27/2021 09:02 INDICATION: Inability to place a PICC line in the left arm. TECHNIQUE: Grayscale images without and with compression and Doppler images of the bilateral upper ex tremity veins were obtained. COMPARISON: None. FINDINGS: The right internal jugular vein, subclavian vein, axillary vein, brachial vein, basilic vein, cephali c vein, radial vein, and ulnar vein are patent. Partially occlusive thrombus within the left subclavian and occlusive appearing thrombus in the left axillary and basilic veins. The left internal jugular vein, basilic vein, cephalic vein, radial vein, and ulnar vein are patent. IMPRESSION: 1. Thrombosis extending from the left basilic vein through the axillary vein into the subclavian vein . 2. No venous thrombosis in the right upper limb. Reviewed, dictated and finalized at location A. IMPRESSION: 1. Thrombosis extending from the left basilic vein through the axillary vein in to the subclavian vein. 2. No venous thrombosis in the right upper limb.
--- NOTE | ~2021-07-25 | XR_ITS ---
EXAMINATION: XR chest 1V portable INDICATION: ARDS TECHNIQUE: Portable AP chest at 0521 hours COMPARISON: 07/25/2021 FINDINGS: The lungs are hyperinflated. There are minimal airspace opacities of the right lung base. T here is no pleural effusion or pneumothorax. The nasogastric tube is followed as far as the stomach. Its tip is beyond the inferior margin of the radiograph. The endotracheal tube is approximately 2.7 c m above the vipin. IMPRESSION: 1. Severe emphysema. 2. Minimal right basilar airspace opacity, consistent with atelectasis versus pneumonia. Reviewed, dictated and finalized at location A. IMPRESSION: 1. Severe emphysema. 2. Minimal right basilar airspace opacity, consistent with atelectasis versus p neumonia.
--- NOTE | ~2021-07-25 | XR_ITS ---
EXAM: XR abdomen NG/feed tube insert HISTORY: og placement COMPARISON: 07/09/2021. FINDINGS: Endotracheal tube, terminates in the distal thoracic trachea. Nasogastric tube, tip in sto mach side port at the GE junction. Emphysematous changes. Cholecystectomy clips. Degenerative spine c hanges. IMPRESSION: NG tube side port is at the GE junction, consider slight advancement. Reviewed, dictated and finalized at location K.
--- NOTE | ~2021-07-25 | XR_ITS ---
EXAMINATION: XR Abdomen PICC INDICATION: PICC insertion TECHNIQUE: Supine view of the abdomen is obtained. COMPARISON: 07/25/2021 FINDINGS: A left lower limb PICC has been inserted which appears to end in intrahepatic inferior vena cava. The nasogastric tube is in the stomach. Cholecystectomy clips are noted. The bowel gas pattern is nonspecific. IMPRESSION: 1. Left lower limb PICC line ending in the intrahepatic inferior vena cava. Reviewed, dictated and finalized at location A.
--- NOTE | 2021-07-25 14:15 | PC.NURSE ---
pt to be intubated by Dr Weinberg etomidate 13mg given @ 1415 succs 100 mg given at 1416 tube size 7 23 at the lip verified via breath sounds, chest rise and f all and color change. chest xray will be ordered
[2021-07-25] MEDS: ETOMIDATE 20 MG/10 ML AMPUL 13 MG IV PUSH (14:20)
--- NOTE | 2021-07-25 14:22 | ECG_ITS ---
Measurements Intervals [place] Rate: 109 P: 81 MO: 137 QRS: 81 QRSD: 72 T: 98 QT: 315 QTc: 425 Interpretive Statements SINUS TACHYCARDIA NONSPECIFIC T-WAVE ABNORMALITY- INF/HIGH LAT LEADS ABNORMAL ECG Electronically Signed On 07-25-2021 14:58:29 CDT by Amadeo Decker D.O.
--- NOTE | 2021-07-25 14:24 | ED.SOB ---
HPI - SOB/Dyspnea General Chief Complaint: Shortness of Breath/Dyspnea Stated Complaint: sob Time Seen by Provider: 07/25/21 14:20 Source: EMS Mode of arrival: EMS Limitations: clinical condition History of Present Illness HPI Narrative: Pt presents per EMS in severe respiratory distress. Pt given treatment and placed on Bipap per EMS. Per EMS SOB started last night and has been getting progressively worse. Family called 911 today because pt worse. No further hx available at this time. MD elicited complaint: shortness of breath Pertinent past history: COPD Timing: constant Severity: severe Relieving factors: nothing Known history of: COPD Related Data Home Medications Medication Instructions Recorded Confirmed Saccharomyces boulardii [Daily 1 cap PO DAILY 03/06/21 07/12/21 Probiotic (S. boulardii)] docusate sodium 100 mg capsule 100 mg PO BID PRN 03/06/21 07/12/21 omega-3 fatty acids 1,000 mg 1,000 mg PO DAILY 03/06/21 07/12/21 capsule pravastatin 20 mg PO HS 06/09/21 07/12/21 Trelegy Ellipta 1 inh INHALATION DAILY 06/29/21 07/12/21 albuterol sulfate 1 puff INHALATION Q6H PRN 06/29/21 07/12/21 famotidine 20 mg PO DAILY 06/29/21 07/12/21 ipratropium-albuterol 3 ml INHALATION Q6H PRN 06/29/21 07/12/21 montelukast 10 mg PO DAILY 06/29/21 07/12/21 aspirin 81 mg tablet,delayed 81 mg PO DAILY 07/12/21 07/12/21 release Allergies Allergy/AdvReac Type Severity Reaction Status Date / Time shellfish derived Allergy Severe Anaphylaxis Verified 07/25/21 14:19 strawberry Allergy Severe Unknown Verified 07/25/21 14:19 Penicillins Allergy Unknown Unknown Verified 07/25/21 14:19 Molds and Smuts Allergy Unknown Unknown Uncoded 06/18/21 11:58 Review of Systems Review of Systems: ROS unobtainable: Yes unobtainable due to medical condition and unobtainable due to mental status PMFSH Past Medical History Medical History (Updated 07/25/21 @ 15:27 by Inessa Weinberg III, DO) Acute respiratory failure with hypercapnia Anxiety Asthma Atherosclerotic heart disease of [place] coronary artery without angina pectoris BMI less than 19,adult (~05/14/21) BMI 17.4 Chronic respiratory failure with hypoxia and hypercapnia Compression atelectasis Constipation COPD (chronic obstructive pulmonary disease) COPD exacerbation COPD exacerbation Dry skin End stage chronic obstructive pulmonary disease GERD (gastroesophageal reflux disease) Heart disease HTN (hypertension) Hx of intestinal obstruction Insomnia Mixed hyperlipidemia Oxygen dependent Seasonal allergic rhinitis Vitamin D deficiency Weakness Surgical History Surgical History H/O: hysterectomy (~1992) History of appendectomy (~1990) had bowel obstruction a week later requiring surgery History of cholecystectomy (~1989) Family History Family History Mother Heart disease Lymphoma Hypertension Breast cancer Sibling Diabetes mellitus Lung cancer Hypertension She had a sister with hypertension, renal transplant A brother had lung cancer Other Spinal cord cancer Father Hypertension Social History Social History Social History: She is retired from the postal service. She has 3 children. She is . She is a former smoker and quit many years ago. She denies any alcohol marijuana illicit drugs. She is . She does not have a durable power claims attorney for healthcare. Code status full code. Smoking packs per day: 0.3 Smoking cigarettes per day: 6.0 Years smoked: 25 Smoking pack-years: 7.50 Smoking status: Former smoker Tobacco type: cigarettes Second hand tobacco smoke exposure: No Additional smoking assessment comments: 10 years stopped smoking Alcohol intake: never Substance use: never Substance use type: does not use Spiritua
--- NOTE | 2021-07-25 14:28 | PC.NURSE ---
pt intubated at [address] murillo
[2021-07-25 14:41] LABS: Alveolar/Arterial O2 Gradient 122.5 mmHg; Base Excess ABG 1.8 mEq/l (+/-2.0); Fractional Inspired Oxygen 50 %; HCO3 ABG 28.7 mEq/l (22.0-26.0); Oxygen Content ABG 15.4 %vol (16.0-22.0); Oxyhemoglobin 97.9 % THb (90.0-100.0); PCO2 ABG 56.8 mmHg (35.0-45.0); PO2 ABG 170.1 mmHg (80.0-100.0); Total Hemoglobin 10.9 g/dL (12.0-18.0); pH ABG 7.322 (7.350-7.450)
[2021-07-25 14:42] LABS: Arterial Blood Gas Ventilator rate 16 /MIN; Device VENTILATOR; Modified Allen's Test Pass; Site Drawn RIGHT RADIAL
[2021-07-25 14:43] LABS: Arterial Blood Gas PEEP 5 cmH2O; Arterial Blood Gas Tidal Volume 300 ml; Arterial Blood Gas Vent Mode CMV
[2021-07-25 15:09] LABS: Basophils Percent Auto 0.1 % (0.2-1.2); Hematocrit 31.1 % (37.0-47.0); Hemoglobin 9.7 g/dL (12.0-15.0); Immature Granulocyte Absolute 0.06 K/mm3 (0.00-0.031); Immature Granulocyte Percent A 0.5 % (0-0.5); Lymphocytes Absolute Auto 0.97 K/mm3 (0.9-3.2); Lymphocytes Percent Auto 7.6 % (18.3-44.2); Mean Corpuscular HGB Conc 31.2 g/dl (32-36); Mean Corpuscular Hemoglobin 30.8 pg (26-34); Mean Corpuscular Volume 98.7 fl (80-100); Mean Platelet Volume 10.2 fl (7.4-10.4); Monocytes Absolute Auto 0.6 K/mm3 (0.1-0.6); Monocytes Percent Auto 4.5 % (2.6-8.5); Neutrophils Absolute Auto 11.1 K/mm3 (1.3-6.7); Neutrophils Percent Auto 87.3 % (45.5-73.1); Platelet Count Result 122 k/mm3 (150-375); Red Blood Count 3.15 M/mm3 (4.2-5.4); Red Cell Distribution Width 17.3 % (11.5-14.5); White Blood Count 12.7 K/mm3 (4.5-10.0)
[2021-07-25 15:10] LABS: Appearance Urine Clear (Clear); Bilirubin Urine Negative (Negative); Blood Urine 1+ (Negative); Color Urine Yellow (Yellow); Glucose Urine UA Negative (Negative); Ketones Urine Negative (Negative); Leukocyte Esterase Ur Negative LEU/UL (Negative); Nitrate Urine Negative (Negative); Protein Urine 2+ mg/dL (Negative); Specific Grav Ur >= 1.030 (1.001-1.035); Urobilinogen Urine 0.2 mg/dL (<2.0); pH Urine 5.5 (5.0-9.0)
[2021-07-25] MEDS: ONDANSETRON INJ 4 MG/2 ML VIAL IV PUSH (15:17)
[2021-07-25 15:19] LABS: Bacteria Urine Trace /hpf; Mucus Urine Rare /lpf; Squamous Epithelial Cell Urine Rare /hpf (Few); WBC Urine 0-3 /hpf
[2021-07-25] MEDS: SUCCINYLCHOLINE CHLORIDE 20 MG/ML 10 ML VIAL 100 MG IV PUSH (15:19)
[2021-07-25] MEDS: PROPOFOL IV EMULSION 100 ML 1.34 MG IV CONT (15:19)
[2021-07-25 15:20] LABS: Add Urine Microscopic? YES
[2021-07-25 15:28] LABS: Lactic Acid Reflex 1.5 mmol/L (0.7-2.0)
[2021-07-25 15:29] LABS: Alanine Aminotransferase 69 U/L (6-35); Alkaline Phosphatase 98 U/L (38-126); Anion Gap 6 mmol/L (8-16); Aspartate Amino Transferase 45 U/L (14-36); Bilirubin,Total 0.6 mg/dL (0.2-1.3); Blood Urea Nitrogen 43 mg/dL (7-17); Calcium 8.7 mg/dL (8.4-10.2); Carbon Dioxide 31 mmol/L (22-30); Chloride 99 mmol/L (98-107); Estimated CRCL calculation 44 ml/min; Estimated Glomerular Filt Rate > 60; Glucose 149 mg/dL (65-110); INR 1.1; Magnesium 2.7 mg/dL (1.6-2.3); Prothrombin Time 14.1 Seconds (11.1-14.7); Sodium 136 mmol/L (137-145)
[2021-07-25 15:38] LABS: NT Pro B Type Natriuretic Pept 358 pg/mL (5-100)
--- NOTE | 2021-07-25 15:59 | PC.NURSE ---
vorb to give propofol 50 mg ivp x1 from dr murillo at 1445, 1510 and 1525. vorb to give propofol 30 x1 ivp from Angie Vargas at 1555
[2021-07-25 16:02] LABS: Troponin I 0.018 ng/mL (0.000-0.034)
--- NOTE | 2021-07-25 17:55 | ADMGEN ---
This patient, Kyle Love, was admitted to Intensive Care Unit-1 at 1639. Patient/family oriented to hospital policies and general routines including ID bracelet, bed and alarms, visiting hours, pain management, procedures, bathroom and other care routines, personal items, smoking policy, room service/diet, and visiting hours. Information on how to activate the Rapid Response Team has been discussed. Patient/Family are encouraged to report perceived risks to care and to ask questions if they do not understand what they are told or what they should do.
[2021-07-25] MEDS: FENTANYL 2,500MCG/NS250ML(*CRX 2,500 MCG/250 ML BAG 10 MCG IV CONT (19:08)
[2021-07-25 19:45] LABS: Troponin I 0.033 ng/mL (0.000-0.034)
--- NOTE | 2021-07-25 20:04 | PM.IMHP ---
H&P: HPI History of Present Illness Date/Time: Patient requires inpatient monitoring with expected length of stay to exceed 2 midnights for management of care. 07/25/21 20:04 Chief Complaint: Shortness of breath Narrative: Ms. Love is a 70-year-old female who was brought into the emergency room via EMS for severe respiratory distress. Patient this time is intubated and sedated so I am unable to get any type of history from the patient. Per the emergency room records patient was given a nebulizer treatment and placed on BiPAP by EMS and upon arrival to the emergency room was still in respiratory distress a need to be intubated. Per emergency room records patient started having shortness of breath last evening and progressively got worse. Patient's family called 911 today and she was transported to the emergency room. Patient was hospitalized on June 29, 2021 for complaints of shortness of breath and was diagnosed with severe COPD/emphysema and was noted to wear home oxygen at that time. Patient at that time was diagnosed with acute exacerbation COPD and pneumonia. As already stated I am unable to obtain any history from patient, but per previous records patient has a known history of COPD with hypercapnic respiratory failure and oxygen dependency, hypertension, dyslipidemia, and GERD. Review of Systems Review of Systems: I am unable to obtain a full review of systems secondary to the fact the patient is intubated sedated. [facility] Past Medical History Medical History (Updated 07/25/21 @ 15:27 by Inessa Weinberg III, DO) Acute respiratory failure with hypercapnia Anxiety Asthma Atherosclerotic heart disease of [place] coronary artery without angina pectoris BMI less than 19,adult (~05/14/21) BMI 17.4 Chronic respiratory failure with hypoxia and hypercapnia Compression atelectasis Constipation COPD (chronic obstructive pulmonary disease) COPD exacerbation COPD exacerbation Dry skin End stage chronic obstructive pulmonary disease GERD (gastroesophageal reflux disease) Heart disease HTN (hypertension) Hx of intestinal obstruction Insomnia Mixed hyperlipidemia Oxygen dependent Seasonal allergic rhinitis Vitamin D deficiency Weakness Surgical History Surgical History H/O: hysterectomy (~1992) History of appendectomy (~1990) had bowel obstruction a week later requiring surgery History of cholecystectomy (~1989) Family History Family History Mother Heart disease Lymphoma Hypertension Breast cancer Sibling Diabetes mellitus Lung cancer Hypertension She had a sister with hypertension, renal transplant A brother had lung cancer Other Spinal cord cancer Father Hypertension Social History Social History Social History: She is retired from the [employer] service. She has 3 children. She is . She is a former smoker and quit many years ago. She denies any alcohol marijuana illicit drugs. She is . She does not have a durable power staff attorney for healthcare. Code status full code. Smoking packs per day: 0.3 Smoking cigarettes per day: 6.0 Years smoked: 25 Smoking pack-years: 7.50 Smoking status: Former smoker Second hand tobacco smoke exposure: No Additional smoking assessment comments: 10 years stopped smoking Alcohol intake: never Substance use: never Substance use type: does not use Spiritual care concerns: No Meds Home Medications and Allergies Home Medications Medication Instructions Recorded Confirmed Type Saccharomyces boulardii [Daily 1 cap PO DAILY 03/06/21 07/25/21 History Probiotic (S. boulardii)] docusate sodium 100 mg capsule 100 mg PO BID PRN 03/06/21 07/25/21 History omega-3 fatty acids 1,000 mg 1,000 mg PO DAILY 03/06/21 07/25/21 History capsule
[2021-07-25] MEDS: ALBUTEROL SULFATE NEB 2.5 MG/3 ML INH INHALATION (20:27)
[2021-07-25] MEDS: IPRATROPIUM BR 0.02% INH SOLN 0.5 MG/2.5 ML VIAL INHALATION (20:27)
[2021-07-25] MEDS: PROPOFOL IV EMULSION 100 ML 10.68 MG IV CONT (21:02)
[2021-07-25] MEDS: MINERAL OIL/WHITE PETROLATUM OINTMENT 1 APPLIC EACH EYE (21:07)
[2021-07-25 22:09] LABS: Troponin I 0.033 ng/mL (0.000-0.034)
[2021-07-25] MEDS: methylPREDNISolone SOD SUCC 125 MG VIAL 60 MG IV PUSH (23:12)
[2021-07-26] VITALS (31 sets, daily range): BP systolic 108–160; BP diastolic 52–68; PULSE 50–90; RESP 16–18; TEMP 36–36.9; O2SAT 92–100; BMI 18.6
[2021-07-26] MEDS: IPRATROPIUM BR 0.02% INH SOLN 0.5 MG/2.5 ML VIAL INHALATION ×4 (03:12→19:45)
[2021-07-26] MEDS: ALBUTEROL SULFATE NEB 2.5 MG/3 ML INH INHALATION ×4 (03:12→19:45)
[2021-07-26 04:03] LABS: Hematocrit 30.5 % (37.0-47.0); Hemoglobin 9.5 g/dL (12.0-15.0); Mean Corpuscular HGB Conc 31.1 g/dl (32-36); Mean Corpuscular Hemoglobin 30.4 pg (26-34); Mean Corpuscular Volume 97.4 fl (80-100); Mean Platelet Volume 9.9 fl (7.4-10.4); Platelet Count Result 99 k/mm3 (150-375); Red Blood Count 3.13 M/mm3 (4.2-5.4); Red Cell Distribution Width 17.3 % (11.5-14.5); White Blood Count 12.1 K/mm3 (4.5-10.0)
[2021-07-26 04:21] LABS: Anion Gap 6 mmol/L (8-16); Blood Urea Nitrogen 39 mg/dL (7-17); Calcium 8.7 mg/dL (8.4-10.2); Carbon Dioxide 29 mmol/L (22-30); Chloride 100 mmol/L (98-107); Estimated CRCL calculation 60 ml/min; Estimated Glomerular Filt Rate > 60; Glucose 108 mg/dL (65-110); Magnesium 2.6 mg/dL (1.6-2.3); Phosphorus 4.6 mg/dL (2.5-4.5); Potassium 3.8 mmol/L (3.4-5.0); Sodium 135 mmol/L (137-145)
[2021-07-26 04:59] LABS: Alveolar/Arterial O2 Gradient 84.1 mmHg; Base Excess ABG 6.5 mEq/l (+/-2.0); Fractional Inspired Oxygen 30 %; HCO3 ABG 31.7 mEq/l (22.0-26.0); Oxygen Content ABG 12.5 %vol (16.0-22.0); Oxygen Saturation ABG 94.8 % (95.0-100.0); Oxyhemoglobin 92.1 % THb (90.0-100.0); PCO2 ABG 48.8 mmHg (35.0-45.0); PO2 ABG 72.5 mmHg (80.0-100.0); PO2 FiO2 Ratio Arterial Blood 2.42 %; Total Hemoglobin 9.6 g/dL (12.0-18.0)
[2021-07-26 05:00] LABS: Modified Allen's Test Pass; Site Drawn RIGHT RADIAL
[2021-07-26 05:01] LABS: Arterial Blood Gas PEEP 5 cmH2O; Arterial Blood Gas Vent Mode CMV; Arterial Blood Gas Ventilator rate 16 /MIN; Device VENTILATOR
[2021-07-26 05:02] LABS: Arterial Blood Gas Tidal Volume 300 ml
[2021-07-26] MEDS: methylPREDNISolone SOD SUCC 125 MG VIAL 60 MG IV PUSH ×3 (05:14→18:14)
[2021-07-26] MEDS: PROPOFOL IV EMULSION 100 ML 8.01 MG IV CONT ×2 (05:18→16:47)
[2021-07-26] MEDS: BUDESONIDE RESPULE NEB 0.5 MG/2 ML AMP INHALATION ×2 (08:42→19:45)
[2021-07-26 08:59] LABS: Procalcitonin 0.2 ng/mL
[2021-07-26] MEDS: ENOXAPARIN 40 MG/0.4 ML SYRINGE SUB-Q (09:01)
[2021-07-26] MEDS: MINERAL OIL/WHITE PETROLATUM OINTMENT 1 APPLIC EACH EYE ×2 (09:01→20:07)
[2021-07-26] MEDS: PANTOPRAZOLE SODIUM IV 40 MG VIAL IV PUSH (09:02)
[2021-07-26] MEDS: polyethylene glycoL 3350 17 GM POWD.PACK PO (09:02)
--- NOTE | 2021-07-26 09:26 | WPDCNINT ---
Assessment and Plan Assessment and plan (1) Acute on chronic respiratory failure with hypoxia and hypercapnia: Code(s): J96.21 - Acute and chronic respiratory failure with hypoxia; J96.22 - Acute and chronic respiratory failure with hypercapnia Status: Acute Assessment and Plan: Acute Respiratory failure secondary to acute exacerbation of COPD Chest x-ray on presentation did not show any significant infiltrates and showed severe emphysema and her procalcitonin level was low eating is pneumonia. Her lactic acid level was also normal Continue full mechanical ventilation support to prevent hypoxemia/hypercarbia and end organ damage. ABG and PCXR reviewed Low tidal volume ventilation strategy to prevent volutrauma Continue azithromycin, steroids and Bronchodilators (2) Acute exacerbation of chronic obstructive pulmonary disease: Code(s): J44.1 - Chronic obstructive pulmonary disease with (acute) exacerbation Status: Acute Assessment and Plan: See above (3) Essential hypertension: Code(s): I10 - Essential (primary) hypertension Status: Chronic Assessment and Plan: Blood pressure now in adequate range as patient is on sedation Hold losartan and use p.r.n. hydralazine (4) Mixed hyperlipidemia: Code(s): E78.2 - Mixed hyperlipidemia Status: Acute Assessment and Plan: Continue statin Additional Plan DVT prophylaxis -Lovenox Stress ulcer prophylaxis -PPI Nutrition -start Tube Feeds Code Status - Full Code Total Critical Care Time - 30 minutes Due to a high probability of clinically significant, life threatening deterioration, the patient required my highest level of preparedness to intervene emergently and I personally spent this critical care time directly and personally managing the patient. This critical care time included obtaining a history; examining the patient; pulse oximetry; ordering and review of studies; arranging urgent treatment with development of a management plan; evaluation of patient's response to treatment; frequent reassessment; and discussions with other providers. It was exclusive of separately billable procedures and treating other patients and teaching time. Please see Assessment and Plan section and the rest of the note for further information on patient assessment and treatment [employer] Consult Note Consult date: 07/26/21 HPI: Kyle Love is a 70 year old female who was brought into the emergency room via EMS for severe respiratory distress. On presentation patient was found to be in severe respiratory distress despite being on BiPAP and was emergently intubated intubated and sedated. Patient was admitted with diagnosis of acute exacerbation of COPD and respiratory failure. Patient was started on antibiotics steroids and bronchodilators and admitted to ICU for further evaluation management. History obtained from chart and Physician sign out. Pt intubated and sedated and unable to provide any further history. Per records patient has a known history of COPD with hypercapnic respiratory failure and oxygen dependency, hypertension, dyslipidemia, and GERD. Review of Systems Review of Systems: ROS unobtainable: Yes unobtainable due to endotracheal tube, unobtainable due to medical condition and unobtainable due to mental status PMFSH Past Medical History Medical History Acute respiratory failure with hypercapnia Anxiety Asthma Atherosclerotic heart disease of [place] coronary artery without angina pectoris BMI less than 19,adult (~05/14/21) BMI 17.4 Chronic respiratory failure with hypoxia and hypercapnia Compression atelectasis Constipation COPD (chronic obstructive pulmonary disease) COPD exacerbation COPD exacerbation Dry skin End stage chronic obstructive pulmonary disease GERD (gastroesophageal reflux disease) Heart disease HTN (hypertension) Hx of intestinal obstruction In
[2021-07-26] MEDS: SODIUM CHLORIDE 0.9% IV 1,000 ML 100 ML IV CONT ×2 (12:22→23:00)
[2021-07-26 12:27] LABS: Glucose Point of Care 109 mg/dl (65-105)
[2021-07-26] MEDS: CENTRAL LINE FLUSH 10 ML IV PUSH ×2 (14:03→20:07)
--- NOTE | 2021-07-26 15:40 | PM.IMPN ---
Progress Note: A&P Assessment and Plan (1) Acute on chronic respiratory failure with hypoxia and hypercapnia: Code(s): J96.21 - Acute and chronic respiratory failure with hypoxia; J96.22 - Acute and chronic respiratory failure with hypercapnia Status: Acute Assessment and Plan: Acute respiratory failure secondary to COPD with hypercapnia, appreciate critical care assistance in managing the ventilator (2) Acute exacerbation of chronic obstructive pulmonary disease: Code(s): J44.1 - Chronic obstructive pulmonary disease with (acute) exacerbation Status: Acute Assessment and Plan: See above Intubated and sedated, receiving tube feeds (3) Essential hypertension: Code(s): I10 - Essential (primary) hypertension Status: Chronic Assessment and Plan: Blood pressure now in adequate range as patient is on sedation Hold losartan and use p.r.n. hydralazine (4) Mixed hyperlipidemia: Code(s): E78.2 - Mixed hyperlipidemia Status: Acute Assessment and Plan: Continue statin Subjective Date/time seen: 07/26/21 11:40 07/26/2021 patient is intubated sedated, no family at bedside, no events noted overnight Review of Systems Review of Systems: ROS unobtainable: Yes unobtainable due to endotracheal tube Exam Const: Other: Intubated and sedated HENMT: Mouth: Yes moist mucous membranes Eyes: General: appearance normal, both eyes and all related structures Neck: Neck: no JVD Resp: Auscultation: diminished lung sounds GI: Inspection: non-distended GI Palp: Yes Soft to palpation Urinary Catheter: Urinary Catheter: patent and draining Psych: Other: Unable to assess secondary to sedation Objective Data Vital Signs Vital Signs: Vital Signs - 24 hr 07/25/21 15:47 07/25/21 16:00 07/25/21 16:01 Temperature Pulse Rate 92 93 91 Respiratory Rate 16 18 17 Blood Pressure 145/74 H Pulse Oximetry 100 100 100 07/25/21 16:05 07/25/21 16:15 07/25/21 16:20 Temperature Pulse Rate 95 92 91 Respiratory Rate 16 16 Blood Pressure 165/85 H Pulse Oximetry 100 100 100 07/25/21 16:25 07/25/21 16:30 07/25/21 16:45 Temperature Pulse Rate 89 95 90 Respiratory Rate 18 16 15 Blood Pressure Pulse Oximetry 100 100 07/25/21 17:00 07/25/21 17:01 07/25/21 17:15 Temperature Pulse Rate 97 90 95 Respiratory Rate 16 16 16 Blood Pressure 170/90 H Pulse Oximetry 99 99 99 07/25/21 17:20 07/25/21 17:30 07/25/21 17:45 Temperature Pulse Rate 100 96 Respiratory Rate 16 26 H 18 Blood Pressure 173/86 H Pulse Oximetry 99 99 07/25/21 17:55 07/25/21 17:56 07/25/21 18:00 Temperature 97.9 F Pulse Rate 100 100 Respiratory Rate 20 18 Blood Pressure 166/90 H Pulse Oximetry 98 97 07/25/21 18:32 07/25/21 19:08 07/25/21 20:00 Temperature 97.7 F Pulse Rate 87 84 72 Respiratory Rate 18 16 16 Blood Pressure 132/67 Pulse Oximetry 98 07/25/21 20:38 07/25/21 20:40 07/25/21 20:54 Temperature Pulse Rate 68 68 71 Respiratory Rate 16 16 Blood Pressure Pulse Oximetry 97 07/25/21 21:02 07/25/21 21:04 07/25/21 22:00 Temperature Pulse Rate 60 62 53 L Respiratory Rate 16 16 12 Blood Pressure 118/58 L Pulse Oximetry 96 07/25/21 23:13 07/25/21 23:30 07/25/21 23:33 Temperature Pulse Rate 53 L 56 L 60 Respiratory Rate 12 16 Blood Pressure Pulse Oximetry 98 07/25/21 23:35 07/25/21 23:46 07/26/21 00:00 Temperature 97.2 F L Pulse Rate 60 52 L 52 L Respiratory Rate 16 16 16 Blood Pressure 150/65 H Pulse Oximetry 100 07/26/21 02:00 07/26/21 02:43 07/26/21 03:10 Temperature Pulse Rate 52 L 50 L 50 L Respiratory Rate 16 16 16 Blood Pressure 160/68 H Pulse Oximetry 100 100 07/26/21 03:20 07/26/21 04:00 07/26/21 04:44 Temperature 97.2 F L Pulse Rate 55 L 53 L 54 L Respiratory Rate 16 16 Blood Pressure 152/58 H Pulse Oximetry 99 98 07/26/21
[2021-07-26 18:13] LABS: Glucose Point of Care 168 mg/dl (65-105)
[2021-07-26] MEDS: FENTANYL 2,500MCG/NS250ML(*CRX 2,500 MCG/250 ML BAG 10 MCG IV CONT (21:47)
[2021-07-27] VITALS (30 sets, daily range): BP systolic 110–171; BP diastolic 55–85; PULSE 59–893; RESP 10–28; TEMP 36.4–36.8; O2SAT 91–100
[2021-07-27] MEDS: methylPREDNISolone SOD SUCC 125 MG VIAL 60 MG IV PUSH ×2 (00:13→05:22)
[2021-07-27 00:22] LABS: Glucose Point of Care 147 mg/dl (65-105)
[2021-07-27] MEDS: IPRATROPIUM BR 0.02% INH SOLN 0.5 MG/2.5 ML VIAL INHALATION ×4 (01:30→19:28)
[2021-07-27] MEDS: ALBUTEROL SULFATE NEB 2.5 MG/3 ML INH INHALATION ×4 (01:30→19:27)
[2021-07-27] MEDS: PROPOFOL IV EMULSION 100 ML 8.01 MG IV CONT (03:06)
[2021-07-27 04:45] LABS: Alveolar/Arterial O2 Gradient 111.7 mmHg; Base Excess ABG 5.6 mEq/l (+/-2.0); Fractional Inspired Oxygen 35 %; HCO3 ABG 31.9 mEq/l (22.0-26.0); Oxygen Content ABG 12.3 %vol (16.0-22.0); Oxygen Saturation ABG 93.7 % (95.0-100.0); Oxyhemoglobin 91.7 % THb (90.0-100.0); PCO2 ABG 56.7 mmHg (35.0-45.0); PO2 ABG 71.9 mmHg (80.0-100.0); PO2 FiO2 Ratio Arterial Blood 2.05 %; Total Hemoglobin 9.5 g/dL (12.0-18.0); pH ABG 7.368 (7.350-7.450)
[2021-07-27 04:47] LABS: Arterial Blood Gas Vent Mode CMV; Arterial Blood Gas Ventilator rate 16 /MIN; Device VENTILATOR; Modified Allen's Test Pass; Site Drawn RIGHT RADIAL
[2021-07-27 04:48] LABS: Arterial Blood Gas PEEP 5 cmH2O; Arterial Blood Gas Tidal Volume 300 ml
[2021-07-27 05:22] LABS: Hematocrit 28.2 % (37.0-47.0); Hemoglobin 8.9 g/dL (12.0-15.0); Mean Corpuscular HGB Conc 31.6 g/dl (32-36); Mean Corpuscular Hemoglobin 31.2 pg (26-34); Mean Corpuscular Volume 98.9 fl (80-100); Mean Platelet Volume 9.4 fl (7.4-10.4); Platelet Count Result 79 k/mm3 (150-375); Red Blood Count 2.85 M/mm3 (4.2-5.4); Red Cell Distribution Width 17.2 % (11.5-14.5); White Blood Count 10.8 K/mm3 (4.5-10.0)
[2021-07-27] MEDS: CENTRAL LINE FLUSH 10 ML IV PUSH ×3 (05:22→20:58)
[2021-07-27 05:31] LABS: Anion Gap 0 mmol/L (8-16); Blood Urea Nitrogen 30 mg/dL (7-17); Calcium 7.8 mg/dL (8.4-10.2); Carbon Dioxide 35 mmol/L (22-30); Chloride 101 mmol/L (98-107); Estimated CRCL calculation 61 ml/min; Estimated Glomerular Filt Rate > 60; Glucose 137 mg/dL (65-110); Magnesium 2.2 mg/dL (1.6-2.3); Phosphorus 3.5 mg/dL (2.5-4.5); Potassium 3.7 mmol/L (3.4-5.0); Sodium 136 mmol/L (137-145)
--- NOTE | 2021-07-27 06:57 | ECG_ITS ---
Measurements Intervals [place] Rate: 97 P: 90 OR: 129 QRS: 71 QRSD: 75 T: 99 QT: 327 QTc: 417 Interpretive Statements SINUS RHYTHM BORDERLINE T WAVE ABNORMALITY- HIGH LATERAL LEADS BASELINE ARTIFACT- I, V1-V2, V4-V6 BORDERLINE ECG Electronically Signed On 07-27-2021 11:08:48 CDT by Amadeo Decker D.O.
[2021-07-27] MEDS: BUDESONIDE RESPULE NEB 0.5 MG/2 ML AMP INHALATION ×2 (07:35→19:28)
[2021-07-27 07:57] LABS: Mean Corpuscular Hemoglobin 30.6 pg (26-34); Mean Corpuscular Volume 98.6 fl (80-100); Mean Platelet Volume 10.2 fl (7.4-10.4); Platelet Count Result 90 k/mm3 (150-375); Red Blood Count 2.94 M/mm3 (4.2-5.4); Red Cell Distribution Width 17.2 % (11.5-14.5); White Blood Count 12.3 K/mm3 (4.5-10.0)
--- NOTE | 2021-07-27 07:58 | PC.NURSE ---
Sedation paused per MD orders at 0736 for breathing trial on ventilator.
[2021-07-27 08:08] LABS: INR 1.1; Prothrombin Time 13.8 Seconds (11.1-14.7)
[2021-07-27 08:09] LABS: Partial Thromboplastin Time 21.1 SECONDS (22.3-36.8)
[2021-07-27] MEDS: ARGATROBAN (*BKC) 250 MG in DEXTROSE 5% IN WATER 250 ML 5.49 MG IV CONT (08:36)
--- NOTE | 2021-07-27 08:45 | WPDINTPN ---
Progress Note: A&P Assessment and Plan (1) Acute on chronic respiratory failure with hypoxia and hypercapnia: Code(s): J96.21 - Acute and chronic respiratory failure with hypoxia; J96.22 - Acute and chronic respiratory failure with hypercapnia Status: Acute Assessment and Plan: Acute Respiratory failure secondary to acute exacerbation of COPD Chest x-ray on presentation did not show any significant infiltrates and showed severe emphysema and her procalcitonin level was low eating is pneumonia. Her lactic acid level was also normal Continue full mechanical ventilation support to prevent hypoxemia/hypercarbia and end organ damage. ABG and PCXR reviewed Will place on patient on weaning trial and if successful try to extubate Continue azithromycin, steroids and Bronchodilators Change steroids to q.day (2) Acute exacerbation of chronic obstructive pulmonary disease: Code(s): J44.1 - Chronic obstructive pulmonary disease with (acute) exacerbation Status: Acute Assessment and Plan: See above (3) Essential hypertension: Code(s): I10 - Essential (primary) hypertension Status: Chronic Assessment and Plan: Blood pressure now in adequate range as patient is on sedation Hold losartan and use p.r.n. hydralazine (4) Mixed hyperlipidemia: Code(s): E78.2 - Mixed hyperlipidemia Status: Acute Assessment and Plan: Continue statin (5) Thrombocytopenia: Code(s): D69.6 - Thrombocytopenia, unspecified Status: Acute Assessment and Plan: Patient presented with low platelet count of 122 which has dropped to 79/90 this morning Lovenox discontinued and patient was started on argatroban by primary physician Serotonin release assay and heparin antibody Theresa test ordered Additional Plan DVT prophylaxis -argatroban Stress ulcer prophylaxis -PPI Nutrition -Tube Feeds are on hold for weaning trial Code Status - Full Code Total Critical Care Time - 30 minutes Due to a high probability of clinically significant, life threatening deterioration, the patient required my highest level of preparedness to intervene emergently and I personally spent this critical care time directly and personally managing the patient. This critical care time included obtaining a history; examining the patient; pulse oximetry; ordering and review of studies; arranging urgent treatment with development of a management plan; evaluation of patient's response to treatment; frequent reassessment; and discussions with other providers. It was exclusive of separately billable procedures and treating other patients and teaching time. Please see Assessment and Plan section and the rest of the note for further information on patient assessment and treatment Subjective Date/time seen: 07/27/21 08:45 Overnight events reviewed. Afebrile Continues to be on mechanical ventilation Continues to be on tube feeds Continues to be sedated with propofol and fentanyl Vitals acceptable Marginal urine output Review of Systems Review of Systems: ROS unobtainable: Yes unobtainable due to endotracheal tube, unobtainable due to medical condition and unobtainable due to mental status Exam Narrative: General: Pt is sedated, intubated and on mechanical ventilation frail old cachectic female Lungs/Chest: Trachea central Coarse BS B/L, No crackles or wheezing. Decreased air entry bilaterally, barrel chest Cardiac: RRR. Normal S1 S2. No murmurs Circulation: Feet are warm Abdomen: Decreased bowel sounds. Frail. Soft. NT. ND. Extremities: No clubbing, cyanosis or edema. Warm : Steinberg in place Neurologic: Patient on sedation but Moves all 4 extremities and follows commands. Left pupil is oval but both pupils are reactive to light Objective Data Vital Signs Vital Signs: Vital Signs - 24 hr 07/26/21 08:51 07/26/21 10:00 07/26/21 10:40 Temperature Pulse Rate 67 60 56 L Respiratory Rate 16 18 Blood Pressur
[2021-07-27 08:52] LABS: SARS-CoV-2 RNA PCR Negative
[2021-07-27 08:55] LABS: Alveolar/Arterial O2 Gradient 164.6 mmHg; Fractional Inspired Oxygen 40 %; HCO3 ABG 30.4 mEq/l (22.0-26.0); Oxygen Content ABG 13.3 %vol (16.0-22.0); Oxygen Saturation ABG 92.6 % (95.0-100.0); Oxyhemoglobin 89.9 % THb (90.0-100.0); PCO2 ABG 48.8 mmHg (35.0-45.0); PO2 ABG 64.5 mmHg (80.0-100.0); PO2 FiO2 Ratio Arterial Blood 1.61 %; Total Hemoglobin 10.5 g/dL (12.0-18.0); pH ABG 7.412 (7.350-7.450)
[2021-07-27] MEDS: polyethylene glycoL 3350 17 GM POWD.PACK PO (08:59)
[2021-07-27] MEDS: PRAVASTATIN SODIUM 20 MG TABLET PO (08:59)
[2021-07-27] MEDS: MINERAL OIL/WHITE PETROLATUM OINTMENT 1 APPLIC EACH EYE (08:59)
[2021-07-27] MEDS: PANTOPRAZOLE SODIUM IV 40 MG VIAL IV PUSH (08:59)
[2021-07-27 09:00] LABS: Device VENTILATOR; Modified Allen's Test Pass; Site Drawn LEFT RADIAL
[2021-07-27 09:02] LABS: Arterial Blood Gas PEEP 5 cmH2O; Arterial Blood Gas Vent Mode SPONTANEOUS; Peak Inspiratory Pressure 5 cmH2O
[2021-07-27 09:03] LABS: Arterial Blood Gas Pressure Support 5 cmH2O
[2021-07-27 11:25] LABS: Partial Thromboplastin Time 43.2 SECONDS (22.3-36.8)
--- NOTE | 2021-07-27 12:20 | PCNFU ---
Nutrition Follow-Up Complete: Increased protein needs as related to wounds as evidenced by stage II PU to medial sacrum. goal: Meet estimated nutritional needs Patient is progressing towards goal. We will continue current goal. Pt current nutrition is NPO. Nutrition recommendation: Advance diet as tolerated per MD orders. Last recorded weight is 45.3 kg, up from 44.8 kg on admit. Bowel Motility: No BM reported-patient is on Miralax. Labs Reviewed: Glu 137, Cr 0.5,BUN 30,Na 136, Hct 29.0,Hgb 9.0 Meds Noted:Atrovent, Albuterol, Pravastatin, Protonix, Miralax Skin: stage II PU-medial saccum Additional Notes: Patient extubated today, on 2 Liters NC. Plans for diet order to advance as tolerated. Protein Modular of [place] BID changed to oral for wound healing. Monitoring: Will reassess every 3 days.
--- NOTE | 2021-07-27 12:59 | PM.EVENT ---
Event Note Event Note Event Note: 5/5 PSV SBT done for more than 1 hour. RSBI, ABGI and Vitals acceptable. Pt awake and following commands. Patient was extubated. Patient was later placed on BiPAP and will order BiPAP p.r.n. and at night. I spoke to patient and she states that she wears BiPAP most of the day at home and at night. She only takes it off for meals. She is aware her COPD is severe. I discussed code status with her and she would requests to be DNR in the event of cardiac arrest but she is agreeable to going back on the vent for POA respiratory failure as she has been on the ventilator multiple times for COPD exacerbation. Code status change as per patient's request
[2021-07-27 14:15] LABS: Partial Thromboplastin Time 45.7 SECONDS (22.3-36.8)
[2021-07-28] VITALS (43 sets, daily range): BP systolic 78–240; BP diastolic 53–98; PULSE 84–141; RESP 18–38; TEMP 36.7–37; O2SAT 89–100
[2021-07-28 01:58] LABS: Partial Thromboplastin Time 51.2 SECONDS (22.3-36.8)
[2021-07-28] MEDS: ALBUTEROL SULFATE NEB 2.5 MG/3 ML INH INHALATION ×4 (02:18→18:43)
[2021-07-28] MEDS: IPRATROPIUM BR 0.02% INH SOLN 0.5 MG/2.5 ML VIAL INHALATION ×4 (02:18→18:42)
[2021-07-28 05:19] LABS: pH ABG 7.337 (7.350-7.450)
[2021-07-28 05:20] LABS: Base Excess ABG 5.6 mEq/l (+/-2.0); HCO3 ABG 32.8 mEq/l (22.0-26.0); Oxygen Saturation ABG 86.4 % (95.0-100.0); PCO2 ABG 62.7 mmHg (35.0-45.0)
[2021-07-28 05:21] LABS: Alveolar/Arterial O2 Gradient 84.2 mmHg; Oxygen Content ABG 12.7 %vol (16.0-22.0); Total Hemoglobin 10.6 g/dL (12.0-18.0)
[2021-07-28 05:22] LABS: Device NON-INVASIVE VENT; Fractional Inspired Oxygen 30 %; Modified Allen's Test Pass; Oxyhemoglobin 85.2 % THb (90.0-100.0); PO2 FiO2 Ratio Arterial Blood 1.87 %; Site Drawn RIGHT RADIAL
[2021-07-28 05:23] LABS: Non-Invasive Expiratory Pressure 5 CMH2O; Non-Invasive Inspiratory Pressure 10 CMH2O; Non-Invasive Vent Rate 4 /MIN
[2021-07-28] MEDS: hydrALAZINE HCL 20 MG/ML VIAL 10 MG IV PUSH (05:32)
[2021-07-28] MEDS: CENTRAL LINE FLUSH 10 ML IV PUSH ×3 (05:33→21:43)
[2021-07-28 05:36] LABS: Hematocrit 31.6 % (37.0-47.0); Hemoglobin 9.6 g/dL (12.0-15.0); Mean Corpuscular HGB Conc 30.4 g/dl (32-36); Mean Corpuscular Hemoglobin 30.4 pg (26-34); Mean Platelet Volume 10.4 fl (7.4-10.4); Platelet Count Result 103 k/mm3 (150-375); Red Blood Count 3.16 M/mm3 (4.2-5.4); Red Cell Distribution Width 17.1 % (11.5-14.5); White Blood Count 13.9 K/mm3 (4.5-10.0)
[2021-07-28 06:00] LABS: Anion Gap 4 mmol/L (8-16); Blood Urea Nitrogen 31 mg/dL (7-17); Calcium 8.2 mg/dL (8.4-10.2); Carbon Dioxide 32 mmol/L (22-30); Chloride 98 mmol/L (98-107); Estimated CRCL calculation 74 ml/min; Estimated Glomerular Filt Rate > 60; Glucose 139 mg/dL (65-110); Magnesium 2.2 mg/dL (1.6-2.3); Phosphorus 2.8 mg/dL (2.5-4.5); Potassium 4.4 mmol/L (3.4-5.0); Sodium 134 mmol/L (137-145)
[2021-07-28] MEDS: LORazepam INJ (*CRX) 2 MG/ML VIAL 1 MG IV PUSH (06:12)
[2021-07-28] MEDS: LABETALOL HCL INJ 100 MG/20 ML VIAL 20 MG IV PUSH (06:14)
[2021-07-28] MEDS: BUDESONIDE RESPULE NEB 0.5 MG/2 ML AMP INHALATION ×2 (07:54→18:43)
--- NOTE | 2021-07-28 08:51 | WPDINTPN ---
Progress Note: A&P Assessment and Plan (1) Acute on chronic respiratory failure with hypoxia and hypercapnia: Code(s): J96.21 - Acute and chronic respiratory failure with hypoxia; J96.22 - Acute and chronic respiratory failure with hypercapnia Status: Acute Assessment and Plan: Acute Respiratory failure secondary to acute exacerbation of COPD Chest x-ray on presentation did not show any significant infiltrates and showed severe emphysema and her procalcitonin level was low eating is pneumonia. Her lactic acid level was also normal 07/27 extubated after successful weaning trial. Few hours later she was placed on BiPAP. Patient has severe disease state on BiPAP most of the day and took it off for meals and then at night. Patient even at home wears BiPAP for most of the day. Continue BiPAP p.r.n. and at night ABG and PCXR reviewed Continue azithromycin, steroids and Bronchodilators (2) Acute exacerbation of chronic obstructive pulmonary disease: Code(s): J44.1 - Chronic obstructive pulmonary disease with (acute) exacerbation Status: Acute Assessment and Plan: See above (3) Essential hypertension: Code(s): I10 - Essential (primary) hypertension Status: Chronic Assessment and Plan: Blood pressure now in adequate range as patient is on sedation Hold losartan and use p.r.n. hydralazine at this (4) Mixed hyperlipidemia: Code(s): E78.2 - Mixed hyperlipidemia Status: Acute Assessment and Plan: Continue statin (5) Thrombocytopenia: Code(s): D69.6 - Thrombocytopenia, unspecified Status: Acute Assessment and Plan: Patient presented with low platelet count of 122 which has dropped to 79/90 07/27 Lovenox was discontinued and patient was started on argatroban by primary physician Serotonin release assay and heparin antibody Theresa test ordered Platelet count has improved to 103 this morning Since patient already has a DVT, I will transition patient to p.o. Elivlad (6) DVT of left axillary vein, acute: Code(s): I82.A12 - Acute embolism and thrombosis of left axillary vein Status: Acute Assessment and Plan: Doppler ultrasound showed Thrombosis extending from the left basilic vein through the axillary vein into the subclavian vein. On exam left arm does not appear any significantly more swollen than the right. Patient had a midline IV placed on her last admission which I suspect led to DVT Start Stephon Explained patient the findings on the Doppler, initiation of anticoagulation and pros and cons of it. Additional Plan DVT prophylaxis -argatroban Stress ulcer prophylaxis -PPI Nutrition -Tube Feeds are on hold for weaning trial Code Status -DNR but okay with intubation for respiratory failure 07/27 I spoke to patient and she states that she wears BiPAP most of the day at home and at night. She only takes it off for meals. She is aware her COPD is severe. I discussed code status with her and she would requests to be DNR in the event of cardiac arrest but she is agreeable to going back on the vent for respiratory failure as she has been on the ventilator multiple times for COPD exacerbation. Total Critical Care Time - 30 minutes Due to a high probability of clinically significant, life threatening deterioration, the patient required my highest level of preparedness to intervene emergently and I personally spent this critical care time directly and personally managing the patient. This critical care time included obtaining a history; examining the patient; pulse oximetry; ordering and review of studies; arranging urgent treatment with development of a management plan; evaluation of patient's response to treatment; frequent reassessment; and discussions with other providers. It was exclusive of separately billable procedures and treating other patients and teaching time. Please see Assessment and Plan section and the rest of the note for further i
[2021-07-28] MEDS: methylPREDNISolone SOD SUCC 125 MG VIAL 60 MG IV PUSH (09:21)
[2021-07-28] MEDS: polyethylene glycoL 3350 17 GM POWD.PACK PO (09:22)
[2021-07-28] MEDS: PRAVASTATIN SODIUM 20 MG TABLET PO (09:22)
[2021-07-28] MEDS: PANTOPRAZOLE SODIUM IV 40 MG VIAL IV PUSH (09:22)
[2021-07-28] MEDS: APIXABAN 5 MG TABLET 10 MG PO ×2 (11:06→21:43)
[2021-07-28] MEDS: MORPHINE SULFATE (*CRX) 2 MG/ML INJ IV PUSH (12:42)
[2021-07-28] MEDS: dilTIAZem HCL 30 MG TABLET PO ×3 (12:42→23:46)
--- NOTE | 2021-07-28 17:27 | PM.DS ---
DS: Admitting Diagnosis Discharge Date July 28, 2021 Admitting Diagnosis Acute on chronic hypoxic and hypercapnic respiratory failure DS: Discharge Diagnosis Discharge Diagnosis (1) Acute on chronic respiratory failure with hypoxia and hypercapnia: Code(s): J96.21 - Acute and chronic respiratory failure with hypoxia; J96.22 - Acute and chronic respiratory failure with hypercapnia Status: Acute Assessment and Plan: Acute Respiratory failure secondary to acute exacerbation of COPD Chest x-ray on presentation did not show any significant infiltrates and showed severe emphysema and her procalcitonin level was low eating is pneumonia. Her lactic acid level was also normal 07/27 extubated after successful weaning trial. Few hours later she was placed on BiPAP. Patient has severe disease state on BiPAP most of the day and took it off for meals and then at night. Patient even at home wears BiPAP for most of the day. Continue BiPAP p.r.n. and at night ABG and PCXR reviewed Continue azithromycin, steroids and Bronchodilators (2) Acute exacerbation of chronic obstructive pulmonary disease: Code(s): J44.1 - Chronic obstructive pulmonary disease with (acute) exacerbation Status: Acute Assessment and Plan: See above (3) Essential hypertension: Code(s): I10 - Essential (primary) hypertension Status: Chronic Assessment and Plan: Blood pressure now in adequate range as patient is on sedation Hold losartan and use p.r.n. hydralazine at this (4) Mixed hyperlipidemia: Code(s): E78.2 - Mixed hyperlipidemia Status: Acute Assessment and Plan: Continue statin (5) Thrombocytopenia: Code(s): D69.6 - Thrombocytopenia, unspecified Status: Acute Assessment and Plan: Patient presented with low platelet count of 122 which has dropped to 79/90 07/27 Lovenox was discontinued and patient was started on argatroban by primary physician Serotonin release assay and heparin antibody Theresa test ordered Platelet count has improved to 103 this morning Since patient already has a DVT, I will transition patient to p.o. Eliquis (6) DVT of left axillary vein, acute: Code(s): I82.A12 - Acute embolism and thrombosis of left axillary vein Status: Acute Assessment and Plan: Doppler ultrasound showed Thrombosis extending from the left basilic vein through the axillary vein into the subclavian vein. On exam left arm does not appear any significantly more swollen than the right. Patient had a midline IV placed on her last admission which I suspect led to DVT Start Stephon Explained patient the findings on the Doppler, initiation of anticoagulation and pros and cons of it. DS: Summary Hospital Course Reason for hospitalization: Respiratory distress Hospital Course: 70-year-old female with end-stage COPD presenting with acute on chronic respiratory distress. She was intubated in the ER and admitted to the ICU. She has had multiple admissions in been intubated and extubated multiple times for COPD related concerns. When she was discharged last month, she was essentially BiPAP dependent at discharge. She states that while at home she would wear the BiPAP all the time unless she was eating. She was started on IV steroids, breathing treatments on Rocephin and azithromycin. Initial blood work was essentially negative for infectious etiology. Procalcitonin was low, lactic acid was normal and there was no leukocytosis noted prior to steroid initiation. However, due to severity of respiratory failure, patient's antibiotics were continued. She was given tube feeds while on the ventilator. She was eventually able to be extubated to BiPAP. However, she could not be weaned from the BiPAP. Once extubated, code status was discussed with the patient and she requested DNR status. However, she was okay with being intubated again if necessary. The severity of her illness was discussed wi
--- NOTE | 2021-07-28 18:25 | PM.IMPN ---
Progress Note: A&P Assessment and Plan (1) Acute on chronic respiratory failure with hypoxia and hypercapnia: Code(s): J96.21 - Acute and chronic respiratory failure with hypoxia; J96.22 - Acute and chronic respiratory failure with hypercapnia Status: Acute Assessment and Plan: Respiratory failure secondary to severe end-stage COPD, BiPAP dependent, management per intensive care, currently on steroids and antibiotics with little improvement in symptoms. Patient has elected home with hospice care, but this is unable to be done as patient is still open to being intubated. Further discussions will need to be had if patient wants a tracheostomy or not. (2) Acute exacerbation of chronic obstructive pulmonary disease: Code(s): J44.1 - Chronic obstructive pulmonary disease with (acute) exacerbation Status: Acute Assessment and Plan: See above (3) Essential hypertension: Code(s): I10 - Essential (primary) hypertension Status: Chronic Assessment and Plan: Controlled (4) Mixed hyperlipidemia: Code(s): E78.2 - Mixed hyperlipidemia Status: Acute Assessment and Plan: Continue statin (5) Thrombocytopenia: Code(s): D69.6 - Thrombocytopenia, unspecified Status: Acute Assessment and Plan: Uncertain etiology, heparin-induced thrombocytopenia in the differential, antibodies pending Started on Eliquis secondary to comorbidity of DVT (6) DVT of left axillary vein, acute: Code(s): I82.A12 - Acute embolism and thrombosis of left axillary vein Status: Acute Assessment and Plan: Continue Eliquis. Subjective Date/time seen: 07/28/21 18:26 Patient tachypneic on BiPAP. Extensive conversation had with patient about goals of care. She is adamant that she is DNR but she is open to intubation, trach and PEG. Extremely short of breath, some type chest pain noted. No nausea vomiting diarrhea. No fevers or chills. Review of Systems Review of Systems: All systems reviewed & are unremarkable except as noted in HPI and below Exam Const: General: in distress Other: Wearing BiPAP, still in acute respiratory distress HENMT: Mouth: Yes dry mucous membranes Eyes: General: appearance normal, both eyes and all related structures Neck: Neck: no JVD Carotids: no bruits Resp: Auscultation: rhonchi, wheezes and diminished lung sounds Cardio: Rate: tachycardic GI: Inspection: non-distended Urinary Catheter: Urinary Catheter: patent and draining Skin: General skin exam: no rashes or lesions noted Psych: Mental Status: mental status grossly normal Objective Data Vital Signs Vital Signs: Vital Signs - 24 hr 07/27/21 19:28 07/27/21 19:42 07/27/21 20:00 Temperature 98.3 F Pulse Rate 107 H 104 H 103 H Respiratory Rate 18 16 17 Blood Pressure 152/74 H Pulse Oximetry 98 100 07/27/21 22:00 07/27/21 23:26 07/28/21 00:00 Temperature 98.3 F Pulse Rate 104 H 103 H 99 Respiratory Rate 20 26 H 18 Blood Pressure 158/75 H 143/70 H Pulse Oximetry 95 92 96 07/28/21 02:00 07/28/21 02:01 07/28/21 02:19 Temperature Pulse Rate 104 H 104 H 102 H Respiratory Rate 19 21 H Blood Pressure 156/74 H Pulse Oximetry 94 92 07/28/21 02:26 07/28/21 04:00 07/28/21 04:01 Temperature 98.6 F Pulse Rate 100 111 H 106 H Respiratory Rate 18 22 H Blood Pressure 163/72 H Pulse Oximetry 93 93 07/28/21 04:35 07/28/21 05:01 07/28/21 05:30 Temperature Pulse Rate 104 H 114 H 116 H Respiratory Rate 24 H 27 H 27 H Blood Pressure 181/83 H Pulse Oximetry 90 89 L 93 07/28/21 05:53 07/28/21 05:55 07/28/21 05:57 Temperature Pulse Rate 136 H 136 H Respiratory Rate 30 H 27 H Blood Pressure 240/98 H 233/88 H 236/81 H Pulse Oximetry 92 92 91 07/28/21 06:00 07/28/21 06:14 07/28/21 06:15 Temperature Pulse Rate 133 H 141 H 141 H Respiratory Rate 34 H Blood Pressure Pulse Oximetry 93
[2021-07-29] VITALS (20 sets, daily range): BP systolic 117–155; BP diastolic 59–70; PULSE 77–106; RESP 20–25; TEMP 36.6–37; O2SAT 93–99
[2021-07-29] MEDS: IPRATROPIUM BR 0.02% INH SOLN 0.5 MG/2.5 ML VIAL INHALATION ×3 (01:49→14:20)
[2021-07-29] MEDS: ALBUTEROL SULFATE NEB 2.5 MG/3 ML INH INHALATION ×3 (01:49→14:20)
[2021-07-29] MEDS: CENTRAL LINE FLUSH 10 ML IV PUSH ×2 (05:04→13:10)
[2021-07-29] MEDS: dilTIAZem HCL 30 MG TABLET PO ×3 (05:05→18:03)
[2021-07-29 05:17] LABS: Hematocrit 27.5 % (37.0-47.0); Hemoglobin 8.6 g/dL (12.0-15.0); Immature Platelet Fraction Pct 5.4 % (0.9-11.2); Mean Corpuscular HGB Conc 31.3 g/dl (32-36); Mean Corpuscular Hemoglobin 30.6 pg (26-34); Mean Corpuscular Volume 97.9 fl (80-100); Mean Platelet Volume 10.6 fl (7.4-10.4); Platelet Count Result 99 k/mm3 (150-375); Red Blood Count 2.81 M/mm3 (4.2-5.4); Red Cell Distribution Width 17.1 % (11.5-14.5); White Blood Count 10.8 K/mm3 (4.5-10.0)
[2021-07-29 05:27] LABS: Anion Gap 1 mmol/L (8-16); Blood Urea Nitrogen 25 mg/dL (7-17); Calcium 8.4 mg/dL (8.4-10.2); Carbon Dioxide 36 mmol/L (22-30); Chloride 97 mmol/L (98-107); Estimated CRCL calculation 78 ml/min; Estimated Glomerular Filt Rate > 60; Glucose 95 mg/dL (65-110); Phosphorus 2.4 mg/dL (2.5-4.5); Potassium 3.3 mmol/L (3.4-5.0); Sodium 134 mmol/L (137-145)
[2021-07-29] MEDS: BUDESONIDE RESPULE NEB 0.5 MG/2 ML AMP INHALATION (07:40)
[2021-07-29] MEDS: PRAVASTATIN SODIUM 20 MG TABLET PO (09:06)
[2021-07-29] MEDS: methylPREDNISolone SOD SUCC 125 MG VIAL 60 MG IV PUSH (09:06)
[2021-07-29] MEDS: polyethylene glycoL 3350 17 GM POWD.PACK PO (09:06)
[2021-07-29] MEDS: PANTOPRAZOLE SODIUM IV 40 MG VIAL IV PUSH (09:06)
[2021-07-29] MEDS: APIXABAN 5 MG TABLET 10 MG PO (09:06)
[2021-07-29] MEDS: SERTRALINE HCL 25 MG TABLET PO (09:07)
--- NOTE | 2021-07-29 11:44 | PM.IMPN ---
Progress Note: A&P Additional Plan Met with patient, sister, and niece at bedside. Mrs. Love is afraid of suffocation feeling when she can't breathe. She is currently anxious and sob in spite of bipap on AVAPS setting. She is dependent of Trilogy at home. Morphine has not helped her in the past. She wishes to be admitted to inpatient hospice for symptoms management prior to going home. Mrs. Love is agreeable to DNR orders with the assurance that her symptoms will be controlled with medications. Discussed with Dr. Jackson, and her RN, Ernestine. Subjective Date/time seen: 07/29/21 11:44 Objective Data Vital Signs Vital Signs: Vital Signs - 24 hr 07/28/21 12:00 07/28/21 12:50 07/28/21 14:00 Temperature 98.1 F Pulse Rate 117 H 120 H Respiratory Rate 27 H Blood Pressure 124/73 Pulse Oximetry 100 97 07/28/21 14:14 07/28/21 14:17 07/28/21 14:25 Temperature Pulse Rate 117 H 115 H Respiratory Rate 20 20 Blood Pressure Pulse Oximetry 96 07/28/21 16:00 07/28/21 17:25 07/28/21 18:00 Temperature 98.1 F Pulse Rate 118 H 116 H 101 H Respiratory Rate 25 H 31 H Blood Pressure 129/77 Pulse Oximetry 94 94 07/28/21 18:49 07/28/21 18:59 07/28/21 20:00 Temperature 98.5 F Pulse Rate 105 H 105 H 102 H Respiratory Rate 21 H 21 H 33 H Blood Pressure 135/61 Pulse Oximetry 98 94 07/28/21 20:10 07/28/21 22:00 07/28/21 23:21 Temperature Pulse Rate 102 H 89 84 Respiratory Rate 24 H 22 H Blood Pressure Pulse Oximetry 95 98 07/28/21 23:40 07/29/21 00:00 07/29/21 01:50 Temperature 98.4 F Pulse Rate 95 90 89 Respiratory Rate 25 H 23 H Blood Pressure 120/62 Pulse Oximetry 90 95 95 07/29/21 02:00 07/29/21 04:00 07/29/21 05:00 Temperature 98.2 F Pulse Rate 89 85 100 Respiratory Rate 23 H 23 H 22 H Blood Pressure 120/59 L Pulse Oximetry 94 97 07/29/21 06:00 07/29/21 07:42 07/29/21 07:43 Temperature Pulse Rate 81 82 77 Respiratory Rate 23 H 24 H Blood Pressure Pulse Oximetry 93 07/29/21 07:55 07/29/21 08:00 07/29/21 10:00 Temperature 98.2 F Pulse Rate 77 80 90 Respiratory Rate 24 H 22 H Blood Pressure 155/59 H Pulse Oximetry 94 07/29/21 10:44 Temperature Pulse Rate 93 Respiratory Rate 24 H Blood Pressure Pulse Oximetry 97 Intake/Output Intake/Output: Intake & Output 07/26/21 07/27/21 07/28/21 07/29/21 23:59 23:59 23:59 23:59 Intake Total 2108 2027 1926.75 527 Output Total 873 484 4028 1200 Balance 1508 1427 526.75 -673 Meds/Results Medications: Active Medications Generic Name Dose Route Start Last Admin Trade Name Freq PRN Reason Stop Dose Admin Albuterol 2.5 mg 07/25/21 20:00 07/29/21 07:41 Albuterol Sulfate Neb 2.5 Mg/3 Ml Inh INHALATION 2.5 mg Q6HRT KIERRA Administration Apixaban 10 mg 07/28/21 09:00 07/29/21 09:06 Apixaban 5 Mg Tablet PO 08/03/21 21:01 10 mg Q12HR KIERRA Administration Apixaban 5 mg 08/04/21 09:00 Apixaban 5 Mg Tablet PO Q12HR KIERRA Bisacodyl 10 mg 07/26/21 07:57 Bisacodyl 10 Mg Suppository RECTAL QAM PRN Constipation Budesonide 0.5 mg 07/26/21 08:00 07/29/21 07:40 Budesonide Respule Neb 0.5 Mg/2 Ml Amp INHALATION 0.5 mg Q12HRT KIERRA Administration Diltiazem HCl 30 mg 07/28/21 12:00 07/29/21 05:05 Diltiazem Hcl 30 Mg Tablet PO 30 mg Q6HR KIERRA Administration Hydralazine HCl 10 mg 07/25/21 20:23 07/28/21 05:32 Hydralazine Hcl 20 Mg/Ml Vial IV PUSH 10 mg Q6H PRN Administration Blood Pressure - High Azithromycin 500 mg in 250 mls @ 250 mls/hr 07/25/21 17:00 07/28/21 17:41 Zithromax IVPB Infused Q24H KIERRA Infusion Ipratropium [place] 0.5 mg 07/25/21 20:00 07/29/21 07:41 Ipratropium Br 0.02% Inh Soln 0.5 Mg/2.5 Ml Vial INHALATION 0.5 mg Q6HRT KIERRA Administration Lorazepam 1 mg 07/28/21 11:35 Lorazepam Inj (*Crx) 2 Mg/Ml Vial IV PUSH Q4H PRN Anxiety Lorazepam 0.5 mg
[2021-07-30 15:47] LABS: UFH SRA Result Interpretation Negative (Negative)
[2021-07-30 22:26] LABS: Heparin Induced Platelet Antib Negative (Negative)
== END 2021-07-29 18:45 | disposition hospice, inpatient (51) | DRG 208 ==
LOC: ANHED 15:34 → ANHICU 16:12
PROVIDERS: Internal Medicine; Admitting Provider Family Medicine; Emergency Provider Emergency Medicine; Visit Provider Student in an Organized Health Care Education/Training Program
DX: J44.1 Chronic obstructive pulmonary disease with (acute) exacerbation (principal); J96.22 Acute and chronic respiratory failure with hypercapnia; J96.21 Acute and chronic respiratory failure with hypoxia; I82.612 Acute embolism and thrombosis of superficial veins of left upper extremity; E87.1 Hypo-osmolality and hyponatremia; T80.1XXA Vascular complications following infusion, transfusion and therapeutic injection, initial encounter; Z20.822 Contact with and (suspected) exposure to COVID-19; I10 Essential (primary) hypertension; Z87.891 Personal history of nicotine dependence; I25.10 Atherosclerotic heart disease of native coronary artery without angina pectoris; K21.9 Gastro-esophageal reflux disease without esophagitis; E78.2 Mixed hyperlipidemia; D69.6 Thrombocytopenia, unspecified; Z99.81 Dependence on supplemental oxygen; E55.9 Vitamin D deficiency, unspecified; F41.9 Anxiety disorder, unspecified; Z79.899 Other long term (current) drug therapy; Z83.3 Family history of diabetes mellitus; Z80.3 Family history of malignant neoplasm of breast; Z80.1 Family history of malignant neoplasm of trachea, bronchus and lung; Z82.49 Family history of ischemic heart disease and other diseases of the circulatory system; Z79.01 Long term (current) use of anticoagulants; Z79.82 Long term (current) use of aspirin; Z51.5 Encounter for palliative care; R91.8 Other nonspecific abnormal finding of lung field; Z66 Do not resuscitate
CPT/HCPCS: 31500; 36415; 36569; 36600; 71045; 80048; 80053; 81001; 82805; 82948; 83605; 83735; 83880; 84100; 84145; 84484; 85025; 85027; 85055; 85610; 85730; 86022; 87040; 93005; 93970; 94002; 94003; 94640; 96365; 96375; 99291; A9270; C1751; C9113; C9803; J0330; J0360; J0456; J0696; J0883; J1650; J2060; J2270; J2405; J2704; J2930; J3010; J7030; J7060; U0003; U0005

== ENCOUNTER 2021-07-29 18:57 | HOS | payer OTHER, MEDICARE, BC, SELFPAY ==
[2021-07-29 19:06] VITALS: BMI 21.4
[2021-07-29 19:45] VITALS: PULSE 98; RESP 25; O2SAT 93
[2021-07-29 20:00] VITALS: O2SAT 97
--- NOTE | 2021-07-29 20:15 | PC.NURSE ---
Report given to Judy Sinha RN at 1941. All questions answered and plan of care reviewed. Patient to transfer to [facility]-surg.
[2021-07-29 20:30] VITALS: PULSE 102; RESP 22; O2SAT 93
[2021-07-29] MEDS: MORPHINE SULFATE INJ (*CRX) 50 MG in SODIUM CHLORIDE 0.9% IV 95 ML IV CONT (20:36)
[2021-07-29] MEDS: ALBUTEROL SULFATE NEB 2.5 MG/3 ML INH INHALATION (21:20)
[2021-07-29] MEDS: IPRATROPIUM BR 0.02% INH SOLN 0.5 MG/2.5 ML VIAL INHALATION (21:20)
[2021-07-29 21:21] VITALS: PULSE 94; RESP 25
[2021-07-29 21:22] VITALS: PULSE 94; RESP 25; O2SAT 95
[2021-07-29 21:35] VITALS: PULSE 93; RESP 26
[2021-07-30] VITALS (13 sets, daily range): BP systolic 151–163; BP diastolic 61–67; PULSE 88–104; RESP 16–24; TEMP 35.9–36.7; O2SAT 92–99
[2021-07-30] MEDS: dilTIAZem HCL 30 MG TABLET PO ×4 (00:48→18:20)
[2021-07-30] MEDS: APIXABAN 5 MG TABLET 10 MG PO ×3 (00:49→21:03)
[2021-07-30] MEDS: IPRATROPIUM BR 0.02% INH SOLN 0.5 MG/2.5 ML VIAL INHALATION ×4 (01:58→20:09)
[2021-07-30] MEDS: ALBUTEROL SULFATE NEB 2.5 MG/3 ML INH INHALATION ×4 (01:58→20:09)
[2021-07-30] MEDS: SENNOSIDES 8.6 MG TABLET PO (09:20)
[2021-07-30] MEDS: PANTOPRAZOLE 40 MG TABLET PO (09:20)
[2021-07-30] MEDS: SERTRALINE HCL 25 MG TABLET PO (09:20)
[2021-07-30] MEDS: AZITHROMYCIN 250 MG TABLET 500 MG PO (09:20)
[2021-07-30] MEDS: WATER FOR IRRIGATION, STERILE 1,000 ML BOTTLE 1000 ML (10:37)
--- NOTE | 2021-07-30 12:53 | PM.IMHP ---
H&P: HPI History of Present Illness Date/Time: 07/30/21 12:53 Chief Complaint: uncontrolled dyspnea and anxiety Narrative: 70 female with severe copd, oxygen and bipap dependent was admitted to acute care with ac/chr resp failure. She required mechanical ventilation and after extubation, now does not wish cpr or intubation. She wishes to have her symptoms controlled and then discharge back home with her sister on hospice care. Review of Systems Review of Systems: All systems reviewed & are unremarkable except as noted in HPI and below [facility] Past Medical History Medical History Acute respiratory failure with hypercapnia Anxiety Asthma Atherosclerotic heart disease of [place] coronary artery without angina pectoris BMI less than 19,adult (~05/14/21) BMI 17.4 Chronic respiratory failure with hypoxia and hypercapnia Compression atelectasis Constipation COPD (chronic obstructive pulmonary disease) COPD exacerbation COPD exacerbation Dry skin End stage chronic obstructive pulmonary disease GERD (gastroesophageal reflux disease) Heart disease HTN (hypertension) Hx of intestinal obstruction Insomnia Mixed hyperlipidemia Oxygen dependent Seasonal allergic rhinitis Vitamin D deficiency Weakness Surgical History Surgical History H/O: hysterectomy (~1992) History of appendectomy (~1990) had bowel obstruction a week later requiring surgery History of cholecystectomy (~1989) Family History Family History Mother Heart disease Lymphoma Hypertension Breast cancer Sibling Diabetes mellitus Lung cancer Hypertension She had a sister with hypertension, renal transplant A brother had lung cancer Other Spinal cord cancer Father Hypertension Social History Social History (Updated 07/30/21 @ 12:55 by Jeremías Salazar MD) Social History: She is retired from the postal service. She has 3 children. She is . She is a former smoker and quit many years ago. She denies any alcohol marijuana illicit drugs. She is . She does not have a durable power contract attorney for healthcare. Code status: DNR Smoking packs per day: 0.3 Smoking cigarettes per day: 6.0 Years smoked: 25 Smoking pack-years: 7.50 Smoking status: Former smoker Second hand tobacco smoke exposure: No Additional smoking assessment comments: 10 years stopped smoking Alcohol intake: never Substance use: never Substance use type: does not use Occupation/Education: retired Spiritual care concerns: Yes Meds Home Medications and Allergies Home Medications Medication Instructions Recorded Confirmed Type Saccharomyces boulardii [Daily 1 cap PO DAILY 03/06/21 07/29/21 History Probiotic (S. boulardii)] docusate sodium 100 mg capsule 100 mg PO BID PRN 03/06/21 07/29/21 History omega-3 fatty acids 1,000 mg 1,000 mg PO DAILY 03/06/21 07/29/21 History capsule alum-mag hydroxide-simeth [Mag-Al 30 ml PO TID PRN #180 ml 04/09/21 07/29/21 Rx Plus] pravastatin 20 mg PO HS 06/09/21 07/29/21 History Trelegy Ellipta 1 inh INHALATION DAILY 06/29/21 07/29/21 History albuterol sulfate 1 puff INHALATION Q6H PRN 06/29/21 07/29/21 History famotidine 20 mg PO DAILY 06/29/21 07/29/21 History ipratropium-albuterol 3 ml INHALATION Q6H PRN 06/29/21 07/29/21 History montelukast 10 mg PO DAILY 06/29/21 07/29/21 History demeclocycline 150 mg PO QID #120 tablet 07/10/21 07/29/21 Rx diltiazem HCl 60 mg PO Q6HR #120 tablet 07/10/21 07/29/21 Rx losartan 100 mg PO DAILY #30 tablet 07/10/21 07/29/21 Rx polyethylene glycol 3350 [Miralax] 17 g PO QAM #30 ea 07/10/21 07/29/21 Rx sertraline [Zoloft] 25 mg PO HS #30 tablet 07/10/21 07/29/21 Rx aspirin 81 mg tablet,delayed 81 mg PO DAILY 07/12/21 07/29/21 History release cholecalciferol (vitamin D3) 1,250 50,000 u
[2021-07-30] MEDS: MORPHINE SULFATE (*CRX) 15 MG TABCR PO (21:03)
[2021-07-31] MEDS: dilTIAZem HCL 30 MG TABLET PO ×2 (00:04→05:42)
[2021-07-31 02:40] VITALS: PULSE 92; RESP 23
[2021-07-31 02:41] VITALS: RESP 23; O2SAT 92
[2021-07-31] MEDS: ALBUTEROL SULFATE NEB 2.5 MG/3 ML INH INHALATION (02:42)
[2021-07-31] MEDS: IPRATROPIUM BR 0.02% INH SOLN 0.5 MG/2.5 ML VIAL INHALATION ×2 (02:43→08:51)
[2021-07-31 02:47] VITALS: RESP 26
[2021-07-31 08:00] VITALS: PULSE 91; RESP 22; O2SAT 92
[2021-07-31 08:45] VITALS: PULSE 98; RESP 24
[2021-07-31] MEDS: ALBUTEROL SULFATE NEB 2.5 MG/0.5 ML INH (08:51)
[2021-07-31 08:55] VITALS: PULSE 91; RESP 22
[2021-07-31] MEDS: SENNOSIDES 8.6 MG TABLET PO (09:04)
[2021-07-31] MEDS: AZITHROMYCIN 250 MG TABLET 500 MG PO (09:04)
[2021-07-31] MEDS: PANTOPRAZOLE 40 MG TABLET PO (09:04)
[2021-07-31] MEDS: SERTRALINE HCL 25 MG TABLET PO (09:04)
[2021-07-31] MEDS: MORPHINE SULFATE (*CRX) 15 MG TABCR PO (09:04)
[2021-07-31] MEDS: APIXABAN 5 MG TABLET 10 MG PO (09:05)
--- NOTE | 2021-07-31 12:21 | PM.DS ---
DS: Admitting Diagnosis Discharge Date Patient was seen and evaluated via FaceTime on 07/31/2021 Admitting Diagnosis uncontrolled dyspnea and anxiety DS: Discharge Diagnosis Discharge Diagnosis (1) Palliative care by specialist: Code(s): Z51.5 - Encounter for palliative care Status: Acute Assessment and Plan: MET INPATIENT HOSPICE CRITERIA DUE TO UNCONTROLLED DYSPNEA AND ANXIETY SYMPTOMS WERE CONTROLLED WITH CONTINUOUS IV MORPHINE AND PRN LORZEPAM 07/30 PM TRANSITIONED TO PO MEDS AND SYMPTOMS REMAINED WELL CONTROLLED 07/31 PATIENT WISHED TO GO HOME WITH HOSPICE FOLLOWING OUTPATIENT (2) Acute on chronic respiratory failure with hypoxia and hypercapnia: Code(s): J96.21 - Acute and chronic respiratory failure with hypoxia; J96.22 - Acute and chronic respiratory failure with hypercapnia Status: Acute (3) End stage chronic obstructive pulmonary disease: Code(s): J44.9 - Chronic obstructive pulmonary disease, unspecified Status: Acute (4) Hyponatremia: Code(s): E87.1 - Hypo-osmolality and hyponatremia Status: Chronic (5) Malnutrition: Qualifiers: Malnutrition type: protein-calorie malnutrition Protein-calorie malnutrition severity: moderate Qualified Code(s): E44.0 - Moderate protein-calorie malnutrition Code(s): E46 - Unspecified protein-calorie malnutrition Status: Acute (6) Essential hypertension: Code(s): I10 - Essential (primary) hypertension Status: Chronic (7) Lung mass: Onset Date: ~03/30/21 Code(s): R91.8 - Other nonspecific abnormal finding of lung field Status: Acute (8) Anxiety: Code(s): F41.9 - Anxiety disorder, unspecified Status: Acute (9) Oxygen dependent: Code(s): Z99.81 - Dependence on supplemental oxygen Status: Acute (10) DVT of left axillary vein, acute: Code(s): I82.A12 - Acute embolism and thrombosis of left axillary vein Status: Acute DS: Summary Hospital Course Hospital Course: ADMITTED DUE TO UNCONTROLLED ANXIETY AND DYSPNEA. SYMPTOMS WERE WELL CONTROLLED AT DISCHARGE. Time Spent with Patient Time attestation: Total time spent providing and/or coordinating discharge services: Time spent: Greater than 30 minutes Exam Narrative: ALERT. NAD. MILDLY TACHYPNEIC. OX4. Discharge Plan Discharge Discharging Clinician: Jeremías Salazar Patient Disposition: Hospice - Home Activity: no straining and no driving Diet: as tolerated Patient Instructions: Apixaban (By mouth), Hospice Care (GEN), Chronic Respiratory Failure (DC) Stand Alone Forms: General Discharge Information Discharge Medications: New morphine 15 mg Tablet Extended Release 15 mg PO Q12HR Qty: 8 RF: 0 lorazepam 1 mg tablet 1 mg PO Q6H PRN (Reason: anxiety) Qty: 16 RF: 0 morphine concentrate 100 mg/5 mL (20 mg/mL) solution 5 mg PO Q2H Qty: 30 RF: 0 bisacodyl 10 mg Suppository 10 mg RECTAL QAM PRN (Reason: Constipation) Qty: 4 RF: 0 diltiazem HCl 30 mg Tablet 30 mg PO Q6HR Qty: 16 RF: 0 sennosides [Senokot] 8.6 mg Tablet 8.6 mg PO DAILY Qty: 4 RF: 0 apixaban 5 mg tablet 5 mg PO Q12H Qty: 60 RF: 0 Continued fluticasone propionate 50 mcg/actuation spray,suspension 1 spray intranasal BID Qty: 16 RF: 11 ipratropium-albuterol 0.5 mg-3 mg(2.5 mg base)/3 mL solution for nebulization 3 ml INHALATION Q6H PRN (Reason: Shortness Of Breath Or Wheezing) RF: 0 montelukast 10 mg tablet 10 mg PO DAILY RF: 0 albuterol sulfate 90 mcg/actuation HFA aerosol inhaler 1 puff INHALATION Q6H PRN (Reason: Shortness Of Breath Or Wheezing) RF: 0 Trelegy Ellipta 100-62.5-25 mcg Blister With Device 1 inh INHALATION DAILY RF: 0 sertraline [Zoloft] 50 mg Tablet 25 mg PO HS Qty: 30 RF: 0 Changed famotidine 20 mg tablet 20 mg PO BID Qty: 8 RF: 0 Discontinued omega-3 fatty acids [[place]-3] 1,000 mg capsule
== END 2021-07-31 14:45 | disposition hospice, home (50) | DRG 951 ==
LOC: ANHICU 20:01 → ANH3MEDSUR 20:20
PROVIDERS: Admitting Provider Internal Medicine; Visit Provider Internal Medicine
DX: Z51.5 Encounter for palliative care (principal); J96.21 Acute and chronic respiratory failure with hypoxia; J96.22 Acute and chronic respiratory failure with hypercapnia; E87.1 Hypo-osmolality and hyponatremia; E44.0 Moderate protein-calorie malnutrition; I82.A12 Acute embolism and thrombosis of left axillary vein; Z68.1 Body mass index [BMI] 19.9 or less, adult; J44.9 Chronic obstructive pulmonary disease, unspecified; I10 Essential (primary) hypertension; R91.8 Other nonspecific abnormal finding of lung field; F41.9 Anxiety disorder, unspecified; Z99.81 Dependence on supplemental oxygen; K21.9 Gastro-esophageal reflux disease without esophagitis; E78.2 Mixed hyperlipidemia; E55.9 Vitamin D deficiency, unspecified; Z80.3 Family history of malignant neoplasm of breast; Z80.1 Family history of malignant neoplasm of trachea, bronchus and lung; Z82.49 Family history of ischemic heart disease and other diseases of the circulatory system; Z87.891 Personal history of nicotine dependence; Z79.899 Other long term (current) drug therapy; Z66 Do not resuscitate
CPT/HCPCS: 94002; 94003; 94640; A9270; J2270